=== PATIENT | male | born 1945 | race Caucasian/White ===

== ENCOUNTER → 2017-09-15 | Outpatient (CLI) | payer MEDICARE ==
[2017-09-15 14:01] VITALS: BP 131/76; PULSE 75; RESP 16; TEMP 97.9; BMI 37.3
--- NOTE | 2017-09-15 16:22 | P.HPBAR ---
Bariatric H&P - History & Physicial H&P Date: 09/15/17 History & Physicial: Visit/CC: band fill Patient initial contact: Initial weight: 179.623 kg Initial weight in pounds: 396.00 Height: 6 ft Initial BMI: 53.6 Last weight: Current weight: 124.965 kg Current weight in pounds: 275.50 Current BMI: 37.3 [place] body weight (based on NIH guidelines): 80.739 kg Excess body weight loss: 55.2% The patient is a 72 year-old M who presents for Bariatric Assessment. A shunt presents today for lab band follow up. He has not been seen several years. He has complaints of hunger. He wants a fill of his band. Past Medical History Past Medical History: Coronary Artery Disease (CAD), Hypertension, Neurologic Disorder Additional Past Medical History / Comment(s): parkinsons History of Any Multi-Drug Resistant Organisms: None Reported Past Surgical History: Bariatric Surgery, Cholecystectomy, Heart Catheterization Additional Past Surgical History / Comment(s): has two implanted batteries for parkinsons lap band surgery 2009 Past Anesthesia/Blood Transfusion Reactions: No Reported Reaction Past Psychological History: No Psychological Hx Reported Smoking Status: Former smoker Past Alcohol Use History: None Reported Past Drug Use History: None Reported Surgical - Exam Vital Signs Temp Pulse Resp BP 97.9 F 75 16 131/76 09/15/17 13:53 09/15/17 13:53 09/15/17 13:53 09/15/17 13:53 - General well developed, no distress - Eyes PERRL - ENT normal pinna - Neck no masses - Respiratory normal expansion - Cardiovascular Rhythm: regular - Abdomen Abdomen: soft, non tender Bariatric Assessment & Plan Plan: Patient's lap band was adjusted. He had 1 mL added to his band. He was ill drink water without difficulty. He'll follow-up in one month. Bariatric Checklist Checklist: Plan: Checklist: EGD: 1. Hiatal hernia: 2. H. Pylori: HgbA1c: Vitamin D: Smoking: Former smoker Primary care physician referral: dr manley Psychiatry clearance: Cardiology clearance: Sleep study: Diet journal: VTE risk score: VTE risk level: Rehab needs at discharge:
== END ==
LOC: BARWHC3 13:41
PROVIDERS: ATTEND Surgery
DX: Z48.815 Encounter for surgical aftercare following surgery on the digestive system (principal); Z87.891 Personal history of nicotine dependence; Z98.84 Bariatric surgery status
CPT/HCPCS: 99212

== ENCOUNTER → 2017-11-10 | Outpatient (CLI) | payer MEDICARE ==
[2017-11-10 14:52] VITALS: BP 161/88; PULSE 73; RESP 16; TEMP 98.1; BMI 38.2
--- NOTE | 2017-11-10 16:19 | P.HPBAR ---
Bariatric H&P - History & Physicial H&P Date: 11/10/17 History & Physicial: Visit/CC: Patient initial contact: Initial weight: 179.623 kg Initial weight in pounds: 396.00 Height: 6 ft Initial BMI: 53.6 Last weight: Current weight: 127.715 kg Current weight in pounds: 281.56 Current BMI: 38.2 [place] body weight (based on NIH guidelines): 80.739 kg Excess body weight loss: 52.4% The patient is a 72 year-old M who presents for Bariatric Assessment. The patient is requesting a fill of his LAP-BAND. He currently feels hungry. Past Medical History Past Medical History: Coronary Artery Disease (CAD), Hypertension, Neurologic Disorder Additional Past Medical History / Comment(s): parkinsons History of Any Multi-Drug Resistant Organisms: None Reported Past Surgical History: Bariatric Surgery, Cholecystectomy, Heart Catheterization Additional Past Surgical History / Comment(s): has two implanted batteries for parkinsons lap band surgery 2009 Past Anesthesia/Blood Transfusion Reactions: No Reported Reaction Past Psychological History: No Psychological Hx Reported Smoking Status: Former smoker Past Alcohol Use History: None Reported Past Drug Use History: None Reported Surgical - Exam Vital Signs Temp Pulse Resp BP 98.1 F 73 16 161/88 11/10/17 14:36 11/10/17 14:36 11/10/17 14:36 11/10/17 14:36 - General well developed, no distress - Eyes PERRL - ENT normal pinna - Neck no masses - Respiratory normal expansion - Cardiovascular Rhythm: regular - Abdomen Abdomen: soft, non tender Bariatric Assessment & Plan Plan: The patient LAP-BAND was addressed. He had 0.5 mL added to the band. He will follow-up in one month . Bariatric Checklist Checklist: Plan: Checklist: EGD: 1. Hiatal hernia: 2. H. Pylori: HgbA1c: Vitamin D: Smoking: Former smoker Primary care physician referral: dr manley Psychiatry clearance: Cardiology clearance: Sleep study: Diet journal: VTE risk score: VTE risk level: Rehab needs at discharge:
== END | disposition home or self-care (01) ==
LOC: BARWHC3 13:54
PROVIDERS: ATTEND Surgery
DX: Z48.815 Encounter for surgical aftercare following surgery on the digestive system (principal); Z87.891 Personal history of nicotine dependence; Z98.84 Bariatric surgery status
CPT/HCPCS: 99211

== ENCOUNTER → 2019-05-10 | Outpatient (CLI) | payer MEDICARE ==
--- NOTE | 2019-05-10 13:15 | US ---
EXAMINATION TYPE: US venous doppler duplex LE RT DATE OF EXAM: 05/10/2019 12:47 PM COMPARISON: NONE CLINICAL HISTORY: 73-year-old male pain in limb M25.571. Pt states right leg pain SIDE PERFORMED: Right TECHNIQUE: The lower extremity deep venous system is examined utilizing real time linear array sonog stevie with graded compression, doppler sonography and color-flow sonography. FINDINGS: VESSELS IMAGED: External Iliac Vein (EIV) Common Femoral Vein Deep Femoral Vein Greater Saphenous Vein * Femoral Vein Popliteal Vein Small Saphenous Vein * Proximal Calf Veins Posterior tibial veins are secured by extensive subcutaneous soft tissue edema. (* Superficial vessels) Right Leg: Negative for DVT IMPRESSION: 1. No evidence for DVT within the right lower extremity imaged from the groin to the upper calf. 2. The posterior tibial veins are obscured by extensive subcutaneous soft tissue swelling.
== END | disposition home or self-care (01) ==
LOC: RADUSWWP 12:25
PROVIDERS: ATTEND Orthopaedic Surgery
DX: M79.89 Other specified soft tissue disorders (principal); E11.9 Type 2 diabetes mellitus without complications; G20 Parkinson's disease; I11.9 Hypertensive heart disease without heart failure; M19.071 Primary osteoarthritis, right ankle and foot

== ENCOUNTER → 2019-05-17 | Outpatient (CLI) | payer MEDICARE ==
--- NOTE | 2019-05-17 17:47 | CT ---
EXAMINATION TYPE: CT ankle RT wo con DATE OF EXAM: 05/17/2019 COMPARISON: None HISTORY: Pain end 25.571 CT DLP: 168.9 mGycm Automated exposure control for dose reduction was used. CONTRAST: None FINDINGS: There is prominent soft tissue swelling within the distal ankle. There is an old fibular fracture jeremy dent. Old medial malleolar fracture is evident. There appears to be some subluxation of the talus lat erally in relation to the distal tibia. There is complete loss of the tibiotalar joint space with vac uum phenomenon. Subchondral cyst formation is evident within the talar dome as well as talocalcaneal junction posteriorly. An old posterior tibial fracture is not entirely excluded. Bohler's angle appears preserved. Acute fractures are not identified IMPRESSION: 1. ADVANCED OSTEOARTHRITIC DEGENERATIVE CHANGE THROUGH THE TALOTIBIAL JUNCTION. THIS MAY BE POSTTRAUM ATIC IN NATURE. 2. OLD POSTTRAUMATIC CHANGES INCLUDING MILD LATERAL SUBLUXATION OF THE TALUS IN RELATION TO THE TIBIA AND WIDENING OF THE MEDIAL PORTION OF THE MEDIAL ANKLE MORTISE.
== END | disposition home or self-care (01) ==
LOC: RADCTMAIN 15:22
PROVIDERS: ATTEND Orthopaedic Surgery
DX: M19.071 Primary osteoarthritis, right ankle and foot (principal); G20 Parkinson's disease; E11.9 Type 2 diabetes mellitus without complications; I11.9 Hypertensive heart disease without heart failure; S82.841D Displaced bimalleolar fracture of right lower leg, subsequent encounter for closed fracture with routine healing

== ENCOUNTER 2019-05-20 09:38 | Emergency (ER) | payer MEDICARE ==
[2019-05-20 10:06] LABS: Basophils # (A) 0.1 k/uL (0-0.2); Basophils % (A) 1 %; Eosinophils # (A) 0.3 k/uL (0-0.7); Eosinophils % (A) 2 %; HCT 39.9 % (39.0-53.0); HGB 13.5 gm/dL (13.0-17.5); Lymphocytes # (A) 1.3 k/uL (1.0-4.8); Lymphocytes % (A) 7 %; MCH 31.4 pg (25.0-35.0); MCHC 33.7 g/dL (31.0-37.0); MCV 93.3 fL (80.0-100.0); Mean Platelet Volume 6.9; Monocytes # (A) 0.5 k/uL (0-1.0); Monocytes % (A) 3 %; Neutrophils # (A) 16.4 k/uL (1.3-7.7); Neutrophils % (A) 87 %; Platelet Count 222 k/uL (150-450); RBC 4.28 m/uL (4.30-5.90); RDW 14.3 % (11.5-15.5); WBC 18.8 k/uL (3.8-10.6)
[2019-05-20 10:18] LABS: ALT 8 U/L (21-72); AST 17 U/L (17-59); African American GFR (CKD) >90 (>60 ml/min/1.73 sqM); Albumin 3.7 g/dL (3.5-5.0); Alkaline Phosphatase 148 U/L (38-126); Anion Gap 11 mmol/L; Blood Urea Nitrogen 24 mg/dL (9-20); Calcium 9.4 mg/dL (8.4-10.2); Carbon Dioxide 24 mmol/L (22-30); Chloride 105 mmol/L (98-107); Creatine Kinase 37 U/L (55-170); Glucose 280 mg/dL (74-99); Magnesium 1.5 mg/dL (1.6-2.3); Sodium 140 mmol/L (137-145); Total Bilirubin 0.6 mg/dL (0.2-1.3); Total Protein 6.6 g/dL (6.3-8.2)
[2019-05-20 10:23] LABS: Partial Thromboplastin Time 23.7 sec (22.0-30.0); Prothrombin Time 10.5 sec (9.0-12.0)
[2019-05-20 10:32] LABS: D-Dimer 0.96 mg/L FEU (<0.60)
--- NOTE | 2019-05-20 10:52 | XR ---
EXAMINATION TYPE: XR chest 2V DATE OF EXAM: 05/20/2019 COMPARISON: Prior chest x-ray dated 04/09/2012 HISTORY: Shortness of breath and chest pain TECHNIQUE: Frontal and lateral views of the chest are obtained. FINDINGS: There are generators over the bilateral pectoral regions with leads coursing cephalad off t he edge of the exam. There is no pneumothorax or pleural effusion. There are overlying cardiac leads. Cardiac mediastinal silhouette, pulmonary vascularity and isr[place] are stable. Patient is again rotated . No evident airspace disease. Thoracic spondylosis is present. IMPRESSION: No acute cardiopulmonary process.
--- NOTE | 2019-05-20 11:50 | CT ---
EXAMINATION TYPE: CT angio chest DATE OF EXAM: 05/20/2019 COMPARISON: Chest x-ray same date HISTORY: Mid Chest pain with shortness of breath CT DLP: 721.6 mGycm Automated exposure control for dose reduction was used. CONTRAST: CTA scan of the thorax is performed with IV Contrast, patient injected with 100 mL of Isovue 370, pul monary embolism protocol. MIP images are created and reviewed. 3D reconstructed images are created on an independent workstation and reviewed. FINDINGS: LUNGS: The lungs are grossly clear, there is no concerning parenchymal mass or nodule identified. Th ere is some motion which could limit sensitivity. Some minimal probable scarring present adjacent to the spine. There is no pleural effusion or pneumothorax seen. The tracheobronchial tree is patent. AORTA: No additional significant abnormality is seen. MEDIASTINUM: There is satisfactory enhancement of the pulmonary artery and its branches, there is no CT evidence for pulmonary embolism. There are no greater than 1 cm hilar or mediastinal lymph nodes. No pericardial effusion is seen. Patient is post lap band and there is air-fluid level present thr oughout the distribution of the mildly distended esophagus. There are coronary artery calcifications present. OTHER: Calcifications present within the spleen suggesting old granulomatous disease. Stimulator is present in the pectoral regions show leads coursing in a cephalad direction. Thoracic s pondylosis is present. IMPRESSION: No evident pulmonary embolism. CORRELATE FOR POSSIBLE RELATIVE OBSTRUCTION AT THE LEVEL OF THE PATIEN T'S GASTROESOPHAGEAL JUNCTION, LAP BAND.
--- NOTE | 2019-05-20 12:42 | ED ---
Chest Pain HPI - General Chief Complaint: Chest Pain Stated Complaint: Chest Pain Time Seen by Provider: 05/20/19 09:38 Source: patient, EMS, RN notes reviewed Mode of arrival: EMS Limitations: no limitations - History of Present Illness Initial Comments: This is a 73-year-old male with a history of Parkinson's disease who does have nerve stimulators who states that he had the onset at 7:00 this morning of sharp midsternal chest pain with no radiation no overt shortness of breath fevers chills nausea or other symptoms. He was brought in by EMS. State that he felt much improved after arrival. He denies any other complaints this timetrauma no stress was upper torso or extremities. No fevers chills cough phlegm production dysuria hematuria or other symptoms abdominal pain. MD Complaint: chest pain - Related Data Home Medications Medication Instructions Recorded Confirmed Allopurinol [Zyloprim] 300 mg PO DAILY 07/28/17 05/20/19 Aspirin 81 mg PO DAILY 07/28/17 05/20/19 Hydrochlorothiazide [Hydrodiuril] 12.5 mg PO DAILY 07/28/17 05/20/19 Metoprolol Succinate [Toprol XL] 25 mg PO DAILY 07/28/17 05/20/19 Pravastatin Sodium [Pravachol] 40 mg PO HS 07/28/17 05/20/19 Tamsulosin [Flomax] 0.4 mg PO DAILY 07/28/17 05/20/19 glipiZIDE [Glucotrol] 5 mg PO DAILY 07/28/17 05/20/19 metFORMIN HCL [Glucophage] 1,000 mg PO BID 07/28/17 05/20/19 Carbidopa-Levodopa ER 50-200Mg 1 tab PO BID@0800,1200 05/20/19 05/20/19 [Sinemet ER 50-200] Potassium Chloride ER [K-Dur 10] 10 meq PO DAILY 05/20/19 05/20/19 Pramipexole Di-HCl [Mirapex] 3 mg PO DAILY 05/20/19 05/20/19 Previous Rx's Medication Instructions Recorded Ibuprofen 800 mg PO Q6HR PRN #20 tablet 05/20/19 Allergies Allergy/AdvReac Type Severity Reaction Status Date / Time No Known Allergies Allergy Verified 05/20/19 09:50 Review of Systems ROS Statement: Those systems with pertinent positive or pertinent negative responses have been documented in the HPI. ROS Other: All systems not noted in ROS Statement are negative. EKG Findings - EKG Results: EKG: interpreted by ERMD (Sinus arrhythmia with artifact present from the stimulator. Rate was 76 QRS 96 QT since QTC 44/454 this does correlate with that submitted by EMS.) Past Medical History Past Medical History: Coronary Artery Disease (CAD), Diabetes Mellitus, Hypertension, Myocardial Infarction ([place]), Neurologic Disorder Additional Past Medical History / Comment(s): parkinsons History of Any Multi-Drug Resistant Organisms: None Reported Past Surgical History: Bariatric Surgery, Cholecystectomy, Heart Catheterization Additional Past Surgical History / Comment(s): has two implanted batteries for parkinsons lap band surgery 2009 Past Anesthesia/Blood Transfusion Reactions: No Reported Reaction Past Psychological History: No Psychological Hx Reported Smoking Status: Former smoker Past Alcohol Use History: None Reported Past Drug Use History: None Reported General Exam - General Exam Comments Initial Comments: This is a well-developed well-nourished awake alert oriented times 3 male Limitations: no limitations General appearance: alert, in no apparent distress Head exam: Present: atraumatic, normocephalic, normal inspection Eye exam: Present: normal appearance, PERRL, EOMI. Absent: scleral icterus, conjunctival injection, periorbital swelling ENT exam: Present: normal exam, mucous membranes moist Neck exam: Present: normal inspection. Absent: tenderness, meningismus, lymphadenopathy Respiratory exam: Present: normal lung sounds bilaterally, chest wall tenderness (Tenderness palpation over the costal sternal margin especially on the right the battery packs in the right upper and left upper chest wall are intact.). Absent: respiratory distress, wheezes, rales, rhonchi, stridor Cardiovascular Exam: Present: regular rate, normal rhythm, normal heart sounds. Absent: systolic murmur, diastolic murmur, rubs, gallop, clicks GI/Abdominal exam: Present: soft, normal bowel sounds. Absent: distended, tenderness, guarding, rebound, rigid Extremities exam: Present: normal inspection, full ROM, normal capillary refill. Absent: tenderness, pedal edema, joint swelling, calf tenderness Back exam: Present: normal inspection Neurological exam: Present: alert, oriented X3, CN II-XII intact Psychiatric exam: Present: normal affect, normal mood Skin exam: Present: warm, dry, intact, normal color. Absent: rash Course Vital Signs 05/20/19 05/20/19 05/20/19 09:40 09:47 10:00 Temperature 98.1 F Pulse Rate 75 76 72 Respiratory 20 14 22 Rate Blood Pressure 149/90 149/90 O2 Sat by Pulse 97 96 Oximetry 05/20/19 05/20/19 05/20/19 10:30 11:00 11:30 Temperature Pulse Rate 76 63 Respiratory 25 H 10 L Rate Blood Pressure 139/87 173/115 141/88 O2 Sat by Pulse 99 98 Oximetry 05/20/19 12:00 Temperature Pulse Rate Respiratory Rate Blood Pressure 141/88 O2 Sat by Pulse Oximetry Chest Pain MDM - MDM I did review the imaging and report no acute findings are seen. No evidence of PE. I did a long discussion the patient family regarding the findings. The presentation consistent with chest wall pain/costochondritis. The leukocytosis is likely reactive has no infectious processes are identified he's had no dysuria hematuria flank pain or other symptoms. He's eating has I was discussing with this without any difficulty. He'll be discharged with follow-up with his doctor return when necessary additionally the presentation doesn't suggest a vasovagal episode. Disposition Clinical Impression: Costochondritis, Chest wall syndrome, Leukocytosis, Hypomagnesemia Disposition: HOME SELF-CARE Condition: Good Instructions (If sedation given, give patient instructions): Costochondritis (ED), Hypomagnesemia (ED) Additional Instructions: Prescriptions sent to your preferred [facility] pharmacy Prescriptions: Ibuprofen 800 mg PO Q6HR PRN #20 tablet PRN Reason: Pain Is patient prescribed a controlled substance at d/c from ED?: No Referrals: Bharti Nieto MD [Primary Care Provider] - 1-2 days
[2019-05-20 13:48] VITALS: BP 128/80; PULSE 58; RESP 18; TEMP 97.3
== END 2019-05-20 14:53 | disposition home or self-care (01) ==
LOC: EC 09:38
DX: M94.0 Chondrocostal junction syndrome [Tietze] (principal); E83.42 Hypomagnesemia; D72.829 Elevated white blood cell count, unspecified; I25.10 Atherosclerotic heart disease of native coronary artery without angina pectoris; E11.9 Type 2 diabetes mellitus without complications; I10 Essential (primary) hypertension; I25.2 Old myocardial infarction; G20 Parkinson's disease; Z87.891 Personal history of nicotine dependence; Z79.82 Long term (current) use of aspirin; Z79.84 Long term (current) use of oral hypoglycemic drugs; Z79.899 Other long term (current) drug therapy; Z95.818 Presence of other cardiac implants and grafts; Z96.89 Presence of other specified functional implants
CPT/HCPCS: 36415; 93005; 85379; 83880; 80053; 82550; 83735; 84484; 85025; 85610; 85730; 71046; 71275; 99285; Q9967

== ENCOUNTER → 2019-05-31 | Outpatient (CLI) | payer MEDICARE ==
[2019-05-31 14:46] VITALS: BP 138/89; PULSE 79; TEMP 97.6; BMI 38.5
--- NOTE | 2019-05-31 16:50 | P.HPBAR ---
Bariatric H&P - History & Physicial H&P Date: 05/31/19 History & Physicial: Visit/CC: band adjustment (night regurgitation) Patient initial contact: Initial weight: 179.623 kg Initial weight in pounds: 396.00 Height: 6 ft Initial BMI: 53.6 Last weight: Current weight: 128.639 kg Current weight in pounds: 283.60 Current BMI: 38.5 [place] body weight (based on NIH guidelines): 80.739 kg Excess body weight loss: 51.5% The patient is a 73 year-old M who presents for Bariatric Assessment. Patient presents today for her LAP-BAND adjustment. He states he is having issues with dysphagia. Past Medical History Past Medical History: Coronary Artery Disease (CAD), Diabetes Mellitus, Hypertension, Myocardial Infarction ([place]), Neurologic Disorder Additional Past Medical History / Comment(s): parkinsons Last Myocardial Infarction Date:: unknown History of Any Multi-Drug Resistant Organisms: None Reported Past Surgical History: Bariatric Surgery, Cholecystectomy, Heart Catheterization Additional Past Surgical History / Comment(s): has two implanted batteries for parkinsons lap band surgery 2009 Past Anesthesia/Blood Transfusion Reactions: No Reported Reaction Past Psychological History: No Psychological Hx Reported Smoking Status: Former smoker Past Alcohol Use History: None Reported Past Drug Use History: None Reported Surgical - Exam Vital Signs Temp Pulse BP 97.6 F 79 138/89 05/31/19 14:42 05/31/19 14:42 05/31/19 14:42 - General well developed, well nourished, no distress - Eyes PERRL - Abdomen Abdomen: soft, non tender Bariatric Assessment & Plan Plan: Dysphagia. Patient's lap band was adjusted. He had 2 mL removed from his band. He currently has 3 mL in the band. He'll follow-up in one month. Bariatric Checklist Checklist: Plan: Checklist: EGD: 1. Hiatal hernia: 2. H. Pylori: HgbA1c: Vitamin D: Smoking: Former smoker Primary care physician referral: dr manley Psychiatry clearance: Cardiology clearance: Sleep study: Diet journal: VTE risk score: VTE risk level: Rehab needs at discharge:
== END ==
LOC: BARWHC3 13:09
PROVIDERS: ATTEND Surgery
DX: Z48.815 Encounter for surgical aftercare following surgery on the digestive system (principal); R13.10 Dysphagia, unspecified; Z98.84 Bariatric surgery status; Z90.49 Acquired absence of other specified parts of digestive tract; Z87.891 Personal history of nicotine dependence
CPT/HCPCS: 99212

== ENCOUNTER → 2019-08-06 | Outpatient (CLI) | payer MEDICARE ==
[2019-08-06 08:56] LABS: C Reactive Protein <5.0 mg/L (<10.0); Uric Acid 4.5 mg/dL (3.5-8.5)
--- NOTE | 2019-08-06 11:52 | NM ---
EXAMINATION TYPE: NM bone 3 phase DATE OF EXAM: 08/06/2019 COMPARISON: No plain films or additional imaging made available for correlation HISTORY: Pain in right knee Triple phase bone scintigraphy was performed following the injection of 20 mCi Tc 99m MDP. Immediate images and 3.5 hours post injection images acquired. FINDINGS: There is photopenic defect present at the level of the right knee consistent with patient's history o f arthroplasty. There is no increased blood flow and blood pool activity noted the right knee. Left k nee show some mild decreased uptake on blood flow uptake and on delayed imaging the left knee shows u ptake likely due to osteoarthritic change. The right knee show some mild uptake along the tibial surface and also along the condyles of the dist al right femur which may be due to stress change. IMPRESSION: Mild uptake along the proximal tibia as described on delayed imaging is nonspecific, there are postop changes. Osteoarthritic change of the left knee.
== END ==
LOC: RADNMMAIN 07:13
PROVIDERS: ATTEND Orthopaedic Surgery
DX: M17.12 Unilateral primary osteoarthritis, left knee (principal); R93.7 Abnormal findings on diagnostic imaging of other parts of musculoskeletal system; Z98.890 Other specified postprocedural states
CPT/HCPCS: 85652; 84443; 84550; 86140; 78315; A9503

== ENCOUNTER 2019-09-09 05:56 | Emergency (ER) | payer MEDICARE ==
[2019-09-09 06:05] LABS: Glucose,Whole Blood 178 mg/dL (75-99)
[2019-09-09] MEDS ORDERED: SODIUM CHLORIDE 0.9% 500 ML 500 ML IV STA (06:05)
[2019-09-09] MEDS ORDERED: METOPROLOL TARTRATE 50 MG TAB PO STA (06:06)
[2019-09-09 06:07] VITALS: TEMP 99.3
[2019-09-09 06:19] LABS: Basophils % (A) 0 %; Eosinophils # (A) 0.1 k/uL (0-0.7); Eosinophils % (A) 1 %; HCT 43.1 % (39.0-53.0); HGB 14.4 gm/dL (13.0-17.5); Lymphocytes # (A) 0.8 k/uL (1.0-4.8); Lymphocytes % (A) 11 %; MCH 31.3 pg (25.0-35.0); MCHC 33.4 g/dL (31.0-37.0); MCV 93.6 fL (80.0-100.0); Mean Platelet Volume 7.6; Monocytes # (A) 0.3 k/uL (0-1.0); Monocytes % (A) 4 %; Neutrophils # (A) 6.1 k/uL (1.3-7.7); Neutrophils % (A) 83 %; Platelet Count 197 k/uL (150-450); RDW 13.8 % (11.5-15.5); WBC 7.4 k/uL (3.8-10.6)
[2019-09-09 06:28] LABS: ALT 45 U/L (4-49); AST 218 U/L (17-59); African American GFR (CKD) >90 (>60 ml/min/1.73 sqM); Albumin 3.8 g/dL (3.5-5.0); Alkaline Phosphatase 160 U/L (38-126); Blood Urea Nitrogen 28 mg/dL (9-20); Calcium 8.4 mg/dL (8.4-10.2); Carbon Dioxide 25 mmol/L (22-30); Creatine Kinase 53 U/L (55-170); Glucose 190 mg/dL (74-99); Magnesium 1.2 mg/dL (1.6-2.3); Non-African American GFR(CKD) >90 (>60 ml/min/1.73 sqM); Total Bilirubin 1.3 mg/dL (0.2-1.3); Total Protein 6.5 g/dL (6.3-8.2)
[2019-09-09 06:29] LABS: Appearance,Urine Clear (Clear); Bilirubin,Urine Negative (Negative); Blood,Urine Negative (Negative); Color,Urine Yellow; Glucose,Urine (UA) Negative (Negative); Ketones,Urine 1+ (Negative); Leukocyte Esterase,Urine Negative (Negative); Nitrite,Urine Negative (Negative); Protein,Urine Trace (Negative); Specific Gravity,Urine 1.025 (1.001-1.035)
[2019-09-09 06:30] LABS: Partial Thromboplastin Time 22.6 sec (22.0-30.0); Prothrombin Time 10.6 sec (9.0-12.0)
[2019-09-09 06:33] LABS: Anion Gap 10 mmol/L; Chloride 105 mmol/L (98-107); Sodium 140 mmol/L (137-145)
--- NOTE | 2019-09-09 06:33 | ED ---
General Adult HPI - General Source: patient, EMS, RN notes reviewed Mode of arrival: EMS Limitations: physical limitation <Nash Gray - Last Filed: 09/09/19 07:39> <Jairo Rivas - Last Filed: 09/09/19 08:04> - General Stated complaint: Weakness Time Seen by Provider: 09/09/19 05:57 - History of Present Illness Initial comments: This is a 74-year-old male presents emergency department via EMS chief complaint of generalized weakness. Patient has no specific complaints. Patient called EMS for a lift assist as he slid out of his bed and could not get up. Patient does have been ambulating as it is secondary to his Parkinson's disease. Patient denies any head injury no loss conscious. He states it barely slid out of his bed onto the ground. He has no pain associated with this. Patient has no complaints of headache, dizziness, blurred vision, chest pain, shortness breath, nausea vomiting no focal weakness. Patient states his general has weakness started primarily last night. Patient did not take his morning medications. Patient found be hypertensive does take metoprolol in the morning. Patient had prior lap band surgery, and plans for his Parkinson's disease. Patient denies any new medications or medication changes. (Nash Gray) - Related Data Home Medications Medication Instructions Recorded Confirmed Allopurinol [Zyloprim] 300 mg PO DAILY 07/28/17 09/09/19 Aspirin 81 mg PO DAILY 07/28/17 09/09/19 Hydrochlorothiazide [Hydrodiuril] 12.5 mg PO DAILY 07/28/17 09/09/19 Pravastatin Sodium [Pravachol] 40 mg PO HS 07/28/17 09/09/19 Tamsulosin [Flomax] 0.4 mg PO DAILY 07/28/17 09/09/19 glipiZIDE [Glucotrol] 5 mg PO DAILY 07/28/17 09/09/19 Potassium Chloride ER [K-Dur 10] 10 meq PO HS 05/20/19 09/09/19 Carbidopa-Levodopa 25-250 mg 1 tab PO TID 09/09/19 09/09/19 [Sinemet 25-250] Meloxicam 15 mg PO DAILY 09/09/19 09/09/19 Metoprolol Succinate (ER) [Toprol 50 mg PO DAILY 09/09/19 09/09/19 Xl] Pramipexole Di-HCl [Mirapex ER] 3 mg PO DAILY 09/09/19 09/09/19 metFORMIN HCL 1,000 mg PO BID 09/09/19 09/09/19 Allergies Allergy/AdvReac Type Severity Reaction Status Date / Time No Known Allergies Allergy Verified 09/09/19 07:03 Review of Systems ROS Other: All systems not noted in ROS Statement are negative. <Nash Gray - Last Filed: 09/09/19 07:39> ROS Other: All systems not noted in ROS Statement are negative. <Jairo Rivas - Last Filed: 09/09/19 08:04> ROS Statement: Those systems with pertinent positive or pertinent negative responses have been documented in the HPI. Past Medical History Past Medical History: Coronary Artery Disease (CAD), Diabetes Mellitus, Hypertension, Myocardial Infarction ([place]), Neurologic Disorder Additional Past Medical History / Comment(s): parkinsons Last Myocardial Infarction Date:: unknown History of Any Multi-Drug Resistant Organisms: None Reported Past Surgical History: Bariatric Surgery, Cholecystectomy, Heart Catheterization Additional Past Surgical History / Comment(s): has two implanted batteries for parkinsons lap band surgery 2009 Past Anesthesia/Blood Transfusion Reactions: No Reported Reaction Past Psychological History: No Psychological Hx Reported Smoking Status: Former smoker Past Alcohol Use History: None Reported Past Drug Use History: None Reported <Nash Gray - Last Filed: 09/09/19 07:39> General Exam Limitations: physical limitation General appearance: alert, in no apparent distress Head exam: Present: atraumatic, normocephalic, normal inspection Eye exam: Present: normal appearance, PERRL, EOMI. Absent: scleral icterus, conjunctival injection, periorbital swelling ENT exam: Present: normal exam, normal oropharynx, mucous membranes moist, TM's normal bilaterally Neck exam: Present: normal inspection, full ROM. Absent: tenderness, meningismus, lymphadenopathy Respiratory exam: Present: normal lung sounds bilaterally. Absent: respiratory distress, wheezes, rales, rhonchi, stridor Cardiovascular Exam: Present: regular rate, normal rhythm, normal heart sounds. Absent: systolic murmur, diastolic murmur, rubs, gallop, clicks GI/Abdominal exam: Present: soft, normal bowel sounds. Absent: distended, tenderness, guarding, rebound, rigid Extremities exam: Present: normal inspection, full ROM, normal capillary refill, other (No focal weakness). Absent: tenderness, pedal edema, joint swelling, calf tenderness Neurological exam: Present: alert, oriented X3, CN II-XII intact, reflexes normal. Absent: motor sensory deficit Skin exam: Present: warm, dry, intact, normal color. Absent: rash <Nash Gray - Last Filed: 09/09/19 07:39> Course <Jairo Rivas - Last Filed: 09/09/19 08:04> Vital Signs 09/09/19 09/09/19 09/09/19 06:01 06:30 07:00 Temperature 99.3 F Pulse Rate 84 80 70 Respiratory 18 18 17 Rate Blood Pressure 186/106 186/104 175/106 O2 Sat by Pulse 93 L 97 96 Oximetry - Reevaluation(s) Reevaluation #1: 09/09/19 08:04 T-sheet supervision: I proceeded [id number] evaluation the patient he did present by EMS earlier today because of weakness. Clinically he demonstrates evidence of dehydration. He also is hypomagnesemic. He did receive supplementation he initially much improved and is able ambulate walker as per normal. He was encouraged to increase oral fluid intake. I do agree with the assessment and plan the patient is in agreement with this. (Jairo Rivas) EKG Findings - EKG Comments: EKG Findings:: EKG performed at 5:58 normal sinus rhythm left anterior fascicular block rate of 82 NV 152 QRS 114 QT/QTC 432 /504 <Nash Gray - Last Filed: 09/09/19 07:39> Medical Decision Making - Lab Data Result diagrams: 09/09/19 06:00 09/09/19 06:00 <Nash Gray - Last Filed: 09/09/19 07:39> - Lab Data Result diagrams: 09/09/19 06:00 09/09/19 06:00 <Jairo Rivas - Last Filed: 09/09/19 08:04> - Medical Decision Making 74-year-old male presented for generalized weakness complaints. Patient found to have hypomagnesemia 1.2 was replaced with 1 g of magnesium IV, patient was mildly dehydrated was given fluid bolus patient feels improved able to stand and may relate with her as usual at home. Patient discharged. (Nash Gray) - Lab Data Lab Results 09/09/19 09/09/19 09/09/19 Range/Units 06:00 06:00 06:00 WBC 7.4 (3.8-10.6) k/uL RBC 4.60 (4.30-5.90) m/uL Hgb 14.4 (13.0-17.5) gm/dL Hct 43.1 (39.0-53.0) % MCV 93.6 (80.0-100.0) fL MCH 31.3 (25.0-35.0) pg MCHC 33.4 (31.0-37.0) g/dL RDW 13.8 (11.5-15.5) % Plt Count 197 (150-450) k/uL Neutrophils % 83 % Lymphocytes % 11 % Monocytes % 4 % Eosinophils % 1 % Basophils % 0 % Neutrophils # 6.1 (1.3-7.7) k/uL Lymphocytes # 0.8 L (1.0-4.8) k/uL Monocytes # 0.3 (0-1.0) k/uL Eosinophils # 0.1 (0-0.7) k/uL Basophils # 0.0 (0-0.2) k/uL PT (9.0-12.0) sec INR (<1.2) APTT (22.0-30.0) sec Sodium 140 (137-145) mmol/L Potassium 4.0 (3.5-5.1) mmol/L Chloride 105 (98-107) mmol/L Carbon Dioxide 25 (22-30) mmol/L Anion Gap 10 mmol/L BUN 28 H (9-20) mg/dL Creatinine 0.73 (0.66-1.25) mg/dL Est GFR (CKD-EPI)AfAm >90 (>60 ml/min/1.73 sqM) Est GFR (CKD-EPI)NonAf >90 (>60 ml/min/1.73 sqM) Glucose 190 H (74-99) mg/dL POC Glucose (mg/dL) (75-99) mg/dL POC Glu Manager Food Safety ID Plasma Lactic Acid [place]arrison 1.7 (0.7-2.0) mmol/L Calcium 8.4 (8.4-10.2) mg/dL Magnesium 1.2 L (1.6-2.3) mg/dL Total Bilirubin 1.3 (0.2-1.3) mg/dL AST 218 H (17-59) U/L ALT 45 (4-49) U/L Alkaline Phosphatase 160 H (38-126) U/L Creatine Kinase 53 L (55-170) U/L Troponin I (0.000-0.034) ng/mL Total Protein 6.5 (6.3-8.2) g/dL Albumin 3.8 (3.5-5.0) g/dL Urine Color Urine Appearance (Clear) Urine pH (5.0-8.0) Ur Specific [place] (1.001-1.035) Urine Protein (Negative) Urine Glucose (UA) (Negative) Urine Ketones (Negative) Urine Blood (Negative) Urine Nitrite (Negative) Urine Bilirubin (Negative) Urine Urobilinogen (<2.0) mg/dL Ur Leukocyte Esterase (Negative) 09/09/19 09/09/19 09/09/19 Range/Units 06:00 06:00 06:03 WBC (3.8-10.6) k/uL RBC (4.30-5.90) m/uL Hgb (13.0-17.5) gm/dL Hct (39.0-53.0) % MCV (80.0-100.0) fL MCH (25.0-35.0) pg MCHC (31.0-37.0) g/dL RDW (11.5-15.5) % Plt Count (150-450) k/uL Neutrophils % % Lymphocytes % % Monocytes % % Eosinophils % % Basophils % % Neutrophils # (1.3-7.7) k/uL Lymphocytes # (1.0-4.8) k/uL Monocytes # (0-1.0) k/uL Eosinophils # (0-0.7) k/uL Basophils # (0-0.2) k/uL PT 10.6 (9.0-12.0) sec INR 1.0 (<1.2) APTT 22.6 (22.0-30.0) sec Sodium (137-145) mmol/L Potassium (3.5-5.1) mmol/L Chloride (98-107) mmol/L Carbon Dioxide (22-30) mmol/L Anion Gap mmol/L BUN (9-20) mg/dL Creatinine (0.66-1.25) mg/dL Est GFR (CKD-EPI)AfAm (>60 ml/min/1.73 sqM) Est GFR (CKD-EPI)NonAf (>60 ml/min/1.73 sqM) Glucose (74-99) mg/dL POC Glucose (mg/dL) 178 H (75-99) mg/dL POC Glu Manager Food Safety ID Kathy Jaimes Plasma Lactic Acid [place] (0.7-2.0) mmol/L Calcium (8.4-10.2) mg/dL Magnesium (1.6-2.3) mg/dL Total Bilirubin (0.2-1.3) mg/dL AST (17-59) U/L ALT (4-49) U/L Alkaline Phosphatase (38-126) U/L Creatine Kinase (55-170) U/L Troponin I <0.012 (0.000-0.034) ng/mL Total Protein (6.3-8.2) g/dL Albumin (3.5-5.0) g/dL Urine Color Urine Appearance (Clear) Urine pH (5.0-8.0) Ur Specific [place] (1.001-1.035) Urine Protein (Negative) Urine Glucose (UA) (Negative) Urine Ketones (Negative) Urine Blood (Negative) Urine Nitrite (Negative) Urine Bilirubin (Negative) Urine Urobilinogen (<2.0) mg/dL Ur Leukocyte Esterase (Negative) 09/09/19 Range/Units 06:19 WBC (3.8-10.6) k/uL RBC (4.30-5.90) m/uL Hgb (13.0-17.5) gm/dL Hct (39.0-53.0) % MCV (80.0-100.0) fL MCH (25.0-35.0) pg MCHC (31.0-37.0) g/dL RDW (11.5-15.5) % Plt Count (150-450) k/uL Neutrophils % % Lymphocytes % % Monocytes % % Eosinophils % % Basophils % % Neutrophils # (1.3-7.7) k/uL Lymphocytes # (1.0-4.8) k/uL Monocytes # (0-1.0) k/uL Eosinophils # (0-0.7) k/uL Basophils # (0-0.2) k/uL PT (9.0-12.0) sec INR (<1.2) APTT (22.0-30.0) sec Sodium (137-145) mmol/L Potassium (3.5-5.1) mmol/L Chloride (98-107) mmol/L Carbon Dioxide (22-30) mmol/L Anion Gap mmol/L BUN (9-20) mg/dL Creatinine (0.66-1.25) mg/dL Est GFR (CKD-EPI)AfAm (>60 ml/min/1.73 sqM) Est GFR (CKD-EPI)NonAf (>60 ml/min/1.73 sqM) Glucose (74-99) mg/dL POC Glucose (mg/dL) (75-99) mg/dL POC Glu Manager Food Safety ID Plasma Lactic Acid [place] (0.7-2.0) mmol/L Calcium (8.4-10.2) mg/dL Magnesium (1.6-2.3) mg/dL Total Bilirubin (0.2-1.3) mg/dL AST (17-59) U/L ALT (4-49) U/L Alkaline Phosphatase (38-126) U/L Creatine Kinase (55-170) U/L Troponin I (0.000-0.034) ng/mL Total Protein (6.3-8.2) g/dL Albumin (3.5-5.0) g/dL Urine Color Yellow Urine Appearance Clear (Clear) Urine pH 5.0 (5.0-8.0) Ur Specific [place] 1.025 (1.001-1.035) Urine Protein Trace H (Negative) Urine Glucose (UA) Negative (Negative) Urine Ketones 1+ H (Negative) Urine Blood Negative (Negative) Urine Nitrite Negative (Negative) Urine Bilirubin Negative (Negative) Urine Urobilinogen 2.0 (<2.0) mg/dL Ur Leukocyte Esterase Negative (Negative) Disposition Is patient prescribed a controlled substance at d/c from ED?: No Time of Disposition: 07:40 <Nash Gray - Last Filed: 09/09/19 07:39> <Jairo Rivas - Last Filed: 09/09/19 08:04> Clinical Impression: Generalized weakness, Hypomagnesemia, Dehydration, mild Disposition: HOME SELF-CARE Condition: Stable Instructions (If sedation given, give patient instructions): Weakness (ED) Additional Instructions: Please return to the Emergency Department if symptoms worsen or any other concerns. Referrals: Bharti Nieto MD [Primary Care Provider] - 1-2 days
--- NOTE | 2019-09-09 06:38 | XR ---
EXAMINATION TYPE: XR chest 2V DATE OF EXAM: 09/09/2019 COMPARISON: 05/20/2019 HISTORY: Weakness TECHNIQUE: FINDINGS: Heart is normal. Lungs are clear of infiltrate. There is no heart failure. There is no pleu ral effusion. There are chest leads. IMPRESSION: No active cardiopulmonary disease. Normal heart. No change.
[2019-09-09] MEDS ORDERED: MAGNESIUM SULFATE-D5W PMX 1 GM in DEXTROSE/WATER 1 100ML.BAG IVPB ONE (06:40)
[2019-09-09 08:33] VITALS: RESP 16
[2019-09-09 10:20] VITALS: BP 148/82; PULSE 103
== END 2019-09-09 09:15 | disposition home or self-care (01) ==
LOC: EC 05:56
DX: E83.42 Hypomagnesemia (principal); E86.0 Dehydration; I10 Essential (primary) hypertension; I25.10 Atherosclerotic heart disease of native coronary artery without angina pectoris; E11.9 Type 2 diabetes mellitus without complications; I25.2 Old myocardial infarction; G20 Parkinson's disease; Z87.891 Personal history of nicotine dependence; Z79.1 Long term (current) use of non-steroidal anti-inflammatories (NSAID); Z79.82 Long term (current) use of aspirin; Z79.84 Long term (current) use of oral hypoglycemic drugs; Z79.899 Other long term (current) drug therapy; Z95.818 Presence of other cardiac implants and grafts; Z96.89 Presence of other specified functional implants; Z98.84 Bariatric surgery status
CPT/HCPCS: 99285; 96365; 36415; 93005; 80053; 82550; 83605; 83735; 84484; 85025; 85610; 85730; 81003; 71046; J3475

== ENCOUNTER → 2020-01-03 | Outpatient (CLI) | payer MEDICARE ==
[2020-01-03 10:59] LABS: Basophils # (A) 0.1 k/uL (0-0.2); Basophils % (A) 1 %; Eosinophils # (A) 0.4 k/uL (0-0.7); Eosinophils % (A) 5 %; HCT 42.6 % (39.0-53.0); HGB 13.7 gm/dL (13.0-17.5); Hypochromasia Slight; Lymphocytes % (A) 25 %; MCH 31.4 pg (25.0-35.0); MCHC 32.3 g/dL (31.0-37.0); MCV 97.4 fL (80.0-100.0); Mean Platelet Volume 7.6; Monocytes # (A) 0.3 k/uL (0-1.0); Monocytes % (A) 4 %; Neutrophils % (A) 63 %; Platelet Count 235 k/uL (150-450); RBC 4.37 m/uL (4.30-5.90); RDW 13.9 % (11.5-15.5); WBC 7.9 k/uL (3.8-10.6)
[2020-01-03 11:04] LABS: Appearance,Urine Clear (Clear); Bilirubin,Urine Negative (Negative); Blood,Urine Negative (Negative); Color,Urine Yellow; Glucose,Urine (UA) 3+ (Negative); Ketones,Urine Negative (Negative); Leukocyte Esterase,Urine Negative (Negative); Nitrite,Urine Negative (Negative); Protein,Urine Trace (Negative); Specific Gravity,Urine 1.025 (1.001-1.035)
[2020-01-03 16:47] LABS: Albumin/Globulin Ratio 1.9 (1.60-3.17); Calcium 8.9 mg/dL (8.7-10.3); Globulin 2.1 g/dL (1.6-3.3); Non-African American GFR(CKD) 73.3 (60.0-200.0); Potassium 4.3 mmol/L (3.5-5.5); Total Bilirubin 0.6 mg/dL (0.2-1.2); Total Protein 6.1 g/dL (6.2-8.2)
== END | disposition home or self-care (01) ==
LOC: LABWHC1 10:22
PROVIDERS: ATTEND Psychiatry & Neurology Neurology
DX: R41.82 Altered mental status, unspecified (principal); Z91.81 History of falling; Z87.828 Personal history of other (healed) physical injury and trauma
CPT/HCPCS: 36415; 80053; 81003; 85025; 87077; 87086; 87186

== ENCOUNTER → 2020-02-09 | Outpatient (CLI) | payer MEDICARE ==
--- NOTE | 2020-02-16 12:32 | P.ARTDOP ---
Arterial Doppler LOWER EXTREMITY ARTERIAL DOPPLER: DATE OF SERVICE: 02/09/2020 Reason for study: Left leg ulcer. Doppler waveforms: Multiphasic bilaterally throughout. Pulse volume recording: Normal waveforms. Pressure gradients: None. Ankle-brachial indices: Greater than 1 bilaterally. Toe brachial indices: 0.88 on the right, 0.99 on the left Impression:Normal study
== END | disposition home or self-care (01) ==
LOC: RADUSWWP 12:27
PROVIDERS: ATTEND Nurse Practitioner Family
DX: I87.333 Chronic venous hypertension (idiopathic) with ulcer and inflammation of bilateral lower extremity (principal); L97.222 Non-pressure chronic ulcer of left calf with fat layer exposed; L97.212 Non-pressure chronic ulcer of right calf with fat layer exposed
CPT/HCPCS: 93923

== ENCOUNTER → 2020-06-09 | Outpatient (CLI) | payer MEDICARE ==
[2020-06-09 12:10] LABS: Basophils # (A) 0.1 k/uL (0-0.2); Basophils % (A) 1 %; Eosinophils # (A) 0.4 k/uL (0-0.7); Eosinophils % (A) 4 %; HCT 41.5 % (39.0-53.0); HGB 13.2 gm/dL (13.0-17.5); Lymphocytes # (A) 2.6 k/uL (1.0-4.8); Lymphocytes % (A) 26 %; MCH 31.4 pg (25.0-35.0); MCHC 31.7 g/dL (31.0-37.0); MCV 99.1 fL (80.0-100.0); Mean Platelet Volume 7.1; Monocytes # (A) 0.4 k/uL (0-1.0); Monocytes % (A) 4 %; Neutrophils # (A) 6.4 k/uL (1.3-7.7); Neutrophils % (A) 64 %; Platelet Count 213 k/uL (150-450); RBC 4.19 m/uL (4.30-5.90)
[2020-06-09 19:53] LABS: Hemoglobin A1C 7.5 % (4.0-6.0)
[2020-06-10 00:58] LABS: African American GFR (CKD) 96.5 (60.0-200.0); Albumin 4.1 g/dL (3.80-4.90); Albumin/Globulin Ratio 1.78 (1.60-3.17); Anion Gap 10.4 mmol/L (4.00-12.00); BUN/Creat Ratio 26.67 Ratio (12.00-20.00); Calcium 9.5 mg/dL (8.7-10.3); Carbon Dioxide 27.6 mmol/L (21.6-31.8); Globulin 2.3 g/dL (1.6-3.3); Non-African American GFR(CKD) 83.3 (60.0-200.0); Potassium 4.3 mmol/L (3.5-5.5); Total Bilirubin 0.5 mg/dL (0.2-1.2); Total Protein 6.4 g/dL (6.2-8.2)
== END | disposition home or self-care (01) ==
LOC: LABWHC1 11:39
PROVIDERS: ATTEND Podiatrist
DX: G20 Parkinson's disease (principal); L97.821 Non-pressure chronic ulcer of other part of left lower leg limited to breakdown of skin; I73.9 Peripheral vascular disease, unspecified; I10 Essential (primary) hypertension; I25.10 Atherosclerotic heart disease of native coronary artery without angina pectoris; E10.21 Type 1 diabetes mellitus with diabetic nephropathy
CPT/HCPCS: 36415; 80053; 83036; 84134; 85025

== ENCOUNTER → 2020-06-22 | Outpatient (CLI) | payer MEDICARE ==
--- NOTE | 2020-06-23 08:52 | US ---
EXAMINATION TYPE: US venous doppler duplex LE BI DATE OF EXAM: 06/22/2020 3:32 PM COMPARISON: Ultrasound venous lower extremity right 05/10/2019. CLINICAL HISTORY: L73.9 PERIPHERAL VASCULAR DISEASE, UNSPECIFIED. SIDE PERFORMED: Bilateral TECHNIQUE: The lower extremity deep venous system is examined utilizing real time linear array sonog stevie with graded compression, doppler sonography and color-flow sonography. VESSELS IMAGED: External Iliac Vein (EIV) Common Femoral Vein Deep Femoral Vein Greater Saphenous Vein * Femoral Vein Popliteal Vein Small Saphenous Vein * Proximal Calf Veins (* superficial vessels) Right Leg: There is reflux of the right greater saphenous vein distally. Left Leg: There is eccentric intraluminal echogenicity of the left femoral vein distally, which is a t least partially if not completely compressible. There is reflux of the left femoral vein distally, left proximal calf veins. IMPRESSION: 1. Eccentric nonocclusive thrombus of the left femoral vein distally. At least partial compressibilit y of the vein suggests this may be chronic thrombus. 2. Reflux of the bilateral lower extremities as above. A Red level critical message alert has been initiated for Oneal Rodriguez DPM via the [employer] Critical Results System on 06/23/2020 8:49 AM. This message alert has been sent to Onael Rodriguez DPM via the preferences provided by the clinician for the receipt of Radiology Critical Findings. Lamar ball ID [id number].
== END | disposition home or self-care (01) ==
LOC: RADUSWWP 14:27
PROVIDERS: ATTEND Podiatrist
DX: I82.412 Acute embolism and thrombosis of left femoral vein (principal); I87.2 Venous insufficiency (chronic) (peripheral)
CPT/HCPCS: 93970

== ENCOUNTER 2021-09-25 10:44 | Inpatient (IN) | payer MEDICARE ==
[2021-09-25] MEDS ORDERED: SODIUM CHLORIDE 0.9% 500 ML 500 ML IV STA (10:59)
--- NOTE | 2021-09-25 11:10 | ED ---
General Adult HPI - General Chief complaint: Shortness of Breath Stated complaint: Altered Mental, Weakness, Covid Time Seen by Provider: 09/25/21 10:50 Source: patient, EMS, RN notes reviewed, old records reviewed Mode of arrival: EMS Limitations: no limitations - History of Present Illness Initial comments: This is a 76-year-old male who [facility]. Patient was sent into the emergency department because of worsening weakness and altered mental status. To what degree the weakness is worse or to what degree the patient is altered we do not know because no family member or staff has come with the patient. Patient also had low oxygenation. Patient is unable to tell us. Patient also was diagnosed with COVID on September 20. No history of any fever. - Related Data Home Medications Medication Instructions Recorded Confirmed Aspirin 81 mg PO DAILY 07/28/17 09/25/21 Pravastatin Sodium [Pravachol] 40 mg PO HS 07/28/17 09/25/21 Tamsulosin [Flomax] 0.4 mg PO HS 07/28/17 09/25/21 allopurinoL [Zyloprim] 300 mg PO DAILY 07/28/17 09/25/21 glipiZIDE [Glucotrol] 5 mg PO DAILY 07/28/17 09/25/21 Pramipexole Di-HCl [Mirapex ER] 3 mg PO DAILY 09/15/21 09/25/21 hydroCHLOROthiazide 25 mg PO DAILY 09/15/21 09/25/21 Carbidopa/Levodopa [Carbidopa-Levo 1 tab PO TID@0800,1300,1700 09/25/21 09/25/21 25-250 mg Odt] Cyanocobalamin (Vitamin B-12) 1,000 mcg PO DAILY 09/25/21 09/25/21 [Vitamin B-12] metFORMIN HCL [Glucophage] 1,000 mg PO DAILY 09/25/21 09/25/21 Previous Rx's Medication Instructions Recorded Acetaminophen Tab [Tylenol] 650 mg PO Q6HR PRN tab 09/20/21 Losartan [Cozaar] 25 mg PO DAILY #30 tab 09/20/21 Metoprolol Succinate (ER) [Toprol 50 mg PO DAILY 30 Days 09/20/21 XL] Allergies Allergy/AdvReac Type Severity Reaction Status Date / Time No Known Allergies Allergy Verified 09/25/21 12:04 Review of Systems ROS Statement: Those systems with pertinent positive or pertinent negative responses have been documented in the HPI. ROS Other: All systems not noted in ROS Statement are negative. Past Medical History Past Medical History: Coronary Artery Disease (CAD), Diabetes Mellitus, Hypertension, Myocardial Infarction ([place]), Neurologic Disorder Additional Past Medical History / Comment(s): parkinsons Last Myocardial Infarction Date:: unknown History of Any Multi-Drug Resistant Organisms: None Reported Past Surgical History: Bariatric Surgery, Cholecystectomy, Heart Catheterization Additional Past Surgical History / Comment(s): has two implanted batteries for parkinsons lap band surgery 2009 Past Anesthesia/Blood Transfusion Reactions: No Reported Reaction Past Psychological History: No Psychological Hx Reported Smoking Status: Former smoker Past Alcohol Use History: None Reported Past Drug Use History: None Reported General Exam - General Exam Comments Initial Comments: GENERAL: Patient is well-developed and well-nourished. Patient is nontoxic and well- hydrated and is in no acute distress. ENT: Neck is soft and supple. No significant lymphadenopathy is noted. Oropharynx is clear. Moist mucous membranes. Neck has full range of motion without eliciting any pain. EYES: The sclera were anicteric and conjunctiva were pink and moist. Extraocular movements were intact and pupils were equal round and reactive to light. Eyelids were unremarkable. PULMONARY: Unlabored respirations. Good breath sounds bilaterally. No audible rales rhonchi or wheezing was noted. CARDIOVASCULAR: There is a regular rate and rhythm without any murmurs gallops or rubs. ABDOMEN: Soft and nontender with normal bowel sounds. SKIN: Skin is clear with no lesions or rashes and otherwise unremarkable. NEUROLOGIC: Patient is alert and oriented 1. Cranial nerves II through XII are grossly intact. Motor and sensory are also intact. Normal speech, volume and content. Symmetrical smile. MUSCULOSKELETAL: Normal extremities with adequate strength and full range of motion. 2+ edema bilaterally LYMPHATICS: No significant lymphadenopathy is noted PSYCHIATRIC: Unable to assess secondary to altered mental status Limitations: no limitations Course Vital Signs 09/25/21 09/25/21 09/25/21 10:47 11:24 12:23 Temperature 99.2 F Pulse Rate 50 L 50 L 56 L Respiratory 28 H 22 20 Rate Blood Pressure 214/82 147/107 156/81 O2 Sat by Pulse 68 L 98 100 Oximetry Medical Decision Making - Medical Decision Making Chest x-ray no acute normalities. CT of the chest shows no PE Patient was oxygenating in the high 90s on 6 L. I spoke with Dr. Blackmon she agreed to admit the patient admitted the patient wrote admitting orders. - Lab Data Result diagrams: 09/25/21 11:20 09/25/21 11:20 Lab Results 09/25/21 09/25/21 09/25/21 Range/Units 11:20 11:20 11:20 WBC 8.0 (3.8-10.6) k/uL RBC 4.25 L (4.30-5.90) m/uL Hgb 13.7 (13.0-17.5) gm/dL Hct 41.0 (39.0-53.0) % MCV 96.6 (80.0-100.0) fL MCH 32.3 (25.0-35.0) pg MCHC 33.5 (31.0-37.0) g/dL RDW 13.5 (11.5-15.5) % Plt Count 175 (150-450) k/uL MPV 8.1 Neutrophils % 65 % Lymphocytes % 24 % Monocytes % 8 % Eosinophils % 2 % Basophils % 0 % Neutrophils # 5.2 (1.3-7.7) k/uL Lymphocytes # 1.9 (1.0-4.8) k/uL Monocytes # 0.6 (0-1.0) k/uL Eosinophils # 0.2 (0-0.7) k/uL Basophils # 0.0 (0-0.2) k/uL PT 10.2 (9.0-12.0) sec INR 0.9 (<1.2) APTT 22.9 (22.0-30.0) sec D-Dimer 0.88 H (<0.60) mg/L FEU Sodium 137 (137-145) mmol/L Potassium 4.4 (3.5-5.1) mmol/L Chloride 102 (98-107) mmol/L Carbon Dioxide 26 (22-30) mmol/L Anion Gap 9 mmol/L BUN 54 H (9-20) mg/dL Creatinine 1.13 (0.66-1.25) mg/dL Est GFR (CKD-EPI)AfAm 72 (>60 ml/min/1.73 sqM) Est GFR (CKD-EPI)NonAf 63 (>60 ml/min/1.73 sqM) Glucose 288 H (74-99) mg/dL Plasma Lactic Acid [place] (0.7-2.0) mmol/L Calcium 9.1 (8.4-10.2) mg/dL Magnesium 1.7 (1.6-2.3) mg/dL Total Bilirubin 1.1 (0.2-1.3) mg/dL AST 43 (17-59) U/L ALT 29 (4-49) U/L Alkaline Phosphatase 134 H (38-126) U/L Troponin I (0.000-0.034) ng/mL NT-Pro-B Natriuret Pep pg/mL Total Protein 7.2 (6.3-8.2) g/dL Albumin 4.1 (3.5-5.0) g/dL 09/25/21 09/25/21 09/25/21 Range/Units 11:20 11:20 11:30 WBC (3.8-10.6) k/uL RBC (4.30-5.90) m/uL Hgb (13.0-17.5) gm/dL Hct (39.0-53.0) % MCV (80.0-100.0) fL MCH (25.0-35.0) pg MCHC (31.0-37.0) g/dL RDW (11.5-15.5) % Plt Count (150-450) k/uL MPV Neutrophils % % Lymphocytes % % Monocytes % % Eosinophils % % Basophils % % Neutrophils # (1.3-7.7) k/uL Lymphocytes # (1.0-4.8) k/uL Monocytes # (0-1.0) k/uL Eosinophils # (0-0.7) k/uL Basophils # (0-0.2) k/uL PT (9.0-12.0) sec INR (<1.2) APTT (22.0-30.0) sec D-Dimer (<0.60) mg/L FEU Sodium (137-145) mmol/L Potassium (3.5-5.1) mmol/L Chloride (98-107) mmol/L Carbon Dioxide (22-30) mmol/L Anion Gap mmol/L BUN (9-20) mg/dL Creatinine (0.66-1.25) mg/dL Est GFR (CKD-EPI)AfAm (>60 ml/min/1.73 sqM) Est GFR (CKD-EPI)NonAf (>60 ml/min/1.73 sqM) Glucose (74-99) mg/dL Plasma Lactic Acid [place] 1.5 (0.7-2.0) mmol/L Calcium (8.4-10.2) mg/dL Magnesium (1.6-2.3) mg/dL Total Bilirubin (0.2-1.3) mg/dL AST (17-59) U/L ALT (4-49) U/L Alkaline Phosphatase (38-126) U/L Troponin I 0.037 H* (0.000-0.034) ng/mL NT-Pro-B Natriuret Pep 210 pg/mL Total Protein (6.3-8.2) g/dL Albumin (3.5-5.0) g/dL Disposition Clinical Impression: Altered mental status, Generalized weakness, Hypoxia, Elevated troponin Disposition: ADMITTED IP TO THIS HOSP Referrals: Bharti Nieto MD [Primary Care Provider] - 1-2 days Time of Disposition: 15:10
[2021-09-25 11:56] LABS: Basophils % (A) 0 %; Eosinophils # (A) 0.2 k/uL (0-0.7); Eosinophils % (A) 2 %; HGB 13.7 gm/dL (13.0-17.5); Lymphocytes # (A) 1.9 k/uL (1.0-4.8); Lymphocytes % (A) 24 %; MCH 32.3 pg (25.0-35.0); MCHC 33.5 g/dL (31.0-37.0); MCV 96.6 fL (80.0-100.0); Mean Platelet Volume 8.1; Monocytes # (A) 0.6 k/uL (0-1.0); Monocytes % (A) 8 %; Neutrophils # (A) 5.2 k/uL (1.3-7.7); Neutrophils % (A) 65 %; Platelet Count 175 k/uL (150-450); RBC 4.25 m/uL (4.30-5.90); RDW 13.5 % (11.5-15.5)
[2021-09-25 11:58] LABS: Albumin 4.1 g/dL (3.5-5.0); Calcium 9.1 mg/dL (8.4-10.2); Magnesium 1.7 mg/dL (1.6-2.3); Potassium 4.4 mmol/L (3.5-5.1); Total Bilirubin 1.1 mg/dL (0.2-1.3); Total Protein 7.2 g/dL (6.3-8.2)
--- NOTE | 2021-09-25 12:00 | XR ---
EXAMINATION TYPE: XR chest 2V DATE OF EXAM: 09/25/2021 COMPARISON: Chest x-ray 09/15/[address] 05/20/2019 HISTORY: Weakness TECHNIQUE: Frontal and lateral views of the chest are obtained. FINDINGS: There is no focal air space opacity, pleural effusion, or pneumothorax seen. The cardiac silhouette size is stable. Generators are present in the pectoral regions, leads coursing cephalad, there are overlying artifacts. Interstitium is thought to be mildly increased. The osseous structures are intact. Coronary artery calcifications are present. IMPRESSION: Findings are similar to prior exam. Mild interstitial changes are suspected within the c hest, correlate to exclude interstitial edema.
[2021-09-25 12:02] LABS: INR 0.9 (<1.2); Partial Thromboplastin Time 22.9 sec (22.0-30.0); Prothrombin Time 10.2 sec (9.0-12.0)
--- NOTE | 2021-09-25 13:33 | CT ---
EXAMINATION TYPE: CT chest angio for PE DATE OF EXAM: 09/25/2021 COMPARISON: 05/20/2019 HISTORY: Elevated d-dimer, covid. CT DLP: 814.4 mGycm CONTRAST: CT chest with contrast and 3D reconstruction with MIP imaging is performed with IV Contrast, patient injected with 100 mL of Isovue 370. Contrast-enhanced CT of the chest was performed through the course of the pulmonary arteries with evy g and mediastinal window settings submitted. 3D reconstruction with MIP imaging was also performed. PULMONARY ARTERIES: The pulmonary arteries and their major tributaries are patent. I do not see jeremy dence for sizable filling defect to suggest pulmonary embolic process. LUNGS: The lungs are clear and free of infiltrate. No evidence for atelectasis. No pulmonary nodule or mass is detected. No pleural effusion. MEDIASTINUM: Thoracic aorta is of normal caliber. The heart is is enlarged. No evidence for mediast inal mass. No mediastinal lymph nodes greater than 1cm. HILAR STRUCTURES: No evidence for mass. No hilar lymph nodes greater than 1 cm. UPPER ABDOMEN: No significant abnormality is seen. IMPRESSION: 1. No evidence for Pulmonary embolism at this time.
[2021-09-25] MEDS ORDERED: NALOXONE 0.4 MG/ML 1 ML VIAL IV PRN (15:13)
[2021-09-25] MEDS ORDERED: MAG HYDROX/AL HYDROX/SIMETH 30 ML CUP PO PRN (15:13)
[2021-09-25] MEDS ORDERED: ONDANSETRON 4 MG/2 ML VIAL IVP PRN (15:13)
[2021-09-25] MEDS ORDERED: ACETAMINOPHEN TAB 325 MG TAB PO PRN (15:13)
[2021-09-25] MEDS ORDERED: ALBUTEROL HFA INHALER INHALATION PRN (15:17)
--- NOTE | 2021-09-25 15:23 | P.HPIM ---
History of Present Illness H&P Date: 09/25/21 76-year-old male with multiple medical problems including Parkinson's disease hypertension coronary artery disease diabetes Admitted to the hospital for other mental status from the [facility] the patient has been recently diagnosed with COVID-19 few days ago Patient is confused not able to give any history at this time but appears to be short of breath at rest Review of systems and systems has been reviewed all negative and positive findings as per history of present illness Constitutional: Short of breath Eyes: Anicteric sclerae, moist conjunctiva, no lid-lag PERRLA ENMT: NC/AT Oropharynx clear, no erythema, exudates Neck: Supple, FROM, no masses, or JVD No carotid bruits No thyromegaly Lungs: Clear to auscultation Clear to percussion Normal respiratory effort, no accessory muscle use Cardiovascular: Heart regular in rate and rhythm, No murmurs, gallops, or rubs No peripheral edema Abdominal: Soft Nontender, no guarding, rebound or rigidity Abdomen moving with respiration Normoactive bowel sounds No hepatomegaly, No splenomegaly No palpable mass No abdominal wall hernia noted Skin: Normal temperature, tone, texture, turgor No induration No subcutaneous nodules No rash, lesions No ulcers Extremities: No digital cyanosis No clubbing Pedal pulses intact and symmetrical Radial pulses intact and symmetrical Normal gait and station No calf tenderness Psychiatric: Confused Neuro: Muscles Strength 5/5 in all 4 extremities Sensation to light touch grossly present throughout Cranial nerves II-XII grossly intact No focal sensory deficits altered mental status likely due to hypoxia and COVID-19 infection Hypoxia likely due to COVID-19 pneumonia cannot be ruled out we'll continue patient on IV antibiotics and steroids DO NOT RESUSCITATE status Generalized weakness Multiple medical problems Diabetes we'll put the patient on sliding scale insulin Past Medical History Past Medical History: Coronary Artery Disease (CAD), Diabetes Mellitus, Hypertension, Myocardial Infarction ([place]), Neurologic Disorder Additional Past Medical History / Comment(s): parkinsons Last Myocardial Infarction Date:: unknown History of Any Multi-Drug Resistant Organisms: None Reported Past Surgical History: Bariatric Surgery, Cholecystectomy, Heart Catheterization Additional Past Surgical History / Comment(s): has two implanted batteries for parkinsons lap band surgery 2009 Past Anesthesia/Blood Transfusion Reactions: No Reported Reaction Past Psychological History: No Psychological Hx Reported Smoking Status: Former smoker Past Alcohol Use History: None Reported Past Drug Use History: None Reported Medications and Allergies Home Medications Medication Instructions Recorded Confirmed Type Aspirin 81 mg PO DAILY 07/28/17 09/25/21 History Pravastatin Sodium [Pravachol] 40 mg PO HS 07/28/17 09/25/21 History Tamsulosin [Flomax] 0.4 mg PO HS 07/28/17 09/25/21 History allopurinoL [Zyloprim] 300 mg PO DAILY 07/28/17 09/25/21 History glipiZIDE [Glucotrol] 5 mg PO DAILY 07/28/17 09/25/21 History Pramipexole Di-HCl [Mirapex ER] 3 mg PO DAILY 09/15/21 09/25/21 History hydroCHLOROthiazide 25 mg PO DAILY 09/15/21 09/25/21 History Acetaminophen Tab [Tylenol] 650 mg PO Q6HR PRN tab 09/20/21 09/25/21 Rx Losartan [Cozaar] 25 mg PO DAILY #30 tab 09/20/21 09/25/21 Rx Metoprolol Succinate (ER) [Toprol 50 mg PO DAILY 30 Days 09/20/21 09/25/21 Rx XL] Carbidopa/Levodopa [Carbidopa-Levo 1 tab PO TID@0800,1300,1700 09/25/21 09/25/21 History 25-250 mg Odt] Cyanocobalamin (Vitamin B-12) 1,000 mcg PO DAILY 09/25/21 09/25/21 History [Vitamin B-12] metFORMIN HCL [Glucophage] 1,000 mg PO DAILY 09/25/21 09/25/21 History Allergies Allergy/AdvReac Type Severity Reaction Status Date / Time No Known Allergies Allergy Verified 09/25/21 12:04 Physical Exam Vitals: Vital Signs Temp Pulse Resp BP Pulse Ox 09/25/21 12:23 56 L 20 156/81 100 09/25/21 11:24 50 L 22 147/107 98 09/25/21 10:47 99.2 F 50 L 28 H 214/82 68 L Intake and Output 09/25/21 09/25/21 09/25/21 06:59 14:59 22:59 Other: Weight 122.47 kg Results CBC & Chem 7: 09/25/21 11:20 09/25/21 11:20 Labs: Abnormal Lab Results - Last 24 Hours (Table) 09/25/21 09/25/21 09/25/21 Range/Units 11:20 11:20 11:20 RBC 4.25 L (4.30-5.90) m/uL D-Dimer 0.88 H (<0.60) mg/L FEU BUN 54 H (9-20) mg/dL Glucose 288 H (74-99) mg/dL Alkaline Phosphatase 134 H (38-126) U/L Troponin I (0.000-0.034) ng/mL 09/25/21 Range/Units 11:20 RBC (4.30-5.90) m/uL D-Dimer (<0.60) mg/L FEU BUN (9-20) mg/dL Glucose (74-99) mg/dL Alkaline Phosphatase (38-126) U/L Troponin I 0.037 H* (0.000-0.034) ng/mL
[2021-09-25] MEDS: DEXAMETHASONE SOD PHOSPHATE 10 MG/ML 1 ML VIAL IVP SCH (16:33)
[2021-09-25] MEDS: AZITHROMYCIN 500 MG in SODIUM CHLORIDE 0.9% 250 ML IVPB SCH (18:12)
[2021-09-25] MEDS: TAMSULOSIN 0.4 MG CAP.ER.24H PO SCH (21:45)
[2021-09-25] MEDS: PRAVASTATIN SODIUM 40 MG TAB PO SCH (21:45)
[2021-09-25] MEDS: CARBIDOPA-LEVODOPA 25-250 MG 1 EACH TAB PO SCH (21:45)
[2021-09-26 07:41] LABS: Basophils % (A) 0 %; Eosinophils % (A) 0 %; HCT 40.6 % (39.0-53.0); HGB 13.4 gm/dL (13.0-17.5); Lymphocytes # (A) 1.7 k/uL (1.0-4.8); Lymphocytes % (A) 22 %; MCH 32.2 pg (25.0-35.0); MCHC 32.9 g/dL (31.0-37.0); MCV 97.9 fL (80.0-100.0); Mean Platelet Volume 8.1; Monocytes # (A) 0.6 k/uL (0-1.0); Monocytes % (A) 7 %; Neutrophils # (A) 5.4 k/uL (1.3-7.7); Neutrophils % (A) 69 %; Platelet Count 193 k/uL (150-450); RBC 4.15 m/uL (4.30-5.90); RDW 13.4 % (11.5-15.5); WBC 7.8 k/uL (3.8-10.6)
[2021-09-26 07:57] LABS: ALT 32 U/L (4-49); AST 29 U/L (17-59); African American GFR (CKD) >90 (>60 ml/min/1.73 sqM); Albumin 3.4 g/dL (3.5-5.0); Alkaline Phosphatase 120 U/L (38-126); Anion Gap 7 mmol/L; Blood Urea Nitrogen 37 mg/dL (9-20); Calcium 8.8 mg/dL (8.4-10.2); Carbon Dioxide 27 mmol/L (22-30); Chloride 105 mmol/L (98-107); Glucose 257 mg/dL (74-99); Non-African American GFR(CKD) 80 (>60 ml/min/1.73 sqM); Potassium 4.2 mmol/L (3.5-5.1); Sodium 139 mmol/L (137-145); Total Bilirubin 0.8 mg/dL (0.2-1.3); Total Protein 6.4 g/dL (6.3-8.2)
[2021-09-26] MEDS: CARBIDOPA-LEVODOPA 25-250 MG 1 EACH TAB PO SCH ×3 (08:37→16:54)
[2021-09-26] MEDS: hydroCHLOROthiazide 25 MG TAB PO SCH (08:38)
[2021-09-26] MEDS: DEXAMETHASONE SOD PHOSPHATE 10 MG/ML 1 ML VIAL IVP SCH (08:38)
[2021-09-26] MEDS: allopurinoL 300 MG TAB PO SCH (08:38)
[2021-09-26] MEDS: ASPIRIN 81 MG PO SCH (08:38)
[2021-09-26] MEDS: LOSARTAN 25 MG TAB PO SCH (08:38)
[2021-09-26] MEDS: METOPROLOL SUCCINATE (ER) 50 MG TAB.ER.24H PO SCH (08:49)
[2021-09-26] MEDS: PRAMIPEXOLE 1 MG TAB PO SCH ×2 (09:40→21:07)
--- NOTE | 2021-09-26 11:30 | P.PN ---
Subjective Progress Note Date: 09/26/21 Principal diagnosis: 76-year-old male with multiple medical problems including Parkinson's disease hypertension coronary artery disease diabetes Admitted to the hospital for other mental status from the skilled nursing the patient has been recently diagnosed with COVID-19 few days ago Patient is confused not able to give any history at this time but appears to be short of breath at rest Review of systems and systems has been reviewed all negative and positive findings as per history of present illness Constitutional: Short of breath Eyes: Anicteric sclerae, moist conjunctiva, no lid-lag PERRLA ENMT: NC/AT Oropharynx clear, no erythema, exudates Neck: Supple, FROM, no masses, or JVD No carotid bruits No thyromegaly Lungs: Clear to auscultation Clear to percussion Normal respiratory effort, no accessory muscle use Cardiovascular: Heart regular in rate and rhythm, No murmurs, gallops, or rubs No peripheral edema Abdominal: Soft Nontender, no guarding, rebound or rigidity Abdomen moving with respiration Normoactive bowel sounds No hepatomegaly, No splenomegaly No palpable mass No abdominal wall hernia noted Skin: Normal temperature, tone, texture, turgor No induration No subcutaneous nodules No rash, lesions No ulcers Extremities: No digital cyanosis No clubbing Pedal pulses intact and symmetrical Radial pulses intact and symmetrical Normal gait and station No calf tenderness Psychiatric: Confused Neuro: Muscles Strength 5/5 in all 4 extremities Sensation to light touch grossly present throughout Cranial nerves II-XII grossly intact No focal sensory deficits altered mental status likely due to hypoxia and COVID-19 infection Hypoxia likely due to COVID-19 pneumonia cannot be ruled out we'll continue patient on IV antibiotics and steroids DO NOT RESUSCITATE status Generalized weakness Multiple medical problems Diabetes we'll put the patient on sliding scale insulin Overall slowly improving patient continued to be hypoxic we'll continue to monitor Objective - Vital Signs Vital signs: Vital Signs Temp 98.1 F 09/26/21 08:35 Pulse 53 L 09/26/21 10:51 Resp 17 09/26/21 08:35 BP 170/84 09/26/21 08:35 Pulse Ox 97 09/26/21 08:35 Intake & Output 09/25/21 09/26/21 09/26/21 18:59 06:59 18:59 Intake Total 620 Balance 620 Weight 122.47 kg 122.47 kg Intake: Intake, IV Titration 500 Amount Sodium Chloride 0.9% 500 500 ml 500 ml @ 999 mls/hr IV .Q31M STA Rx#:[id number] Oral 120 Other: Voiding Method Urinal Diaper Incontinent # Voids 2 1 - Labs CBC & Chem 7: 09/26/21 06:56 09/26/21 06:56 Labs: Abnormal Lab Results - Last 24 Hours (Table) 09/25/21 09/25/21 09/25/21 Range/Units 11:20 11:20 11:20 RBC 4.25 L (4.30-5.90) m/uL D-Dimer 0.88 H (<0.60) mg/L FEU BUN 54 H (9-20) mg/dL Glucose 288 H (74-99) mg/dL Alkaline Phosphatase 134 H (38-126) U/L Troponin I (0.000-0.034) ng/mL Albumin (3.5-5.0) g/dL 09/25/21 09/25/21 09/26/21 Range/Units 11:20 15:25 06:56 RBC 4.15 L (4.30-5.90) m/uL D-Dimer (<0.60) mg/L FEU BUN (9-20) mg/dL Glucose (74-99) mg/dL Alkaline Phosphatase (38-126) U/L Troponin I 0.037 H* 0.035 H* (0.000-0.034) ng/mL Albumin (3.5-5.0) g/dL 09/26/21 Range/Units 06:56 RBC (4.30-5.90) m/uL D-Dimer (<0.60) mg/L FEU BUN 37 H (9-20) mg/dL Glucose 257 H (74-99) mg/dL Alkaline Phosphatase (38-126) U/L Troponin I (0.000-0.034) ng/mL Albumin 3.4 L (3.5-5.0) g/dL
[2021-09-26 12:19] LABS: Glucose,Whole Blood 481 mg/dL (75-99)
[2021-09-26] MEDS ORDERED: NIFEdipine XL 30 MG TAB.ER.24 PO STA (12:28)
[2021-09-26 12:36] LABS: Appearance,Urine Clear (Clear); Bilirubin,Urine Negative (Negative); Blood,Urine Negative (Negative); Color,Urine Yellow; Glucose,Urine (UA) 4+ (Negative); Ketones,Urine Negative (Negative); Leukocyte Esterase,Urine Negative (Negative); Nitrite,Urine Negative (Negative); Protein,Urine Negative (Negative); Specific Gravity,Urine 1.025 (1.001-1.035); Urobilinogen,Urine <2.0 mg/dL (<2.0)
[2021-09-26] MEDS: INSULIN ASPART (NovoLOG) 100 UNIT/ML VIAL SQ SCH ×3 (12:36→21:06)
[2021-09-26] MEDS: AZITHROMYCIN 500 MG in SODIUM CHLORIDE 0.9% 250 ML IVPB SCH (15:17)
[2021-09-26 16:28] LABS: Glucose,Whole Blood 383 mg/dL (75-99)
[2021-09-26] MEDS ORDERED: hydrALAZINE HCL 20 MG/ML 1 ML VIAL IVP STA (17:32)
[2021-09-26] MEDS: INSULIN DETEMIR (LEVEMIR) 100 UNIT/ML SYR SQ SCH (17:50)
[2021-09-26 19:59] LABS: Glucose,Whole Blood 228 mg/dL (75-99)
[2021-09-26] MEDS: ASCORBIC ACID 500 MG TAB PO SCH (21:06)
[2021-09-26] MEDS: PRAVASTATIN SODIUM 40 MG TAB PO SCH (21:06)
[2021-09-26] MEDS: TAMSULOSIN 0.4 MG CAP.ER.24H PO SCH (21:06)
[2021-09-27 05:57] LABS: Glucose,Whole Blood 214 mg/dL (75-99)
[2021-09-27] MEDS: INSULIN DETEMIR (LEVEMIR) 100 UNIT/ML SYR SQ SCH (06:28)
[2021-09-27] MEDS: INSULIN ASPART (NovoLOG) 100 UNIT/ML VIAL SQ SCH ×4 (06:28→21:15)
[2021-09-27] MEDS: ASPIRIN 81 MG PO SCH (09:17)
[2021-09-27] MEDS: ASCORBIC ACID 500 MG TAB PO SCH ×2 (09:17→21:15)
[2021-09-27] MEDS: CARBIDOPA-LEVODOPA 25-250 MG 1 EACH TAB PO SCH ×3 (09:17→15:38)
[2021-09-27] MEDS: CHOLECALCIFEROL 25 MCG (1000 IU) TABLET PO SCH (09:17)
[2021-09-27] MEDS: hydroCHLOROthiazide 25 MG TAB PO SCH (09:17)
[2021-09-27] MEDS: LOSARTAN 25 MG TAB PO SCH (09:17)
[2021-09-27] MEDS: allopurinoL 300 MG TAB PO SCH (09:17)
[2021-09-27] MEDS: ZINC SULFATE 220 MG CAP PO SCH (09:17)
[2021-09-27] MEDS: PRAMIPEXOLE 1 MG TAB PO SCH ×2 (09:18→21:54)
[2021-09-27] MEDS: DEXAMETHASONE SOD PHOSPHATE 10 MG/ML 1 ML VIAL IVP SCH (09:18)
[2021-09-27] MEDS: METOPROLOL SUCCINATE (ER) 50 MG TAB.ER.24H PO SCH (09:20)
[2021-09-27 09:24] LABS: ALT 20 U/L (4-49); AST 28 U/L (17-59); African American GFR (CKD) >90 (>60 ml/min/1.73 sqM); Albumin 3.4 g/dL (3.5-5.0); Alkaline Phosphatase 127 U/L (38-126); Anion Gap 6 mmol/L; Blood Urea Nitrogen 28 mg/dL (9-20); Carbon Dioxide 28 mmol/L (22-30); Chloride 104 mmol/L (98-107); Glucose 201 mg/dL (74-99); Non-African American GFR(CKD) 86 (>60 ml/min/1.73 sqM); Potassium 3.7 mmol/L (3.5-5.1); Sodium 138 mmol/L (137-145); Total Bilirubin 0.8 mg/dL (0.2-1.3); Total Protein 6.4 g/dL (6.3-8.2)
[2021-09-27 09:37] LABS: Basophils % (A) 0 %; Eosinophils # (A) 0.1 k/uL (0-0.7); Eosinophils % (A) 1 %; HCT 41.5 % (39.0-53.0); HGB 13.4 gm/dL (13.0-17.5); Lymphocytes # (A) 2.1 k/uL (1.0-4.8); Lymphocytes % (A) 25 %; MCH 31.5 pg (25.0-35.0); MCHC 32.2 g/dL (31.0-37.0); MCV 97.8 fL (80.0-100.0); Mean Platelet Volume 8.1; Monocytes # (A) 0.6 k/uL (0-1.0); Monocytes % (A) 7 %; Neutrophils # (A) 5.7 k/uL (1.3-7.7); Neutrophils % (A) 66 %; Platelet Count 215 k/uL (150-450); RBC 4.24 m/uL (4.30-5.90); RDW 13.4 % (11.5-15.5); WBC 8.6 k/uL (3.8-10.6)
--- NOTE | 2021-09-27 10:38 | P.PN ---
Subjective Progress Note Date: 09/27/21 76 patient feels better today still short of [id number] male with multiple medical problems including Parkinson's disease hypertension coronary artery disease diabetes Admitted to the hospital for other mental status from the detention the patient has been recently diagnosed with COVID-19 few days ago Patient is confused not able to give any history at this time but appears to be short of breath at rest Review of systems and systems has been reviewed all negative and positive findin gs as per history of present illness Constitutional: Short of breath Eyes: Anicteric sclerae, moist conjunctiva, no lid-lag PERRLA ENMT: NC/AT Oropharynx clear, no erythema, exudates Neck: Supple, FROM, no masses, or JVD No carotid bruits No thyromegaly Lungs: Clear to auscultation Clear to percussion Normal respiratory effort, no accessory muscle use Cardiovascular: Heart regular in rate and rhythm, No murmurs, gallops, or rubs No peripheral edema Abdominal: Soft Nontender, no guarding, rebound or rigidity Abdomen moving with respiration Normoactive bowel sounds No hepatomegaly, No splenomegaly No palpable mass No abdominal wall hernia noted Skin: Normal temperature, tone, texture, turgor No induration No subcutaneous nodules No rash, lesions No ulcers Extremities: No digital cyanosis No clubbing Pedal pulses intact and symmetrical Radial pulses intact and symmetrical Normal gait and station No calf tenderness Psychiatric: Confused Neuro: Muscles Strength 5/5 in all 4 extremities Sensation to light touch grossly present throughout Cranial nerves II-XII grossly intact No focal sensory deficits altered mental status likely due to hypoxia and COVID-19 infection Continue to wean oxygen as tolerated Hypoxia likely due to COVID-19 pneumonia cannot be ruled out we'll continue patient on IV antibiotics and steroids DO NOT RESUSCITATE status Generalized weakness Multiple medical problems Diabetes we'll put the patient on sliding scale insulin Overall slowly improving patient continued to be hypoxic we'll continue to monitor Objective - Vital Signs Vital signs: Vital Signs Temp 98 F 09/27/21 07:43 Pulse 70 09/27/21 07:43 Resp 18 09/27/21 07:43 BP 129/81 09/27/21 07:43 Pulse Ox 97 09/27/21 07:43 Intake & Output 09/26/21 09/27/21 09/27/21 18:59 06:59 18:59 Intake Total 240 120 Balance 240 120 Intake: Oral 240 120 Other: Voiding Method Urinal Diaper Diaper Diaper Incontinent Incontinent Incontinent # Voids 4 2 2 - Labs CBC & Chem 7: 09/27/21 08:37 09/27/21 08:37 Labs: Abnormal Lab Results - Last 24 Hours (Table) 09/26/21 09/26/21 09/26/21 Range/Units 12:18 12:25 16:26 RBC (4.30-5.90) m/uL BUN (9-20) mg/dL Glucose (74-99) mg/dL POC Glucose (mg/dL) 481 H 383 H (75-99) mg/dL Alkaline Phosphatase (38-126) U/L Albumin (3.5-5.0) g/dL Urine Glucose (UA) 4+ H (Negative) 09/26/21 09/27/21 09/27/21 Range/Units 19:56 05:56 08:37 RBC 4.24 L (4.30-5.90) m/uL BUN (9-20) mg/dL Glucose (74-99) mg/dL POC Glucose (mg/dL) 228 H 214 H (75-99) mg/dL Alkaline Phosphatase (38-126) U/L Albumin (3.5-5.0) g/dL Urine Glucose (UA) (Negative) 09/27/21 Range/Units 08:37 RBC (4.30-5.90) m/uL BUN 28 H (9-20) mg/dL Glucose 201 H (74-99) mg/dL POC Glucose (mg/dL) (75-99) mg/dL Alkaline Phosphatase 127 H (38-126) U/L Albumin 3.4 L (3.5-5.0) g/dL Urine Glucose (UA) (Negative) Microbiology - Last 24 Hours (Table) 09/25/21 16:21 Blood Culture - Preliminary Blood No Growth after 24 hours
[2021-09-27 11:42] LABS: Glucose,Whole Blood 234 mg/dL (75-99)
[2021-09-27] MEDS: AZITHROMYCIN 500 MG in SODIUM CHLORIDE 0.9% 250 ML IVPB SCH (15:38)
[2021-09-27 16:35] LABS: Glucose,Whole Blood 324 mg/dL (75-99)
[2021-09-27] MEDS ORDERED: INSULIN DETEMIR (LEVEMIR) 100 UNIT/ML SYR SQ ONE (18:00)
[2021-09-27 20:47] LABS: Glucose,Whole Blood 346 mg/dL (75-99)
[2021-09-27] MEDS: PRAVASTATIN SODIUM 40 MG TAB PO SCH (21:15)
[2021-09-27] MEDS: TAMSULOSIN 0.4 MG CAP.ER.24H PO SCH (21:15)
[2021-09-27] MEDS ORDERED: LORazepam 2 MG/ML INJ IV STA (22:16)
[2021-09-28 07:47] LABS: Glucose,Whole Blood 143 mg/dL (75-99)
[2021-09-28] MEDS: CHOLECALCIFEROL 25 MCG (1000 IU) TABLET PO SCH (08:01)
[2021-09-28] MEDS: ZINC SULFATE 220 MG CAP PO SCH (08:01)
[2021-09-28] MEDS: LOSARTAN 25 MG TAB PO SCH (08:01)
[2021-09-28] MEDS: ASPIRIN 81 MG PO SCH (08:01)
[2021-09-28] MEDS: hydroCHLOROthiazide 25 MG TAB PO SCH (08:01)
[2021-09-28] MEDS: allopurinoL 300 MG TAB PO SCH (08:01)
[2021-09-28] MEDS: METOPROLOL SUCCINATE (ER) 50 MG TAB.ER.24H PO SCH (08:01)
[2021-09-28] MEDS: ASCORBIC ACID 500 MG TAB PO SCH ×2 (08:01→22:51)
[2021-09-28] MEDS: INSULIN ASPART (NovoLOG) 100 UNIT/ML VIAL SQ SCH ×5 (08:53→22:51)
--- NOTE | 2021-09-28 08:58 | P.PN ---
Subjective Progress Note Date: 09/28/21 Patient is more confused today appears to be significantly more short of breath at rest s Admitted to the hospital for other mental status from the senior care the patient has been recently diagnosed with COVID-19 few days ago Patient is confused not able to give any history at this time but appears to be short of breath at rest Review of systems and systems has been reviewed all negative and positive findings as per history of present illness Constitutional: Short of breath Eyes: Anicteric sclerae, moist conjunctiva, no lid-lag PERRLA ENMT: NC/AT Oropharynx clear, no erythema, exudates Neck: Supple, FROM, no masses, or JVD No carotid bruits No thyromegaly Lungs: Clear to auscultation Clear to percussion Normal respiratory effort, no accessory muscle use Cardiovascular: Heart regular in rate and rhythm, No murmurs, gallops, or rubs No peripheral edema Abdominal: Soft Nontender, no guarding, rebound or rigidity Abdomen moving with respiration Normoactive bowel sounds No hepatomegaly, No splenomegaly No palpable mass No abdominal wall hernia noted Skin: Normal temperature, tone, texture, turgor No induration No subcutaneous nodules No rash, lesions No ulcers Extremities: No digital cyanosis No clubbing Pedal pulses intact and symmetrical Radial pulses intact and symmetrical Normal gait and station No calf tenderness Psychiatric: Confused Neuro: Muscles Strength 5/5 in all 4 extremities Sensation to light touch grossly present throughout Cranial nerves II-XII grossly intact No focal sensory deficits altered mental status likely due to hypoxia and COVID-19 infection Continue to wean oxygen as tolerated Hypoxia likely due to COVID-19 pneumonia cannot be ruled out we'll continue patient on IV antibiotics and steroids DO NOT RESUSCITATE status Generalized weakness Multiple medical problems Diabetes we'll put the patient on sliding scale insulin Patient appears to be significantly more short of breath at rest with repeat chest x-ray This put discharged in a senior care as per clinical improvement Objective - Vital Signs Vital signs: Vital Signs Temp 97.8 F 09/28/21 05:30 Pulse 58 L 09/28/21 05:30 Resp 17 09/28/21 05:30 BP 178/83 09/28/21 05:30 Pulse Ox 96 09/28/21 05:30 Intake & Output 09/27/21 09/28/21 09/28/21 18:59 06:59 18:59 Intake Total 120 Balance 120 Intake: Oral 120 Other: Voiding Method Diaper Diaper Incontinent Incontinent # Voids 2 5 # Bowel Movements 0 - Labs CBC & Chem 7: 09/27/21 08:37 09/27/21 08:37 Labs: Abnormal Lab Results - Last 24 Hours (Table) 09/27/21 09/27/21 09/27/21 Range/Units 08:37 08:37 11:40 RBC 4.24 L (4.30-5.90) m/uL BUN 28 H (9-20) mg/dL Glucose 201 H (74-99) mg/dL POC Glucose (mg/dL) 234 H (75-99) mg/dL Alkaline Phosphatase 127 H (38-126) U/L Albumin 3.4 L (3.5-5.0) g/dL 09/27/21 09/27/21 09/28/21 Range/Units 16:23 20:46 07:46 RBC (4.30-5.90) m/uL BUN (9-20) mg/dL Glucose (74-99) mg/dL POC Glucose (mg/dL) 324 H 346 H 143 H (75-99) mg/dL Alkaline Phosphatase (38-126) U/L Albumin (3.5-5.0) g/dL Microbiology - Last 24 Hours (Table) 09/25/21 16:21 Blood Culture - Preliminary Blood No Growth after 48 hours
[2021-09-28] MEDS ORDERED: FUROSEMIDE 10 MG/ML 4 ML VIAL IV STA (08:59)
[2021-09-28] MEDS: INSULIN DETEMIR (LEVEMIR) 100 UNIT/ML SYR SQ SCH (09:29)
[2021-09-28] MEDS: PRAMIPEXOLE 1 MG TAB PO SCH ×2 (09:30→22:51)
[2021-09-28] MEDS: CARBIDOPA-LEVODOPA 25-250 MG 1 EACH TAB PO SCH ×3 (09:30→16:50)
[2021-09-28 09:33] LABS: Basophils # (A) 0.02 X 10*3/uL (0.00-0.10); Basophils % (A) 0.2 %; Eosinophils # (A) 0.07 X 10*3/uL (0.04-0.35); Eosinophils % (A) 0.8 %; HGB 12.9 g/dL (13.0-17.0); Immature Grans, Automated 0.3 %; Lymphocytes # (A) 2.36 X 10*3/uL (0.90-5.00); Lymphocytes % (A) 26.9 %; MCH 30.5 pg (27.0-32.0); MCHC 32.3 g/dL (32.0-37.0); MCV 94.6 fL (80.0-97.0); Mean Platelet Volume 10.5 fL (9.5-12.2); Monocytes # (A) 0.95 X 10*3/uL (0.20-1.00); Monocytes % (A) 10.8 %; NRBC Per 100 WBC 0 /100 WBCS (0.0-0.0); Neutrophils # (A) 5.34 X 10*3/uL (1.80-7.70); Platelet Count 201 X 10*3/uL (140-440); RBC 4.23 X 10*6/uL (4.40-5.60); RDW 13.5 % (11.5-14.5); WBC 8.77 X 10*3/uL (4.50-10.00)
[2021-09-28 09:35] LABS: African American GFR (CKD) 95.1 (60.0-200.0); Albumin 3.7 g/dL (3.8-4.9); Albumin/Globulin Ratio 1.61 (1.60-3.17); Anion Gap 12.3 mmol/L (10.00-18.00); Blood Urea Nitrogen 23.4 mg/dL (9.0-27.0); Calcium 8.9 mg/dL (8.7-10.3); Carbon Dioxide 24.7 mmol/L (20.0-27.5); Globulin 2.3 g/dL (1.6-3.3); Non-African American GFR(CKD) 82.1 (60.0-200.0); Potassium 3.8 mmol/L (3.5-5.5); Total Bilirubin 0.4 mg/dL (0.30-1.20)
[2021-09-28] MEDS: DEXAMETHASONE SOD PHOSPHATE 10 MG/ML 1 ML VIAL IVP SCH (10:45)
--- NOTE | 2021-09-28 11:08 | XR ---
EXAMINATION TYPE: XR chest 1V portable DATE OF EXAM: 09/28/2021 COMPARISON: Chest x-ray 09/25/2021 HISTORY: Shortness of breath, weakness, Covid positive TECHNIQUE: Single frontal view of the chest is obtained. FINDINGS: No significant interstitial changes on today's exam. Generators are present pectoral regio ns. No evident pneumothorax or pleural effusion. Cardiac style silhouette is stable, upper limit of n ormal for size. Aorta is dense. No evident airspace disease. IMPRESSION: No acute process.
[2021-09-28 12:14] LABS: Glucose,Whole Blood 299 mg/dL (75-99)
[2021-09-28 14:13] VITALS: BMI 38.7
--- NOTE | 2021-09-28 15:00 | CDI ---
Documentation Clarification Form Date: 09/28/2021 02:44:38 PM From: Bre Fatima CCS, CCDS Admit Date: 09/25/2021 03:16:00 PM Patient Name: Jayden Fermin Visit Number: [id number] Discharge Date: ATTENTION: The Clinical Documentation Specialists (CDI) and [facility] Coding Staff appreciate your assistance in clarifying documentation. Please respond to the clarification below the line at the bottom and electronically sign. The CDI & [facility] Coding staff will review the response and follow-up if needed. Please note: Queries are made part of the Legal Health Record. If you have any questions, please contact the author of this message via ITS. Dr. Karla Lennon: Altered Mental Status and confusion are documented throughout the record including in the 09/25 ED Note, the 09/25 History & Physical and in subsequent Progress Notes. Additional clarification regarding the diagnoses of Altered Mental Status and Confusion is requested. History/Risk Factors per the 09/25 H/P: Parkinson's Disease, Hypertension, CAD, DM. Clinical Indicators: Presented to the ED on 09/25 via EMS with SOB, Altered Mental Status, Weakness and + COVID. 09/25 VS: T 99.2, P 50, R 28, 22 (sob, labored), BP 214/82, 147/107; PO 68 RA, 98 15% nrb, 100 on 6L nc, BMI: 38.7 09/25 LAB: D Dimer 0.88, BUN 54, Glucose 288, Alk Phos 134, Troponin 0.032, 0.035, 0.028. 09/20 Scanned COVID test: Positive. Treatment 2: Insulin sliding scale, Blood culture, O2: nrb, IV Na Cl 500 mls @ 999 mls/hr q31M, IV Azithromycin 250 mls/hr Daily, IV Rocephin 100 mls/hr Daily, IV Decadron 6 mg Daily. 2: COVID vitamins: Vit C, D3 & Orazinc, IV Apresoline 10 mg x1 2/3: IV Ativan 2 mg x1 Home meds: Glucophage, Glucotrol, Hydrochlorothiazide, Zyloprim, Flomax, Pravachol, Toprol XL, Cozaar, Vit B12, Carbidopa/Levodopa, Aspirin Please clarify the following: [ ] Metabolic Encephalopathy [ ] Toxic Encephalopathy [ ] Other Encephalopathy [ ] Other, please specify: [ ] Unable to determine (Template Last Revised: October 2020) MTDD
[2021-09-28] MEDS: AZITHROMYCIN 500 MG in SODIUM CHLORIDE 0.9% 250 ML IVPB SCH (15:23)
[2021-09-28] MEDS ORDERED: LORazepam 2 MG/ML INJ IM STA (16:14)
[2021-09-28 16:38] LABS: Glucose,Whole Blood 246 mg/dL (75-99)
[2021-09-28 16:54] LABS: ABG Base Excess 5.9 mmol/L; ABG HCO3 29 mmol/L (21-25); ABG Oxygen Saturation 96.3 % (94-97); ABG PCO2 36 mmHg (35-45); ABG PH 7.51 (7.35-7.45); ABG PO2 82 mmHg (83-108); ABG TCO2 30 mmol/L (19-24); Allen Test Performed? Yes
--- NOTE | 2021-09-28 17:55 | CT ---
EXAMINATION TYPE: CT brain wo con DATE OF EXAM: 09/28/2021 COMPARISON: 09/15/2021 HISTORY: Confusion CT DLP: 1145.4 mGycm Automated exposure control for dose reduction was used. There are bilateral electrodes in the left and right thalamus. There is mild cerebral atrophy. There is mild hypodensity in the periventricular white matter. There is no mass effect or midline shift. Th ere is no sign of intracranial hemorrhage. Calvarium is intact. IMPRESSION: No acute intracranial abnormality. No change compared to recent exam.
[2021-09-28 21:50] LABS: Glucose,Whole Blood 247 mg/dL (75-99)
[2021-09-28] MEDS: TAMSULOSIN 0.4 MG CAP.ER.24H PO SCH (22:52)
[2021-09-28] MEDS: PRAVASTATIN SODIUM 40 MG TAB PO SCH (22:52)
[2021-09-29] MEDS ORDERED: LORazepam 2 MG/ML INJ IV STA ×3 (00:04→20:42)
[2021-09-29 07:04] LABS: Glucose,Whole Blood 198 mg/dL (75-99)
[2021-09-29] MEDS: LOSARTAN 25 MG TAB PO SCH (08:16)
[2021-09-29] MEDS: CARBIDOPA-LEVODOPA 25-250 MG 1 EACH TAB PO SCH ×3 (08:16→16:59)
[2021-09-29] MEDS: PRAMIPEXOLE 1 MG TAB PO SCH ×2 (08:16→21:45)
[2021-09-29] MEDS: allopurinoL 300 MG TAB PO SCH (08:16)
[2021-09-29] MEDS: ASCORBIC ACID 500 MG TAB PO SCH ×2 (08:17→21:45)
[2021-09-29] MEDS: CHOLECALCIFEROL 25 MCG (1000 IU) TABLET PO SCH (08:17)
[2021-09-29] MEDS: ZINC SULFATE 220 MG CAP PO SCH (08:17)
[2021-09-29] MEDS: METOPROLOL SUCCINATE (ER) 50 MG TAB.ER.24H PO SCH (08:17)
[2021-09-29] MEDS: hydroCHLOROthiazide 25 MG TAB PO SCH (08:17)
[2021-09-29] MEDS: INSULIN DETEMIR (LEVEMIR) 100 UNIT/ML SYR SQ SCH (08:17)
[2021-09-29] MEDS: INSULIN ASPART (NovoLOG) 100 UNIT/ML VIAL SQ SCH ×4 (08:17→21:46)
[2021-09-29] MEDS: ASPIRIN 81 MG PO SCH (08:17)
[2021-09-29] MEDS: DEXAMETHASONE SOD PHOSPHATE 10 MG/ML 1 ML VIAL IVP SCH (08:18)
[2021-09-29 09:16] LABS: Basophils # (A) 0.02 X 10*3/uL (0.00-0.10); Basophils % (A) 0.2 %; Eosinophils # (A) 0.09 X 10*3/uL (0.04-0.35); HCT 44.3 % (39.6-50.0); HGB 14.4 g/dL (13.0-17.0); Immature Grans, Automated 0.5 %; Lymphocytes # (A) 3.34 X 10*3/uL (0.90-5.00); Lymphocytes % (A) 38.6 %; MCH 30.7 pg (27.0-32.0); MCHC 32.5 g/dL (32.0-37.0); MCV 94.5 fL (80.0-97.0); Mean Platelet Volume 10.5 fL (9.5-12.2); Monocytes # (A) 0.97 X 10*3/uL (0.20-1.00); Monocytes % (A) 11.2 %; NRBC Per 100 WBC 0 /100 WBCS (0.0-0.0); Neutrophils % (A) 48.5 %; Platelet Count 245 X 10*3/uL (140-440); RBC 4.69 X 10*6/uL (4.40-5.60); RDW 13.5 % (11.5-14.5); WBC 8.66 X 10*3/uL (4.50-10.00)
[2021-09-29 09:23] LABS: African American GFR (CKD) 82.8 (60.0-200.0); Albumin/Globulin Ratio 1.47 (1.60-3.17); Anion Gap 16.6 mmol/L (10.00-18.00); BUN/Creat Ratio 28.22 Ratio (12.00-20.00); Blood Urea Nitrogen 28.5 mg/dL (9.0-27.0); Calcium 9.4 mg/dL (8.7-10.3); Carbon Dioxide 24.3 mmol/L (20.0-27.5); Globulin 2.7 g/dL (1.6-3.3); Non-African American GFR(CKD) 71.4 (60.0-200.0); Potassium 3.8 mmol/L (3.5-5.5); Total Bilirubin 0.5 mg/dL (0.30-1.20); Total Protein 6.7 g/dL (6.2-8.2)
--- NOTE | 2021-09-29 11:29 | P.PN ---
Subjective Progress Note Date: 09/29/21 Pt was unable to provide any history for me today since he just had received ativan shortly before my arrival. He has been having agitation issues and does not follow directions well. Oxygenation has improved to room air however. Decadron d/c'd. Objective - Vital Signs Vital signs: Vital Signs Temp 98.4 F 09/29/21 09:58 Pulse 55 L 09/29/21 09:58 Resp 16 09/29/21 09:58 BP 139/83 09/29/21 09:58 Pulse Ox 97 09/29/21 09:58 Intake & Output 09/28/21 09/29/21 09/29/21 18:59 06:59 18:59 Output Total 60 Balance -60 Weight 122.47 kg 100.5 kg Output: Urine 60 Other: Voiding Method Diaper Diaper Incontinent Incontinent # Voids 3 - Exam Gen: Asleep, no apparent distress HEENT: normocephalic, atraumatic, good hearing acuity, moist mucous membranes Resp: good air exchange, breathing comfortably with no accessory muscle use CVS: good distal perfusion x 4, GI: soft, NTTP, ND : no SPT, no CVAT, tiwari catheter not present MSK: no pitting edema, no clubbing Neuro: non-focal, moving all extremities - Labs CBC & Chem 7: 09/29/21 06:00 09/29/21 05:53 Labs: Abnormal Lab Results - Last 24 Hours (Table) 09/28/21 09/28/21 09/28/21 Range/Units 12:12 16:36 16:48 ABG pH 7.51 H (7.35-7.45) ABG pO2 82 L (83-108) mmHg ABG HCO3 29 H (21-25) mmol/L ABG Total CO2 30 H (19-24) mmol/L BUN (9.0-27.0) mg/dL BUN/Creatinine Ratio (12.00-20.00) Ratio Glucose (70-110) mg/dL POC Glucose (mg/dL) 299 H 246 H (75-99) mg/dL Alkaline Phosphatase (41-126) U/L Albumin/Globulin Ratio (1.60-3.17) g/dL 09/28/21 09/29/21 09/29/21 Range/Units 21:48 05:53 07:02 ABG pH (7.35-7.45) ABG pO2 (83-108) mmHg ABG HCO3 (21-25) mmol/L ABG Total CO2 (19-24) mmol/L BUN 28.5 H (9.0-27.0) mg/dL BUN/Creatinine Ratio 28.22 H (12.00-20.00) Ratio Glucose 212 H (70-110) mg/dL POC Glucose (mg/dL) 247 H 198 H (75-99) mg/dL Alkaline Phosphatase 141 H (41-126) U/L Albumin/Globulin Ratio 1.47 L (1.60-3.17) g/dL Microbiology - Last 24 Hours (Table) 09/25/21 16:21 Blood Culture - Preliminary Blood No Growth after 72 hours Assessment and Plan Assessment: Toxic/Metabolic Encephalopathy likely secondary to COVID Generalized Weakness -admit to inpatient, telemetry -delirium precautions -avoid benzos, anticholinergics -not hypoxic, so no decadron -procalcitonin level to see if we can de-escalate abx -PT/OT DM HTN HLD Parkinsons -Home medications reviewed and reconciled
[2021-09-29 12:02] LABS: Glucose,Whole Blood 242 mg/dL (75-99)
[2021-09-29 16:37] LABS: Glucose,Whole Blood 276 mg/dL (75-99)
[2021-09-29] MEDS: AZITHROMYCIN 500 MG in SODIUM CHLORIDE 0.9% 250 ML IVPB SCH (16:59)
[2021-09-29 20:50] LABS: Glucose,Whole Blood 207 mg/dL (75-99)
[2021-09-29] MEDS: PRAVASTATIN SODIUM 40 MG TAB PO SCH (21:45)
[2021-09-29] MEDS: TAMSULOSIN 0.4 MG CAP.ER.24H PO SCH (21:45)
[2021-09-30 07:07] LABS: Glucose,Whole Blood 170 mg/dL (75-99)
[2021-09-30] MEDS: INSULIN ASPART (NovoLOG) 100 UNIT/ML VIAL SQ SCH ×4 (07:49→20:28)
[2021-09-30] MEDS: INSULIN DETEMIR (LEVEMIR) 100 UNIT/ML SYR SQ SCH (07:49)
[2021-09-30] MEDS: CARBIDOPA-LEVODOPA 25-250 MG 1 EACH TAB PO SCH ×3 (07:52→17:01)
[2021-09-30] MEDS: PRAMIPEXOLE 1 MG TAB PO SCH ×2 (07:52→20:23)
[2021-09-30] MEDS: hydroCHLOROthiazide 25 MG TAB PO SCH (07:52)
[2021-09-30] MEDS: LOSARTAN 25 MG TAB PO SCH (07:52)
[2021-09-30] MEDS: ASPIRIN 81 MG PO SCH (07:52)
[2021-09-30] MEDS: allopurinoL 300 MG TAB PO SCH (07:52)
[2021-09-30] MEDS: ASCORBIC ACID 500 MG TAB PO SCH ×2 (07:53→20:23)
[2021-09-30] MEDS: ZINC SULFATE 220 MG CAP PO SCH (07:53)
[2021-09-30] MEDS: CHOLECALCIFEROL 25 MCG (1000 IU) TABLET PO SCH (07:53)
[2021-09-30] MEDS: METOPROLOL SUCCINATE (ER) 50 MG TAB.ER.24H PO SCH (07:53)
[2021-09-30 09:06] LABS: Basophils # (A) 0.03 X 10*3/uL (0.00-0.10); Basophils % (A) 0.3 %; Eosinophils # (A) 0.11 X 10*3/uL (0.04-0.35); Eosinophils % (A) 1.1 %; HCT 44.7 % (39.6-50.0); HGB 14.5 g/dL (13.0-17.0); Immature Grans, Automated 0.2 %; Lymphocytes # (A) 3.17 X 10*3/uL (0.90-5.00); Lymphocytes % (A) 32.9 %; MCH 30.3 pg (27.0-32.0); MCHC 32.4 g/dL (32.0-37.0); MCV 93.5 fL (80.0-97.0); Mean Platelet Volume 10.6 fL (9.5-12.2); Monocytes % (A) 8.3 %; NRBC Per 100 WBC 0 /100 WBCS (0.0-0.0); Neutrophils # (A) 5.51 X 10*3/uL (1.80-7.70); Neutrophils % (A) 57.2 %; Platelet Count 275 X 10*3/uL (140-440); RBC 4.78 X 10*6/uL (4.40-5.60); RDW 13.2 % (11.5-14.5); WBC 9.64 X 10*3/uL (4.50-10.00)
[2021-09-30 09:26] LABS: African American GFR (CKD) 95.1 (60.0-200.0); Anion Gap 14.8 mmol/L (10.00-18.00); BUN/Creat Ratio 31.56 Ratio (12.00-20.00); Blood Urea Nitrogen 28.4 mg/dL (9.0-27.0); Calcium 9.2 mg/dL (8.7-10.3); Carbon Dioxide 23.2 mmol/L (20.0-27.5); Magnesium 1.6 mg/dL (1.5-2.4); Non-African American GFR(CKD) 82.1 (60.0-200.0); Potassium 3.6 mmol/L (3.5-5.5)
[2021-09-30 11:50] LABS: Glucose,Whole Blood 203 mg/dL (75-99)
[2021-09-30] MEDS: AZITHROMYCIN 500 MG in SODIUM CHLORIDE 0.9% 250 ML IVPB SCH (14:54)
[2021-09-30 16:42] LABS: Glucose,Whole Blood 154 mg/dL (75-99)
[2021-09-30] MEDS: TAMSULOSIN 0.4 MG CAP.ER.24H PO SCH (20:23)
[2021-09-30] MEDS: PRAVASTATIN SODIUM 40 MG TAB PO SCH (20:24)
[2021-09-30 20:37] LABS: Glucose,Whole Blood 125 mg/dL (75-99)
[2021-09-30] MEDS ORDERED: QUEtiapine 25 MG TAB PO SCH (21:00)
[2021-10-01 07:37] LABS: Glucose,Whole Blood 181 mg/dL (75-99)
[2021-10-01] MEDS: INSULIN DETEMIR (LEVEMIR) 100 UNIT/ML SYR SQ SCH (07:50)
[2021-10-01] MEDS: INSULIN ASPART (NovoLOG) 100 UNIT/ML VIAL SQ SCH ×2 (07:50→12:21)
[2021-10-01] MEDS: ASCORBIC ACID 500 MG TAB PO SCH (07:51)
[2021-10-01] MEDS: ASPIRIN 81 MG PO SCH (07:51)
[2021-10-01] MEDS: ZINC SULFATE 220 MG CAP PO SCH (07:51)
[2021-10-01] MEDS: allopurinoL 300 MG TAB PO SCH (07:51)
[2021-10-01] MEDS: METOPROLOL SUCCINATE (ER) 50 MG TAB.ER.24H PO SCH (07:51)
[2021-10-01] MEDS: PRAMIPEXOLE 1 MG TAB PO SCH (07:51)
[2021-10-01] MEDS: CHOLECALCIFEROL 25 MCG (1000 IU) TABLET PO SCH (07:51)
[2021-10-01] MEDS: CARBIDOPA-LEVODOPA 25-250 MG 1 EACH TAB PO SCH ×2 (07:51→12:21)
[2021-10-01] MEDS: LOSARTAN 25 MG TAB PO SCH (07:52)
[2021-10-01] MEDS: hydroCHLOROthiazide 25 MG TAB PO SCH (07:52)
[2021-10-01 10:48] VITALS: BP 108/68; PULSE 79; RESP 16; TEMP 97.6
[2021-10-01 11:06] LABS: Glucose,Whole Blood 195 mg/dL (75-99)
--- NOTE | 2021-10-01 12:31 | P.PN ---
Subjective Progress Note Date: 09/30/21 Pt was more interactive today. Did still seem agitated, but making more sense and following commands, redirectable. On room air. Objective - Vital Signs Vital signs: Vital Signs Temp 97.6 F 10/01/21 10:00 Pulse 79 10/01/21 10:00 Resp 16 10/01/21 10:00 BP 108/68 10/01/21 10:00 Pulse Ox 88 L 10/01/21 10:00 Intake & Output 09/30/21 10/01/21 10/01/21 18:59 06:59 18:59 Intake Total 300 Balance 300 Weight 90.5 kg Intake: Oral 300 Other: Voiding Method Diaper Diaper Incontinent Incontinent # Voids 4 3 # Bowel Movements 0 0 - Exam Gen: awake, alert, agitated HEENT: normocephalic, atraumatic, good hearing acuity, moist mucous membranes Resp: good air exchange, breathing comfortably with no accessory muscle use CVS: good distal perfusion x 4, GI: soft, NTTP, ND : no SPT, no CVAT, tiwari catheter not present MSK: no pitting edema, no clubbing Neuro: non-focal, moving all extremities - Labs CBC & Chem 7: 09/30/21 05:13 09/30/21 05:13 Labs: Abnormal Lab Results - Last 24 Hours (Table) 09/30/21 09/30/21 10/01/21 Range/Units 16:41 20:27 07:35 POC Glucose (mg/dL) 154 H 125 H 181 H (75-99) mg/dL 10/01/21 Range/Units 11:05 POC Glucose (mg/dL) 195 H (75-99) mg/dL Microbiology - Last 24 Hours (Table) 09/25/21 16:21 Blood Culture - Preliminary Blood No Growth after 120 hours Assessment and Plan Assessment: Toxic/Metabolic Encephalopathy likely secondary to COVID Generalized Weakness -admit to inpatient, telemetry -delirium precautions -avoid benzos, anticholinergics -not hypoxic, so no decadron -procalcitonin level to see if we can de-escalate abx -PT/OT DM HTN HLD Parkinsons -Home medications reviewed and reconciled
--- NOTE | 2021-10-01 12:36 | P.DS ---
Providers Date of admission: 09/25/21 15:16 Expected date of discharge: 10/01/21 Attending physician: Nazanin Blackmon DO Primary care physician: Bharti Nieto Hospital Course: Toxic/Metabolic Encephalopathy likely secondary to COVID Generalized Weakness -admitted to inpatient, telemetry due to toxic/metabolich encephalopathy and generalized weakness likely related to patient's COVID infection. Pt was initially started on decadron due to hypoxemia, but quickly recovered to room air. CXR and CTA showed mild interstitial lung disease, while CTA ruled out PE. Decadron was discontinued once patient recovered to room air. Pt was also treated with brief course of ceftriaxone, but procalcitonin was very low and abx were de-escalated. Due to patients confusion, Brain CT was ordered and showed chronic changes, but no acute changes. Pt was treated with delirium precautions and started on seroquel 25mg qHS for agitation likely related to encephalopathy superimposed on underlying dementia. PT/OT recommended SNF for rehab as patient was max assist. DM HTN HLD Parkinsons -Home medications reviewed and reconciled, new meds include: albuterol and seroquel; no other home med changes. I spent 38 minutes coordinating this complex discharge. Assessment: Gen: awake, alert, agitated HEENT: normocephalic, atraumatic, good hearing acuity, moist mucous membranes Resp: good air exchange, breathing comfortably with no accessory muscle use CVS: good distal perfusion x 4, GI: soft, NTTP, ND : no SPT, no CVAT, tiwari catheter not present MSK: no pitting edema, no clubbing Neuro: non-focal, moving all extremities Plan - Discharge Summary Discharge Rx Participant: No New Discharge Prescriptions: New QUEtiapine [SEROquel] 25 mg PO HS #0 tab Albuterol Inhaler [Ventolin Hfa Inhaler] 2 puff INHALATION Q4HR PRN gm PRN Reason: Bronchospasm Continue allopurinoL [Zyloprim] 300 mg PO DAILY Aspirin 81 mg PO DAILY glipiZIDE [Glucotrol] 5 mg PO DAILY Tamsulosin [Flomax] 0.4 mg PO HS Pravastatin Sodium [Pravachol] 40 mg PO HS hydroCHLOROthiazide 25 mg PO DAILY Metoprolol Succinate (ER) [Toprol XL] 50 mg PO DAILY 30 Days metFORMIN HCL [Glucophage] 1,000 mg PO DAILY Pramipexole Di-HCl [Mirapex ER] 3 mg PO DAILY Losartan [Cozaar] 25 mg PO DAILY #30 tab Acetaminophen Tab [Tylenol] 650 mg PO Q6HR PRN tab PRN Reason: Mild Pain Or Fever > 100.5 Carbidopa/Levodopa [Carbidopa-Levo 25-250 mg Odt] 1 tab PO TID@0800,1300,1700 Cyanocobalamin (Vitamin B-12) [Vitamin B-12] 1,000 mcg PO DAILY Discharge Medication List Aspirin 81 mg PO DAILY 07/28/17 [History] Pravastatin Sodium [Pravachol] 40 mg PO HS 07/28/17 [History] Tamsulosin [Flomax] 0.4 mg PO HS 07/28/17 [History] allopurinoL [Zyloprim] 300 mg PO DAILY 07/28/17 [History] glipiZIDE [Glucotrol] 5 mg PO DAILY 07/28/17 [History] Pramipexole Di-HCl [Mirapex ER] 3 mg PO DAILY 09/15/21 [History] hydroCHLOROthiazide 25 mg PO DAILY 09/15/21 [History] Acetaminophen Tab [Tylenol] 650 mg PO Q6HR PRN tab 09/20/21 [Rx] Losartan [Cozaar] 25 mg PO DAILY #30 tab 09/20/21 [Rx] Metoprolol Succinate (ER) [Toprol XL] 50 mg PO DAILY 30 Days 09/20/21 [Rx] Carbidopa/Levodopa [Carbidopa-Levo 25-250 mg Odt] 1 tab PO TID@0800,1300,1700 09/25/21 [History] Cyanocobalamin (Vitamin B-12) [Vitamin B-12] 1,000 mcg PO DAILY 09/25/21 [History] metFORMIN HCL [Glucophage] 1,000 mg PO DAILY 09/25/21 [History] Albuterol Inhaler [Ventolin Hfa Inhaler] 2 puff INHALATION Q4HR PRN gm 10/01/21 [Rx] QUEtiapine [SEROquel] 25 mg PO HS #0 tab 10/01/21 [Rx] Follow up Appointment(s)/Referral(s): Bharti Nieto MD [Primary Care Provider] - 1-2 days (virtual appointment 2-3 Days after D/C Call office for date and time)
== END 2021-10-01 15:20 | DRG 177 ==
LOC: EC 10:44 → 3SCARD 15:16 → 4SSUR 09-27 18:20
PROVIDERS: ADMIT Internal Medicine; ATTEND Internal Medicine
DX: U07.1 COVID-19 (principal); G92.8 Other toxic encephalopathy; E11.9 Type 2 diabetes mellitus without complications; E78.5 Hyperlipidemia, unspecified; F02.80 Dementia in other diseases classified elsewhere, unspecified severity, without behavioral disturbance, psychotic disturbance, mood disturbance, and anxiety; G20 Parkinson's disease; I10 Essential (primary) hypertension; I25.10 Atherosclerotic heart disease of native coronary artery without angina pectoris; I25.2 Old myocardial infarction; R45.1 Restlessness and agitation; R77.8 Other specified abnormalities of plasma proteins; R09.02 Hypoxemia; Z79.82 Long term (current) use of aspirin; Z79.84 Long term (current) use of oral hypoglycemic drugs; Z79.899 Other long term (current) drug therapy; Z87.891 Personal history of nicotine dependence; Z96.82 Presence of neurostimulator; Z66 Do not resuscitate; Z90.49 Acquired absence of other specified parts of digestive tract; Z98.890 Other specified postprocedural states
CPT/HCPCS: 36415; 36600; 70450; 71045; 71046; 71275; 80048; 80053; 81003; 82140; 82805; 83605; 83735; 83880; 84145; 84484; 85025; 85379; 85610; 85730; 87040; 93005; 94760; 99285

== ENCOUNTER 2021-10-24 19:50 | Emergency (ER) | payer MEDICARE ==
[2021-10-24 20:15] VITALS: TEMP 97.8
[2021-10-24] MEDS ORDERED: SODIUM CHLORIDE 0.9% 1,000 ML IV STA (20:18)
--- NOTE | 2021-10-24 20:24 | ED ---
Altered Mental Status HPI - General Chief Complaint: Altered Mental Status Stated Complaint: UTI Time Seen by Provider: 10/24/21 20:02 Source: patient, EMS, RN notes reviewed Mode of arrival: ambulatory Limitations: no limitations (Minimal by mild confusion) - History of Present Illness Initial Comments: This is a pleasant 76-year-old male sent from [facility] on the [facility] facility for increased confusion over the past few days. Patient is only able to give a very limited history due to confusion. Does not appear to be any significant focal complaint. [facility] staff wanted him checked for urinary tract infection due to the increased confusion. It was no history of fall the patient tells me he fell a week ago. Patient also noted to have abrasions to his left forearm area and a tiny abrasion to his occipital area. He is denying any pain. No chest pain or shortness of breath. No abdominal pain. He denies any problems with balance urination. Note that the patient is only alert and oriented times wanted a regular very limited history. Patient is telling me that he still lives in [place] with his eldest child. MD Complaint: confusion - Related Data Home Medications Medication Instructions Recorded Confirmed Aspirin 81 mg PO DAILY 07/28/17 09/25/21 Pravastatin Sodium [Pravachol] 40 mg PO HS 07/28/17 09/25/21 Tamsulosin [Flomax] 0.4 mg PO HS 07/28/17 09/25/21 allopurinoL [Zyloprim] 300 mg PO DAILY 07/28/17 09/25/21 glipiZIDE [Glucotrol] 5 mg PO DAILY 07/28/17 09/25/21 Pramipexole Di-HCl [Mirapex ER] 3 mg PO DAILY 09/15/21 09/25/21 hydroCHLOROthiazide 25 mg PO DAILY 09/15/21 09/25/21 Carbidopa/Levodopa [Carbidopa-Levo 1 tab PO TID@0800,1300,1700 09/25/21 09/25/21 25-250 mg Odt] Cyanocobalamin (Vitamin B-12) 1,000 mcg PO DAILY 09/25/21 09/25/21 [Vitamin B-12] metFORMIN HCL [Glucophage] 1,000 mg PO DAILY 09/25/21 09/25/21 Previous Rx's Medication Instructions Recorded Acetaminophen Tab [Tylenol] 650 mg PO Q6HR PRN tab 09/20/21 Losartan [Cozaar] 25 mg PO DAILY #30 tab 09/20/21 Metoprolol Succinate (ER) [Toprol 50 mg PO DAILY 30 Days 09/20/21 XL] Albuterol Inhaler [Ventolin Hfa 2 puff INHALATION Q4HR PRN gm 10/01/21 Inhaler] QUEtiapine [SEROquel] 25 mg PO HS #0 tab 10/01/21 Cephalexin [Keflex] 500 mg PO Q6HR #40 cap 10/24/21 Cephalexin [Keflex] 500 mg PO Q6HR #40 cap 10/24/21 Sulfamethox-Tmp 800-160Mg [Bactrim 1 tab PO Q12HR #20 tab 10/24/21 DS 800-160 mg] Sulfamethox-Tmp 800-160Mg [Bactrim 1 tab PO Q12HR #20 tab 10/24/21 DS 800-160 mg] Allergies Allergy/AdvReac Type Severity Reaction Status Date / Time No Known Allergies Allergy Verified 09/25/21 12:04 Review of Systems ROS Statement: Those systems with pertinent positive or pertinent negative responses have been documented in the HPI. ROS Other: All systems not noted in ROS Statement are negative. Past Medical History Past Medical History: Atrial Fibrillation, Coronary Artery Disease (CAD), Diabetes Mellitus, Hypertension, Myocardial Infarction (NM), Neurologic Disorder Additional Past Medical History / Comment(s): parkinsons Last Myocardial Infarction Date:: unknown History of Any Multi-Drug Resistant Organisms: None Reported Past Surgical History: Bariatric Surgery, Cholecystectomy, Heart Catheterization Additional Past Surgical History / Comment(s): has two implanted batteries for parkinsons lap band surgery 2009 Past Anesthesia/Blood Transfusion Reactions: No Reported Reaction Past Psychological History: No Psychological Hx Reported Smoking Status: Never smoker Past Alcohol Use History: None Reported Past Drug Use History: None Reported General Exam - General Exam Comments Initial Comments: Obese 76-year-old male in no acute distress. Patient does not appear to be ill or toxic. Patient is alert and oriented 2. Patient is disoriented to time, place, and situation. General appearance: alert, in no apparent distress Head exam: Present: atraumatic, normocephalic, normal inspection, other (Small posterior scalp abrasion over the occipital region. No step-off. No crepitus. Normocephalic atraumatic otherwise.) Eye exam: Present: normal appearance, PERRL, EOMI. Absent: scleral icterus, conjunctival injection, periorbital swelling ENT exam: Present: normal exam, mucous membranes moist Neck exam: Present: normal inspection, full ROM. Absent: tenderness, meningismu s, lymphadenopathy Respiratory exam: Present: normal lung sounds bilaterally. Absent: respiratory distress, wheezes, rales, rhonchi, stridor Cardiovascular Exam: Present: regular rate, normal rhythm, normal heart sounds. Absent: systolic murmur, diastolic murmur, rubs, gallop, clicks GI/Abdominal exam: Present: soft, normal bowel sounds. Absent: distended, tenderness, guarding, rebound, rigid Extremities exam: Present: normal inspection, full ROM, normal capillary refill, pedal edema, other (Bilateral pitting edema noted. Patient has multiple abrasions to include his left upper extremity and posterior scalp. No evidence of infectious process). Absent: tenderness, joint swelling, calf tenderness Back exam: Present: normal inspection Neurological exam: Present: alert, oriented X3, CN II-XII intact Expanded Patient oriented to: Present: person, place. Absent: time Speech: Present: fluid speech Cerebellar function: Finger to Nose: Normal, Heel to Obrien: Normal Upper motor neuron: Ian Neglect: Normal, Sensory Extinction: Normal Motor strength exam: RUE: 5, LUE: 5, RLE: 5, LLE: 5 Eye Response: (4) open spontaneously Motor Response: (6) obeys commands Verbal Response: (5) oriented [place] Total: 15 Psychiatric exam: Present: normal affect, normal mood Skin exam: Present: warm, dry, intact, normal color, erythema (Erythema noted to the anterior aspect of the left lower extremity consistent with cellulitis. Pedal pulses palpable. Capillary refill less than 2 seconds.). Absent: rash Course Vital Signs 10/24/21 19:55 Temperature 97.8 F Pulse Rate 76 Respiratory 19 Rate Blood Pressure 105/72 O2 Sat by Pulse 98 Oximetry - Reevaluation(s) Reevaluation #1: 10/24/21 22:22 Medical record is reviewed Symptoms are improved here in the emergency department Patient is informed of results and questions answered Patient in no distressPatient really has no symptoms here in the ER. Patient was reevaluated, patient neurologically intact. Patient still alert and oriented times one. No focal neurologic deficits. Cranial nerves II through XII intact. Moving all extremities normally. Reevaluation #2: 10/24/21 23:12 Medical record is reviewed Patient stable for discharge. Cranial nerves II through XII intact. Patient alert and oriented 2. No change in status. Patient is informed of results and questions answered Patient in no distress Medical Decision Making - Medical Decision Making Diagnostic workup for confusion. Unsure whether the patient fell and struck his head. However he does have abrasions. We will obtain a CT of the brain and cervical spine as well. Note that the patient has a brain stimulator for Parkinson's disease. This is causing major artifact with the EKG. We are able to obtain a rhythm strip which shows a rate of 78, irregular, patient does have a history of atrial fibrillation. Case was discussed with the patient as well as his family members. We'll treat the patient with cephalexin and Bactrim DS. Patient was given Ancef and Bactrim here in the ER. He did not show any acute findings. Suspect the patient's minimally worsening confusion may be due to the cellulitis. Did have a moderately elevated white blood cell count. No other evidence of infectious etiology. Abdomen was nontender. Urine was clear. No focal neurologic deficits. Family members concur with this treatment plan. All questions answered. Cellulitis was demarcated. Mild normocytic anemia, albumin and calcium were slightly low. Blood sugar was 238. No evidence of hyperosmolar state. - Lab Data Result diagrams: 10/24/21 21:16 10/24/21 21:16 Lab Results 10/24/21 10/24/21 10/24/21 Range/Units 21:16 21:16 21:16 WBC 13.9 H (3.8-10.6) k/uL RBC 3.57 L (4.30-5.90) m/uL Hgb 11.4 L (13.0-17.5) gm/dL Hct 35.2 L (39.0-53.0) % MCV 98.5 (80.0-100.0) fL MCH 32.0 (25.0-35.0) pg MCHC 32.5 (31.0-37.0) g/dL RDW 14.7 (11.5-15.5) % Plt Count 196 (150-450) k/uL MPV 7.7 Neutrophils % 76 % Lymphocytes % 16 % Monocytes % 5 % Eosinophils % 2 % Basophils % 1 % Neutrophils # 10.5 H (1.3-7.7) k/uL Lymphocytes # 2.2 (1.0-4.8) k/uL Monocytes # 0.6 (0-1.0) k/uL Eosinophils # 0.3 (0-0.7) k/uL Basophils # 0.1 (0-0.2) k/uL Macrocytosis Slight PT 10.7 (9.0-12.0) sec INR 1.0 (<1.2) APTT 24.5 (22.0-30.0) sec Sodium (137-145) mmol/L Potassium (3.5-5.1) mmol/L Chloride (98-107) mmol/L Carbon Dioxide (22-30) mmol/L Anion Gap mmol/L BUN (9-20) mg/dL Creatinine (0.66-1.25) mg/dL Est GFR (CKD-EPI)AfAm (>60 ml/min/1.73 sqM) Est GFR (CKD-EPI)NonAf (>60 ml/min/1.73 sqM) Glucose (74-99) mg/dL Plasma Lactic Acid [place] (0.7-2.0) mmol/L Calcium (8.4-10.2) mg/dL Phosphorus (2.5-4.5) mg/dL Magnesium (1.6-2.3) mg/dL Total Bilirubin (0.2-1.3) mg/dL AST (17-59) U/L ALT (4-49) U/L Alkaline Phosphatase (38-126) U/L Ammonia (<30) umol/L Troponin I (0.000-0.034) ng/mL Total Protein (6.3-8.2) g/dL Albumin (3.5-5.0) g/dL Lipase (23-300) U/L TSH (0.465-4.680) mIU/L Urine Color Yellow Urine Appearance Clear (Clear) Urine pH 5.5 (5.0-8.0) Ur Specific [place] 1.027 (1.001-1.035) Urine Protein Negative (Negative) Urine Glucose (UA) Negative (Negative) Urine Ketones Trace H (Negative) Urine Blood Negative (Negative) Urine Nitrite Negative (Negative) Urine Bilirubin Negative (Negative) Urine Urobilinogen 3.0 (<2.0) mg/dL Ur Leukocyte Esterase Negative (Negative) Coronavirus (PCR) (Not Detectd) 10/24/21 10/24/21 10/24/21 Range/Units 21:16 21:16 21:16 WBC (3.8-10.6) k/uL RBC (4.30-5.90) m/uL Hgb (13.0-17.5) gm/dL Hct (39.0-53.0) % MCV (80.0-100.0) fL MCH (25.0-35.0) pg MCHC (31.0-37.0) g/dL RDW (11.5-15.5) % Plt Count (150-450) k/uL MPV Neutrophils % % Lymphocytes % % Monocytes % % Eosinophils % % Basophils % % Neutrophils # (1.3-7.7) k/uL Lymphocytes # (1.0-4.8) k/uL Monocytes # (0-1.0) k/uL Eosinophils # (0-0.7) k/uL Basophils # (0-0.2) k/uL Macrocytosis PT (9.0-12.0) sec INR (<1.2) APTT (22.0-30.0) sec Sodium 138 (137-145) mmol/L Potassium 3.7 (3.5-5.1) mmol/L Chloride 102 (98-107) mmol/L Carbon Dioxide 24 (22-30) mmol/L Anion Gap 12 mmol/L BUN 25 H (9-20) mg/dL Creatinine 0.92 (0.66-1.25) mg/dL Est GFR (CKD-EPI)AfAm >90 (>60 ml/min/1.73 sqM) Est GFR (CKD-EPI)NonAf 80 (>60 ml/min/1.73 sqM) Glucose 238 H (74-99) mg/dL Plasma Lactic Acid Garrison 1.4 (0.7-2.0) mmol/L Calcium 8.2 L (8.4-10.2) mg/dL Phosphorus 3.5 (2.5-4.5) mg/dL Magnesium 1.4 L (1.6-2.3) mg/dL Total Bilirubin 0.7 (0.2-1.3) mg/dL AST 18 (17-59) U/L ALT 6 (4-49) U/L Alkaline Phosphatase 137 H (38-126) U/L Ammonia <9 (<30) umol/L Troponin I <0.012 (0.000-0.034) ng/mL Total Protein 5.9 L (6.3-8.2) g/dL Albumin 3.4 L (3.5-5.0) g/dL Lipase 32 (23-300) U/L TSH 2.030 (0.465-4.680) mIU/L Urine Color Urine Appearance (Clear) Urine pH (5.0-8.0) Ur Specific [place] (1.001-1.035) Urine Protein (Negative) Urine Glucose (UA) (Negative) Urine Ketones (Negative) Urine Blood (Negative) Urine Nitrite (Negative) Urine Bilirubin (Negative) Urine Urobilinogen (<2.0) mg/dL Ur Leukocyte Esterase (Negative) Coronavirus (PCR) (Not Detectd) 10/24/21 Range/Units 21:16 WBC (3.8-10.6) k/uL RBC (4.30-5.90) m/uL Hgb (13.0-17.5) gm/dL Hct (39.0-53.0) % MCV (80.0-100.0) fL MCH (25.0-35.0) pg MCHC (31.0-37.0) g/dL RDW (11.5-15.5) % Plt Count (150-450) k/uL MPV Neutrophils % % Lymphocytes % % Monocytes % % Eosinophils % % Basophils % % Neutrophils # (1.3-7.7) k/uL Lymphocytes # (1.0-4.8) k/uL Monocytes # (0-1.0) k/uL Eosinophils # (0-0.7) k/uL Basophils # (0-0.2) k/uL Macrocytosis PT (9.0-12.0) sec INR (<1.2) APTT (22.0-30.0) sec Sodium (137-145) mmol/L Potassium (3.5-5.1) mmol/L Chloride (98-107) mmol/L Carbon Dioxide (22-30) mmol/L Anion Gap mmol/L BUN (9-20) mg/dL Creatinine (0.66-1.25) mg/dL Est GFR (CKD-EPI)AfAm (>60 ml/min/1.73 sqM) Est GFR (CKD-EPI)NonAf (>60 ml/min/1.73 sqM) Glucose (74-99) mg/dL Plasma Lactic Acid [place]arrison (0.7-2.0) mmol/L Calcium (8.4-10.2) mg/dL Phosphorus (2.5-4.5) mg/dL Magnesium (1.6-2.3) mg/dL Total Bilirubin (0.2-1.3) mg/dL AST (17-59) U/L ALT (4-49) U/L Alkaline Phosphatase (38-126) U/L Ammonia (<30) umol/L Troponin I (0.000-0.034) ng/mL Total Protein (6.3-8.2) g/dL Albumin (3.5-5.0) g/dL Lipase (23-300) U/L TSH (0.465-4.680) mIU/L Urine Color Urine Appearance (Clear) Urine pH (5.0-8.0) Ur Specific [place] (1.001-1.035) Urine Protein (Negative) Urine Glucose (UA) (Negative) Urine Ketones (Negative) Urine Blood (Negative) Urine Nitrite (Negative) Urine Bilirubin (Negative) Urine Urobilinogen (<2.0) mg/dL Ur Leukocyte Esterase (Negative) Coronavirus (PCR) Not Detected (Not Detectd) Disposition Clinical Impression: Cellulitis of left lower extremity without foot, Hypomagnesemia, Hyperglycemia due to diabetes mellitus Disposition: HOME SELF-CARE Condition: Stable Instructions (If sedation given, give patient instructions): Cellulitis (ED), Altered Mental Status (ED) Additional Instructions: Follow-up with the primary care physician for reevaluation within the next 48 hours. Administer the antibiotics, Bactrim DS, and cephalexin as directed. Elevate the left leg whenever possible. Follow fall precautions for the patient. Return to the ER immediately if any symptoms worsen, new symptoms arise, or any other problems develop. Prescriptions: Sulfamethox-Tmp 800-160Mg [Bactrim DS 800-160 mg] 1 tab PO Q12HR #20 tab Sulfamethox-Tmp 800-160Mg [Bactrim DS 800-160 mg] 1 tab PO Q12HR #20 tab Cephalexin [Keflex] 500 mg PO Q6HR #40 cap Cephalexin [Keflex] 500 mg PO Q6HR #40 cap Is patient prescribed a controlled substance at d/c from ED?: No Referrals: Dustin Britton MD [Primary Care Provider] - 1-2 days Time of Disposition: 22:16
--- NOTE | 2021-10-24 20:43 | XR ---
EXAMINATION TYPE: XR chest 1V portable DATE OF EXAM: 10/24/2021 COMPARISON: 09/28/2021 HISTORY: Abdominal pain TECHNIQUE: FINDINGS: There is no heart failure nor confluent pneumonic infiltrate. Costophrenic angles are clear . There is bilateral axillary neural stimulators. There is no pleural effusion. IMPRESSION: No active cardiopulmonary disease. No change.
[2021-10-24 21:34] LABS: Basophils # (A) 0.1 k/uL (0-0.2); Basophils % (A) 1 %; Eosinophils # (A) 0.3 k/uL (0-0.7); Eosinophils % (A) 2 %; HCT 35.2 % (39.0-53.0); HGB 11.4 gm/dL (13.0-17.5); Lymphocytes # (A) 2.2 k/uL (1.0-4.8); Lymphocytes % (A) 16 %; MCHC 32.5 g/dL (31.0-37.0); MCV 98.5 fL (80.0-100.0); Macrocytosis Slight; Mean Platelet Volume 7.7; Monocytes # (A) 0.6 k/uL (0-1.0); Monocytes % (A) 5 %; Neutrophils # (A) 10.5 k/uL (1.3-7.7); Neutrophils % (A) 76 %; Platelet Count 196 k/uL (150-450); RBC 3.57 m/uL (4.30-5.90); RDW 14.7 % (11.5-15.5); WBC 13.9 k/uL (3.8-10.6)
[2021-10-24 21:41] LABS: Lactic Acid, Venous 1.4 mmol/L (0.7-2.0)
[2021-10-24 21:43] LABS: ALT 6 U/L (4-49); AST 18 U/L (17-59); African American GFR (CKD) >90 (>60 ml/min/1.73 sqM); Albumin 3.4 g/dL (3.5-5.0); Alkaline Phosphatase 137 U/L (38-126); Anion Gap 12 mmol/L; Blood Urea Nitrogen 25 mg/dL (9-20); Calcium 8.2 mg/dL (8.4-10.2); Carbon Dioxide 24 mmol/L (22-30); Chloride 102 mmol/L (98-107); Glucose 238 mg/dL (74-99); Lipase 32 U/L (23-300); Magnesium 1.4 mg/dL (1.6-2.3); Non-African American GFR(CKD) 80 (>60 ml/min/1.73 sqM); Phosphorus 3.5 mg/dL (2.5-4.5); Potassium 3.7 mmol/L (3.5-5.1); Sodium 138 mmol/L (137-145); Total Bilirubin 0.7 mg/dL (0.2-1.3); Total Protein 5.9 g/dL (6.3-8.2)
[2021-10-24 21:46] LABS: Appearance,Urine Clear (Clear); Bilirubin,Urine Negative (Negative); Blood,Urine Negative (Negative); Color,Urine Yellow; Glucose,Urine (UA) Negative (Negative); Ketones,Urine Trace (Negative); Leukocyte Esterase,Urine Negative (Negative); Nitrite,Urine Negative (Negative); PH, Urine 5.5 (5.0-8.0); Protein,Urine Negative (Negative); Specific Gravity,Urine 1.027 (1.001-1.035)
[2021-10-24 21:48] LABS: Partial Thromboplastin Time 24.5 sec (22.0-30.0); Prothrombin Time 10.7 sec (9.0-12.0)
--- NOTE | 2021-10-24 22:01 | CT ---
EXAMINATION TYPE: CT brain cspine wo con DATE OF EXAM: 10/24/2021 COMPARISON: 09/15/2021 HISTORY: Multiple falls, head injury, confusion. CT DLP: 1822.1 mGycm Automated exposure control for dose reduction was used. Images of the brain and cervical spine obtained without contrast. There is cerebral cortical atrophy. There is bilateral thalamic electrodes noted with the craniotomy in the posterior frontal bone bilaterally. There is no mass effect or midline shift. There is no sign of intracranial hemorrhage. Skull base is intact. There is normal aeration of the mastoid sinuses. The cervical vertebra have mild straightening. There is degenerative disc space narrowing in the mid and lower cervical spine. There is narrowing at C5-6 and C6-7 disc spaces with spur formation. Facet joints are intact. Skull base is intact. IMPRESSION: Multilevel cervical spondylotic changes. No fracture. No change compared to old exam. No acute intracranial abnormality. No change compared to old exam.
[2021-10-24] MEDS ORDERED: SULFAMETHOX-TMP 800-160MG 1 EACH TAB PO STA (22:15)
[2021-10-24] MEDS ORDERED: Magnesium Replacement Protocol 1 EACH MISC MISCELLANE PRN (22:28)
[2021-10-24] MEDS: MAGNESIUM SULFATE-D5W PMX 1 GM in DEXTROSE/WATER 1 100ML.BAG IVPB SCH ×2 (23:02→23:59)
[2021-10-25 01:35] VITALS: BP 146/78; PULSE 80; RESP 18
== END 2021-10-25 01:46 | disposition home or self-care (01) ==
LOC: EC 19:50
DX: L03.116 Cellulitis of left lower limb (principal); E11.65 Type 2 diabetes mellitus with hyperglycemia; E83.42 Hypomagnesemia; S50.812A Abrasion of left forearm, initial encounter; S00.01XA Abrasion of scalp, initial encounter; Z20.822 Contact with and (suspected) exposure to COVID-19; I48.91 Unspecified atrial fibrillation; I25.10 Atherosclerotic heart disease of native coronary artery without angina pectoris; I25.2 Old myocardial infarction; G20 Parkinson's disease; Z79.84 Long term (current) use of oral hypoglycemic drugs; Z79.51 Long term (current) use of inhaled steroids; Z79.82 Long term (current) use of aspirin; Z79.899 Other long term (current) drug therapy; W19.XXXA Unspecified fall, initial encounter
CPT/HCPCS: 80053; 84443; 82140; 83605; 83690; 83735; 84100; 84484; 85025; 85610; 85730; 81003; 87040; 87635; 71045; 72125; 70450; 99284; 96365; 96367; J0690; J3475; 36415

== ENCOUNTER 2022-04-13 11:47 | Inpatient (IN) | payer MEDICARE ==
[2022-04-13] MEDS ORDERED: MIDODRINE 5 MG TAB PO STA (12:28)
[2022-04-13] MEDS ORDERED: SODIUM CHLORIDE 0.9% 1,000 ML IV STA ×2 (12:31→14:20)
[2022-04-13 13:00] LABS: Basophils # (A) 0.1 k/uL (0-0.2); Basophils % (A) 1 %; Eosinophils # (A) 0.6 k/uL (0-0.7); Eosinophils % (A) 4 %; HCT 40.4 % (39.0-53.0); HGB 13.3 gm/dL (13.0-17.5); Lymphocytes # (A) 4.2 k/uL (1.0-4.8); Lymphocytes % (A) 27 %; MCH 32.5 pg (25.0-35.0); MCHC 32.9 g/dL (31.0-37.0); MCV 98.7 fL (80.0-100.0); Mean Platelet Volume 7.9; Monocytes # (A) 0.9 k/uL (0-1.0); Monocytes % (A) 6 %; Neutrophils # (A) 9.5 k/uL (1.3-7.7); Neutrophils % (A) 61 %; Platelet Count 250 k/uL (150-450); WBC 15.4 k/uL (3.8-10.6)
[2022-04-13 13:13] LABS: Albumin 3.7 g/dL (3.5-5.0); Potassium 4.2 mmol/L (3.5-5.1); Total Bilirubin 0.7 mg/dL (0.2-1.3); Total Protein 6.3 g/dL (6.3-8.2)
--- NOTE | 2022-04-13 13:18 | ED ---
Fall HPI - General Chief Complaint: Fall Stated Complaint: fall Time Seen by Provider: 04/13/22 12:06 Source: EMS Mode of arrival: EMS - History of Present Illness Initial Comments: 36-year-old male with past medical history of A. fib on Eliquis, coronary artery disease, Parkinson's with stimulator presents to the emergency department after he sustained a fall. He resides at [facility]. Was sitting in his wheelchair and had an unwitnessed fall. Patient felt to the ground and sustained a hematoma and abrasion to the right forehead. She denies that he had a syncopal episode. Admits to mild headache without visual changes. No neck pain. Denies any other injuries. Patient is alert and oriented 2 which is his baseline. Able to answer questions appropriately. Moving all extremity. Denies any chest pain or shortness of breath. Upon arrival patient does have notable low blood pressures. Was given 500 mL by EMS. Remarked that he was up last night with multiple episodes of watery diarrhea. He takes Midodrine for low blood pressure for which she was administered this morning. Admits to normal appetite. No changes in his urination. No other alleviating, Perceptin or modifying factors - Related Data Home Medications Medication Instructions Recorded Confirmed Aspirin 81 mg PO DAILY 07/28/17 04/13/22 Pravastatin Sodium [Pravachol] 40 mg PO HS 07/28/17 04/13/22 Tamsulosin [Flomax] 0.4 mg PO DAILY 07/28/17 04/13/22 allopurinoL [Zyloprim] 300 mg PO DAILY 07/28/17 04/13/22 Carbidopa/Levodopa [Carbidopa-Levo 1 tab PO TID@0800,1300,1700 09/25/21 04/13/22 25-250 mg Odt] Cyanocobalamin (Vitamin B-12) 1,000 mcg PO DAILY 09/25/21 04/13/22 [Vitamin B-12] metFORMIN HCL [Glucophage] 1,000 mg PO DAILY 09/25/21 04/13/22 ALPRAZolam [Xanax] 0.5 mg PO TID@0900,1300,1700 04/13/22 04/13/22 Acetaminophen Tab [Tylenol] 650 mg PO BID PRN 04/13/22 04/13/22 Acetaminophen Tab [Tylenol] 650 mg PO TID@0900,1300,2100 04/13/22 04/13/22 Albuterol Inhaler [Ventolin Hfa 2 puff INHALATION RT-Q4H PRN 04/13/22 04/13/22 Inhaler] Apixaban [Eliquis] 2.5 mg PO BID 04/13/22 04/13/22 Budesonide-Formot 160-4.5 Mcg 2 puff INHALATION RT-BID 04/13/22 04/13/22 [Symbicort 160-4.5 Mcg Inhaler] Divalproex [Depakote] 250 mg PO BID 04/13/22 04/13/22 Furosemide [Lasix] 40 mg PO BID@0900,1500 04/13/22 04/13/22 Glimepiride [Amaryl] 1 mg PO Q12H 04/13/22 04/13/22 Glimepiride [Amaryl] 2 mg PO Q12H 04/13/22 04/13/22 Losartan [Cozaar] 25 mg PO DAILY 04/13/22 04/13/22 Magnesium Hydroxide [Milk of 2,400 mg PO ONCE 04/13/22 04/13/22 Magnesia] Melatonin [Melatonin ER] 10 mg PO HS PRN 04/13/22 04/13/22 Midodrine HCl [ProAmatine] 10 mg PO TID@0900,1300,2100 04/13/22 04/13/22 Na Phos,M-B/Na Phos,Di-Ba [Fleet 133 ml RECTAL ONCE 04/13/22 04/13/22 Adult] Spironolactone [Aldactone] 25 mg PO DAILY 04/13/22 04/13/22 haloperidoL [Haldol] 0.5 mg PO TID@0900,1300,2100 04/13/22 04/13/22 rOPINIRole HCL [Requip] 2 mg PO Q12H 04/13/22 04/13/22 Previous Rx's Medication Instructions Recorded Metoprolol Succinate (ER) [Toprol 50 mg PO DAILY 30 Days 09/20/21 XL] Allergies Allergy/AdvReac Type Severity Reaction Status Date / Time gabapentin Allergy unknown, Verified 04/13/22 14:39 per [facility] Review of Systems ROS Statement: Those systems with pertinent positive or pertinent negative responses have been documented in the HPI. ROS Other: All systems not noted in ROS Statement are negative. Past Medical History Past Medical History: Atrial Fibrillation, Coronary Artery Disease (CAD), Diabetes Mellitus, Hypertension, Myocardial Infarction ([place]), Neurologic Disorder Additional Past Medical History / Comment(s): parkinsons Last Myocardial Infarction Date:: unknown History of Any Multi-Drug Resistant Organisms: None Reported Past Surgical History: Bariatric Surgery, Cholecystectomy, Heart Catheterization Additional Past Surgical History / Comment(s): has two implanted batteries for parkinsons lap band surgery 2009 Past Anesthesia/Blood Transfusion Reactions: No Reported Reaction Past Psychological History: No Psychological Hx Reported Smoking Status: Never smoker Past Alcohol Use History: None Reported Past Drug Use History: None Reported - Past Family History Father Family Medical History: Myocardial Infarction ([place]) Mother Additional Family Medical History / Comment(s): heart disease General Exam General appearance: alert, in no apparent distress Head exam: Present: normocephalic, other (abrasion right forehead) Eye exam: Present: normal appearance, PERRL, EOMI. Absent: scleral icterus, conjunctival injection, periorbital swelling ENT exam: Present: normal exam, mucous membranes moist Neck exam: Present: normal inspection. Absent: tenderness, meningismus, lymphadenopathy Respiratory exam: Present: normal lung sounds bilaterally. Absent: respiratory distress, wheezes, rales, rhonchi, stridor Cardiovascular Exam: Present: regular rate, normal rhythm, normal heart sounds. Absent: systolic murmur, diastolic murmur, rubs, gallop, clicks GI/Abdominal exam: Present: soft, normal bowel sounds. Absent: distended, tenderness, guarding, rebound, rigid Extremities exam: Present: normal inspection, full ROM, normal capillary refill. Absent: tenderness, pedal edema, joint swelling, calf tenderness Back exam: Present: normal inspection Neurological exam: Present: alert, oriented X3, CN II-XII intact Psychiatric exam: Present: normal affect, normal mood Skin exam: Present: warm, dry, intact, normal color. Absent: rash Course Vital Signs 04/13/22 04/13/22 04/13/22 11:53 12:04 12:30 Temperature 97.8 F Pulse Rate 73 67 Pulse Rate [ Pulse Oximetery ] Respiratory 18 18 Rate Blood Pressure 73/46 104/67 91/51 Blood Pressure [Right Arm] O2 Sat by Pulse 98 96 Oximetry 04/13/22 04/13/22 04/13/22 13:52 15:00 15:16 Temperature 97.3 F L 97.8 F Pulse Rate 75 62 Pulse Rate [ 57 L Pulse Oximetery ] Respiratory 18 16 18 Rate Blood Pressure 102/59 94/70 Blood Pressure 117/70 [Right Arm] O2 Sat by Pulse 97 96 100 Oximetry Medical Decision Making - Medical Decision Making Upon arrival patient is placed into room 1. Has blood pressure of 73/46. He had been given 500 bolus by EMS. He is additionally given another bolus 1 L. Laboratory studies are conducted and reviewed. White count mildly elevated at 15.4. Hemoglobin is 13.3. CO2 is 21. CT the cervical spine does not demonstrate any acute intra-cranial process. Chest x-ray demonstrates no acute cardio pulmonary disease. After the liter bolus the patient is evaluated. He is additionally given 10 mg of Midrin. Blood pressure still remains around 95 systolic. Because of his persistent low blood pressure likely due to his diarrhea I recommended admission. Patient agreeable to this. Spoke with Dr. Moreno who was agreeable to admission. - Lab Data Result diagrams: 04/16/22 06:56 04/16/22 06:56 Lab Results 04/13/22 04/13/22 04/13/22 Range/Units 12:46 12:46 12:46 WBC 15.4 H (3.8-10.6) k/uL RBC 4.10 L (4.30-5.90) m/uL Hgb 13.3 (13.0-17.5) gm/dL Hct 40.4 (39.0-53.0) % MCV 98.7 (80.0-100.0) fL MCH 32.5 (25.0-35.0) pg MCHC 32.9 (31.0-37.0) g/dL RDW 14.0 (11.5-15.5) % Plt Count 250 (150-450) k/uL MPV 7.9 Neutrophils % 61 % Lymphocytes % 27 % Monocytes % 6 % Eosinophils % 4 % Basophils % 1 % Neutrophils # 9.5 H (1.3-7.7) k/uL Lymphocytes # 4.2 (1.0-4.8) k/uL Monocytes # 0.9 (0-1.0) k/uL Eosinophils # 0.6 (0-0.7) k/uL Basophils # 0.1 (0-0.2) k/uL PT 10.9 (9.0-12.0) sec INR 1.0 (<1.2) APTT 22.0 (22.0-30.0) sec Sodium 140 (137-145) mmol/L Potassium 4.2 (3.5-5.1) mmol/L Chloride 104 (98-107) mmol/L Carbon Dioxide 21 L (22-30) mmol/L Anion Gap 15 mmol/L BUN 44 H (9-20) mg/dL Creatinine 1.21 (0.66-1.25) mg/dL Est GFR (CKD-EPI)AfAm 67 (>60 ml/min/1.73 sqM) Est GFR (CKD-EPI)NonAf 58 (>60 ml/min/1.73 sqM) Glucose 182 H (74-99) mg/dL Estimated Ave Glu mg/dL Hemoglobin A1c (0.0-6.0) % Calcium 9.0 (8.4-10.2) mg/dL Total Bilirubin 0.7 (0.2-1.3) mg/dL AST 23 (17-59) U/L ALT 9 (4-49) U/L Alkaline Phosphatase 129 H (38-126) U/L Troponin I (0.000-0.034) ng/mL Total Protein 6.3 (6.3-8.2) g/dL Albumin 3.7 (3.5-5.0) g/dL 04/13/22 04/13/22 Range/Units 12:46 12:46 WBC (3.8-10.6) k/uL RBC (4.30-5.90) m/uL Hgb (13.0-17.5) gm/dL Hct (39.0-53.0) % MCV (80.0-100.0) fL MCH (25.0-35.0) pg MCHC (31.0-37.0) g/dL RDW (11.5-15.5) % Plt Count (150-450) k/uL MPV Neutrophils % % Lymphocytes % % Monocytes % % Eosinophils % % Basophils % % Neutrophils # (1.3-7.7) k/uL Lymphocytes # (1.0-4.8) k/uL Monocytes # (0-1.0) k/uL Eosinophils # (0-0.7) k/uL Basophils # (0-0.2) k/uL PT (9.0-12.0) sec INR (<1.2) APTT (22.0-30.0) sec Sodium (137-145) mmol/L Potassium (3.5-5.1) mmol/L Chloride (98-107) mmol/L Carbon Dioxide (22-30) mmol/L Anion Gap mmol/L BUN (9-20) mg/dL Creatinine (0.66-1.25) mg/dL Est GFR (CKD-EPI)AfAm (>60 ml/min/1.73 sqM) Est GFR (CKD-EPI)NonAf (>60 ml/min/1.73 sqM) Glucose (74-99) mg/dL Estimated Ave Glu mg/dL 178 Hemoglobin A1c 7.8 H (0.0-6.0) % Calcium (8.4-10.2) mg/dL Total Bilirubin (0.2-1.3) mg/dL AST (17-59) U/L ALT (4-49) U/L Alkaline Phosphatase (38-126) U/L Troponin I 0.015 (0.000-0.034) ng/mL Total Protein (6.3-8.2) g/dL Albumin (3.5-5.0) g/dL - EKG Data EKG Comments: EKG demonstrates a flutter with a rate of 82. QRS 124. QTC of 465. Significant baseline artifact due to stimulator. No acute ST segment elevations Disposition Clinical Impression: Fall, Concussion without loss of consciousness, Hypotension Disposition: ADMITTED IP TO THIS [facility] Condition: Stable Is patient prescribed a controlled substance at d/c from ED?: No Time of Disposition: 14:38 Decision to Admit Reason: Admit from EC Decision Date: 04/13/22 Decision Time: 14:38
[2022-04-13 13:21] LABS: Prothrombin Time 10.9 sec (9.0-12.0)
--- NOTE | 2022-04-13 13:37 | XR ---
EXAMINATION TYPE: XR chest 2V DATE OF EXAM: 04/13/2022 1:22 PM COMPARISON: Chest radiographs from 11/11/2021 TECHNIQUE: XR chest 2V Frontal and lateral views of the chest. CLINICAL INDICATION:Male, 76 years old with history of syncope; FINDINGS: Lungs/Pleura: There is no evidence of pleural effusion, focal consolidation, or pneumothorax. Pulmonary vascularity: Unremarkable. Heart/mediastinum: Cardiomediastinal silhouette is unremarkable. Musculoskeletal: No acute osseous pathology. Other findings: Electronic devices with leads terminating out of the [id number] superiorly. These limit evaluation of the lungs. IMPRESSION: No acute cardiopulmonary disease/process.
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
[2022-04-13] MEDS ORDERED: NALOXONE 0.4 MG/ML 1 ML VIAL IV PRN (14:39)
[2022-04-13] MEDS ORDERED: ACETAMINOPHEN TAB 325 MG TAB PO PRN (14:39)
[2022-04-13] MEDS ORDERED: DEXTROSE 50% SYRINGE 50 ML IVP PRN ×2 (15:19)
[2022-04-13 16:53] LABS: Glucose,Whole Blood 171 mg/dL (70-110)
[2022-04-13] MEDS: INSULIN ASPART (NovoLOG) 100 UNIT/ML VIAL SQ SCH ×2 (17:22→20:45)
[2022-04-13] MEDS: CARBIDOPA-LEVODOPA 25-250 MG 1 EACH TAB PO SCH (17:22)
[2022-04-13] MEDS: SYMBICORT 160-4.5 MCG INHALER INHALATION SCH (19:58)
[2022-04-13 20:14] LABS: Glucose,Whole Blood 120 mg/dL (70-110)
[2022-04-13] MEDS: DIVALPROEX 250 MG TABLET.DR PO SCH (20:50)
[2022-04-13] MEDS: PRAVASTATIN SODIUM 40 MG TAB PO SCH (20:50)
[2022-04-14 07:23] LABS: Glucose,Whole Blood 175 mg/dL (70-110)
[2022-04-14] MEDS: ASPIRIN 81 MG PO SCH (07:29)
[2022-04-14] MEDS ORDERED: ALBUTEROL NEBULIZED 2.5 MG/3 ML INHALATION PRN (07:29)
[2022-04-14] MEDS: CARBIDOPA-LEVODOPA 25-250 MG 1 EACH TAB PO SCH ×3 (07:30→18:50)
[2022-04-14] MEDS: INSULIN ASPART (NovoLOG) 100 UNIT/ML VIAL SQ SCH ×4 (07:30→21:30)
[2022-04-14] MEDS: CYANOCOBALAMIN 500 MCG TAB PO SCH (07:30)
[2022-04-14] MEDS: TAMSULOSIN 0.4 MG CAP.ER.24H PO SCH (07:30)
[2022-04-14] MEDS: DIVALPROEX 250 MG TABLET.DR PO SCH ×2 (07:30→21:30)
[2022-04-14] MEDS: allopurinoL 300 MG TAB PO SCH (07:39)
[2022-04-14] MEDS: LOSARTAN 25 MG TAB PO SCH (07:39)
[2022-04-14] MEDS: METOPROLOL SUCCINATE (ER) 50 MG TAB.ER.24H PO SCH (07:39)
[2022-04-14] MEDS: SYMBICORT 160-4.5 MCG INHALER INHALATION SCH ×2 (08:15→19:43)
[2022-04-14] MEDS ORDERED: metFORMIN 500 MG TAB PO SCH (09:00)
[2022-04-14 09:20] LABS: Basophils # (A) 0.04 X 10*3/uL (0.00-0.10); Basophils % (A) 0.3 %; Eosinophils # (A) 0.76 X 10*3/uL (0.04-0.35); Eosinophils % (A) 5.7 %; HCT 36.1 % (39.6-50.0); HGB 11.7 g/dL (13.0-17.0); Immature Grans, Automated 0.2 %; Lymphocytes # (A) 4.41 X 10*3/uL (0.90-5.00); Lymphocytes % (A) 33.2 %; MCH 31.6 pg (27.0-32.0); MCHC 32.4 g/dL (32.0-37.0); MCV 97.6 fL (80.0-97.0); Mean Platelet Volume 10.7 fL (9.5-12.2); Monocytes # (A) 1.02 X 10*3/uL (0.20-1.00); Monocytes % (A) 7.7 %; NRBC Per 100 WBC 0 /100 WBCS (0.0-0.0); Neutrophils # (A) 7.03 X 10*3/uL (1.80-7.70); Neutrophils % (A) 52.9 %; Platelet Count 216 X 10*3/uL (140-440); RDW 14.2 % (11.5-14.5); WBC 13.29 X 10*3/uL (4.50-10.00)
[2022-04-14 09:34] LABS: African American GFR (CKD) 74.7 (60.0-200.0); Anion Gap 10.3 mmol/L (10.00-18.00); BUN/Creat Ratio 30.91 Ratio (12.00-20.00); Calcium 8.8 mg/dL (8.7-10.3); Carbon Dioxide 26.6 mmol/L (20.0-27.5); Non-African American GFR(CKD) 64.4 (60.0-200.0); Potassium 3.9 mmol/L (3.5-5.5)
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
[2022-04-14 11:17] LABS: Glucose,Whole Blood 151 mg/dL (70-110)
[2022-04-14] MEDS: ALPRAZolam 0.5 MG TAB PO SCH ×2 (13:03→17:36)
[2022-04-14 16:38] LABS: Glucose,Whole Blood 154 mg/dL (70-110)
--- NOTE | 2022-04-14 17:45 | P.PN ---
Subjective Progress Note Date: 04/14/22 Principal diagnosis: Fall/concussion without loss of consciousness Acute renal injury Hypotension likely hypovolemia related to episodes of diarrhea Leukocytosis/acute diarrhea 76-year-old male with past medical history of A. fib on Eliquis, coronary artery disease, Parkinson's with stimulator presents to the emergency department after he sustained a fall. He resides at [facility]. Was sitting in his wheelchair and had an unwitnessed fall. Patient felt to the ground and sustained a hematoma and abrasion to the right forehead. She denies that he had a syncopal episode. Admits to mild headache without visual changes. No neck pain. Denies any other injuries. Patient is alert and oriented 2 which is his baseline. Able to answer questions appropriately. Moving all extremity. Denies any chest pain or shortness of breath. Upon arrival patient does have notable low blood pressures. Was given 500 mL by EMS. Remarked that he was up last night with multiple episodes of watery diarrhea. He takes Midodrine for low blood pressure for which she was administered this morning. Admits to normal appetite. No changes in his urination. No other alleviating, Perceptin or modifying Upon arrival patient's blood pressure was 73/46. He was given 500 bolus by EMS. He was additionally given another bolus 1 L in ED. Laboratory studies are co nducted and reviewed. White count mildly elevated at 15.4. Hemoglobin is 13.3. CO2 is 21. CT the cervical spine does not demonstrate any acute intra-cranial process. Chest x-ray demonstrates no acute cardio pulmonary disease. After the liter bolus the patient is evaluated. He is additionally given 10 mg of Midrin. Blood pressure still remains around 95 systolic. Because of his persistent low blood pressure likely due to his diarrhea, patient was admitted to the hospital for further treatment and close monitoring. Hypotension has resolved; patient has been placed on his antihypertensive therapy; stool was ordered for C. diff but diarrhea has resolved Patient can be transferred back to skilled rehab tomorrow morning Objective - Vital Signs Vital signs: Vital Signs Temp 97.8 F 04/14/22 08:09 Pulse 78 04/14/22 08:09 Resp 17 04/14/22 08:09 BP 170/96 04/14/22 08:09 Pulse Ox 98 04/14/22 08:09 FiO2 Intake & Output 04/13/22 04/14/22 04/14/22 18:59 06:59 18:59 Output Total 700 Balance -700 Weight 136.078 kg Output: Urine 700 Other: Voiding Method External Catheter External Catheter Incontinent External Catheter # Voids 2 # Bowel Movements 1 - Exam PHYSICAL EXAMINATION: GENERAL: The patient is alert and oriented x3, not in any acute distress. Well developed, well nourished. HEENT: Pupils are round and equally reacting to light. EOMI. No scleral icterus. No conjunctival pallor. Normocephalic, atraumatic. No pharyngeal erythema. No thyromegaly. CARDIOVASCULAR: S1 and S2 present. No murmurs, rubs, or gallops. PULMONARY: Chest is clear to auscultation, no wheezing or crackles. ABDOMEN: Soft, nontender, nondistended, normoactive bowel sounds. No palpable organomegaly. MUSCULOSKELETAL: No joint swelling or deformity. EXTREMITIES: No cyanosis, clubbing, or pedal edema. NEUROLOGICAL: Gross neurological examination did not reveal any focal deficits. SKIN: No rashes. - Labs CBC & Chem 7: 04/14/22 06:23 04/14/22 06:23 Labs: Abnormal Lab Results - Last 24 Hours (Table) 04/13/22 04/13/22 04/13/22 Range/Units 12:46 12:46 12:46 WBC 15.4 H (3.8-10.6) k/uL RBC 4.10 L (4.30-5.90) m/uL Hgb (13.0-17.0) g/dL Hct (39.6-50.0) % MCV (80.0-97.0) fL Neutrophils # 9.5 H (1.3-7.7) k/uL Monocytes # (0.20-1.00) X 10*3/uL Eosinophils # (0.04-0.35) X 10*3/uL Carbon Dioxide 21 L (22-30) mmol/L BUN 44 H (9-20) mg/dL BUN/Creatinine Ratio (12.00-20.00) Ratio Glucose 182 H (74-99) mg/dL POC Glucose (mg/dL) (70-110) mg/dL Hemoglobin A1c 7.8 H (0.0-6.0) % Alkaline Phosphatase 129 H (38-126) U/L 04/13/22 04/13/22 04/14/22 Range/Units 16:52 20:09 06:23 WBC 13.29 H (3.8-10.6) k/uL RBC 3.70 L (4.30-5.90) m/uL Hgb 11.7 L (13.0-17.0) g/dL Hct 36.1 L (39.6-50.0) % MCV 97.6 H (80.0-97.0) fL Neutrophils # (1.3-7.7) k/uL Monocytes # 1.02 H (0.20-1.00) X 10*3/uL Eosinophils # 0.76 H (0.04-0.35) X 10*3/uL Carbon Dioxide (22-30) mmol/L BUN (9-20) mg/dL BUN/Creatinine Ratio (12.00-20.00) Ratio Glucose (74-99) mg/dL POC Glucose (mg/dL) 171 H 120 H (70-110) mg/dL Hemoglobin A1c (0.0-6.0) % Alkaline Phosphatase (38-126) U/L 04/14/22 04/14/22 Range/Units 06:23 07:22 WBC (3.8-10.6) k/uL RBC (4.30-5.90) m/uL Hgb (13.0-17.0) g/dL Hct (39.6-50.0) % MCV (80.0-97.0) fL Neutrophils # (1.3-7.7) k/uL Monocytes # (0.20-1.00) X 10*3/uL Eosinophils # (0.04-0.35) X 10*3/uL Carbon Dioxide (22-30) mmol/L BUN 34.0 H (9-20) mg/dL BUN/Creatinine Ratio 30.91 H (12.00-20.00) Ratio Glucose 174 H (74-99) mg/dL POC Glucose (mg/dL) 175 H (70-110) mg/dL Hemoglobin A1c (0.0-6.0) % Alkaline Phosphatase (38-126) U/L Assessment and Plan Assessment: 1. Hypotension; patient received a total of 2 L of IV fluid bolus prior to admission with 10 mg of Midodrine; blood pressure remains soft - We will continue with IV fluid hydration and monitor blood pressure closely; hold off on pressor agents at this time 2. Acute renal injury; mild; likely related to hypovolemia due to acute diarrhea; continue with IV fluids as indicated above; monitor renal function and electrolytes; strict JASPER; avoid nephrotoxins and hypotension 3. Leukocytosis/acute diarrhea; we will send stool for C. diff; monitor CBC, CRP and pro-calcitonin; further recommendations once results are available 4. Fall/ concussion without loss of consciousness; we will admit for close monitoring; patient is on anticoagulation therapy; CT of head completed in ED was negative - Monitor neuro checks 4. Atrial fibrillation; patient is not on rate controlling agents; an ticoagulated on Eliquis 5. Hypertension; patient takes metoprolol, losartan and Aldactone which have been placed on hold due to hypotension; we will continue to monitor blood pressure closely and resume medications once blood pressure stabilizes 6. Diabetes mellitus 2; patient takes Amaryl and metformin; hold oral hypoglycemic therapy while inpatient; monitor Accu-Cheks every before meals and at bedtime with insulin sliding scale 7. Coronary artery disease/history of CO; stable on aspirin, statins and beta blockers; beta blockers remain on hold due to hypotension 8. Hyperlipidemia; pravastatin 40 mg daily at bedtime 9. Parkinson's disease; continue with home dose of Sinemet DVT prophylaxis; SCDs/systemic anticoagulation CODE STATUS; DO NOT RESUSCITATE
[2022-04-14 20:21] LABS: Glucose,Whole Blood 198 mg/dL (70-110)
[2022-04-14] MEDS: APIXABAN 2.5 MG TABLET PO SCH (21:30)
[2022-04-14] MEDS: PRAVASTATIN SODIUM 40 MG TAB PO SCH (21:30)
[2022-04-15 07:07] LABS: Glucose,Whole Blood 172 mg/dL (70-110)
[2022-04-15] MEDS ORDERED: metFORMIN 850 MG TAB PO SCH (07:30)
[2022-04-15] MEDS: SYMBICORT 160-4.5 MCG INHALER INHALATION SCH ×2 (08:21→21:32)
[2022-04-15 09:17] LABS: Basophils # (A) 0.03 X 10*3/uL (0.00-0.10); Basophils % (A) 0.2 %; Eosinophils # (A) 0.57 X 10*3/uL (0.04-0.35); Eosinophils % (A) 4.1 %; HCT 36.6 % (39.6-50.0); HGB 12.2 g/dL (13.0-17.0); Immature Grans, Automated 0.4 %; Lymphocytes # (A) 3.17 X 10*3/uL (0.90-5.00); MCH 32.4 pg (27.0-32.0); MCHC 33.3 g/dL (32.0-37.0); MCV 97.1 fL (80.0-97.0); Mean Platelet Volume 10.7 fL (9.5-12.2); Monocytes # (A) 0.92 X 10*3/uL (0.20-1.00); Monocytes % (A) 6.7 %; NRBC Per 100 WBC 0 /100 WBCS (0.0-0.0); Neutrophils # (A) 9.02 X 10*3/uL (1.80-7.70); Neutrophils % (A) 65.6 %; Platelet Count 206 X 10*3/uL (140-440); RBC 3.77 X 10*6/uL (4.40-5.60); WBC 13.76 X 10*3/uL (4.50-10.00)
[2022-04-15 09:32] LABS: African American GFR (CKD) 83.8 (60.0-200.0); Albumin 3.5 g/dL (3.8-4.9); Albumin/Globulin Ratio 1.35 (1.60-3.17); Anion Gap 12.1 mmol/L (10.00-18.00); Bilirubin, Conjugated 0.28 mg/dL (0.20-0.40); Bilirubin,Unconjugated 0.42 mg/dL (0.20-1.00); Calcium 9.1 mg/dL (8.7-10.3); Carbon Dioxide 26.9 mmol/L (20.0-27.5); Globulin 2.6 g/dL (1.6-3.3); Magnesium 1.6 mg/dL (1.5-2.4); Non-African American GFR(CKD) 72.3 (60.0-200.0); Potassium 4.1 mmol/L (3.5-5.5); Total Bilirubin 0.7 mg/dL (0.30-1.20); Total Protein 6.1 g/dL (6.2-8.2)
[2022-04-15] MEDS: INSULIN ASPART (NovoLOG) 100 UNIT/ML VIAL SQ SCH ×4 (09:41→21:18)
[2022-04-15] MEDS: METOPROLOL SUCCINATE (ER) 50 MG TAB.ER.24H PO SCH (09:42)
[2022-04-15] MEDS: ASPIRIN 81 MG PO SCH (09:42)
[2022-04-15] MEDS: APIXABAN 2.5 MG TABLET PO SCH (09:42)
[2022-04-15] MEDS: ALPRAZolam 0.5 MG TAB PO SCH ×3 (09:42→18:09)
[2022-04-15] MEDS: TAMSULOSIN 0.4 MG CAP.ER.24H PO SCH (09:42)
[2022-04-15] MEDS: CYANOCOBALAMIN 500 MCG TAB PO SCH (09:42)
[2022-04-15] MEDS: DIVALPROEX 250 MG TABLET.DR PO SCH ×2 (09:42→21:15)
[2022-04-15] MEDS: allopurinoL 300 MG TAB PO SCH (09:42)
[2022-04-15] MEDS: CARBIDOPA-LEVODOPA 25-250 MG 1 EACH TAB PO SCH ×3 (09:42→18:09)
[2022-04-15] MEDS: LOSARTAN 25 MG TAB PO SCH (09:42)
--- NOTE | 2022-04-15 10:39 | XR ---
EXAMINATION TYPE: XR KUB portable DATE OF EXAM: 04/15/2022 COMPARISON: NONE HISTORY: Pain TECHNIQUE: three view abdominal series FINDINGS: Numerous dilated small bowel loops are seen. LAP-BAND noted. Gastric bubble distention. Hypertrophic degenerative changes spine. Limited assessment free air. IMPRESSION: 1. Dilated bowel loops and gastric bubble and a pattern suspicious for obstruction.
[2022-04-15 12:06] LABS: Glucose,Whole Blood 192 mg/dL (70-110)
[2022-04-15] MEDS ORDERED: MORPHINE SULFATE 2 MG/ML SYRINGE IVP PRN (12:47)
[2022-04-15 12:54] LABS: Appearance,Urine Cloudy (Clear); Bacteria,Urine Occasional /hpf; Bilirubin,Urine Negative (Negative); Blood,Urine Negative (Negative); Color,Urine Yellow; Glucose,Urine (UA) Negative (Negative); Ketones,Urine 1+ (Negative); Leukocyte Esterase,Urine Large (Negative); Mucus,Urine Rare /hpf; Nitrite,Urine Negative (Negative); Protein,Urine Trace (Negative); RBC,Urine 9 /hpf (0-5); Specific Gravity,Urine 1.021 (1.001-1.035); Squamous Epithelial Cell,Urine <1 /hpf (0-4); WBC,Urine 44 /hpf (0-5)
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
[2022-04-15] MEDS: DEXTROSE 5%-0.9% NACL 1,000 ML IV SCH (14:44)
[2022-04-15] MEDS: IOPAMIDOL CONTRAST (ORAL USE) VIAL PO PRN ×2 (15:07→16:00)
--- NOTE | 2022-04-15 17:01 | CT ---
EXAMINATION TYPE: CT abdomen pelvis w con CT DLP: 2921.4 mGycm, Automated exposure control for dose reduction was used. DATE OF EXAM: 04/15/2022 4:43 PM COMPARISON: On CLINICAL INDICATION:Male, 76 years old with history of abdominal pain, possible SBO; abdominal pain. poss SBO TECHNIQUE: Axial CT of the abdomen and pelvis. Sagittal and coronal reformats were created on a [employer] workstation. Contrast used:100 mL of Isovue 300 with IV Contrast, Oral contrast used: with Oral Contrast FINDINGS: LOWER CHEST: The heart is moderately enlarged for size. Streaky atelectasis changes noted in the lung bases. ABDOMEN LIVER: Unremarkable GALLBLADDER AND BILE DUCTS: The gallbladder is surgically absent. PANCREAS: Unremarkable. SPLEEN: Scattered calcified granulomas. ADRENAL GLANDS: Unremarkable. KIDNEYS AND URETERS: Nonobstructing left renal calculus measuring 5 mm. Left kidney demonstrates no e vidence hydronephrosis. Right renal cyst present. No evidence hydronephrosis. PELVIS BLADDER: Unremarkable REPRODUCTIVE: Prostate is enlarged in size measuring 5.1 cm in transverse dimension. ABDOMEN & PELVIS STOMACH AND BOWEL: Small hiatal hernia with gastric lap band present. The stomach is distended with a ir and contrast. Appendix is normal. Multiple dilated loops of small bowel are seen throughout the ab domen containing air-fluid levels. There is relatively nondistended small bowel ileum. There is stool seen throughout the colon. Pako mesentery seen within a few of the loops of bowel are more distende d is present in the mid abdomen. No definitive transition point is found. PERITONEUM: No evidence of pneumoperitoneum or free fluid. VASCULATURE: Moderate atherosclerotic calcifications are present throughout the abdominal aorta and i ts branches. No evidence of aortic aneurysm. MUSCULOSKELETAL: No acute osseous abnormalities. Moderate disc degeneration changes are present throu ghout the thoracolumbar spine. Grade 1 anterolisthesis of L4 and L5 without spondylolysis. Additional ly multilevel facet joint arthropathy is present. LYMPH NODES: No gross evidence for lymphadenopathy. SOFT TISSUE/ABDOMINAL WALL: Unremarkable IMPRESSION: 1. Multiple dilated loops of small bowel with relatively nondistended distal ileum and colon. There is some stool seen throughout the colon however suggesting partial versus early complete bowel obstru ction. Additionally given the pako mesentery portion of the small bowel loops. Underlying internal h ernia is not entirely excluded. 2. Prostatomegaly. 3. Nonobstructing left renal calculus. 4. Moderate multilevel disc degeneration with grade 1 anterolisthesis of L4 and L5.
[2022-04-15 17:40] LABS: Glucose,Whole Blood 153 mg/dL (70-110)
[2022-04-15 21:11] LABS: Glucose,Whole Blood 129 mg/dL (70-110)
[2022-04-15] MEDS: PRAVASTATIN SODIUM 40 MG TAB PO SCH (21:15)
--- NOTE | 2022-04-15 22:04 | P.PN ---
Subjective 76-year-old male with past medical history of A. fib on Eliquis, coronary artery disease, Parkinson's with stimulator presents to the emergency department after he sustained a fall. He resides at [facility]. Was sitting in his wheelchair and had an unwitnessed fall. Patient felt to the ground and sustained a hematoma and abrasion to the right forehead. She denies that he had a syncopal episode. Admits to mild headache without visual changes. No neck pain. Denies any other injuries. Patient is alert and oriented 2 which is his baseline. Able to answer questions appropriately. Moving all extremity. Denies any chest pain or shortness of breath. Upon arrival patient does have notable low blood pressures. Was given 500 mL by EMS. Remarked that he was up last night with multiple episodes of watery diarrhea. He takes Midodrine for low blood pressure for which she was administered this morning. Admits to normal appetite. No akil nges in his urination. No other alleviating, Perceptin or modifying Upon arrival patient's blood pressure was 73/46. He was given 500 bolus by EMS. He was additionally given another bolus 1 L in ED. Laboratory studies are conducted and reviewed. White count mildly elevated at 15.4. Hemoglobin is 13.3. CO2 is 21. CT the cervical spine does not demonstrate any acute intra- cranial process. Chest x-ray demonstrates no acute cardio pulmonary disease. After the liter bolus the patient is evaluated. He is additionally given 10 mg of Midrin. Blood pressure still remains around 95 systolic. Because of his persistent low blood pressure likely due to his diarrhea, patient was admitted to the hospital for further treatment and close monitoring. Hypotension has resolved; patient has been placed on his antihypertensive therapy; stool was ordered for C. diff but diarrhea has resolved Patient can be transferred back to skilled rehab tomorrow morning 04-15-22 This is a pleasant 76 years old male who was sent from long-term after he fell from his wheelchair with small right forehead hematoma which looks heal and now, he was hypotensive on admission, his blood pressure still borderline and it was ranging 144/70 and better on 93/52. Today he is awake but looks tired and his abdomen looks distended with mild pain and tenderness, no bowel movement for 2 days. KUB is showing bowel obstruction, surgery team were consulted, CT of the abdomen and pelvis showing partial versus early complete small bowel obstruction with stool throughout the colon, enlarged prostate with nonobstructive left renal calculus Bladder scan last night and was 250 ml. Patient currently nothing by mouth and on IV fluids His appetite is low and his abdomen tenderness is periumbilical Review of systems CONSTITUTIONAL: No fever, no malaise, no fatigue. HEENT: No recent visual problems or hearing problems. Denied any sore throat. CARDIOVASCULAR: No orthopnea, PND, no palpitations, no syncope. PULMONARY: No shortness of breath, no cough, no hemoptysis. GASTROINTESTINAL: No diarrhea, no nausea, no vomiting, no abdominal pain. Normoactive bowel sounds. NEUROLOGICAL: No headaches, no weakness, no numbness. Active Medications Generic Name Dose Route Start Last Admin Trade Name Freq PRN Reason Stop Dose Admin Acetaminophen 650 mg 04/13/22 14:39 04/15/22 03:56 Acetaminophen Tab 325 Mg Tab PO 650 mg Q6HR PRN Administration Mild Pain or Fever > 100.5 Albuterol Sulfate 2.5 mg 04/14/22 07:29 Albuterol Nebulized 2.5 Mg/3 Ml INHALATION RT-Q4H PRN Bronchospasm Allopurinol 300 mg 04/14/22 09:00 04/15/22 09:42 Allopurinol 300 Mg Tab PO 300 mg DAILY JORGE Administration Alprazolam 0.5 mg 04/14/22 13:00 04/15/22 18:09 Alprazolam 0.5 Mg Tab PO 0.5 mg TID@0900,1300,1700 JORGE Administration Aspirin 81 mg 04/14/22 09:00 04/15/22 09:42 Aspirin 81 Mg PO 81 mg DAILY JORGE Administration Budesonide/Formoterol Fumarate 2 puff 04/13/22 20:00 04/15/22 21:32 Symbicort 160-4.5 Mcg Inhaler INHALATION 2 puff RT-BID JORGE Administration Carbidopa/Levodopa 1 each 04/13/22 17:00 04/15/22 18:09 Carbidopa-Levodopa 25-250 Mg 1 Each Tab PO 1 each TID@0800,1300,1700 JORGE Administration Cyanocobalamin 1,000 mcg 04/14/22 09:00 04/15/22 09:42 Cyanocobalamin 500 Mcg Tab PO 1,000 mcg DAILY JORGE Administration Dextrose/Water 25 ml 04/13/22 15:19 Dextrose 50% Syringe 50 Ml IVP PER PROTOCOL PRN Hypoglycemia Protocol Dextrose/Water 50 ml 04/13/22 15:19 Dextrose 50% Syringe 50 Ml IVP PER PROTOCOL PRN Hypoglycemia Protocol Divalproex Sodium 250 mg 04/13/22 21:00 04/15/22 21:15 Divalproex 250 Mg Tablet.Dr PO 250 mg BID JORGE Administration Dextrose/Sodium Chloride 1,000 mls @ 75 mls/hr 04/15/22 13:00 04/15/22 14:44 Dextrose 5%-Ns Iv Soln IV 75 mls/hr .[id number] JORGE Administration Ceftriaxone Sodium 2 gm/ 50 mls @ 100 mls/hr 04/15/22 22:00 Sodium Chloride IVPB Q24H [facility] Protocol Insulin Aspart 0 unit 04/13/22 17:30 04/15/22 21:18 Insulin Aspart (Novolog) 100 Unit/Ml Vial SQ Not Given ACHS [facility] Protocol Losartan Potassium 25 mg 04/14/22 09:00 04/15/22 09:42 Losartan 25 Mg Tab PO 25 mg DAILY JORGE Administration Melatonin 10 mg 04/13/22 16:45 Melatonin 5 Mg Tablet PO HS PRN Insomnia Metoprolol Succinate 50 mg 04/14/22 09:00 04/15/22 09:42 Metoprolol Succinate (Er) 50 Mg Tab.Er.24h PO 50 mg DAILY JORGE Administration Morphine Sulfate 2 mg 04/15/22 12:47 Morphine Sulfate 2 Mg/Ml Syringe IVP Q4HR PRN Pain/Discomfort Naloxone HCl 0.2 mg 04/13/22 14:39 Naloxone 0.4 Mg/Ml 1 Ml Vial IV Q2M PRN Opioid Reversal Pravastatin Sodium 40 mg 04/13/22 21:00 04/15/22 21:15 Pravastatin Sodium 40 Mg Tab PO 40 mg HS JORGE Administration Ropinirole HCl 2 mg 04/13/22 21:00 04/15/22 21:14 Ropinirole Hcl 1 Mg Tab PO 2 mg Q12HR JORGE Administration Tamsulosin HCl 0.4 mg 04/14/22 09:00 04/15/22 09:42 Tamsulosin 0.4 Mg Cap.Er.24h PO 0.4 mg DAILY JORGE Administration Objective - Vital Signs Vital signs: Vital Signs Temp 98.3 F 04/15/22 08:00 Pulse 55 L 04/15/22 08:00 Resp 18 04/15/22 08:00 BP 144/70 04/15/22 08:00 Pulse Ox 98 04/15/22 08:00 FiO2 Intake & Output 04/14/22 04/15/22 04/15/22 18:59 06:59 18:59 Intake Total 250 Output Total 1200 875 Balance -1200 -625 Intake: Oral 250 Output: Urine 1200 625 Post Void Residual 250 Other: Voiding Method Incontinent External Catheter External Catheter External Catheter - Exam -GENERAL: The patient is alert and oriented x3, not in any acute distress. Well morbid obesity HEENT: Pupils are round and equally reacting to light. EOMI. No scleral icterus. No conjunctival pallor. Normocephalic, atraumatic. No pharyngeal erythema. No thyromegaly. CARDIOVASCULAR: S1 and S2 present. No murmurs, rubs, or gallops. PULMONARY: Chest is clear to auscultation, no wheezing or crackles. -ABDOMEN: Soft, mild periumbilical tenderness, distended, normoactive bowel sounds. No palpable organomegaly. MUSCULOSKELETAL: No joint swelling or deformity. EXTREMITIES: No cyanosis, clubbing, or pedal edema. NEUROLOGICAL: Gross neurological examination did not reveal any focal deficits. SKIN: No rashes. no petechiae. - Labs CBC & Chem 7: 04/15/22 06:24 04/15/22 06:24 Labs: Abnormal Lab Results - Last 24 Hours (Table) 04/14/22 04/14/22 04/15/22 Range/Units 16:37 20:20 06:24 WBC 13.76 H (4.50-10.00) X 10*3/uL RBC 3.77 L (4.40-5.60) X 10*6/uL Hgb 12.2 L (13.0-17.0) g/dL Hct 36.6 L (39.6-50.0) % MCV 97.1 H (80.0-97.0) fL MCH 32.4 H (27.0-32.0) pg Immature Gran # 0.05 H (0.00-0.04) X 10*3/uL Neutrophils # 9.02 H (1.80-7.70) X 10*3/uL Eosinophils # 0.57 H (0.04-0.35) X 10*3/uL BUN/Creatinine Ratio (12.00-20.00) Ratio Glucose (70-110) mg/dL POC Glucose (mg/dL) 154 H 198 H (70-110) mg/dL Alkaline Phosphatase (41-126) U/L Total Protein (6.2-8.2) g/dL Albumin (3.8-4.9) g/dL Albumin/Globulin Ratio (1.60-3.17) g/dL 04/15/22 04/15/22 Range/Units 06:24 07:05 WBC (4.50-10.00) X 10*3/uL RBC (4.40-5.60) X 10*6/uL Hgb (13.0-17.0) g/dL Hct (39.6-50.0) % MCV (80.0-97.0) fL MCH (27.0-32.0) pg Immature Gran # (0.00-0.04) X 10*3/uL Neutrophils # (1.80-7.70) X 10*3/uL Eosinophils # (0.04-0.35) X 10*3/uL BUN/Creatinine Ratio 26.00 H (12.00-20.00) Ratio Glucose 182 H (70-110) mg/dL POC Glucose (mg/dL) 172 H (70-110) mg/dL Alkaline Phosphatase 127 H (41-126) U/L Total Protein 6.1 L (6.2-8.2) g/dL Albumin 3.5 L (3.8-4.9) g/dL Albumin/Globulin Ratio 1.35 L (1.60-3.17) g/dL Assessment and Plan Assessment: Partial versus early small bowel obstruction with stool throughout the colon but not distended. Acute urinary tract infection, could be related to left nonobstructive renal calculus Hypotension and hypovolemia secondary to above Obesity with BMI of 40.7 Diabetes mellitus with hyperglycemia History of Parkinson disease Chronic atrial fibrillation on Eliquis at home. Acute kidney injury Fall, present on admission without syncope History of hypertension History of coronary artery disease Hyperlipidemia Benign prostatic hypertrophy Plan: This is a pleasant 76 years old male who presents with bowel obstruction, UTI and nonobstructing kidney stone Start ceftriaxone and follow-up urine culture Per the patient nothing by mouth, pain medication and IV fluid Surgery consult Hold TALIA for surgery team for possible intervention Labs and medication were reviewed.. Continue same treatment. Continue with symptomatic treatment. Resume home medication. Monitor lytes and vitals. DVT and GI prophylaxis. Further recommendations as per clinical course of the patient DVT prophylaxis: Talia, currently on hold GI Prophylaxis: Pepcid From long-term Prognosis is guarded
[2022-04-16] MEDS: DEXTROSE 5%-0.9% NACL 1,000 ML IV SCH ×2 (01:31→16:20)
[2022-04-16 07:28] LABS: Glucose,Whole Blood 152 mg/dL (70-110)
[2022-04-16] MEDS: SYMBICORT 160-4.5 MCG INHALER INHALATION SCH ×3 (08:23→21:19)
[2022-04-16] MEDS: TAMSULOSIN 0.4 MG CAP.ER.24H PO SCH (10:14)
[2022-04-16] MEDS: allopurinoL 300 MG TAB PO SCH (10:14)
[2022-04-16] MEDS: CARBIDOPA-LEVODOPA 25-250 MG 1 EACH TAB PO SCH ×3 (10:14→17:24)
[2022-04-16] MEDS: ASPIRIN 81 MG PO SCH (10:15)
[2022-04-16] MEDS: INSULIN ASPART (NovoLOG) 100 UNIT/ML VIAL SQ SCH ×4 (10:15→21:40)
[2022-04-16] MEDS: CYANOCOBALAMIN 500 MCG TAB PO SCH (10:15)
[2022-04-16] MEDS: ALPRAZolam 0.5 MG TAB PO SCH ×3 (10:15→17:24)
[2022-04-16] MEDS: METOPROLOL SUCCINATE (ER) 50 MG TAB.ER.24H PO SCH (10:15)
[2022-04-16] MEDS: DIVALPROEX 250 MG TABLET.DR PO SCH ×2 (10:15→22:31)
[2022-04-16] MEDS: LOSARTAN 25 MG TAB PO SCH (10:15)
[2022-04-16 10:29] LABS: Basophils # (A) 0.04 X 10*3/uL (0.00-0.10); Basophils % (A) 0.3 %; Eosinophils # (A) 0.87 X 10*3/uL (0.04-0.35); Eosinophils % (A) 7.3 %; HCT 37.8 % (39.6-50.0); HGB 12.6 g/dL (13.0-17.0); Immature Grans, Automated 0.4 %; Lymphocytes # (A) 3.21 X 10*3/uL (0.90-5.00); MCH 32.7 pg (27.0-32.0); MCHC 33.3 g/dL (32.0-37.0); MCV 98.2 fL (80.0-97.0); Monocytes # (A) 0.79 X 10*3/uL (0.20-1.00); Monocytes % (A) 6.6 %; NRBC Per 100 WBC 0 /100 WBCS (0.0-0.0); Neutrophils # (A) 6.94 X 10*3/uL (1.80-7.70); Neutrophils % (A) 58.4 %; Platelet Count 227 X 10*3/uL (140-440); RBC 3.85 X 10*6/uL (4.40-5.60)
[2022-04-16 10:38] LABS: African American GFR (CKD) 95.9 (60.0-200.0); Albumin 3.5 g/dL (3.8-4.9); Albumin/Globulin Ratio 1.47 (1.60-3.17); Anion Gap 10.3 mmol/L (10.00-18.00); BUN/Creat Ratio 21.95 Ratio (12.00-20.00); Bilirubin, Conjugated 0.26 mg/dL (0.20-0.40); Bilirubin,Unconjugated 0.41 mg/dL (0.20-1.00); Blood Urea Nitrogen 19.4 mg/dL (9.0-27.0); Carbon Dioxide 25.6 mmol/L (20.0-27.5); Globulin 2.4 g/dL (1.6-3.3); Magnesium 1.7 mg/dL (1.5-2.4); Non-African American GFR(CKD) 82.7 (60.0-200.0); Potassium 4.1 mmol/L (3.5-5.5); Total Bilirubin 0.7 mg/dL (0.30-1.20); Total Protein 5.9 g/dL (6.2-8.2)
[2022-04-16 11:29] LABS: Glucose,Whole Blood 188 mg/dL (70-110)
--- NOTE | 2022-04-16 13:22 | P.PN ---
Subjective Progress Note Date: 04/16/22 CHIEF COMPLAINT: Fall HISTORY OF PRESENT ILLNESS: Surgical service following regards to partial small bowel obstruction. Patient had computed tomography scan completed of the abdomen and pelvis showing multiple dilated loops of small bowel with relatively non-distended distal ileum and colon. There is some stool seen throughout the colon however suggesting partial versus early complete bowel obstruction. Additionally giving the Nia mesentery portion of the small bowel loops. Underlying internal hernia is not entirely excluded. Prostamegaly. Nonobstructing left renal colic to this. Moderate multilevel disc degeneration at L4-L5. Patient is lying in bed comfortably. He reports improvement in his abdominal pain. No nausea or vomiting. He's had no bowel movement for 2 days and his last episode of flatus was yesterday morning. CT results reviewed with Dr. Meier. Patient seen and examined with Dr. meier PHYSICAL EXAM: VITAL SIGNS: Reviewed. GENERAL: Well-developed in no acute distress. HEENT: No sclera icterus. Extraocular movements grossly intact. Moist buccal mucosa. Head is atraumatic, normocephalic. ABDOMEN: Soft. Distended. Nontender. NEUROLOGIC: Awake and alert and able to answer questions. ASSESSMENT: 1. Partial small bowel obstruction 2. History of abdominal surgeries 3. History of atrial fibrillation PLAN: -Keep patient nothing by mouth -Add Reglan -Continue conservative management -Continue IV fluids -Eliquis on hold Physician Scallop Raker note has been reviewed by physician. Signing provider agrees with the documented findings, assessment, and plan of care. Objective - Vital Signs Vital signs: Vital Signs Temp 97.8 F 04/16/22 07:42 Pulse 73 04/16/22 07:42 Resp 18 04/16/22 07:42 BP 166/84 04/16/22 07:42 Pulse Ox 96 04/16/22 07:42 FiO2 Intake & Output 04/15/22 04/16/22 04/16/22 18:59 06:59 18:59 Intake Total 275 Output Total 450 Balance 275 -450 Intake: Intake, IV Titration 225 Amount Dextrose 5%-0.9% NaCl 1, 225 000 ml @ 75 mls/hr IV . [id number] JORGE Rx#:[id number] Oral 50 Output: Urine 450 Other: Voiding Method External Catheter Indwelling Catheter Diaper Incontinent # Voids 4 2 - Labs CBC & Chem 7: 04/16/22 06:56 04/16/22 06:56 Labs: Abnormal Lab Results - Last 24 Hours (Table) 04/15/22 04/15/22 04/16/22 Range/Units 17:37 21:10 06:56 WBC 11.90 H (4.50-10.00) X 10*3/uL RBC 3.85 L (4.40-5.60) X 10*6/uL Hgb 12.6 L (13.0-17.0) g/dL Hct 37.8 L (39.6-50.0) % MCV 98.2 H (80.0-97.0) fL MCH 32.7 H (27.0-32.0) pg Immature Gran # 0.05 H (0.00-0.04) X 10*3/uL Eosinophils # 0.87 H (0.04-0.35) X 10*3/uL BUN/Creatinine Ratio (12.00-20.00) Ratio Glucose (70-110) mg/dL POC Glucose (mg/dL) 153 H 129 H (70-110) mg/dL AST (14-35) U/L ALT (10-49) U/L Total Protein (6.2-8.2) g/dL Albumin (3.8-4.9) g/dL Albumin/Globulin Ratio (1.60-3.17) g/dL 04/16/22 04/16/22 04/16/22 Range/Units 06:56 07:19 11:18 WBC (4.50-10.00) X 10*3/uL RBC (4.40-5.60) X 10*6/uL Hgb (13.0-17.0) g/dL Hct (39.6-50.0) % MCV (80.0-97.0) fL MCH (27.0-32.0) pg Immature Gran # (0.00-0.04) X 10*3/uL Eosinophils # (0.04-0.35) X 10*3/uL BUN/Creatinine Ratio 21.95 H (12.00-20.00) Ratio Glucose 170 H (70-110) mg/dL POC Glucose (mg/dL) 152 H 188 H (70-110) mg/dL AST 13 L (14-35) U/L ALT 9 L (10-49) U/L Total Protein 5.9 L (6.2-8.2) g/dL Albumin 3.5 L (3.8-4.9) g/dL Albumin/Globulin Ratio 1.47 L (1.60-3.17) g/dL Microbiology - Last 24 Hours (Table) 04/15/22 12:39 Urine Culture - Preliminary Urine,Voided
[2022-04-16] MEDS: METOCLOPRAMIDE 5 MG/ML 2 ML VIAL IVP SCH ×2 (14:25→17:24)
[2022-04-16 16:40] LABS: Glucose,Whole Blood 132 mg/dL (70-110)
[2022-04-16 20:13] LABS: Glucose,Whole Blood 135 mg/dL (70-110)
--- NOTE | 2022-04-16 21:12 | P.PN ---
Subjective 76-year-old male with past medical history of A. fib on Eliquis, coronary artery disease, Parkinson's with stimulator presents to the emergency department after he sustained a fall. He resides at [facility]. Was sitting in his wheelchair and had an unwitnessed fall. Patient felt to the ground and sustained a hematoma and abrasion to the right forehead. She denies that he had a syncopal episode. Admits to mild headache without visual changes. No neck pain. Denies any other injuries. Patient is alert and oriented 2 which is his baseline. Able to answer questions appropriately. Moving all extremity. Denies any chest pain or shortness of breath. Upon arrival patient does have notable low blood pressures. Was given 500 mL by EMS. Remarked that he was up last night with multiple episodes of watery diarrhea. He takes Midodrine for low blood pressure for which she was administered this morning. Admits to normal appetite. No akil nges in his urination. No other alleviating, Perceptin or modifying Upon arrival patient's blood pressure was 73/46. He was given 500 bolus by EMS. He was additionally given another bolus 1 L in ED. Laboratory studies are conducted and reviewed. White count mildly elevated at 15.4. Hemoglobin is 13.3. CO2 is 21. CT the cervical spine does not demonstrate any acute intra- cranial process. Chest x-ray demonstrates no acute cardio pulmonary disease. After the liter bolus the patient is evaluated. He is additionally given 10 mg of Midrin. Blood pressure still remains around 95 systolic. Because of his persistent low blood pressure likely due to his diarrhea, patient was admitted to the hospital for further treatment and close monitoring. Hypotension has resolved; patient has been placed on his antihypertensive therapy; stool was ordered for C. diff but diarrhea has resolved Patient can be transferred back to skilled rehab tomorrow morning 04-15-22 This is a pleasant 76 years old male who was sent from group home after he fell from his wheelchair with small right forehead hematoma which looks heal and now, he was hypotensive on admission, his blood pressure still borderline and it was ranging 144/70 and better on 93/52. Today he is awake but looks tired and his abdomen looks distended with mild pain and tenderness, no bowel movement for 2 days. KUB is showing bowel obstruction, surgery team were consulted, CT of the abdomen and pelvis showing partial versus early complete small bowel obstruction with stool throughout the colon, enlarged prostate with nonobstructive left renal calculus Bladder scan last night and was 250 ml. Patient currently nothing by mouth and on IV fluids His appetite is low and his abdomen tenderness is periumbilical 04/16/2022 Patient does not look in distress, his complaints only for minimal discomfort in his severely distended abdomen from obesity, complicated by his bowel obstruction. Tenderness is minimal. No nausea vomiting. He remains nothing by mouth. He does not have bowel movement but passing gases. No specific urinary symptoms, urine analysis is suspicious for UTI, he is on Rocephin and urine culture is pending. Surgical team recommended keep monitoring now. No need for antecubital as there is no active vomiting. Jaziel remains on hold for possible surgical intervention, he was placed on Lovenox 40 mg daily today. Objective - Vital Signs Vital signs: Vital Signs Temp 97.8 F 04/16/22 07:42 Pulse 73 04/16/22 07:42 Resp 18 04/16/22 07:42 BP 166/84 04/16/22 07:42 Pulse Ox 96 04/16/22 07:42 FiO2 Intake & Output 04/15/22 04/16/22 04/16/22 18:59 06:59 18:59 Intake Total 275 Output Total 450 Balance 275 -450 Intake: Intake, IV Titration 225 Amount Dextrose 5%-0.9% NaCl 1, 225 000 ml @ 75 mls/hr IV . [id number] [facility] Rx#:[id number] Oral 50 Output: Urine 450 Other: Voiding Method External Catheter Indwelling Catheter Diaper Incontinent # Voids 4 2 - Exam -GENERAL: The patient is alert and oriented x3, not in any acute distress. Well morbid obesity HEENT: Pupils are round and equally reacting to light. EOMI. No scleral icterus. No conjunctival pallor. Normocephalic, atraumatic. No pharyngeal erythema. No thyromegaly. CARDIOVASCULAR: S1 and S2 present. No murmurs, rubs, or gallops. PULMONARY: Chest is clear to auscultation, no wheezing or crackles. -ABDOMEN: Soft, mild periumbilical tenderness, distended, normoactive bowel sounds. No palpable organomegaly. MUSCULOSKELETAL: No joint swelling or deformity. EXTREMITIES: No cyanosis, clubbing, or pedal edema. NEUROLOGICAL: Gross neurological examination did not reveal any focal deficits. SKIN: No rashes. no petechiae. - Labs CBC & Chem 7: 04/16/22 06:56 04/16/22 06:56 Labs: Abnormal Lab Results - Last 24 Hours (Table) 04/15/22 04/15/22 04/15/22 Range/Units 12:39 17:37 21:10 WBC (4.50-10.00) X 10*3/uL RBC (4.40-5.60) X 10*6/uL Hgb (13.0-17.0) g/dL Hct (39.6-50.0) % MCV (80.0-97.0) fL MCH (27.0-32.0) pg Immature Gran # (0.00-0.04) X 10*3/uL Eosinophils # (0.04-0.35) X 10*3/uL BUN/Creatinine Ratio (12.00-20.00) Ratio Glucose (70-110) mg/dL POC Glucose (mg/dL) 153 H 129 H (70-110) mg/dL AST (14-35) U/L ALT (10-49) U/L Total Protein (6.2-8.2) g/dL Albumin (3.8-4.9) g/dL Albumin/Globulin Ratio (1.60-3.17) g/dL Urine Protein Trace H (Negative) Urine Ketones 1+ H (Negative) Ur Leukocyte Esterase Large H (Negative) Urine RBC 9 H (0-5) /hpf Urine WBC 44 H (0-5) /hpf Urine Bacteria Occasional H (None) /hpf Urine Mucus Rare H (None) /hpf 04/16/22 04/16/22 04/16/22 Range/Units 06:56 06:56 07:19 WBC 11.90 H (4.50-10.00) X 10*3/uL RBC 3.85 L (4.40-5.60) X 10*6/uL Hgb 12.6 L (13.0-17.0) g/dL Hct 37.8 L (39.6-50.0) % MCV 98.2 H (80.0-97.0) fL MCH 32.7 H (27.0-32.0) pg Immature Gran # 0.05 H (0.00-0.04) X 10*3/uL Eosinophils # 0.87 H (0.04-0.35) X 10*3/uL BUN/Creatinine Ratio 21.95 H (12.00-20.00) Ratio Glucose 170 H (70-110) mg/dL POC Glucose (mg/dL) 152 H (70-110) mg/dL AST 13 L (14-35) U/L ALT 9 L (10-49) U/L Total Protein 5.9 L (6.2-8.2) g/dL Albumin 3.5 L (3.8-4.9) g/dL Albumin/Globulin Ratio 1.47 L (1.60-3.17) g/dL Urine Protein (Negative) Urine Ketones (Negative) Ur Leukocyte Esterase (Negative) Urine RBC (0-5) /hpf Urine WBC (0-5) /hpf Urine Bacteria (None) /hpf Urine Mucus (None) /hpf 04/16/22 Range/Units 11:18 WBC (4.50-10.00) X 10*3/uL RBC (4.40-5.60) X 10*6/uL Hgb (13.0-17.0) g/dL Hct (39.6-50.0) % MCV (80.0-97.0) fL MCH (27.0-32.0) pg Immature Gran # (0.00-0.04) X 10*3/uL Eosinophils # (0.04-0.35) X 10*3/uL BUN/Creatinine Ratio (12.00-20.00) Ratio Glucose (70-110) mg/dL POC Glucose (mg/dL) 188 H (70-110) mg/dL AST (14-35) U/L ALT (10-49) U/L Total Protein (6.2-8.2) g/dL Albumin (3.8-4.9) g/dL Albumin/Globulin Ratio (1.60-3.17) g/dL Urine Protein (Negative) Urine Ketones (Negative) Ur Leukocyte Esterase (Negative) Urine RBC (0-5) /hpf Urine WBC (0-5) /hpf Urine Bacteria (None) /hpf Urine Mucus (None) /hpf Microbiology - Last 24 Hours (Table) 04/15/22 12:39 Urine Culture - Preliminary Urine,Voided Assessment and Plan Assessment: Partial versus early small bowel obstruction with stool throughout the colon but not distended. Acute urinary tract infection, could be related to left nonobstructive renal calculus Hypotension and hypovolemia secondary to above Obesity with BMI of 40.7 Diabetes mellitus with hyperglycemia History of Parkinson disease Chronic atrial fibrillation on Eliquis at home. Acute kidney injury Fall, present on admission without syncope History of hypertension History of coronary artery disease Hyperlipidemia Benign prostatic hypertrophy Plan: This is a pleasant 76 years old male who presents with bowel obstruction, UTI and nonobstructing kidney stone Start ceftriaxone and follow-up urine culture Per the patient nothing by mouth, pain medication and IV fluid Surgery consult Hold ELIQUIS for surgery team for possible intervention Labs and medication were reviewed.. Continue same treatment. Continue with symptomatic treatment. Resume home medication. Monitor lytes and vitals. DVT and GI prophylaxis. Further recommendations as per clinical course of the patient DVT prophylaxis: Eliquis, currently on hold GI Prophylaxis: Pepcid From group home Prognosis is guarded
[2022-04-16] MEDS: PRAVASTATIN SODIUM 40 MG TAB PO SCH (22:31)
[2022-04-16] MEDS: ENOXAPARIN 40 MG/0.4 ML SYRINGE SQ SCH (22:32)
[2022-04-17] MEDS: METOCLOPRAMIDE 5 MG/ML 2 ML VIAL IVP SCH ×4 (00:12→17:46)
[2022-04-17] MEDS: DEXTROSE 5%-0.9% NACL 1,000 ML IV SCH ×2 (05:18→18:29)
[2022-04-17 06:51] LABS: Glucose,Whole Blood 165 mg/dL (70-110)
[2022-04-17] MEDS: CARBIDOPA-LEVODOPA 25-250 MG 1 EACH TAB PO SCH ×3 (07:26→17:29)
[2022-04-17] MEDS: ALPRAZolam 0.5 MG TAB PO SCH ×3 (07:26→17:26)
[2022-04-17] MEDS: allopurinoL 300 MG TAB PO SCH (07:26)
[2022-04-17] MEDS: METOPROLOL SUCCINATE (ER) 50 MG TAB.ER.24H PO SCH (07:26)
[2022-04-17] MEDS: CYANOCOBALAMIN 500 MCG TAB PO SCH (07:26)
[2022-04-17] MEDS: LOSARTAN 25 MG TAB PO SCH (07:26)
[2022-04-17] MEDS: TAMSULOSIN 0.4 MG CAP.ER.24H PO SCH (07:27)
[2022-04-17] MEDS: ASPIRIN 81 MG PO SCH (07:27)
[2022-04-17] MEDS: INSULIN ASPART (NovoLOG) 100 UNIT/ML VIAL SQ SCH ×4 (07:27→21:31)
[2022-04-17] MEDS: DIVALPROEX 250 MG TABLET.DR PO SCH ×2 (07:27→21:46)
[2022-04-17] MEDS: SYMBICORT 160-4.5 MCG INHALER INHALATION SCH ×2 (08:53→20:45)
[2022-04-17] MEDS: LACTULOSE 20 GM/30 ML CUP PO SCH ×5 (11:25→15:16)
[2022-04-17 11:47] LABS: Glucose,Whole Blood 148 mg/dL (70-110)
--- NOTE | 2022-04-17 12:57 | P.PN ---
Subjective Progress Note Date: 04/17/22 CHIEF COMPLAINT: Fall HISTORY OF PRESENT ILLNESS: Surgical service following regards to partial small bowel obstruction. Patient lying in bed comfortably. Denies any abdominal pain. No nausea or vomiting reported. Denies any flatus or bowel movement. Patient reports that his abdomen is his usual size. Afebrile Patient seen and examined with Dr. meier PHYSICAL EXAM: VITAL SIGNS: Reviewed. GENERAL: Well-developed in no acute distress. HEENT: No sclera icterus. Extraocular movements grossly intact. Moist buccal mucosa. Head is atraumatic, normocephalic. ABDOMEN: Soft. obese. Nondistended Nontender. NEUROLOGIC: Awake and alert and able to answer questions. ASSESSMENT: 1. Partial small bowel obstruction resolving 2. History of abdominal surgeries 3. History of atrial fibrillation PLAN: -start clear liquids -Add Lactulose 30ml every hour [address] meier -Continue Reglan -Continue conservative management -Continue IV fluids -Eliquis on hold Physician Scrape Gatherer note has been reviewed by physician. Signing provider agrees with the documented findings, assessment, and plan of care. Objective - Vital Signs Vital signs: Vital Signs Temp 97.7 F 04/17/22 08:28 Pulse 98 04/17/22 08:28 Resp 16 04/17/22 08:28 BP 161/66 04/17/22 08:28 Pulse Ox 98 04/17/22 08:28 FiO2 Intake & Output 04/16/22 04/17/22 04/17/22 18:59 06:59 18:59 Other: Voiding Method Diaper Diaper Incontinent Incontinent Incontinent External Catheter # Voids 4 3 - Labs CBC & Chem 7: 04/16/22 06:56 04/16/22 06:56 Labs: Abnormal Lab Results - Last 24 Hours (Table) 04/16/22 04/16/22 04/17/22 Range/Units 16:23 20:12 06:50 POC Glucose (mg/dL) 132 H 135 H 165 H (70-110) mg/dL 04/17/22 Range/Units 11:46 POC Glucose (mg/dL) 148 H (70-110) mg/dL Microbiology - Last 24 Hours (Table) 04/15/22 12:39 Urine Culture - Final Urine,Voided Strep agalactiae - (group b)
[2022-04-17 17:14] LABS: Glucose,Whole Blood 235 mg/dL (70-110)
[2022-04-17] MEDS ORDERED: ENOXAPARIN 60 MG/0.6 ML SYRINGE SQ SCH (21:00)
--- NOTE | 2022-04-17 21:03 | P.PN ---
Subjective 76-year-old male with past medical history of A. fib on Eliquis, coronary artery disease, Parkinson's with stimulator presents to the emergency department after he sustained a fall. He resides at [facility]. Was sitting in his wheelchair and had an unwitnessed fall. Patient felt to the ground and sustained a hematoma and abrasion to the right forehead. She denies that he had a syncopal episode. Admits to mild headache without visual changes. No neck pain. Denies any other injuries. Patient is alert and oriented 2 which is his baseline. Able to answer questions appropriately. Moving all extremity. Denies any chest pain or shortness of breath. Upon arrival patient does have notable low blood pressures. Was given 500 mL by EMS. Remarked that he was up last night with multiple episodes of watery diarrhea. He takes Midodrine for low blood pressure for which she was administered this morning. Admits to normal appetite. No akil nges in his urination. No other alleviating, Perceptin or modifying Upon arrival patient's blood pressure was 73/46. He was given 500 bolus by EMS. He was additionally given another bolus 1 L in ED. Laboratory studies are conducted and reviewed. White count mildly elevated at 15.4. Hemoglobin is 13.3. CO2 is 21. CT the cervical spine does not demonstrate any acute intra- cranial process. Chest x-ray demonstrates no acute cardio pulmonary disease. After the liter bolus the patient is evaluated. He is additionally given 10 mg of Midrin. Blood pressure still remains around 95 systolic. Because of his persistent low blood pressure likely due to his diarrhea, patient was admitted to the hospital for further treatment and close monitoring. Hypotension has resolved; patient has been placed on his antihypertensive therapy; stool was ordered for C. diff but diarrhea has resolved Patient can be transferred back to skilled rehab tomorrow morning 04-15-22 This is a pleasant 76 years old male who was sent from [facility] after he fell from his wheelchair with small right forehead hematoma which looks heal and now, he was hypotensive on admission, his blood pressure still borderline and it was ranging 144/70 and better on 93/52. Today he is awake but looks tired and his abdomen looks distended with mild pain and tenderness, no bowel movement for 2 days. KUB is showing bowel obstruction, surgery team were consulted, CT of the abdomen and pelvis showing partial versus early complete small bowel obstruction with stool throughout the colon, enlarged prostate with nonobstructive left renal calculus Bladder scan last night and was 250 ml. Patient currently nothing by mouth and on IV fluids His appetite is low and his abdomen tenderness is periumbilical 04/16/2022 Patient does not look in distress, his complaints only for minimal discomfort in his severely distended abdomen from obesity, complicated by his bowel obstruction. Tenderness is minimal. No nausea vomiting. He remains nothing by mouth. He does not have bowel movement but passing gases. No specific urinary symptoms, urine analysis is suspicious for UTI, he is on Rocephin and urine culture is pending. Surgical team recommended keep monitoring now. No need for antecubital as there is no active vomiting. Eliquis remains on hold for possible surgical intervention, he was placed on Lovenox 40 mg daily today. 04/17/2020 Patient remains with minimal abdominal pain Diet advanced by surgical team into liquid diet and we will monitor his tolerance. He remains on normal saline 75 mL/h Urine culture came back positive for strep galactorrhea, antibiotic was adjusted into Unasyn with plan to discharge on short course of oral Augmentin. Possible discharge in 24-48 hours if he keeps improving Currently remains on Lovenox 60 mg at bedtime Eliquis on hold Objective - Vital Signs Vital signs: Vital Signs Temp 97.7 F 04/17/22 08:28 Pulse 98 04/17/22 08:28 Resp 16 04/17/22 08:28 BP 161/66 04/17/22 08:28 Pulse Ox 98 04/17/22 08:28 FiO2 Intake & Output 04/16/22 04/17/22 04/17/22 18:59 06:59 18:59 Other: Voiding Method Diaper Diaper Incontinent Incontinent Incontinent External Catheter # Voids 4 3 - Labs CBC & Chem 7: 04/16/22 06:56 04/16/22 06:56 Labs: Abnormal Lab Results - Last 24 Hours (Table) 04/16/22 04/16/22 04/17/22 Range/Units 16:23 20:12 06:50 POC Glucose (mg/dL) 132 H 135 H 165 H (70-110) mg/dL 04/17/22 Range/Units 11:46 POC Glucose (mg/dL) 148 H (70-110) mg/dL Microbiology - Last 24 Hours (Table) 04/15/22 12:39 Urine Culture - Final Urine,Voided Strep agalactiae - (group b) Assessment and Plan Assessment: Partial versus early small bowel obstruction with stool throughout the colon but not distended. Acute urinary tract infection, could be related to left nonobstructive renal calculus Hypotension and hypovolemia secondary to above Obesity with BMI of 40.7 Diabetes mellitus with hyperglycemia History of Parkinson disease Chronic atrial fibrillation on Eliquis at home. Acute kidney injury Fall, present on admission without syncope History of hypertension History of coronary artery disease Hyperlipidemia Benign prostatic hypertrophy Plan: This is a pleasant 76 years old male who presents with bowel obstruction, UTI and nonobstructing kidney stone Start change antibiotic intravenously Per advance diet as tolerated Continue with IV fluid Continue with Reglan and lactulose. Start Lovenox Surgery consult Hold TALIA for surgery team for possible intervention Labs and medication were reviewed.. Continue same treatment. Continue with symptomatic treatment. Resume home medication. Monitor lytes and vitals. DVT and GI prophylaxis. Further recommendations as per clinical course of the patient DVT prophylaxis: Talia, currently on hold. Continue Lovenox 60 mg daily GI Prophylaxis: Pepcid From [facility] Prognosis is guarded
[2022-04-17 21:07] LABS: Glucose,Whole Blood 142 mg/dL (70-110)
[2022-04-17] MEDS: PRAVASTATIN SODIUM 40 MG TAB PO SCH (21:46)
[2022-04-18] MEDS: METOCLOPRAMIDE 5 MG/ML 2 ML VIAL IVP SCH ×4 (00:16→18:30)
[2022-04-18] MEDS: AMPICILLIN-SULBACTAM 3 GM in SODIUM CHLORIDE 0.9% 100 ML IVPB SCH ×3 (00:16→16:46)
[2022-04-18] MEDS: ENOXAPARIN 40 MG/0.4 ML SYRINGE SQ SCH (06:55)
[2022-04-18 06:56] LABS: Glucose,Whole Blood 181 mg/dL (70-110)
[2022-04-18] MEDS: SYMBICORT 160-4.5 MCG INHALER INHALATION SCH ×2 (08:00→20:05)
[2022-04-18] MEDS: METOPROLOL SUCCINATE (ER) 50 MG TAB.ER.24H PO SCH (09:03)
[2022-04-18] MEDS: INSULIN ASPART (NovoLOG) 100 UNIT/ML VIAL SQ SCH ×4 (09:03→22:25)
[2022-04-18] MEDS: allopurinoL 300 MG TAB PO SCH (09:03)
[2022-04-18] MEDS: LOSARTAN 25 MG TAB PO SCH (09:03)
[2022-04-18] MEDS: DIVALPROEX 250 MG TABLET.DR PO SCH ×2 (09:03→22:25)
[2022-04-18] MEDS: CYANOCOBALAMIN 500 MCG TAB PO SCH (09:03)
[2022-04-18] MEDS: ASPIRIN 81 MG PO SCH (09:04)
[2022-04-18] MEDS: ALPRAZolam 0.5 MG TAB PO SCH ×3 (09:04→17:24)
[2022-04-18] MEDS: TAMSULOSIN 0.4 MG CAP.ER.24H PO SCH (09:04)
[2022-04-18] MEDS: CARBIDOPA-LEVODOPA 25-250 MG 1 EACH TAB PO SCH ×3 (09:04→17:39)
[2022-04-18 10:45] LABS: Basophils # (A) 0.05 X 10*3/uL (0.00-0.10); Basophils % (A) 0.5 %; Eosinophils # (A) 0.83 X 10*3/uL (0.04-0.35); Eosinophils % (A) 7.5 %; HCT 33.9 % (39.6-50.0); Immature Grans, Automated 0.5 %; Lymphocytes # (A) 3.09 X 10*3/uL (0.90-5.00); MCH 31.4 pg (27.0-32.0); MCHC 32.4 g/dL (32.0-37.0); MCV 96.9 fL (80.0-97.0); Mean Platelet Volume 10.7 fL (9.5-12.2); Monocytes % (A) 6.3 %; NRBC Per 100 WBC 0 /100 WBCS (0.0-0.0); Neutrophils # (A) 6.31 X 10*3/uL (1.80-7.70); Neutrophils % (A) 57.2 %; Platelet Count 203 X 10*3/uL (140-440); WBC 11.03 X 10*3/uL (4.50-10.00)
[2022-04-18 11:03] LABS: Glucose,Whole Blood 194 mg/dL (70-110)
[2022-04-18 11:15] LABS: African American GFR (CKD) 99.9 (60.0-200.0); Anion Gap 9.6 mmol/L (10.00-18.00); BUN/Creat Ratio 11.38 Ratio (12.00-20.00); Blood Urea Nitrogen 9.1 mg/dL (9.0-27.0); Calcium 8.5 mg/dL (8.7-10.3); Carbon Dioxide 23.4 mmol/L (20.0-27.5); Magnesium 1.8 mg/dL (1.5-2.4); Non-African American GFR(CKD) 86.2 (60.0-200.0); Potassium 3.7 mmol/L (3.5-5.5)
[2022-04-18] MEDS: DEXTROSE 5%-0.9% NACL 1,000 ML IV SCH (12:01)
--- NOTE | 2022-04-18 12:12 | XR ---
EXAMINATION TYPE: XR chest 1V DATE OF EXAM: 04/18/2022 COMPARISON: Chest x-ray 04/13/2022 HISTORY: Shortness of breath TECHNIQUE: Single frontal view of the chest is obtained. FINDINGS: Generators are present in the pectoral regions, leads are coursing cephalad off the superio r segment of the exam. Patient is post lap band. There is some questionable basilar increased attenua tion, no pleural effusion or pneumothorax seen. The cardiac silhouette size is within normal limits. The osseous structures are intact. IMPRESSION: Difficult to exclude some basilar atelectasis versus pneumonia, follow-up PA and lateral chest x-ray as indicated.
--- NOTE | 2022-04-18 13:00 | P.PN ---
Subjective Progress Note Date: 04/18/22 CHIEF COMPLAINT: Fall HISTORY OF PRESENT ILLNESS: Surgical service following regards to partial small bowel obstruction. Patient lying in bed comfortably. Denies any abdominal pain. No nausea or vomiting reported. Patient is now passing flatus. No bowel movement even with 5 doses of lactulose. Afebrile. WBC 11.03 Patient seen and examined with Dr. meier PHYSICAL EXAM: VITAL SIGNS: Reviewed. GENERAL: Well-developed in no acute distress. HEENT: No sclera icterus. Extraocular movements grossly intact. Moist buccal mucosa. Head is atraumatic, normocephalic. ABDOMEN: Soft. obese. Nondistended Nontender. NEUROLOGIC: Awake and alert and able to answer questions. ASSESSMENT: 1. Partial small bowel obstruction resolving 2. History of abdominal surgeries 3. History of atrial fibrillation PLAN: -Advance diet to full liquids for dinner and then carb consistent diet for breakfast tomorrow -We'll give lactulose 1 dose every hour 3 more doses -Continue Reglan -Continue conservative management -Continue IV fluids -Okay to resume Eliquis from surgical standpoint Physician Consulting Psychologist note has been reviewed by physician. Signing provider agrees with the documented findings, assessment, and plan of care. Objective - Vital Signs Vital signs: Vital Signs Temp 98.0 F 04/18/22 08:00 Pulse 60 04/18/22 08:00 Resp 18 04/18/22 08:50 BP 125/65 04/18/22 08:00 Pulse Ox 95 04/18/22 08:00 FiO2 Intake & Output 04/17/22 04/18/22 04/18/22 18:59 06:59 18:59 Output Total 100 Balance -100 Output: Urine 100 Other: Voiding Method Incontinent Incontinent Incontinent External Catheter External Catheter External Catheter # Voids 1 2 - Labs CBC & Chem 7: 04/18/22 06:58 04/18/22 06:58 Labs: Abnormal Lab Results - Last 24 Hours (Table) 04/17/22 04/17/22 04/18/22 Range/Units 17:11 21:05 06:54 WBC (4.50-10.00) X 10*3/uL RBC (4.40-5.60) X 10*6/uL Hgb (13.0-17.0) g/dL Hct (39.6-50.0) % Immature Gran # (0.00-0.04) X 10*3/uL Eosinophils # (0.04-0.35) X 10*3/uL Anion Gap (10.00-18.00) mmol/L BUN/Creatinine Ratio (12.00-20.00) Ratio Glucose (70-110) mg/dL POC Glucose (mg/dL) 235 H 142 H 181 H (70-110) mg/dL Calcium (8.7-10.3) mg/dL 04/18/22 04/18/22 04/18/22 Range/Units 06:58 06:58 11:01 WBC 11.03 H (4.50-10.00) X 10*3/uL RBC 3.50 L (4.40-5.60) X 10*6/uL Hgb 11.0 L (13.0-17.0) g/dL Hct 33.9 L (39.6-50.0) % Immature Gran # 0.05 H (0.00-0.04) X 10*3/uL Eosinophils # 0.83 H (0.04-0.35) X 10*3/uL Anion Gap 9.60 L (10.00-18.00) mmol/L BUN/Creatinine Ratio 11.38 L (12.00-20.00) Ratio Glucose 161 H (70-110) mg/dL POC Glucose (mg/dL) 194 H (70-110) mg/dL Calcium 8.5 L (8.7-10.3) mg/dL
[2022-04-18] MEDS: LACTULOSE 20 GM/30 ML CUP PO SCH ×3 (15:53→18:30)
[2022-04-18 16:51] LABS: Glucose,Whole Blood 142 mg/dL (70-110)
[2022-04-18] MEDS ORDERED: APIXABAN 5 MG TAB PO SCH (21:00)
[2022-04-18] MEDS: PRAVASTATIN SODIUM 40 MG TAB PO SCH (21:03)
--- NOTE | 2022-04-18 21:05 | P.PN ---
Subjective 76-year-old male with past medical history of A. fib on Eliquis, coronary artery disease, Parkinson's with stimulator presents to the emergency department after he sustained a fall. He resides at [facility]. Was sitting in his wheelchair and had an unwitnessed fall. Patient felt to the ground and sustained a hematoma and abrasion to the right forehead. She denies that he had a syncopal episode. Admits to mild headache without visual changes. No neck pain. Denies any other injuries. Patient is alert and oriented 2 which is his baseline. Able to answer questions appropriately. Moving all extremity. Denies any chest pain or shortness of breath. Upon arrival patient does have notable low blood pressures. Was given 500 mL by EMS. Remarked that he was up last night with multiple episodes of watery diarrhea. He takes Midodrine for low blood pressure for which she was administered this morning. Admits to normal appetite. No akil nges in his urination. No other alleviating, Perceptin or modifying Upon arrival patient's blood pressure was 73/46. He was given 500 bolus by EMS. He was additionally given another bolus 1 L in ED. Laboratory studies are conducted and reviewed. White count mildly elevated at 15.4. Hemoglobin is 13.3. CO2 is 21. CT the cervical spine does not demonstrate any acute intra- cranial process. Chest x-ray demonstrates no acute cardio pulmonary disease. After the liter bolus the patient is evaluated. He is additionally given 10 mg of Midrin. Blood pressure still remains around 95 systolic. Because of his persistent low blood pressure likely due to his diarrhea, patient was admitted to the hospital for further treatment and close monitoring. Hypotension has resolved; patient has been placed on his antihypertensive therapy; stool was ordered for C. diff but diarrhea has resolved Patient can be transferred back to skilled rehab tomorrow morning 04-15-22 This is a pleasant 76 years old male who was sent from [facility] after he fell from his wheelchair with small right forehead hematoma which looks heal and now, he was hypotensive on admission, his blood pressure still borderline and it was ranging 144/70 and better on 93/52. Today he is awake but looks tired and his abdomen looks distended with mild pain and tenderness, no bowel movement for 2 days. KUB is showing bowel obstruction, surgery team were consulted, CT of the abdomen and pelvis showing partial versus early complete small bowel obstruction with stool throughout the colon, enlarged prostate with nonobstructive left renal calculus Bladder scan last night and was 250 ml. Patient currently nothing by mouth and on IV fluids His appetite is low and his abdomen tenderness is periumbilical 04/16/2022 Patient does not look in distress, his complaints only for minimal discomfort in his severely distended abdomen from obesity, complicated by his bowel obstruction. Tenderness is minimal. No nausea vomiting. He remains nothing by mouth. He does not have bowel movement but passing gases. No specific urinary symptoms, urine analysis is suspicious for UTI, he is on Rocephin and urine culture is pending. Surgical team recommended keep monitoring now. No need for antecubital as there is no active vomiting. Eliquis remains on hold for possible surgical intervention, he was placed on Lovenox 40 mg daily today. 04/17/2020 Patient remains with minimal abdominal pain Diet advanced by surgical team into liquid diet and we will monitor his tolerance. He remains on normal saline 75 mL/h Urine culture came back positive for strep galactorrhea, antibiotic was adjusted into Unasyn with plan to discharge on short course of oral Augmentin. Possible discharge in 24-48 hours if he keeps improving Currently remains on Lovenox 60 mg at bedtime Eliquis on hold 04/18/2022 Patient today started on liquid diet and he tolerated well and advanced to regular diet. Eliquis also resumed by surgery team, his home dose is 2.5 mg twice daily IV fluids discontinued He continued on Unasyn for strep agalactiae UTI. Continue with Unasyn with a plan to switch him to oral Augmentin upon discharge Chest x-ray showing atelectasis versus pneumonia however patient with no respiratory symptoms and he is saturating well 97% on room air. Patient will benefit from rehab upon discharge Possible discharge in 24-48 hours if he keeps improving. Objective - Vital Signs Vital signs: Vital Signs Temp 98.0 F 04/18/22 08:00 Pulse 60 04/18/22 08:00 Resp 18 04/18/22 08:50 BP 125/65 04/18/22 08:00 Pulse Ox 95 04/18/22 08:00 FiO2 Intake & Output 04/17/22 04/18/22 04/18/22 18:59 06:59 18:59 Output Total 100 Balance -100 Output: Urine 100 Other: Voiding Method Incontinent Incontinent Incontinent External Catheter External Catheter External Catheter # Voids 1 2 - Exam -GENERAL: The patient is alert and oriented x3, not in any acute distress. Well morbid obesity HEENT: Pupils are round and equally reacting to light. EOMI. No scleral icterus. No conjunctival pallor. Normocephalic, atraumatic. No pharyngeal erythema. No thyromegaly. CARDIOVASCULAR: S1 and S2 present. No murmurs, rubs, or gallops. PULMONARY: Chest is clear to auscultation, no wheezing or crackles. -ABDOMEN: Soft, mild periumbilical tenderness, distended, normoactive bowel sounds. No palpable organomegaly. MUSCULOSKELETAL: No joint swelling or deformity. EXTREMITIES: No cyanosis, clubbing, or pedal edema. NEUROLOGICAL: Gross neurological examination did not reveal any focal deficits. SKIN: No rashes. no petechiae. - Labs CBC & Chem 7: 04/18/22 06:58 04/18/22 06:58 Labs: Abnormal Lab Results - Last 24 Hours (Table) 04/17/22 04/17/22 04/18/22 Range/Units 17:11 21:05 06:54 WBC (4.50-10.00) X 10*3/uL RBC (4.40-5.60) X 10*6/uL Hgb (13.0-17.0) g/dL Hct (39.6-50.0) % Immature Gran # (0.00-0.04) X 10*3/uL Eosinophils # (0.04-0.35) X 10*3/uL Anion Gap (10.00-18.00) mmol/L BUN/Creatinine Ratio (12.00-20.00) Ratio Glucose (70-110) mg/dL POC Glucose (mg/dL) 235 H 142 H 181 H (70-110) mg/dL Calcium (8.7-10.3) mg/dL 04/18/22 04/18/22 04/18/22 Range/Units 06:58 06:58 11:01 WBC 11.03 H (4.50-10.00) X 10*3/uL RBC 3.50 L (4.40-5.60) X 10*6/uL Hgb 11.0 L (13.0-17.0) g/dL Hct 33.9 L (39.6-50.0) % Immature Gran # 0.05 H (0.00-0.04) X 10*3/uL Eosinophils # 0.83 H (0.04-0.35) X 10*3/uL Anion Gap 9.60 L (10.00-18.00) mmol/L BUN/Creatinine Ratio 11.38 L (12.00-20.00) Ratio Glucose 161 H (70-110) mg/dL POC Glucose (mg/dL) 194 H (70-110) mg/dL Calcium 8.5 L (8.7-10.3) mg/dL Assessment and Plan Assessment: Partial versus early small bowel obstruction with stool throughout the colon but not distended. Acute urinary tract infection, could be related to left nonobstructive renal calculus Hypotension and hypovolemia secondary to above Obesity with BMI of 40.7 Diabetes mellitus with hyperglycemia History of Parkinson disease Chronic atrial fibrillation on Eliquis at home. Acute kidney injury Fall, present on admission without syncope History of hypertension History of coronary artery disease Hyperlipidemia Benign prostatic hypertrophy Plan: This is a pleasant 76 years old male who presents with bowel obstruction, UTI and nonobstructing kidney stone Continue with Unasyn Discontinue IV fluid Continue diet as tolerated Continue with Reglan and lactulose for surgery team. Resume Eliquis Labs and medication were reviewed.. Continue same treatment. Continue with symptomatic treatment. Resume home medication. Monitor lytes and vitals. DVT and GI prophylaxis. Further recommendations as per clinical course of the patient DVT prophylaxis: Eliquis, GI Prophylaxis: Pepcid Possible [facility] for rehab Prognosis is guarded
[2022-04-18] MEDS: APIXABAN 2.5 MG TABLET PO SCH (21:09)
[2022-04-18 21:19] LABS: Glucose,Whole Blood 154 mg/dL (70-110)
[2022-04-19] MEDS: AMPICILLIN-SULBACTAM 3 GM in SODIUM CHLORIDE 0.9% 100 ML IVPB SCH ×4 (00:06→22:18)
[2022-04-19] MEDS: METOCLOPRAMIDE 5 MG/ML 2 ML VIAL IVP SCH ×5 (00:18→22:18)
[2022-04-19 07:28] LABS: Glucose,Whole Blood 163 mg/dL (70-110)
[2022-04-19] MEDS: SYMBICORT 160-4.5 MCG INHALER INHALATION SCH ×2 (08:20→21:18)
[2022-04-19] MEDS ORDERED: LACTULOSE 20 GM/30 ML CUP PO ONE (08:54)
[2022-04-19] MEDS: INSULIN ASPART (NovoLOG) 100 UNIT/ML VIAL SQ SCH ×4 (10:18→22:23)
[2022-04-19] MEDS: allopurinoL 300 MG TAB PO SCH (10:19)
[2022-04-19] MEDS: CARBIDOPA-LEVODOPA 25-250 MG 1 EACH TAB PO SCH ×3 (10:19→17:32)
[2022-04-19] MEDS: DIVALPROEX 250 MG TABLET.DR PO SCH (10:20)
[2022-04-19] MEDS: ASPIRIN 81 MG PO SCH (10:20)
[2022-04-19] MEDS: ALPRAZolam 0.5 MG TAB PO SCH ×3 (10:20→17:32)
[2022-04-19] MEDS: APIXABAN 2.5 MG TABLET PO SCH ×2 (10:20→22:17)
[2022-04-19] MEDS: CYANOCOBALAMIN 500 MCG TAB PO SCH (10:20)
[2022-04-19] MEDS: LOSARTAN 25 MG TAB PO SCH (10:20)
[2022-04-19] MEDS: METOPROLOL SUCCINATE (ER) 50 MG TAB.ER.24H PO SCH (10:20)
[2022-04-19] MEDS: TAMSULOSIN 0.4 MG CAP.ER.24H PO SCH (10:21)
--- NOTE | 2022-04-19 10:43 | P.PN ---
Subjective Progress Note Date: 04/19/22 CHIEF COMPLAINT: Fall HISTORY OF PRESENT ILLNESS: Surgical service following regards to partial small bowel obstruction. Patient has received a total of 8 doses of lactulose. Nursing staff has informed me that patient is now stooling. He's had large bowel movement. Patient lying in bed comfortably. Denies any abdominal pain. He denies any nausea or vomiting. Afebrile. PHYSICAL EXAM: VITAL SIGNS: Reviewed. GENERAL: Well-developed in no acute distress. HEENT: No sclera icterus. Extraocular movements grossly intact. Moist buccal mucosa. Head is atraumatic, normocephalic. ABDOMEN: Soft. obese. Nondistended Nontender. NEUROLOGIC: Awake and alert and able to answer questions. ASSESSMENT: 1. Partial small bowel obstruction resolving 2. History of abdominal surgeries 3. History of atrial fibrillation PLAN: -Advanced to carb consistent diet -No surgical intervention planned -Continue Reglan -Continue conservative management -DVT prophylaxis Jaziel Physician Concessions Manager note has been reviewed by physician. Signing provider agrees with the documented findings, assessment, and plan of care. I have personally seen and examined the patient, reviewed the OFFICE AUDITOR /PAs history, exam and MDM and agree with the assessment and plan as written. Based on total visit time, I have performed more than 50% of the visit. As above: Patient states he feels well today. Denies nausea or vomiting. He has had a larger bowel movement. Tolerating regular food. He denies pain. Objective - Vital Signs Vital signs: Vital Signs Temp 97.6 F 04/19/22 07:49 Pulse 63 04/19/22 07:49 Resp 16 04/19/22 01:58 BP 136/75 04/19/22 07:49 Pulse Ox 97 04/19/22 08:21 FiO2 21 04/18/22 23:44 Intake & Output 04/18/22 04/19/22 04/19/22 18:59 06:59 18:59 Output Total 650 Balance -650 Output: Urine 650 Other: Voiding Method Incontinent Incontinent Incontinent External Catheter External Catheter External Catheter # Bowel Movements 0 2 - Labs CBC & Chem 7: 04/18/22 06:58 04/18/22 06:58 Labs: Abnormal Lab Results - Last 24 Hours (Table) 04/18/22 04/18/22 04/18/22 Range/Units 06:58 06:58 11:01 WBC 11.03 H (4.50-10.00) X 10*3/uL RBC 3.50 L (4.40-5.60) X 10*6/uL Hgb 11.0 L (13.0-17.0) g/dL Hct 33.9 L (39.6-50.0) % Immature Gran # 0.05 H (0.00-0.04) X 10*3/uL Eosinophils # 0.83 H (0.04-0.35) X 10*3/uL Anion Gap 9.60 L (10.00-18.00) mmol/L BUN/Creatinine Ratio 11.38 L (12.00-20.00) Ratio Glucose 161 H (70-110) mg/dL POC Glucose (mg/dL) 194 H (70-110) mg/dL Calcium 8.5 L (8.7-10.3) mg/dL 04/18/22 04/18/22 04/19/22 Range/Units 16:48 21:17 07:27 WBC (4.50-10.00) X 10*3/uL RBC (4.40-5.60) X 10*6/uL Hgb (13.0-17.0) g/dL Hct (39.6-50.0) % Immature Gran # (0.00-0.04) X 10*3/uL Eosinophils # (0.04-0.35) X 10*3/uL Anion Gap (10.00-18.00) mmol/L BUN/Creatinine Ratio (12.00-20.00) Ratio Glucose (70-110) mg/dL POC Glucose (mg/dL) 142 H 154 H 163 H (70-110) mg/dL Calcium (8.7-10.3) mg/dL
[2022-04-19 11:08] LABS: Glucose,Whole Blood 222 mg/dL (70-110)
--- NOTE | 2022-04-19 11:39 | P.PN ---
Subjective 76-year-old male with past medical history of A. fib on Eliquis, coronary artery disease, Parkinson's with stimulator presents to the emergency department after he sustained a fall. He resides at [facility]. Was sitting in his wheelchair and had an unwitnessed fall. Patient felt to the ground and sustained a hematoma and abrasion to the right forehead. She denies that he had a syncopal episode. Admits to mild headache without visual changes. No neck pain. Denies any other injuries. Patient is alert and oriented 2 which is his baseline. Able to answer questions appropriately. Moving all extremity. Denies any chest pain or shortness of breath. Upon arrival patient does have notable low blood pressures. Was given 500 mL by EMS. Remarked that he was up last night with multiple episodes of watery diarrhea. He takes Midodrine for low blood pressure for which she was administered this morning. Admits to normal appetite. No akil nges in his urination. No other alleviating, Perceptin or modifying Upon arrival patient's blood pressure was 73/46. He was given 500 bolus by EMS. He was additionally given another bolus 1 L in ED. Laboratory studies are conducted and reviewed. White count mildly elevated at 15.4. Hemoglobin is 13.3. CO2 is 21. CT the cervical spine does not demonstrate any acute intra- cranial process. Chest x-ray demonstrates no acute cardio pulmonary disease. After the liter bolus the patient is evaluated. He is additionally given 10 mg of Midrin. Blood pressure still remains around 95 systolic. Because of his persistent low blood pressure likely due to his diarrhea, patient was admitted to the hospital for further treatment and close monitoring. Hypotension has resolved; patient has been placed on his antihypertensive therapy; stool was ordered for C. diff but diarrhea has resolved Patient can be transferred back to skilled rehab tomorrow morning 04-15-22 This is a pleasant 76 years old male who was sent from long term after he fell from his wheelchair with small right forehead hematoma which looks heal and now, he was hypotensive on admission, his blood pressure still borderline and it was ranging 144/70 and better on 93/52. Today he is awake but looks tired and his abdomen looks distended with mild pain and tenderness, no bowel movement for 2 days. KUB is showing bowel obstruction, surgery team were consulted, CT of the abdomen and pelvis showing partial versus early complete small bowel obstruction with stool throughout the colon, enlarged prostate with nonobstructive left renal calculus Bladder scan last night and was 250 ml. Patient currently nothing by mouth and on IV fluids His appetite is low and his abdomen tenderness is periumbilical 04/16/2022 Patient does not look in distress, his complaints only for minimal discomfort in his severely distended abdomen from obesity, complicated by his bowel obstruction. Tenderness is minimal. No nausea vomiting. He remains nothing by mouth. He does not have bowel movement but passing gases. No specific urinary symptoms, urine analysis is suspicious for UTI, he is on Rocephin and urine culture is pending. Surgical team recommended keep monitoring now. No need for antecubital as there is no active vomiting. Eliquis remains on hold for possible surgical intervention, he was placed on Lovenox 40 mg daily today. 04/17/2020 Patient remains with minimal abdominal pain Diet advanced by surgical team into liquid diet and we will monitor his tolerance. He remains on normal saline 75 mL/h Urine culture came back positive for strep galactorrhea, antibiotic was adjusted into Unasyn with plan to discharge on short course of oral Augmentin. Possible discharge in 24-48 hours if he keeps improving Currently remains on Lovenox 60 mg at bedtime Eliquis on hold 04/18/2022 Patient today started on liquid diet and he tolerated well and advanced to regular diet. Eliquis also resumed by surgery team, his home dose is 2.5 mg twice daily IV fluids discontinued He continued on Unasyn for strep agalactiae UTI. Continue with Unasyn with a plan to switch him to oral Augmentin upon discharge Chest x-ray showing atelectasis versus pneumonia however patient with no respiratory symptoms and he is saturating well 97% on room air. Patient will benefit from rehab upon discharge Possible discharge in 24-48 hours if he keeps improving. 04/19/2022 Patient tolerated liquid diet yesterday however this morning he felt full and he did not want to try his breakfast, his abdominal distention is improving and he is passing gas but he did not have bowel movement.. I discussed with surgery they going to advance diet, give one-time dose of lactulose 30 g and keep monitor him for now. He is also on Unasyn for strep agalactiae UTI Eliquis resumed at 2.5 mg, as the patient about the Eliquis he could not remember the name of his bicycle rental clerk or DrVerena or how much was the dose however on admission it was 2.5 mg which is resumed. Sugar control. We will repeat chest x-ray tomorrow as there was suspicion of infiltrate on the previous x-ray. He would benefit from rehab upon discharge Objective - Vital Signs Vital signs: Vital Signs Temp 97.6 F 04/19/22 07:49 Pulse 63 04/19/22 07:49 Resp 16 04/19/22 01:58 BP 136/75 04/19/22 07:49 Pulse Ox 97 04/19/22 08:21 FiO2 21 04/18/22 23:44 Intake & Output 04/18/22 04/19/22 04/19/22 18:59 06:59 18:59 Output Total 650 Balance -650 Output: Urine 650 Other: Voiding Method Incontinent Incontinent Incontinent External Catheter External Catheter External Catheter # Bowel Movements 0 2 - Exam -GENERAL: The patient is alert and oriented x3, not in any acute distress. Well morbid obesity HEENT: Pupils are round and equally reacting to light. EOMI. No scleral icterus. No conjunctival pallor. Normocephalic, atraumatic. No pharyngeal erythema. No thyromegaly. CARDIOVASCULAR: S1 and S2 present. No murmurs, rubs, or gallops. PULMONARY: Chest is clear to auscultation, no wheezing or crackles. -ABDOMEN: Soft, mild periumbilical tenderness, distended, normoactive bowel sounds. No palpable organomegaly. MUSCULOSKELETAL: No joint swelling or deformity. EXTREMITIES: No cyanosis, clubbing, or pedal edema. NEUROLOGICAL: Gross neurological examination did not reveal any focal deficits. SKIN: No rashes. no petechiae. - Labs CBC & Chem 7: 04/18/22 06:58 04/18/22 06:58 Labs: Abnormal Lab Results - Last 24 Hours (Table) 04/18/22 04/18/22 04/19/22 Range/Units 16:48 21:17 07:27 POC Glucose (mg/dL) 142 H 154 H 163 H (70-110) mg/dL 04/19/22 Range/Units 11:07 POC Glucose (mg/dL) 222 H (70-110) mg/dL Assessment and Plan Assessment: Partial versus early small bowel obstruction with stool throughout the colon but not distended. Acute urinary tract infection, could be related to left nonobstructive renal c alculus Hypotension and hypovolemia secondary to above Obesity with BMI of 40.7 Diabetes mellitus with hyperglycemia History of Parkinson disease Chronic atrial fibrillation on Eliquis at home. Acute kidney injury Fall, present on admission without syncope History of hypertension History of coronary artery disease Hyperlipidemia Benign prostatic hypertrophy Plan: This is a pleasant 76 years old male who presents with bowel obstruction, UTI and nonobstructing kidney stone Continue with Unasyn Discontinue IV fluid Continue diet as tolerated Continue with Reglan and lactulose for surgery team. Resume Eliquis Labs and medication were reviewed.. Continue same treatment. Continue with symptomatic treatment. Resume home medication. Monitor lytes and vitals. DVT and GI prophylaxis. Further recommendations as per clinical course of the patient DVT prophylaxis: Eliquis, GI Prophylaxis: Pepcid Possible ECF for rehab Prognosis is guarded
[2022-04-19 14:02] VITALS: BMI 40.6
[2022-04-19 16:57] LABS: Glucose,Whole Blood 147 mg/dL (70-110)
[2022-04-19 21:01] LABS: Glucose,Whole Blood 163 mg/dL (70-110)
[2022-04-19] MEDS: PRAVASTATIN SODIUM 40 MG TAB PO SCH (22:16)
[2022-04-19] MEDS: MELATONIN 5 MG TABLET PO PRN (22:17)
[2022-04-20] MEDS: DIVALPROEX 250 MG TABLET.DR PO SCH ×3 (00:41→20:38)
[2022-04-20 07:04] LABS: Glucose,Whole Blood 135 mg/dL (70-110)
[2022-04-20] MEDS: METOCLOPRAMIDE 5 MG/ML 2 ML VIAL IVP SCH ×4 (07:28→23:05)
[2022-04-20] MEDS: SYMBICORT 160-4.5 MCG INHALER INHALATION SCH ×3 (07:45→21:19)
[2022-04-20] MEDS: allopurinoL 300 MG TAB PO SCH (08:14)
[2022-04-20] MEDS: CYANOCOBALAMIN 500 MCG TAB PO SCH (08:14)
[2022-04-20] MEDS: LOSARTAN 25 MG TAB PO SCH (08:14)
[2022-04-20] MEDS: APIXABAN 2.5 MG TABLET PO SCH ×2 (08:15→20:36)
[2022-04-20] MEDS: TAMSULOSIN 0.4 MG CAP.ER.24H PO SCH (08:15)
[2022-04-20] MEDS: CARBIDOPA-LEVODOPA 25-250 MG 1 EACH TAB PO SCH ×3 (08:15→17:07)
[2022-04-20] MEDS: ALPRAZolam 0.5 MG TAB PO SCH ×3 (08:15→17:07)
[2022-04-20] MEDS: METOPROLOL SUCCINATE (ER) 50 MG TAB.ER.24H PO SCH (08:15)
[2022-04-20] MEDS: AMPICILLIN-SULBACTAM 3 GM in SODIUM CHLORIDE 0.9% 100 ML IVPB SCH ×3 (08:15→21:41)
[2022-04-20] MEDS: INSULIN ASPART (NovoLOG) 100 UNIT/ML VIAL SQ SCH ×4 (08:16→21:35)
[2022-04-20] MEDS: ASPIRIN 81 MG PO SCH (08:16)
--- NOTE | 2022-04-20 11:13 | P.PN ---
Subjective Progress Note Date: 04/20/22 Principal diagnosis: P SBO Patient doing well today. Tolerating diet. He says he large bowel movement. Talks are underway for possible transfer back to [facility]. Objective - Vital Signs Vital signs: Vital Signs Temp 97.8 F 04/20/22 07:00 Pulse 61 04/20/22 07:00 Resp 12 04/20/22 07:00 BP 135/70 04/20/22 07:00 Pulse Ox 96 04/20/22 07:45 FiO2 21 04/18/22 23:44 Intake & Output 04/19/22 04/20/22 04/20/22 18:59 06:59 18:59 Output Total 400 Balance -400 Weight 136.078 kg Output: Urine 400 Other: Voiding Method Incontinent Incontinent Incontinent External Catheter External Catheter External Catheter # Voids 1 4 # Bowel Movements 1 1 - Exam Abdomen: Soft, nontender, nondistended - Labs CBC & Chem 7: 04/18/22 06:58 04/18/22 06:58 Labs: Abnormal Lab Results - Last 24 Hours (Table) 04/19/22 04/19/22 04/20/22 Range/Units 16:55 20:49 07:03 POC Glucose (mg/dL) 147 H 163 H 135 H (70-110) mg/dL Assessment and Plan (1) Small bowel obstruction Narrative/Plan: Patient doing well at this time. Continue diet. Increase activity. Possible transfer back to [facility]. Current Visit: Yes Status: Acute Code(s): K56.609 - UNSP INTESTNL OBST, UNSP TO PARTIAL VERSUS COMPLETE OBST SNOMED Code(s): 115337078
[2022-04-20 11:32] LABS: African American GFR (CKD) >90 (>60 ml/min/1.73 sqM); Anion Gap 8 mmol/L; Blood Urea Nitrogen 7 mg/dL (9-20); Calcium 8.2 mg/dL (8.4-10.2); Carbon Dioxide 26 mmol/L (22-30); Chloride 107 mmol/L (98-107); Glucose 170 mg/dL (74-99); Magnesium 1.5 mg/dL (1.6-2.3); Non-African American GFR(CKD) 89 (>60 ml/min/1.73 sqM); Potassium 3.7 mmol/L (3.5-5.1); Sodium 141 mmol/L (137-145)
[2022-04-20 11:45] LABS: Glucose,Whole Blood 180 mg/dL (70-110)
[2022-04-20] MEDS ORDERED: Magnesium Replacement Protocol 1 EACH MISC MISCELLANE PRN (15:01)
--- NOTE | 2022-04-20 15:06 | P.PN ---
Subjective Progress Note Date: 04/20/22 This 76-year-old male who presents with hypotension as well as unwitnessed fall. He does reside at [facility]. Mentation is at baseline. Patient was found to have a partial versus early complete small bowel obstruction and general surgery was consulted. He continues on a liquid diet with improvement in abdominal distention. Patient received a one-time dose of lactulose yesterday, with a total of 8 doses and he is now having bowel movements. He continues on Unasyn for strep agalactae UTI. Remains afebrile, blood pressure 135/70, 96% room air. Review of Systems Constitutional: Denied any fatigue denied any fever. Cardio vascular: denied any chest pain, palpitations Gastrointestinal: denied any nausea, vomiting, diarrhea Pulmonary: Denied any shortness of breath cough Neurologic denied any new focal deficits All inpatient medications were reviewed and appropriate changes in these medications as dictated in the interval history and assessment and plan. PHYSICAL EXAMINATION: GENERAL: The patient is alert and oriented x3, not in any acute distress. Well developed, well nourished. HEENT: Pupils are round and equally reacting to light. EOMI. No scleral icterus. No conjunctival pallor. Normocephalic, atraumatic. No pharyngeal erythema. No thyromegaly. CARDIOVASCULAR: S1 and S2 present. No murmurs, rubs, or gallops. PULMONARY: Chest is clear to auscultation, no wheezing or crackles. ABDOMEN: Soft, nontender, nondistended, normoactive bowel sounds. No palpable organomegaly. MUSCULOSKELETAL: No joint swelling or deformity. EXTREMITIES: No cyanosis, clubbing, or pedal edema. NEUROLOGICAL: Gross neurological examination did not reveal any focal deficits. SKIN: No rashes. Assessment and plan Assessment Partial versus early small bowel obstruction with stool throughout the colon but not distended, resolving Strep Agalactae UTI, could be related to left nonobstructive renal calculus Hypotension and hypovolemia secondary to above, resolved Obesity with BMI of 40.7 Diabetes mellitus with hyperglycemia History of Parkinson disease Chronic atrial fibrillation on Eliquis at home. Acute kidney injury most likely prerenal from poor oral intake, resolved Fall, present on admission without syncope History of hypertension History of coronary artery disease Hyperlipidemia Benign prostatic hypertrophy GI Prophylaxis DVT Prophylaxis on Eliquis Do Not Resuscitate Plan Continue IV antibiotics, transition to oral on discharge Diet advanced per gen surgery Replace magnesium and repeat level in AM Decrease reglan dosing Increase patient activity level Discharge back to [facility] pending insurance auth most likely on Friday The impression and plan of care has been dictated by Maria L Russell, Nurse Practitioner as directed. Dr. Alena MD I have performed a history and physical examination and medical decision making of this patient, discussed the same with the dictator, and agree with the dictators assessment and plan as written, documented as a scribe. Based on total visit time, I have performed more than 50% of this visit. Objective - Vital Signs Vital signs: Vital Signs Temp 97.8 F 04/20/22 07:00 Pulse 61 04/20/22 07:00 Resp 12 04/20/22 07:00 BP 135/70 04/20/22 07:00 Pulse Ox 96 04/20/22 07:45 FiO2 21 04/18/22 23:44 Intake & Output 04/19/22 04/20/22 04/20/22 18:59 06:59 18:59 Output Total 400 Balance -400 Weight 136.078 kg Output: Urine 400 Other: Voiding Method Incontinent Incontinent Incontinent External Catheter External Catheter External Catheter # Voids 1 4 # Bowel Movements 1 1 - Labs CBC & Chem 7: 04/18/22 06:58 04/20/22 10:56 Labs: Abnormal Lab Results - Last 24 Hours (Table) 04/19/22 04/19/22 04/19/22 Range/Units 11:07 16:55 20:49 POC Glucose (mg/dL) 222 H 147 H 163 H (70-110) mg/dL 04/20/22 Range/Units 07:03 POC Glucose (mg/dL) 135 H (70-110) mg/dL Assessment and Plan Time with Patient: Less than 30
[2022-04-20 16:45] LABS: Glucose,Whole Blood 189 mg/dL (70-110)
[2022-04-20] MEDS: MAGNESIUM SULFATE-D5W PMX 1 GM in DEXTROSE/WATER 1 100ML.BAG IVPB SCH ×2 (16:53→17:59)
[2022-04-20] MEDS: MELATONIN 5 MG TABLET PO PRN (20:37)
[2022-04-20] MEDS: PRAVASTATIN SODIUM 40 MG TAB PO SCH (20:37)
[2022-04-20 21:35] LABS: Glucose,Whole Blood 153 mg/dL (70-110)
[2022-04-21] MEDS ORDERED: hydrALAZINE HCL 20 MG/ML 1 ML VIAL IVP STA (04:28)
[2022-04-21] MEDS: METOCLOPRAMIDE 5 MG/ML 2 ML VIAL IVP SCH ×3 (04:40→18:19)
[2022-04-21 07:17] LABS: Glucose,Whole Blood 164 mg/dL (70-110)
[2022-04-21] MEDS: SYMBICORT 160-4.5 MCG INHALER INHALATION SCH ×2 (07:41→19:45)
[2022-04-21] MEDS: INSULIN ASPART (NovoLOG) 100 UNIT/ML VIAL SQ SCH ×4 (07:41→21:57)
[2022-04-21] MEDS: LOSARTAN 25 MG TAB PO SCH (07:42)
[2022-04-21] MEDS: DIVALPROEX 250 MG TABLET.DR PO SCH ×2 (07:42→21:57)
[2022-04-21] MEDS: METOPROLOL SUCCINATE (ER) 50 MG TAB.ER.24H PO SCH (07:42)
[2022-04-21] MEDS: CYANOCOBALAMIN 500 MCG TAB PO SCH (07:43)
[2022-04-21] MEDS: APIXABAN 2.5 MG TABLET PO SCH ×2 (07:43→21:57)
[2022-04-21] MEDS: allopurinoL 300 MG TAB PO SCH (07:43)
[2022-04-21] MEDS: CARBIDOPA-LEVODOPA 25-250 MG 1 EACH TAB PO SCH ×3 (07:44→17:52)
[2022-04-21] MEDS: TAMSULOSIN 0.4 MG CAP.ER.24H PO SCH (07:44)
[2022-04-21] MEDS: ASPIRIN 81 MG PO SCH (07:44)
[2022-04-21] MEDS: AMPICILLIN-SULBACTAM 3 GM in SODIUM CHLORIDE 0.9% 100 ML IVPB SCH ×2 (07:44→16:30)
[2022-04-21] MEDS: ALPRAZolam 0.5 MG TAB PO SCH ×3 (07:44→17:52)
--- NOTE | 2022-04-21 11:39 | P.PN ---
Subjective Progress Note Date: 04/21/22 Principal diagnosis: P SBO Patient doing well today. Denies abdominal pain. Tolerating diet. Objective - Vital Signs Vital signs: Vital Signs Temp 97.9 F 04/21/22 08:00 Pulse 58 L 04/21/22 08:00 Resp 16 04/21/22 08:00 BP 111/67 04/21/22 08:00 Pulse Ox 97 04/21/22 08:00 FiO2 21 04/18/22 23:44 Intake & Output 04/20/22 04/21/22 04/21/22 18:59 06:59 18:59 Other: Voiding Method Incontinent Diaper External Catheter Incontinent External Catheter # Voids 2 2 - Exam Abdomen: Soft, nontender, nondistended - Labs CBC & Chem 7: 04/18/22 06:58 04/20/22 10:56 Labs: Abnormal Lab Results - Last 24 Hours (Table) 04/20/22 04/20/22 04/20/22 Range/Units 11:44 16:43 21:34 POC Glucose (mg/dL) 180 H 189 H 153 H (70-110) mg/dL 04/21/22 Range/Units 07:16 POC Glucose (mg/dL) 164 H (70-110) mg/dL Assessment and Plan (1) Small bowel obstruction Narrative/Plan: Patient doing well at this time. Continue diet. Increase activity. ECF transfer per primary service. Current Visit: Yes Status: Acute Code(s): K56.609 - UNSP INTESTNL OBST, UNSP TO PARTIAL VERSUS COMPLETE OBST SNOMED Code(s): 593836892
[2022-04-21 11:56] LABS: Glucose,Whole Blood 185 mg/dL (70-110)
--- NOTE | 2022-04-21 16:23 | P.PN ---
Subjective Progress Note Date: 04/21/22 This 76-year-old male who presents with hypotension as well as unwitnessed fall. He does reside at [facility]. Mentation is at baseline. Patient was found to have a partial versus early complete small bowel obstruction and general surgery was consulted. He continues on a liquid diet with improvement in abdominal distention. Patient received a one-time dose of lactulose yesterday, with a total of 8 doses and he is now having bowel movements. He continues on Unasyn for strep agalactae UTI. Remains afebrile, blood pressure 135/70, 96% room air. 04/21/2022 Patient evaluated today resting in bed, Alert x 1-2, confused. He is having bowel movements per nursing, has some abdominal distention. Continues on IV antiobiotics for UTI, transition to oral antibiotics on DC. Magnesium today has improved to 1.9. Afebrile, blood pressure 126/55. Review of Systems Constitutional: Denied any fatigue denied any fever. Cardio vascular: denied any chest pain, palpitations Gastrointestinal: denied any nausea, vomiting, diarrhea Pulmonary: Denied any shortness of breath cough Neurologic denied any new focal deficits All inpatient medications were reviewed and appropriate changes in these medications as dictated in the interval history and assessment and plan. PHYSICAL EXAMINATION: GENERAL: The patient is alert and oriented x3, not in any acute distress. Well developed, well nourished. Obese. HEENT: Pupils are round and equally reacting to light. EOMI. No scleral icterus. No conjunctival pallor. Normocephalic, atraumatic. No pharyngeal erythema. No thyromegaly. CARDIOVASCULAR: S1 and S2 present. No murmurs, rubs, or gallops. PULMONARY: Chest is clear to auscultation, no wheezing or crackles. ABDOMEN: Soft, nontender, distended, normoactive bowel sounds. No palpable organomegaly. MUSCULOSKELETAL: No joint swelling or deformity. EXTREMITIES: No cyanosis, clubbing, or pedal edema. NEUROLOGICAL: Gross neurological examination did not reveal any focal deficits. SKIN: No rashes. Assessment and plan Assessment Partial versus early small bowel obstruction with stool throughout the colon but not distended, resolving Strep Agalactae UTI, could be related to left nonobstructive renal calculus Hypotension and hypovolemia secondary to above, resolved Obesity with BMI of 40.7 Diabetes mellitus with hyperglycemia History of Parkinson disease Chronic atrial fibrillation on Eliquis at home. Acute kidney injury most likely prerenal from poor oral intake, resolved Fall, present on admission without syncope History of hypertension History of coronary artery disease Hyperlipidemia Benign prostatic hypertrophy GI Prophylaxis DVT Prophylaxis on Eliquis Do Not Resuscitate Plan Continue IV antibiotics, transition to oral on discharge Diet advanced per gen surgery Decrease reglan dosing Increase patient activity level Discharge back to [facility] pending insurance auth most likely on Friday The impression and plan of care has been dictated by Maria L Russell, Nurse Practitioner as directed. Dr. Alena MD I have performed a history and physical examination and medical decision making of this patient, discussed the same with the dictator, and agree with the dictators assessment and plan as written, documented as a scribe. Based on total visit time, I have performed more than 50% of this visit. Objective - Vital Signs Vital signs: Vital Signs Temp 97.6 F 04/21/22 14:00 Pulse 83 04/21/22 14:00 Resp 16 04/21/22 14:00 BP 126/55 04/21/22 14:00 Pulse Ox 95 04/21/22 14:00 FiO2 21 04/18/22 23:44 Intake & Output 04/20/22 04/21/22 04/21/22 18:59 06:59 18:59 Other: Voiding Method Incontinent Diaper External Catheter Incontinent External Catheter # Voids 2 2 - Labs CBC & Chem 7: 04/18/22 06:58 04/20/22 10:56 Labs: Abnormal Lab Results - Last 24 Hours (Table) 04/20/22 04/20/22 04/21/22 Range/Units 16:43 21:34 07:16 POC Glucose (mg/dL) 189 H 153 H 164 H (70-110) mg/dL 04/21/22 Range/Units 11:55 POC Glucose (mg/dL) 185 H (70-110) mg/dL Assessment and Plan Time with Patient: Less than 30
[2022-04-21 16:28] LABS: Glucose,Whole Blood 148 mg/dL (70-110)
[2022-04-21] MEDS: PRAVASTATIN SODIUM 40 MG TAB PO SCH (21:57)
[2022-04-21 23:00] LABS: Glucose,Whole Blood 156 mg/dL (70-110)
[2022-04-22] MEDS: METOCLOPRAMIDE 5 MG/ML 2 ML VIAL IVP SCH ×4 (02:11→17:04)
[2022-04-22] MEDS: AMPICILLIN-SULBACTAM 3 GM in SODIUM CHLORIDE 0.9% 100 ML IVPB SCH ×3 (02:12→17:07)
[2022-04-22 06:47] LABS: Glucose,Whole Blood 174 mg/dL (70-110)
[2022-04-22 07:00] VITALS: RESP 17
[2022-04-22] MEDS: INSULIN ASPART (NovoLOG) 100 UNIT/ML VIAL SQ SCH ×3 (08:42→17:00)
[2022-04-22] MEDS: DIVALPROEX 250 MG TABLET.DR PO SCH (08:43)
[2022-04-22] MEDS: ASPIRIN 81 MG PO SCH (08:43)
[2022-04-22] MEDS: LOSARTAN 25 MG TAB PO SCH (08:43)
[2022-04-22] MEDS: ALPRAZolam 0.5 MG TAB PO SCH ×3 (08:43→17:08)
[2022-04-22] MEDS: APIXABAN 2.5 MG TABLET PO SCH (08:43)
[2022-04-22] MEDS: CYANOCOBALAMIN 500 MCG TAB PO SCH (08:43)
[2022-04-22] MEDS: TAMSULOSIN 0.4 MG CAP.ER.24H PO SCH (08:43)
[2022-04-22] MEDS: METOPROLOL SUCCINATE (ER) 50 MG TAB.ER.24H PO SCH (08:43)
[2022-04-22] MEDS: CARBIDOPA-LEVODOPA 25-250 MG 1 EACH TAB PO SCH ×3 (08:43→17:08)
[2022-04-22] MEDS: SYMBICORT 160-4.5 MCG INHALER INHALATION SCH (09:03)
[2022-04-22] MEDS ORDERED: LACTULOSE 20 GM/30 ML CUP PO ONE (09:15)
[2022-04-22] MEDS: allopurinoL 300 MG TAB PO SCH (10:27)
[2022-04-22] MEDS ORDERED: DOCUSATE 100 MG CAP PO SCH (11:15)
--- NOTE | 2022-04-22 11:15 | P.PN ---
Subjective Progress Note Date: 04/22/22 CHIEF COMPLAINT: Fall HISTORY OF PRESENT ILLNESS: Surgical service following regards to partial small bowel obstruction. Per nursing staff patient was more confused this morning. He is currently lying in bed comfortably. He did not eat much for breakfast. He denies any abdominal pain. Denies any nausea or vomiting. He is having flatus. He has not had a bowel movement for 2 days. Patient has received a total of 8 doses of lactulose. Nursing staff has informed me that patient is now stooling. He's had large bowel movement. Patient lying in bed comfortably. Denies any abdominal pain. He denies any nausea or vomiting. Afebrile. Patient scheduled for discharge possibly today depending on insurance authorization. PHYSICAL EXAM: VITAL SIGNS: Reviewed. GENERAL: Well-developed in no acute distress. HEENT: No sclera icterus. Extraocular movements grossly intact. Moist buccal mucosa. Head is atraumatic, normocephalic. ABDOMEN: Soft. obese. Nondistended Nontender. NEUROLOGIC: Awake and able to answer questions. ASSESSMENT: 1. Partial small bowel obstruction resolving 2. History of abdominal surgeries 3. History of atrial fibrillation PLAN: -Continue regular diet -We'll give 1 dose of lactulose and start Colace -No surgical intervention planned -Continue Reglan -Anticipate discharge possibly today. Patient awaiting insurance authorization. -DVT prophylaxis Jaziel Physician Breast Trimmer note has been reviewed by physician. Signing provider agrees with the documented findings, assessment, and plan of care. Objective - Vital Signs Vital signs: Vital Signs Temp 98.4 F 04/22/22 07:00 Pulse 59 L 04/22/22 07:00 Resp 17 04/22/22 07:00 BP 158/81 04/22/22 07:00 Pulse Ox 97 04/22/22 07:00 FiO2 21 04/18/22 23:44 Intake & Output 04/21/22 04/22/22 04/22/22 18:59 06:59 18:59 Other: Voiding Method Diaper Diaper # Voids 3 - Labs CBC & Chem 7: 04/18/22 06:58 04/20/22 10:56 Labs: Abnormal Lab Results - Last 24 Hours (Table) 04/21/22 04/21/22 04/21/22 Range/Units 11:55 16:26 22:58 POC Glucose (mg/dL) 185 H 148 H 156 H (70-110) mg/dL 04/22/22 Range/Units 06:46 POC Glucose (mg/dL) 174 H (70-110) mg/dL
[2022-04-22 11:34] LABS: Glucose,Whole Blood 265 mg/dL (70-110)
--- NOTE | 2022-04-22 12:25 | P.DS ---
Providers Date of admission: 04/13/22 14:40 Attending physician: Ken Moreno MD Consults: 04/15/22 12:45 Consult Physician Urgent Consulting Provider: Shady Carlos Consult Reason/Comments: bowel obstruction Do you want consulting provider notified?: Yes Primary care physician: Swetha De La Cruz Hospital Course: Diagnosis Partial versus early small bowel obstruction with stool throughout the colon but not distended, resolved Strep Agalactae UTI, could be related to left nonobstructive renal calculus Hypotension and hypovolemia secondary to above, resolved Obesity with BMI of 40.7 Diabetes mellitus with hyperglycemia History of Parkinson disease Chronic atrial fibrillation on Eliquis at home. Acute kidney injury most likely prerenal from poor oral intake, resolved Fall, present on admission without syncope History of hypertension History of coronary artery disease Hyperlipidemia Benign prostatic hypertrophy Stage 2 pressure ulcer left buttock No Code Discharge Disposition Patient is stable for discharge back to [facility]. Repeat labs in 2 to 3 days. Follow up with Dr De La Cruz and follow up with Jessicat as needed outpatient. Resume home medications and bowel regimen added. Hospital Course 76-year-old male with past medical history of A. fib on Eliquis, coronary artery disease, Parkinson's with stimulator presents to the emergency department after he sustained a fall. He resides at [facility]. Was sitting in his wheelchair and had an unwitnessed fall. Patient felt to the ground and sustained a hematoma and abrasion to the right forehead. He denies that he had a syncopal episode. Admits to mild headache without visual changes. No neck pain. Denies any other injuries. Patient is alert and oriented 2 which is his baseline. Able to answer questions appropriately. Moving all extremity. Denies any chest pain or shortness of breath. Upon arrival patient does have notable low blood pressures. Was given 500 mL by EMS. Remarked that he was up last night with multiple episodes of watery diarrhea. He takes Midodrine for low blood pressure for which she was administered this morning. Admits to normal appetite. No changes in his urination. Upon arrival patient's blood pressure was 73/46. He was given 500 bolus by EMS. He was additionally given another bolus 1 L in ED. Laboratory studies are conducted and reviewed. White count mildly elevated at 15.4. Hemoglobin is 13.3. CO2 is 21. CT the cervical spine does not demonstrate any acute intra- cranial process. Chest x-ray demonstrates no acute cardio pulmonary disease. After the liter bolus the patient is evaluated. He is additionally given 10 mg of Midodrine. Because of his persistent low blood pressure likely due to his diarrhea, patient was admitted to the hospital for further treatment and close monitoring. Patient underwent Covid testing was negative, urinalysis suggestive of infection with large leukocyte esterase and occasional bacteria. He did have strep group B found in urine culture and completed 7 days of IV unasyn while inpatient. Patient also had KUB xray done showing dilated small bowel loops and gastric bubble and a pattern suspicious for obstruction. Surgery was consulted and abdominal pelvis CT follow up shows multiple small bowel loops with relatively nondistended distal ileum and colon, there is some stool in colon however suggesting partial versus early complete small bowel obstruction. There is pako mesentery portion of the small bowel loops, underlying internal hernia not entirely excluded. Prostatomegaly, nonobstructing left renal calculus, moderate multilevel disc degeneration with grade 1 anterolisthesis of L4 an L5. Patient was NPO and also received multiple doses of lactulose and is now having regular bowel movements. Cleared by general surgery and he is stable for discharge back to rehab. 04/22/2022 Patient evaluated today resting in bed. He is a rn long term care resident at [facility] and will discharge back today. Bowel obstruction has resolved and he will continue on bowel regimen. He does have a stage 2 pressure injury small area of skin shearing to the left buttock and using barrier cream and opitfoam. He is also given an additional dose of lactulose today by surgical consultation. Alert x 2 which is baseline. He denies headache, no pain. Denies chest pain, denies shortness of breath. No nausea or vomiting. Most recent labs showing sodium 141, potassium 3.7, BUN 7, creatinine 0.74, blood glucose 150s to 180s. Can continue home oral hypoglycemics and also novolog as needed following sliding scale for blood sugar control. Patient is afebrile, heart rate 60, blood pressure 124/66, 97% room air. Lungs are clear, S1 S2 auscultated, abdomen is large round obese, no tenderness, has normoactive bowel sounds. Discharge in place. Total time taken in discharge planning greater than 35 minutes. Please see medication reconciliation for a list of current medications. Thank you for allowing us to participate in the care of this patient. The impression and plan of care has been dictated by Maria L Russell, Nurse Practitioner as directed. Dr. Alena MD I have performed a history and physical examination and medical decision making of this patient, discussed the same with the dictator, and agree with the dictators assessment and plan as written, documented as a scribe. Based on total visit time, I have performed more than 50% of this visit. Patient Condition at Discharge: Stable Plan - Discharge Summary Discharge Rx Participant: No New Discharge Prescriptions: New Docusate [Colace] 100 mg PO BID cap Melatonin 10 mg PO HS PRN tab PRN Reason: Insomnia INSULIN ASPART (NovoLOG) [NovoLOG (formulary)] 0 unit SQ ACHS each polyethylene glycoL 3350 [Miralax] 17 gm PO DAILY #30 packet Famotidine [Pepcid] 20 mg PO DAILY #30 tablet Continue allopurinoL [Zyloprim] 300 mg PO DAILY Aspirin 81 mg PO DAILY Tamsulosin [Flomax] 0.4 mg PO DAILY Pravastatin Sodium [Pravachol] 40 mg PO HS Metoprolol Succinate (ER) [Toprol XL] 50 mg PO DAILY 30 Days metFORMIN HCL [Glucophage] 1,000 mg PO DAILY Divalproex [Depakote] 250 mg PO BID Glimepiride [Amaryl] 2 mg PO Q12H Magnesium Hydroxide [Milk of Magnesia] 2,400 mg PO ONCE Midodrine HCl [ProAmatine] 10 mg PO TID@0900,1300,2100 rOPINIRole HCL [Requip] 2 mg PO Q12H Spironolactone [Aldactone] 25 mg PO DAILY Losartan [Cozaar] 25 mg PO DAILY ALPRAZolam [Xanax] 0.5 mg PO TID@0900,1300,1700 #3 tab Carbidopa/Levodopa [Carbidopa-Levo 25-250 mg Odt] 1 tab PO TID@0800,1300,1700 Cyanocobalamin (Vitamin B-12) [Vitamin B-12] 1,000 mcg PO DAILY Apixaban [Eliquis] 2.5 mg PO BID Budesonide-Formot 160-4.5 Mcg [Symbicort 160-4.5 Mcg Inhaler] 2 puff INHALATION RT-BID Glimepiride [Amaryl] 1 mg PO Q12H Na Phos,M-B/Na Phos,Di-Ba [Fleet Adult] 133 ml RECTAL ONCE Acetaminophen Tab [Tylenol] 650 mg PO TID@0900,1300,2100 Albuterol Inhaler [Ventolin Hfa Inhaler] 2 puff INHALATION RT-Q4H PRN PRN Reason: Bronchospasm haloperidoL [Haldol] 0.5 mg PO TID@0900,1300,2100 #3 tab Changed Furosemide [Lasix] 20 mg PO BID@0900,1500 #0 Discontinued Melatonin [Melatonin ER] 10 mg PO HS PRN PRN Reason: Insomnia Acetaminophen Tab [Tylenol] 650 mg PO BID PRN PRN Reason: Pain Discharge Medication List Aspirin 81 mg PO DAILY 07/28/17 [History] Pravastatin Sodium [Pravachol] 40 mg PO HS 07/28/17 [History] Tamsulosin [Flomax] 0.4 mg PO DAILY 07/28/17 [History] allopurinoL [Zyloprim] 300 mg PO DAILY 07/28/17 [History] Metoprolol Succinate (ER) [Toprol XL] 50 mg PO DAILY 30 Days 09/20/21 [Rx] Carbidopa/Levodopa [Carbidopa-Levo 25-250 mg Odt] 1 tab PO TID@0800,1300,1700 09/25/21 [History] Cyanocobalamin (Vitamin B-12) [Vitamin B-12] 1,000 mcg PO DAILY 09/25/21 [History] metFORMIN HCL [Glucophage] 1,000 mg PO DAILY 09/25/21 [History] Acetaminophen Tab [Tylenol] 650 mg PO TID@0900,1300,2100 04/13/22 [History] Albuterol Inhaler [Ventolin Hfa Inhaler] 2 puff INHALATION RT-Q4H PRN 04/13/22 [History] Apixaban [Eliquis] 2.5 mg PO BID 04/13/22 [History] Budesonide-Formot 160-4.5 Mcg [Symbicort 160-4.5 Mcg Inhaler] 2 puff INHALATION RT-BID 04/13/22 [History] Divalproex [Depakote] 250 mg PO BID 04/13/22 [History] Glimepiride [Amaryl] 1 mg PO Q12H 04/13/22 [History] Glimepiride [Amaryl] 2 mg PO Q12H 04/13/22 [History] Losartan [Cozaar] 25 mg PO DAILY 04/13/22 [History] Magnesium Hydroxide [Milk of Magnesia] 2,400 mg PO ONCE 04/13/22 [History] Midodrine HCl [ProAmatine] 10 mg PO TID@0900,1300,2100 04/13/22 [History] Na Phos,M-B/Na Phos,Di-Ba [Fleet Adult] 133 ml RECTAL ONCE 04/13/22 [History] Spironolactone [Aldactone] 25 mg PO DAILY 04/13/22 [History] rOPINIRole HCL [Requip] 2 mg PO Q12H 04/13/22 [History] ALPRAZolam [Xanax] 0.5 mg PO TID@0900,1300,1700 #3 tab 04/22/22 [Rx] Docusate [Colace] 100 mg PO BID cap 04/22/22 [Rx] Famotidine [Pepcid] 20 mg PO DAILY #30 tablet 04/22/22 [Rx] Furosemide [Lasix] 20 mg PO BID@0900,1500 #0 04/22/22 [Rx] INSULIN ASPART (NovoLOG) [NovoLOG (formulary)] 0 unit SQ ACHS each 04/22/22 [Rx] Melatonin 10 mg PO HS PRN tab 04/22/22 [Rx] haloperidoL [Haldol] 0.5 mg PO TID@0900,1300,2100 #3 tab 04/22/22 [Rx] polyethylene glycoL 3350 [Miralax] 17 gm PO DAILY #30 packet 04/22/22 [Rx] Follow up Appointment(s)/Referral(s): Swetha De La Cruz MD [Primary Care Provider] - 1-2 days [facility] [place], [NON-STAFF] - As Needed Reid Meyer MD [Medical Doctor] - As Needed Ambulatory/Diagnostic Orders: Basic Metabolic Panel [LAB.AMB] Time Frame: 3 Days, Location: None Selected Complete Blood Count w/diff [LAB.AMB] Time Frame: 3 Days, Location: None Selected Patient Instructions/Handouts: Concussion (DC), Hypotension (DC), Fall Prevention (DC) Discharge Disposition: TRANSFER TO SNF/F
[2022-04-22 14:19] VITALS: BP 139/72; PULSE 68; TEMP 98
[2022-04-22 16:59] LABS: Glucose,Whole Blood 114 mg/dL (70-110)
--- NOTE | 2022-04-26 07:25 | CDI ---
Documentation Clarification Form Date: 04/26/2022 From: LOU Mike Admit Date: 04/13/2022 02:40:00 PM Patient Name: Jayden Fermin Visit Number: [id number] Discharge Date: 04/22/2022 05:56:00 PM ATTENTION: The Clinical Documentation Specialists (CDI) and [facility] Coding Staff appreciate your assistance in clarifying documentation. Please respond to the clarification below the line at the bottom and electronically sign. The CDI & [facility] Coding staff will review the response and follow-up if needed. Please note: Queries are made part of the Legal Health Record. If you have any questions, please contact the author of this message via ITS. Dr. Carvajal Stage 2 pressure ulcer of the left buttock is documented on the Discharge Summary. For each diagnosis, documentation must be clear to determine if the condition was present at the time of the patients inpatient admission or developed during the hospital stay. Additional clarification regarding the pressure ulcer is requested. History/Risk Factors: Patient is admitted for a small bowel obstruction and UTI. Patient has a history of obesity with a BMI of 40.7. He is a snf resident at [facility]. Clinical Indicators: Per the DS He does have a stage 2 pressure injury small area of skin shearing to the left buttock. Treatment: Barrier cream and opitfoam Definition of Present on Admission (POA): A diagnosis present at the time the order for admission to inpatient status was written. Please clarify if the [insert diagnosis] was POA [ x ] Y = Yes, the condition was present at the time of the order for inpatient admission. [ ] N = No, the condition was not present at the time of the order for inpatient admission. [ ] W = Clinically undetermined if the condition was present at the time of the order for inpatient admission. MTDD
== END 2022-04-22 17:56 | DRG 389 ==
LOC: EC 11:47 → 4SSUR 14:40
PROVIDERS: ADMIT Internal Medicine; ATTEND Internal Medicine
DX: K56.600 Partial intestinal obstruction, unspecified as to cause (principal); I48.20 Chronic atrial fibrillation, unspecified; N39.0 Urinary tract infection, site not specified; Z68.41 Body mass index [BMI] 40.0-44.9, adult; N17.9 Acute kidney failure, unspecified; S06.0X0A Concussion without loss of consciousness, initial encounter; Z20.822 Contact with and (suspected) exposure to COVID-19; L89.322 Pressure ulcer of left buttock, stage 2; E11.65 Type 2 diabetes mellitus with hyperglycemia; E66.9 Obesity, unspecified; B95.1 Streptococcus, group B, as the cause of diseases classified elsewhere; E78.5 Hyperlipidemia, unspecified; F02.80 Dementia in other diseases classified elsewhere, unspecified severity, without behavioral disturbance, psychotic disturbance, mood disturbance, and anxiety; G20 Parkinson's disease; G25.81 Restless legs syndrome; Z66 Do not resuscitate; I11.0 Hypertensive heart disease with heart failure; I50.9 Heart failure, unspecified; I25.10 Atherosclerotic heart disease of native coronary artery without angina pectoris; I25.2 Old myocardial infarction; E86.1 Hypovolemia; M43.16 Spondylolisthesis, lumbar region; M51.36 Other intervertebral disc degeneration, lumbar region; N20.0 Calculus of kidney; N40.0 Benign prostatic hyperplasia without lower urinary tract symptoms; I95.9 Hypotension, unspecified; S00.81XA Abrasion of other part of head, initial encounter; W05.0XXA Fall from non-moving wheelchair, initial encounter; Z96.653 Presence of artificial knee joint, bilateral; Y92.129 Unspecified place in nursing home as the place of occurrence of the external cause; Z79.01 Long term (current) use of anticoagulants; Z79.51 Long term (current) use of inhaled steroids; Z79.82 Long term (current) use of aspirin; Z79.84 Long term (current) use of oral hypoglycemic drugs; Z79.899 Other long term (current) drug therapy; Z90.49 Acquired absence of other specified parts of digestive tract; Z98.84 Bariatric surgery status; Z95.5 Presence of coronary angioplasty implant and graft; Z88.8 Allergy status to other drugs, medicaments and biological substances
CPT/HCPCS: 36415; 70450; 71045; 71046; 72125; 74018; 74177; 80048; 80053; 80076; 81001; 83036; 83735; 84145; 84484; 85025; 85610; 85730; 87086; 87635; 93005; 94640; 94760; 96360; 96361; 99285

== ENCOUNTER 2022-08-10 09:32 | Emergency (ER) | payer MEDICARE ==
[2022-08-10] MEDS ORDERED: ACETAMINOPHEN TAB 500 MG TAB PO STA (09:44)
[2022-08-10] MEDS: SODIUM CHLORIDE 0.9% 500 ML 500 ML IV SCH ×3 (09:58→11:18)
--- NOTE | 2022-08-10 09:58 | ED ---
General Adult HPI - General Chief complaint: Recheck/Abnormal Lab/Rx Stated complaint: Weakness Time Seen by Provider: 08/10/22 09:35 Source: patient, EMS, RN notes reviewed, old records reviewed Mode of arrival: EMS Limitations: no limitations - History of Present Illness Initial comments: This is a 77-year-old male who presents emergency Department from the care home patient was sent in because he was febrile and he was somewhat hypotensive. Patient himself has no complaint is have significant dementia. Patient denies any pain anywhere. There was no report of any difficulty breathing was no report of any vomiting or diarrhea. No report of any chest pain. There is no further history available because patient did not have any caregiver or family member with him. - Related Data Home Medications Medication Instructions Recorded Confirmed Aspirin 81 mg PO DAILY 07/28/17 04/13/22 Pravastatin Sodium [Pravachol] 40 mg PO HS 07/28/17 04/13/22 Tamsulosin [Flomax] 0.4 mg PO DAILY 07/28/17 04/13/22 allopurinoL [Zyloprim] 300 mg PO DAILY 07/28/17 04/13/22 Carbidopa/Levodopa [Carbidopa-Levo 1 tab PO TID@0800,1300,1700 09/25/21 04/13/22 25-250 mg Odt] Cyanocobalamin (Vitamin B-12) 1,000 mcg PO DAILY 09/25/21 04/13/22 [Vitamin B-12] metFORMIN HCL [Glucophage] 1,000 mg PO DAILY 09/25/21 04/13/22 Acetaminophen Tab [Tylenol] 650 mg PO TID@0900,1300,2100 04/13/22 04/13/22 Albuterol Inhaler [Ventolin Hfa 2 puff INHALATION RT-Q4H PRN 04/13/22 04/13/22 Inhaler] Apixaban [Eliquis] 2.5 mg PO BID 04/13/22 04/13/22 Budesonide-Formot 160-4.5 Mcg 2 puff INHALATION RT-BID 04/13/22 04/13/22 [Symbicort 160-4.5 Mcg Inhaler] Divalproex [Depakote] 250 mg PO BID 04/13/22 04/13/22 Glimepiride [Amaryl] 1 mg PO Q12H 04/13/22 04/13/22 Glimepiride [Amaryl] 2 mg PO Q12H 04/13/22 04/13/22 Losartan [Cozaar] 25 mg PO DAILY 04/13/22 04/13/22 Magnesium Hydroxide [Milk of 2,400 mg PO ONCE 04/13/22 04/13/22 Magnesia] Midodrine HCl [ProAmatine] 10 mg PO TID@0900,1300,2100 04/13/22 04/13/22 Na Phos,M-B/Na Phos,Di-Ba [Fleet 133 ml RECTAL ONCE 04/13/22 04/13/22 Adult] Spironolactone [Aldactone] 25 mg PO DAILY 04/13/22 04/13/22 rOPINIRole HCL [Requip] 2 mg PO Q12H 04/13/22 04/13/22 Previous Rx's Medication Instructions Recorded Metoprolol Succinate (ER) [Toprol 50 mg PO DAILY 30 Days 09/20/21 XL] ALPRAZolam [Xanax] 0.5 mg PO TID@0900,1300,1700 #3 tab 04/22/22 Docusate [Colace] 100 mg PO BID cap 04/22/22 Famotidine [Pepcid] 20 mg PO DAILY #30 tablet 04/22/22 Furosemide [Lasix] 20 mg PO BID@0900,1500 #0 04/22/22 INSULIN ASPART (NovoLOG) [NovoLOG 0 unit SQ ACHS each 04/22/22 (formulary)] Melatonin 10 mg PO HS PRN tab 04/22/22 haloperidoL [Haldol] 0.5 mg PO TID@0900,1300,2100 #3 tab 04/22/22 polyethylene glycoL 3350 [Miralax] 17 gm PO DAILY #30 packet 04/22/22 Allergies Allergy/AdvReac Type Severity Reaction Status Date / Time gabapentin Allergy unknown, Verified 04/13/22 14:39 per [facility] Review of Systems ROS Statement: Those systems with pertinent positive or pertinent negative responses have been documented in the HPI. ROS Other: All systems not noted in ROS Statement are negative. Past Medical History Past Medical History: Atrial Fibrillation, Coronary Artery Disease (CAD), Dementia, Diabetes Mellitus, Hypertension, Myocardial Infarction ([place]), Neurologic Disorder Additional Past Medical History / Comment(s): parkinsons Last Myocardial Infarction Date:: unknown History of Any Multi-Drug Resistant Organisms: None Reported Past Surgical History: Bariatric Surgery, Cholecystectomy, Heart Catheterization Additional Past Surgical History / Comment(s): has two implanted batteries for parkinsons lap band surgery 2009 Past Anesthesia/Blood Transfusion Reactions: No Reported Reaction Date of Last Stent Placement:: 08/25/1989 Past Psychological History: No Psychological Hx Reported Smoking Status: Never smoker Past Alcohol Use History: None Reported Past Drug Use History: None Reported - Past Family History Father Family Medical History: Myocardial Infarction ([place]) Mother Additional Family Medical History / Comment(s): heart disease General Exam - General Exam Comments Initial Comments: GENERAL: Patient is well-developed and well-nourished. Patient is nontoxic and well- hydrated and is in no acute distress. ENT: Neck is soft and supple. No significant lymphadenopathy is noted. Oropharynx is clear. Moist mucous membranes. Neck has full range of motion without eliciting any pain. EYES: The sclera were anicteric and conjunctiva were pink and moist. Extraocular movements were intact and pupils were equal round and reactive to light. Eyelids were unremarkable. PULMONARY: Unlabored respirations. Good breath sounds bilaterally. No audible rales rhonchi or wheezing was noted. CARDIOVASCULAR: There is a regular rate and rhythm without any murmurs gallops or rubs. ABDOMEN: Soft and nontender with normal bowel sounds. SKIN: Skin is clear with no lesions or rashes and otherwise unremarkable. NEUROLOGIC: Patient is alert and oriented 1. Cranial nerves II through XII are grossly intact. Motor and sensory are also intact. Normal speech, volume and content. Symmetrical smile. MUSCULOSKELETAL: Normal extremities with adequate strength and full range of motion. LYMPHATICS: No significant lymphadenopathy is noted PSYCHIATRIC: Normal psychiatric evaluation. Limitations: no limitations Course Vital Signs 08/10/22 08/10/22 08/10/22 09:34 10:06 11:18 Temperature 99.2 F 98.6 F Pulse Rate 75 67 68 Respiratory 16 18 20 Rate Blood Pressure 95/57 96/56 103/62 O2 Sat by Pulse 95 96 96 Oximetry Medical Decision Making - Medical Decision Making EKG was interpreted by me. EKG is of poor quality it appears the patient might have a stimulator in place however I don't have any documentation of that the moment. It does show a regular rhythm which appears to be sinus at 75 bpm QRS is 118 QT interval 421 QTC is [address] segment elevation is seen but is a very poor quality EKG. Chest x-ray was interpreted by me. Chest x-ray showed no acute abnormality. Patient influenza a. Patient's vitals were stable patient will be discharged to the care home. - Lab Data Result diagrams: 08/10/22 09:57 08/10/22 09:57 Lab Results 08/10/22 08/10/22 08/10/22 Range/Units 09:57 09:57 09:57 WBC 10.4 (3.8-10.6) k/uL RBC 3.94 L (4.30-5.90) m/uL Hgb 12.5 L (13.0-17.5) gm/dL Hct 37.2 L (39.0-53.0) % MCV 94.3 (80.0-100.0) fL MCH 31.7 (25.0-35.0) pg MCHC 33.6 (31.0-37.0) g/dL RDW 14.8 (11.5-15.5) % Plt Count 193 (150-450) k/uL MPV 8.5 Neutrophils % 75 % Lymphocytes % 14 % Monocytes % 6 % Eosinophils % 3 % Basophils % 1 % Neutrophils # 7.8 H (1.3-7.7) k/uL Lymphocytes # 1.5 (1.0-4.8) k/uL Monocytes # 0.6 (0-1.0) k/uL Eosinophils # 0.3 (0-0.7) k/uL Basophils # 0.1 (0-0.2) k/uL PT 10.6 (9.0-12.0) sec INR 1.0 (<1.2) APTT 25.3 (22.0-30.0) sec Sodium (137-145) mmol/L Potassium (3.5-5.1) mmol/L Chloride (98-107) mmol/L Carbon Dioxide (22-30) mmol/L Anion Gap mmol/L BUN (9-20) mg/dL Creatinine (0.66-1.25) mg/dL Est GFR (CKD-EPI)AfAm (>60 ml/min/1.73 sqM) Est GFR (CKD-EPI)NonAf (>60 ml/min/1.73 sqM) Glucose (74-99) mg/dL Plasma Lactic Acid Garrison (0.7-2.0) mmol/L Calcium (8.4-10.2) mg/dL Total Bilirubin (0.2-1.3) mg/dL AST (17-59) U/L ALT (4-49) U/L Alkaline Phosphatase (38-126) U/L Troponin I (0.000-0.034) ng/mL Total Protein (6.3-8.2) g/dL Albumin (3.5-5.0) g/dL Urine Color Yellow Urine Appearance Clear (Clear) Urine pH 6.5 (5.0-8.0) Ur Specific [place] 1.013 (1.001-1.035) Urine Protein Negative (Negative) Urine Glucose (UA) Negative (Negative) Urine Ketones Negative (Negative) Urine Blood Negative (Negative) Urine Nitrite Negative (Negative) Urine Bilirubin Negative (Negative) Urine Urobilinogen <2.0 (<2.0) mg/dL Ur Leukocyte Esterase Moderate H (Negative) Urine RBC 2 (0-5) /hpf Urine WBC 21 H (0-5) /hpf Ur Squamous Epith Cells <1 (0-4) /hpf Hyaline Casts 5 H (0-2) /lpf Urine Mucus Rare H (None) /hpf Influenza Type A (PCR) (Not Detectd) Influenza Type B (PCR) (Not Detectd) RSV (PCR) (Not Detectd) SARS-CoV-2 (PCR) (Not Detectd) 08/10/22 08/10/22 08/10/22 Range/Units 09:57 09:57 09:57 WBC (3.8-10.6) k/uL RBC (4.30-5.90) m/uL Hgb (13.0-17.5) gm/dL Hct (39.0-53.0) % MCV (80.0-100.0) fL MCH (25.0-35.0) pg MCHC (31.0-37.0) g/dL RDW (11.5-15.5) % Plt Count (150-450) k/uL MPV Neutrophils % % Lymphocytes % % Monocytes % % Eosinophils % % Basophils % % Neutrophils # (1.3-7.7) k/uL Lymphocytes # (1.0-4.8) k/uL Monocytes # (0-1.0) k/uL Eosinophils # (0-0.7) k/uL Basophils # (0-0.2) k/uL PT (9.0-12.0) sec INR (<1.2) APTT (22.0-30.0) sec Sodium 139 (137-145) mmol/L Potassium 4.3 (3.5-5.1) mmol/L Chloride 103 (98-107) mmol/L Carbon Dioxide 27 (22-30) mmol/L Anion Gap 9 mmol/L BUN 27 H (9-20) mg/dL Creatinine 1.12 (0.66-1.25) mg/dL Est GFR (CKD-EPI)AfAm 73 (>60 ml/min/1.73 sqM) Est GFR (CKD-EPI)NonAf 63 (>60 ml/min/1.73 sqM) Glucose 119 H (74-99) mg/dL Plasma Lactic Acid Garrison 1.7 (0.7-2.0) mmol/L Calcium 8.8 (8.4-10.2) mg/dL Total Bilirubin 0.8 (0.2-1.3) mg/dL AST 27 (17-59) U/L ALT 9 (4-49) U/L Alkaline Phosphatase 124 (38-126) U/L Troponin I <0.012 (0.000-0.034) ng/mL Total Protein 6.8 (6.3-8.2) g/dL Albumin 3.9 (3.5-5.0) g/dL Urine Color Urine Appearance (Clear) Urine pH (5.0-8.0) Ur Specific [place] (1.001-1.035) Urine Protein (Negative) Urine Glucose (UA) (Negative) Urine Ketones (Negative) Urine Blood (Negative) Urine Nitrite (Negative) Urine Bilirubin (Negative) Urine Urobilinogen (<2.0) mg/dL Ur Leukocyte Esterase (Negative) Urine RBC (0-5) /hpf Urine WBC (0-5) /hpf Ur Squamous Epith Cells (0-4) /hpf Hyaline Casts (0-2) /lpf Urine Mucus (None) /hpf Influenza Type A (PCR) (Not Detectd) Influenza Type B (PCR) (Not Detectd) RSV (PCR) (Not Detectd) SARS-CoV-2 (PCR) (Not Detectd) 08/10/22 Range/Units 12:20 WBC (3.8-10.6) k/uL RBC (4.30-5.90) m/uL Hgb (13.0-17.5) gm/dL Hct (39.0-53.0) % MCV (80.0-100.0) fL MCH (25.0-35.0) pg MCHC (31.0-37.0) g/dL RDW (11.5-15.5) % Plt Count (150-450) k/uL MPV Neutrophils % % Lymphocytes % % Monocytes % % Eosinophils % % Basophils % % Neutrophils # (1.3-7.7) k/uL Lymphocytes # (1.0-4.8) k/uL Monocytes # (0-1.0) k/uL Eosinophils # (0-0.7) k/uL Basophils # (0-0.2) k/uL PT (9.0-12.0) sec INR (<1.2) APTT (22.0-30.0) sec Sodium (137-145) mmol/L Potassium (3.5-5.1) mmol/L Chloride (98-107) mmol/L Carbon Dioxide (22-30) mmol/L Anion Gap mmol/L BUN (9-20) mg/dL Creatinine (0.66-1.25) mg/dL Est GFR (CKD-EPI)AfAm (>60 ml/min/1.73 sqM) Est GFR (CKD-EPI)NonAf (>60 ml/min/1.73 sqM) Glucose (74-99) mg/dL Plasma Lactic Acid Garrison (0.7-2.0) mmol/L Calcium (8.4-10.2) mg/dL Total Bilirubin (0.2-1.3) mg/dL AST (17-59) U/L ALT (4-49) U/L Alkaline Phosphatase (38-126) U/L Troponin I (0.000-0.034) ng/mL Total Protein (6.3-8.2) g/dL Albumin (3.5-5.0) g/dL Urine Color Urine Appearance (Clear) Urine pH (5.0-8.0) Ur Specific [place] (1.001-1.035) Urine Protein (Negative) Urine Glucose (UA) (Negative) Urine Ketones (Negative) Urine Blood (Negative) Urine Nitrite (Negative) Urine Bilirubin (Negative) Urine Urobilinogen (<2.0) mg/dL Ur Leukocyte Esterase (Negative) Urine RBC (0-5) /hpf Urine WBC (0-5) /hpf Ur Squamous Epith Cells (0-4) /hpf Hyaline Casts (0-2) /lpf Urine Mucus (None) /hpf Influenza Type A (PCR) Detected A (Not Detectd) Influenza Type B (PCR) Not Detected (Not Detectd) RSV (PCR) Not Detected (Not Detectd) SARS-CoV-2 (PCR) Not Detected (Not Detectd) Disposition Clinical Impression: Influenza A Disposition: HOME SELF-CARE Instructions (If sedation given, give patient instructions): Influenza (ED) Is patient prescribed a controlled substance at d/c from ED?: No Referrals: Swetha De La Cruz MD [Primary Care Provider] - 1-2 days Time of Disposition: 13:20
[2022-08-10 10:14] LABS: Basophils # (A) 0.1 k/uL (0-0.2); Basophils % (A) 1 %; Eosinophils # (A) 0.3 k/uL (0-0.7); Eosinophils % (A) 3 %; HCT 37.2 % (39.0-53.0); HGB 12.5 gm/dL (13.0-17.5); Lymphocytes # (A) 1.5 k/uL (1.0-4.8); Lymphocytes % (A) 14 %; MCH 31.7 pg (25.0-35.0); MCHC 33.6 g/dL (31.0-37.0); MCV 94.3 fL (80.0-100.0); Mean Platelet Volume 8.5; Monocytes # (A) 0.6 k/uL (0-1.0); Monocytes % (A) 6 %; Neutrophils # (A) 7.8 k/uL (1.3-7.7); Neutrophils % (A) 75 %; Platelet Count 193 k/uL (150-450); RBC 3.94 m/uL (4.30-5.90); RDW 14.8 % (11.5-15.5); WBC 10.4 k/uL (3.8-10.6)
[2022-08-10 10:15] LABS: Appearance,Urine Clear (Clear); Bilirubin,Urine Negative (Negative); Blood,Urine Negative (Negative); Color,Urine Yellow; Glucose,Urine (UA) Negative (Negative); Hyaline Casts,Urine 5 /lpf (0-2); Ketones,Urine Negative (Negative); Leukocyte Esterase,Urine Moderate (Negative); Mucus,Urine Rare /hpf; Nitrite,Urine Negative (Negative); PH, Urine 6.5 (5.0-8.0); Protein,Urine Negative (Negative); RBC,Urine 2 /hpf (0-5); Specific Gravity,Urine 1.013 (1.001-1.035); Squamous Epithelial Cell,Urine <1 /hpf (0-4); Urobilinogen,Urine <2.0 mg/dL (<2.0); WBC,Urine 21 /hpf (0-5)
[2022-08-10 10:23] LABS: Partial Thromboplastin Time 25.3 sec (22.0-30.0); Prothrombin Time 10.6 sec (9.0-12.0)
[2022-08-10 10:24] LABS: Albumin 3.9 g/dL (3.5-5.0); Calcium 8.8 mg/dL (8.4-10.2); Potassium 4.3 mmol/L (3.5-5.1); Total Bilirubin 0.8 mg/dL (0.2-1.3); Total Protein 6.8 g/dL (6.3-8.2)
--- NOTE | 2022-08-10 12:00 | XR ---
EXAMINATION TYPE: XR chest 2V DATE OF EXAM: 08/10/2022 11:34 AM COMPARISON: Chest radiographs from 04/13/2022 TECHNIQUE: XR chest 2V Frontal and lateral views of the chest. CLINICAL INDICATION:Male, 77 years old with history of Fever; FINDINGS: Lungs/Pleura: There is no evidence of pleural effusion, focal consolidation, or pneumothorax. Pulmonary vascularity: Unremarkable. Heart/mediastinum: Cardiomediastinal silhouette is unremarkable. Musculoskeletal: No acute osseous pathology. Other findings: Perihepatic device with leads terminating out of the [id number]. IMPRESSION: No acute cardiopulmonary disease/process.
[2022-08-10 13:34] VITALS: BP 118/73; PULSE 61; RESP 18; TEMP 98.7
== END 2022-08-10 15:18 | disposition home or self-care (01) ==
LOC: EC 09:32
DX: J10.1 Influenza due to other identified influenza virus with other respiratory manifestations (principal); I48.91 Unspecified atrial fibrillation; I11.9 Hypertensive heart disease without heart failure; I25.10 Atherosclerotic heart disease of native coronary artery without angina pectoris; E11.9 Type 2 diabetes mellitus without complications; I25.2 Old myocardial infarction; Z20.822 Contact with and (suspected) exposure to COVID-19; Z79.82 Long term (current) use of aspirin; Z79.899 Other long term (current) drug therapy; Z79.84 Long term (current) use of oral hypoglycemic drugs; Z79.01 Long term (current) use of anticoagulants; Z88.8 Allergy status to other drugs, medicaments and biological substances
CPT/HCPCS: 36415; 93005; 80053; 83605; 84484; 85025; 85610; 85730; 81001; 87040; 87636; 71046; 99285; 96365; J0696; 87086

== ENCOUNTER 2022-08-23 07:11 | Inpatient (IN) | payer MEDICARE ==
[2022-08-23] MEDS ORDERED: SODIUM CHLORIDE 0.9% 1,000 ML IV ONE (07:29)
--- NOTE | 2022-08-23 07:33 | ED ---
General Adult HPI - General Chief complaint: Altered Mental Status Stated complaint: lethargy Time Seen by Provider: 08/23/22 07:15 Source: patient, EMS, RN notes reviewed Mode of arrival: EMS Limitations: altered mental status, physical limitation - History of Present Illness Initial comments: Patient is a pleasant 77-year-old male presenting to the emergency department with reported lethargy. Onset is unclear, possibly a day and a half ago. Patient is a very poor historian and offers little history. Patient has no specific complaints. Patient is from nursing facility. Patient does have productive soft boots on his feet. - Related Data Home Medications Medication Instructions Recorded Confirmed Aspirin 81 mg PO DAILY 07/28/17 04/13/22 Pravastatin Sodium [Pravachol] 40 mg PO HS 07/28/17 04/13/22 Tamsulosin [Flomax] 0.4 mg PO DAILY 07/28/17 04/13/22 allopurinoL [Zyloprim] 300 mg PO DAILY 07/28/17 04/13/22 Carbidopa/Levodopa [Carbidopa-Levo 1 tab PO TID@0800,1300,1700 09/25/21 04/13/22 25-250 mg Odt] Cyanocobalamin (Vitamin B-12) 1,000 mcg PO DAILY 09/25/21 04/13/22 [Vitamin B-12] metFORMIN HCL [Glucophage] 1,000 mg PO DAILY 09/25/21 04/13/22 Acetaminophen Tab [Tylenol] 650 mg PO TID@0900,1300,2100 04/13/22 04/13/22 Albuterol Inhaler [Ventolin Hfa 2 puff INHALATION RT-Q4H PRN 04/13/22 04/13/22 Inhaler] Apixaban [Eliquis] 2.5 mg PO BID 04/13/22 04/13/22 Budesonide-Formot 160-4.5 Mcg 2 puff INHALATION RT-BID 04/13/22 04/13/22 [Symbicort 160-4.5 Mcg Inhaler] Divalproex [Depakote] 250 mg PO BID 04/13/22 04/13/22 Glimepiride [Amaryl] 1 mg PO Q12H 04/13/22 04/13/22 Glimepiride [Amaryl] 2 mg PO Q12H 04/13/22 04/13/22 Losartan [Cozaar] 25 mg PO DAILY 04/13/22 04/13/22 Magnesium Hydroxide [Milk of 2,400 mg PO ONCE 04/13/22 04/13/22 Magnesia] Midodrine HCl [ProAmatine] 10 mg PO TID@0900,1300,2100 04/13/22 04/13/22 Na Phos,M-B/Na Phos,Di-Ba [Fleet 133 ml RECTAL ONCE 04/13/22 04/13/22 Adult] Spironolactone [Aldactone] 25 mg PO DAILY 04/13/22 04/13/22 rOPINIRole HCL [Requip] 2 mg PO Q12H 04/13/22 04/13/22 Previous Rx's Medication Instructions Recorded Metoprolol Succinate (ER) [Toprol 50 mg PO DAILY 30 Days 09/20/21 XL] ALPRAZolam [Xanax] 0.5 mg PO TID@0900,1300,1700 #3 tab 04/22/22 Docusate [Colace] 100 mg PO BID cap 04/22/22 Famotidine [Pepcid] 20 mg PO DAILY #30 tablet 04/22/22 Furosemide [Lasix] 20 mg PO BID@0900,1500 #0 04/22/22 INSULIN ASPART (NovoLOG) [NovoLOG 0 unit SQ ACHS each 04/22/22 (formulary)] Melatonin 10 mg PO HS PRN tab 04/22/22 haloperidoL [Haldol] 0.5 mg PO TID@0900,1300,2100 #3 tab 04/22/22 polyethylene glycoL 3350 [Miralax] 17 gm PO DAILY #30 packet 04/22/22 Allergies Allergy/AdvReac Type Severity Reaction Status Date / Time gabapentin Allergy unknown, Verified 04/13/22 14:39 per [facility] Review of Systems ROS Statement: Those systems with pertinent positive or pertinent negative responses have been documented in the HPI. ROS Other: All systems not noted in ROS Statement are negative. Limitations: ROS unobtainable due to patients medical condition Past Medical History Past Medical History: Atrial Fibrillation, Coronary Artery Disease (CAD), Heart Failure, COPD, CVA/TIA, Dementia, Diabetes Mellitus, Hyperlipidemia, Hypertension, Myocardial Infarction ([place]), Neurologic Disorder, Prostate Disorder Additional Past Medical History / Comment(s): parkinsons, charcot's joint - foot and ankle, insomnia, restless legs syndrome, spinal stenosis, pacemaker, chronic gout, BPH, arthritis, Last Myocardial Infarction Date:: unknown History of Any Multi-Drug Resistant Organisms: None Reported Past Surgical History: Bariatric Surgery, Cholecystectomy, Coronary Bypass/CABG, Heart Catheterization Additional Past Surgical History / Comment(s): has two implanted batteries for parkinsons, lap band surgery 2009, Past Anesthesia/Blood Transfusion Reactions: No Reported Reaction Date of Last Stent Placement:: 08/25/1989 Past Psychological History: No Psychological Hx Reported Smoking Status: Never smoker Past Alcohol Use History: None Reported Past Drug Use History: None Reported - Past Family History Father Family Medical History: Myocardial Infarction ([place]) Mother Additional Family Medical History / Comment(s): heart disease General Exam Limitations: altered mental status, physical limitation General appearance: alert, in no apparent distress Head exam: Present: normocephalic Eye exam: Present: normal appearance, PERRL ENT exam: Present: mucous membranes dry Neck exam: Present: normal inspection. Absent: tenderness, meningismus Respiratory exam: Present: normal lung sounds bilaterally Cardiovascular Exam: Present: regular rate, normal rhythm GI/Abdominal exam: Present: soft. Absent: tenderness Extremities exam: Present: normal inspection Neurological exam: Present: alert Expanded Neurological exam: Present: protecting the airway Patient oriented to: Present: person, place Cranial nerves: EOM's Intact: Normal Motor strength exam: RUE: 4, LUE: 4, RLE: 3, LLE: 3 Eye Response: (3) open to voice Motor Response: (6) obeys commands Verbal Response: (4) confused conversation Psychiatric exam: Present: flat affect Skin exam: Present: other (Stage I decubitus left ankle) Course Vital Signs 08/23/22 07:14 Temperature 98.4 F Pulse Rate 70 Respiratory 18 Rate Blood Pressure 128/72 O2 Sat by Pulse 100 Oximetry EKG Findings - EKG Results: EKG: interpreted by ERMD (Significant artifact present. Left axis. Poor R-wave progression. Nonspecific ST-T.), sinus rhythm Medical Decision Making - Medical Decision Making Patient reevaluated. Patient and family updated. Case discussed with Dr. turner, covering for Dr. De La Cruz, who will admit. - Lab Data Result diagrams: 08/23/22 07:46 08/23/22 07:46 Lab Results 08/23/22 08/23/22 08/23/22 Range/Units 07:46 07:46 07:46 WBC 11.3 H (3.8-10.6) k/uL RBC 4.07 L (4.30-5.90) m/uL Hgb 13.0 (13.0-17.5) gm/dL Hct 39.5 (39.0-53.0) % MCV 97.0 (80.0-100.0) fL MCH 32.0 (25.0-35.0) pg MCHC 33.0 (31.0-37.0) g/dL RDW 14.5 (11.5-15.5) % Plt Count 236 (150-450) k/uL MPV 8.4 Neutrophils % 60 % Lymphocytes % 29 % Monocytes % 5 % Eosinophils % 4 % Basophils % 1 % Neutrophils # 6.8 (1.3-7.7) k/uL Lymphocytes # 3.2 (1.0-4.8) k/uL Monocytes # 0.6 (0-1.0) k/uL Eosinophils # 0.5 (0-0.7) k/uL Basophils # 0.1 (0-0.2) k/uL PT 11.2 (9.0-12.0) sec INR 1.1 (<1.2) APTT 24.9 (22.0-30.0) sec Sodium 150 H (137-145) mmol/L Potassium 4.7 (3.5-5.1) mmol/L Chloride 111 H (98-107) mmol/L Carbon Dioxide 31 H (22-30) mmol/L Anion Gap 8 mmol/L BUN 56 H (9-20) mg/dL Creatinine 2.12 H (0.66-1.25) mg/dL Est GFR (CKD-EPI)AfAm 34 (>60 ml/min/1.73 sqM) Est GFR (CKD-EPI)NonAf 29 (>60 ml/min/1.73 sqM) Glucose 106 H (74-99) mg/dL Calcium 8.9 (8.4-10.2) mg/dL Total Bilirubin 0.9 (0.2-1.3) mg/dL AST 27 (17-59) U/L ALT 12 (4-49) U/L Alkaline Phosphatase 107 (38-126) U/L Troponin I (0.000-0.034) ng/mL Total Protein 6.9 (6.3-8.2) g/dL Albumin 3.9 (3.5-5.0) g/dL 08/23/22 Range/Units 07:46 WBC (3.8-10.6) k/uL RBC (4.30-5.90) m/uL Hgb (13.0-17.5) gm/dL Hct (39.0-53.0) % MCV (80.0-100.0) fL MCH (25.0-35.0) pg MCHC (31.0-37.0) g/dL RDW (11.5-15.5) % Plt Count (150-450) k/uL MPV Neutrophils % % Lymphocytes % % Monocytes % % Eosinophils % % Basophils % % Neutrophils # (1.3-7.7) k/uL Lymphocytes # (1.0-4.8) k/uL Monocytes # (0-1.0) k/uL Eosinophils # (0-0.7) k/uL Basophils # (0-0.2) k/uL PT (9.0-12.0) sec INR (<1.2) APTT (22.0-30.0) sec Sodium (137-145) mmol/L Potassium (3.5-5.1) mmol/L Chloride (98-107) mmol/L Carbon Dioxide (22-30) mmol/L Anion Gap mmol/L BUN (9-20) mg/dL Creatinine (0.66-1.25) mg/dL Est GFR (CKD-EPI)AfAm (>60 ml/min/1.73 sqM) Est GFR (CKD-EPI)NonAf (>60 ml/min/1.73 sqM) Glucose (74-99) mg/dL Calcium (8.4-10.2) mg/dL Total Bilirubin (0.2-1.3) mg/dL AST (17-59) U/L ALT (4-49) U/L Alkaline Phosphatase (38-126) U/L Troponin I 0.014 (0.000-0.034) ng/mL Total Protein (6.3-8.2) g/dL Albumin (3.5-5.0) g/dL - Radiology Data Radiology results: report reviewed (CT brain shows stimulator present. No change from previous.) Interpreted by me: Probable atelectasis Disposition Clinical Impression: MOISÉS (acute kidney injury), Hypernatremia Disposition: ADMITTED IP TO THIS HOSP Is patient prescribed a controlled substance at d/c from ED?: No Referrals: Swetha De La Cruz MD [Primary Care Provider] - 1-2 days Time of Disposition: 09:44
[2022-08-23 07:56] LABS: Basophils # (A) 0.1 k/uL (0-0.2); Basophils % (A) 1 %; Eosinophils # (A) 0.5 k/uL (0-0.7); Eosinophils % (A) 4 %; HCT 39.5 % (39.0-53.0); Lymphocytes # (A) 3.2 k/uL (1.0-4.8); Lymphocytes % (A) 29 %; Mean Platelet Volume 8.4; Monocytes # (A) 0.6 k/uL (0-1.0); Monocytes % (A) 5 %; Neutrophils # (A) 6.8 k/uL (1.3-7.7); Neutrophils % (A) 60 %; Platelet Count 236 k/uL (150-450); RBC 4.07 m/uL (4.30-5.90); RDW 14.5 % (11.5-15.5); WBC 11.3 k/uL (3.8-10.6)
[2022-08-23 08:11] LABS: INR 1.1 (<1.2); Partial Thromboplastin Time 24.9 sec (22.0-30.0); Prothrombin Time 11.2 sec (9.0-12.0)
[2022-08-23 08:17] LABS: Albumin 3.9 g/dL (3.5-5.0); Calcium 8.9 mg/dL (8.4-10.2); Total Bilirubin 0.9 mg/dL (0.2-1.3); Total Protein 6.9 g/dL (6.3-8.2)
[2022-08-23 08:27] LABS: Potassium 4.7 mmol/L (3.5-5.1)
--- NOTE | 2022-08-23 08:27 | CT ---
EXAMINATION TYPE: CT brain wo con DATE OF EXAM: 08/23/2022 COMPARISON: 04/13/2022 HISTORY: weakness TECHNIQUE: Examination was done in axial plane without intravenous contrast. Coronal and sagittal r econstructions performed. CT DLP: 1158.7 mGycm Automated exposure control for dose reduction was used. FINDINGS: Bifrontal deep brain stimulators are present. These appear to terminate near the region of the bilate ral cerebral peduncles. There is some similar focal soft tissue fullness where these leads are looped within the scalp in the bifrontal regions. Mild artifacts limit the exam. Mild generalized cerebral cortical volume loss coni ears age-appropriate. Moderate periventricular white matter hypodensity. There is no evidence of acu te intracranial hemorrhage, acute ischemic changes, mass, mass-effect, or extra-axial fluid collectio n. There is no effacement of cerebral sulci or basal subarachnoid cisterns. There is no hydrocephal us. There is no midline shift. Mckeon-white matter distinction is preserved. Complete opacification right sphenoid sinus. Mastoid air cells well pneumatized. Small air-fluid leve l left maxillary sinus. Scattered moderate mucosal thickening ethmoid air cells. Leftward nasal septa l deviation. Orbits and globes are intact. IMPRESSION: 1. Bifrontal deep brain stimulator leads terminating near the region of the bilateral cerebral pedunc les. Overall stable exam with moderate burden of chronic small vessel ischemic disease. No acute intr acranial abnormality seen. 2. Moderate chronic paranasal sinus disease. Possible acute left maxillary sinusitis.
--- NOTE | 2022-08-23 08:43 | XR ---
EXAMINATION TYPE: XR chest 2V DATE OF EXAM: 08/23/2022 COMPARISON: 08/10/2022 HISTORY: 77-year-old male with confusion, altered mental status TECHNIQUE: AP and lateral views FINDINGS: Generator device projecting along the anterior aspect of both chest fontanez. Heart upper limits of norm al in size. Aorta within normal limits. Mild patchy density at the left base. No pleural effusion. IMPRESSION: Borderline heart size. Some mild patchy density at the left base, likely atelectasis rather than infi ltrate.
[2022-08-23] MEDS ORDERED: NALOXONE 0.4 MG/ML 1 ML VIAL IV PRN (09:44)
[2022-08-23] MEDS ORDERED: SODIUM CHLORIDE 0.9% 1,000 ML IV SCH (09:45)
[2022-08-23] MEDS ORDERED: DEXTROSE 5% IN WATER 1,000 ML IV ONE (09:59)
--- NOTE | 2022-08-23 10:05 | P.HPIM ---
History of Present Illness This is a pleasant 77 years old male with multiple medical problems including Parkinson disease on several simulator for his tremor, currently his temperature is controlled and he follow-up with neurologist Dr. Menon patient is from [facility], information were obtained from his daughter at bedside who is his [place]. Went [facility] about one year ago after he fell and diagnosed with Lopid with the plan to get some rehab but he never gained to his normal baseline so he was kept living in his jail at [facility]. To 3 weeks ago he's been diagnosed with influenza, however he was sent back from emergency to jail by Dr. Lake. Patient has not been eating and drinking well since then as per daughter, also has been having some loose diarrhea about 3 days ago while he was on lactulose which was held. Also he is not moving a lot. As per daughter this morning patient become difficult to arouse and she could not take medication so they put him on some oxygen and send him to the hospital. Patient currently saturating 100% on room air, Embedded looks comfortable, he is awake, he follows commands, he knows his name, he knows he is in [facility] and he couldn't recognize his daughter but he could not tell the date or time. Patient denies any chest pain or abdominal pain or any other specific complaint however he complains from some dysuria No headache or dizziness or weakness or numbness. Vitals are stable He has mild leukocytosis. Postoperative CBC, INR are unremarkable sodium is elevated 150, creatinine elevated 2.1, rest of BMP and liver enzymes and troponin are unremarkable. Chest x-ray showing left basilar atelectasis rather than pneumonia CT of the brain: Chronic changes with no acute injury. Patient has bifrontal deep brain stimulator relates EKG: Normal sinus rhythm at [address]-T changes Review of Systems Review of systems CONSTITUTIONAL: No fever, no malaise, no fatigue. HEENT: No recent visual problems or hearing problems. Denied any sore throat. CARDIOVASCULAR: No orthopnea, PND, no palpitations, no syncope. PULMONARY: No shortness of breath, no cough, no hemoptysis. GASTROINTESTINAL: No diarrhea, no nausea, no vomiting, no abdominal pain. Normoactive bowel sounds. NEUROLOGICAL: No headaches, no weakness, no numbness. HEMATOLOGICAL: Denies any bleeding or petechiae. GENITOURINARY: Denies any burning micturition, frequency, or urgency. MUSCULOSKELETAL/RHEUMATOLOGICAL: Denies any joint pain, swelling, or any muscle pain. ENDOCRINE: Denies any polyuria or polydipsia. Past Medical History Past Medical History: Atrial Fibrillation, Coronary Artery Disease (CAD), Heart Failure, COPD, CVA/TIA, Dementia, Diabetes Mellitus, Hyperlipidemia, Hypertension, Myocardial Infarction ([place]), Neurologic Disorder, Prostate Disorder Additional Past Medical History / Comment(s): parkinsons, charcot's joint - foot and ankle, insomnia, restless legs syndrome, spinal stenosis, pacemaker, chronic gout, BPH, arthritis, Last Myocardial Infarction Date:: unknown History of Any Multi-Drug Resistant Organisms: None Reported Past Surgical History: Bariatric Surgery, Cholecystectomy, Coronary Bypass/CABG, Heart Catheterization Additional Past Surgical History / Comment(s): has two implanted batteries for parkinsons, lap band surgery 2009, Past Anesthesia/Blood Transfusion Reactions: No Reported Reaction Date of Last Stent Placement:: 08/25/1989 Past Psychological History: No Psychological Hx Reported Smoking Status: Never smoker Past Alcohol Use History: None Reported Past Drug Use History: None Reported - Past Family History Father Family Medical History: Myocardial Infarction ([place]) Mother Additional Family Medical History / Comment(s): heart disease Medications and Allergies Home Medications Medication Instructions Recorded Confirmed Type Aspirin 81 mg PO DAILY 07/28/17 04/13/22 History Pravastatin Sodium [Pravachol] 40 mg PO HS 07/28/17 04/13/22 History Tamsulosin [Flomax] 0.4 mg PO DAILY 07/28/17 04/13/22 History allopurinoL [Zyloprim] 300 mg PO DAILY 07/28/17 04/13/22 History Metoprolol Succinate (ER) [Toprol 50 mg PO DAILY 30 Days 09/20/21 04/13/22 Rx XL] Carbidopa/Levodopa [Carbidopa-Levo 1 tab PO TID@0800,1300,1700 09/25/21 04/13/22 History 25-250 mg Odt] Cyanocobalamin (Vitamin B-12) 1,000 mcg PO DAILY 09/25/21 04/13/22 History [Vitamin B-12] metFORMIN HCL [Glucophage] 1,000 mg PO DAILY 09/25/21 04/13/22 History Acetaminophen Tab [Tylenol] 650 mg PO TID@0900,1300,2100 04/13/22 04/13/22 History Albuterol Inhaler [Ventolin Hfa 2 puff INHALATION RT-Q4H PRN 04/13/22 04/13/22 History Inhaler] Apixaban [Eliquis] 2.5 mg PO BID 04/13/22 04/13/22 History Budesonide-Formot 160-4.5 Mcg 2 puff INHALATION RT-BID 04/13/22 04/13/22 History [Symbicort 160-4.5 Mcg Inhaler] Divalproex [Depakote] 250 mg PO BID 04/13/22 04/13/22 History Glimepiride [Amaryl] 1 mg PO Q12H 04/13/22 04/13/22 History Glimepiride [Amaryl] 2 mg PO Q12H 04/13/22 04/13/22 History Losartan [Cozaar] 25 mg PO DAILY 04/13/22 04/13/22 History Magnesium Hydroxide [Milk of 2,400 mg PO ONCE 04/13/22 04/13/22 History Magnesia] Midodrine HCl [ProAmatine] 10 mg PO TID@0900,1300,2100 04/13/22 04/13/22 History Na Phos,M-B/Na Phos,Di-Ba [Fleet 133 ml RECTAL ONCE 04/13/22 04/13/22 History Adult] Spironolactone [Aldactone] 25 mg PO DAILY 04/13/22 04/13/22 History rOPINIRole HCL [Requip] 2 mg PO Q12H 04/13/22 04/13/22 History ALPRAZolam [Xanax] 0.5 mg PO TID@0900,1300,1700 #3 tab 04/22/22 Rx Docusate [Colace] 100 mg PO BID cap 04/22/22 Rx Famotidine [Pepcid] 20 mg PO DAILY #30 tablet 04/22/22 Rx Furosemide [Lasix] 20 mg PO BID@0900,1500 #0 04/22/22 04/13/22 Rx INSULIN ASPART (NovoLOG) [NovoLOG 0 unit SQ ACHS each 04/22/22 Rx (formulary)] Melatonin 10 mg PO HS PRN tab 04/22/22 Rx haloperidoL [Haldol] 0.5 mg PO TID@0900,1300,2100 #3 tab 04/22/22 Rx polyethylene glycoL 3350 [Miralax] 17 gm PO DAILY #30 packet 04/22/22 Rx Allergies Allergy/AdvReac Type Severity Reaction Status Date / Time gabapentin Allergy unknown, Verified 04/13/22 14:39 per [facility] Physical Exam Vitals: Vital Signs Temp Pulse Resp BP Pulse Ox 08/23/22 07:14 98.4 F 70 18 128/72 100 Intake and Output 08/22/22 08/23/22 08/23/22 22:59 06:59 14:59 Other: Weight 108.862 kg -GENERAL: The patient is alert and oriented x2 to place and person but not to time , not in any acute distress. Obese -HEENT: Pupils are round and equally reacting to light. EOMI. No scleral icterus. No conjunctival pallor. Normocephalic, atraumatic. No pharyngeal erythema. No thyromegaly. Bilateral upper heads simulators CARDIOVASCULAR: S1 and S2 present. No murmurs, rubs, or gallops. PULMONARY: Chest is clear to auscultation, no wheezing or crackles. ABDOMEN: Soft, nontender, nondistended, normoactive bowel sounds. No palpable organomegaly. MUSCULOSKELETAL: No joint swelling or deformity. EXTREMITIES: No cyanosis, clubbing, or pedal edema. NEUROLOGICAL: Gross neurological examination did not reveal any focal deficits. SKIN: No rashes. no petechiae. Results CBC & Chem 7: 08/23/22 07:46 08/23/22 07:46 Labs: Abnormal Lab Results - Last 24 Hours (Table) 08/23/22 08/23/22 Range/Units 07:46 07:46 WBC 11.3 H (3.8-10.6) k/uL RBC 4.07 L (4.30-5.90) m/uL Sodium 150 H (137-145) mmol/L Chloride 111 H (98-107) mmol/L Carbon Dioxide 31 H (22-30) mmol/L BUN 56 H (9-20) mg/dL Creatinine 2.12 H (0.66-1.25) mg/dL Glucose 106 H (74-99) mg/dL Assessment and Plan Assessment: altered mental status secondary to acute metabolic encephalopathy Hypernatremia Acute kidney injury Dehydration History of Parkinson disease status post bilateral frontal lobe stimulator Obesity with BMI of 30.8. Chronic atrial fibrillation, on liquids Chronic heart failure History of coronary artery disease COPD, neck exacerbation line history of CVA/TIA Dementia Diabetes mellitus Hypertension Hyperlipidemia The prostatic hypertrophy Jonathan culture aren't History of restless leg syndrome History of spinal stenosis History of sick sinus syndrome status post pacemaker. History of chronic gout and arthritis Benign prostatic hypertrophy Plan: Continue with D5W at 50 mL/h, monitor sodium and creatinine Check bladder scan Check swallow evaluation Average oral hydration of possible Check urinalysis Labs and medication were reviewed.. Continue same treatment. Continue with symptomatic treatment. Resume home medication. Monitor labs and vitals. DVT and GI prophylaxis. Further recommendations as per clinical course of the patient DVT prophylaxis: On liquids GI Prophylaxis: Pepcid PT/OT: [facility] Prognosis is guarded
[2022-08-23 17:08] LABS: Glucose,Whole Blood 141 mg/dL (70-110)
[2022-08-23] MEDS ORDERED: polyethylene glycoL 3350 17 GM POWD.PACK PO PRN (19:48)
[2022-08-23] MEDS ORDERED: ALBUTEROL NEBULIZED 2.5 MG/3 ML INHALATION PRN (19:48)
[2022-08-23] MEDS ORDERED: MELATONIN 5 MG TABLET PO PRN (19:48)
[2022-08-23] MEDS ORDERED: DEXTROSE 50% SYRINGE 50 ML IVP PRN ×2 (19:52)
[2022-08-23 21:10] LABS: Glucose,Whole Blood 138 mg/dL (70-110)
[2022-08-23] MEDS: busPIRone HCl 5 MG TAB PO SCH (21:10)
[2022-08-23] MEDS: APIXABAN 2.5 MG TABLET PO SCH (21:10)
[2022-08-23] MEDS: PRAVASTATIN SODIUM 40 MG TAB PO SCH (21:10)
[2022-08-23] MEDS: DOCUSATE 100 MG CAP PO SCH (21:10)
[2022-08-23] MEDS: ACETAMINOPHEN TAB 325 MG TAB PO SCH (21:10)
[2022-08-23] MEDS: DIVALPROEX 250 MG TABLET.DR PO SCH (21:10)
[2022-08-23] MEDS: INSULIN ASPART (NovoLOG) 100 UNIT/ML VIAL SQ SCH (21:20)
[2022-08-23] MEDS: SYMBICORT 160-4.5 MCG INHALER INHALATION SCH (23:20)
[2022-08-23 23:28] LABS: Appearance,Urine Clear (Clear); Bacteria,Urine Rare /hpf; Bilirubin,Urine Negative (Negative); Blood,Urine Negative (Negative); Color,Urine Yellow; Glucose,Urine (UA) Negative (Negative); Ketones,Urine Negative (Negative); Leukocyte Esterase,Urine Moderate (Negative); Nitrite,Urine Negative (Negative); PH, Urine 6.5 (5.0-8.0); Protein,Urine Negative (Negative); RBC,Urine <1 /hpf (0-5); Specific Gravity,Urine 1.019 (1.001-1.035); Urobilinogen,Urine <2.0 mg/dL (<2.0); WBC,Urine 8 /hpf (0-5)
[2022-08-24 06:45] LABS: Basophils # (A) 0.1 k/uL (0-0.2); Basophils % (A) 1 %; Eosinophils # (A) 0.4 k/uL (0-0.7); Eosinophils % (A) 4 %; HCT 38.6 % (39.0-53.0); HGB 12.5 gm/dL (13.0-17.5); Hypochromasia Slight; Lymphocytes % (A) 27 %; MCH 32.6 pg (25.0-35.0); MCHC 32.4 g/dL (31.0-37.0); MCV 100.7 fL (80.0-100.0); Macrocytosis Slight; Mean Platelet Volume 8.3; Monocytes # (A) 0.7 k/uL (0-1.0); Monocytes % (A) 6 %; Neutrophils # (A) 6.8 k/uL (1.3-7.7); Neutrophils % (A) 60 %; Platelet Count 197 k/uL (150-450); RBC 3.83 m/uL (4.30-5.90); RDW 14.1 % (11.5-15.5); WBC 11.2 k/uL (3.8-10.6)
[2022-08-24] MEDS: SYMBICORT 160-4.5 MCG INHALER INHALATION SCH ×2 (07:44→19:49)
[2022-08-24 07:53] LABS: Glucose,Whole Blood 102 mg/dL (70-110)
[2022-08-24] MEDS: INSULIN ASPART (NovoLOG) 100 UNIT/ML VIAL SQ SCH ×4 (07:55→21:04)
[2022-08-24] MEDS: ACETAMINOPHEN TAB 325 MG TAB PO SCH ×3 (09:41→21:16)
[2022-08-24] MEDS: CARBIDOPA-LEVODOPA 25-250 MG 1 EACH TAB PO SCH ×3 (09:41→16:45)
[2022-08-24] MEDS: busPIRone HCl 5 MG TAB PO SCH ×2 (09:42→21:16)
[2022-08-24] MEDS: APIXABAN 2.5 MG TABLET PO SCH ×2 (09:42→21:16)
[2022-08-24] MEDS: ASPIRIN 81 MG PO SCH (09:42)
[2022-08-24] MEDS: allopurinoL 100 MG TAB PO SCH (09:42)
[2022-08-24] MEDS: DIVALPROEX 250 MG TABLET.DR PO SCH ×2 (09:43→21:17)
[2022-08-24] MEDS: TAMSULOSIN 0.4 MG CAP.ER.24H PO SCH (09:43)
[2022-08-24] MEDS: NON FORMULARY DRUG (Pimavanserin Tartrate [Nuplazid] 34 MG Capsule) PO SCH (09:43)
[2022-08-24] MEDS: METOPROLOL SUCCINATE (ER) 50 MG TAB.ER.24H PO SCH (09:43)
[2022-08-24] MEDS: DOCUSATE 100 MG CAP PO SCH ×2 (09:43→21:16)
[2022-08-24 11:26] LABS: Glucose,Whole Blood 258 mg/dL (70-110)
--- NOTE | 2022-08-24 12:06 | P.PN ---
Subjective This is a pleasant 77 years old male with multiple medical problems including Parkinson disease on several simulator for his tremor, currently his temperature is controlled and he follow-up with neurologist Dr. Menon patient is from [facility], information were obtained from his daughter at bedside who is his DP oh. Went [facility] about one year ago after he fell and diagnosed with Lopid with the plan to get some rehab but he never gained to his normal baseline so he was kept living in his shelter at [facility]. To 3 weeks ago he's been diagnosed with influenza, however he was sent back from emergency to shelter by Dr. Lake. Patient has not been eating and drinking well since then as per daughter, also has been having some loose diarrhea about 3 days ago while he was on lactulose which was held. Also he is not moving a lot. As per daughter this morning patient become difficult to arouse and she could not take medication so they put him on some oxygen and send him to the hospital. Patient currently saturating 100% on room air, Embedded looks comfortable, he is awake, he follows commands, he knows his name, he knows he is in [facility] and he couldn't recognize his daughter but he could not tell the date or time. Patient denies any chest pain or abdominal pain or any other specific complaint however he complains from some dysuria No headache or dizziness or weakness or numbness. Vitals are stable He has mild leukocytosis. Postoperative CBC, INR are unremarkable sodium is elevated 150, creatinine elevated 2.1, rest of BMP and liver enzymes and troponin are unremarkable. Chest x-ray showing left basilar atelectasis rather than pneumonia CT of the brain: Chronic changes with no acute injury. Patient has bifrontal deep brain stimulator relates EKG: Normal sinus rhythm at [address]-T changes 08/24/2022 Patient clinically the same is still confused at baseline however he follows commands and answers questions appropriately most of the time. Still complaining of from some dysuria patient, however her urinalysis is mildly abnormal showing moderate leukocyte esterase and bladder scan no significant sedation was 244 mL. He is afebrile and resting vitals are stable, heart rate is stable around 23 while at rest. Hemoglobin is stable at 11.2, rest of CBC is pending BMP and repeat sodium level is pending as well as creatinine. In the meantime he remains on D5W at 50 mL per hour. Also is on home dose of leg raise and baby aspirin. Objective - Vital Signs Vital signs: Vital Signs Temp 97.3 F L 08/24/22 07:49 Pulse 53 L 08/24/22 08:40 Resp 16 08/24/22 08:40 BP 148/75 08/24/22 07:49 Pulse Ox 100 08/24/22 07:49 FiO2 Intake & Output 08/23/22 08/24/22 08/24/22 18:59 06:59 18:59 Output Total 244 150 400 Balance -244 -150 -400 Weight 108.862 kg Output: Urine 150 400 Post Void Residual 244 Other: Voiding Method External Catheter External Catheter - Exam -GENERAL: The patient is alert and oriented x2 to place and person but not to time , not in any acute distress. Obese -HEENT: Pupils are round and equally reacting to light. EOMI. No scleral icterus. No conjunctival pallor. Normocephalic, atraumatic. No pharyngeal erythema. No thyromegaly. Bilateral upper heads simulators CARDIOVASCULAR: S1 and S2 present. No murmurs, rubs, or gallops. PULMONARY: Chest is clear to auscultation, no wheezing or crackles. ABDOMEN: Soft, nontender, nondistended, normoactive bowel sounds. No palpable organomegaly. MUSCULOSKELETAL: No joint swelling or deformity. EXTREMITIES: No cyanosis, clubbing, or pedal edema. NEUROLOGICAL: Gross neurological examination did not reveal any focal deficits. SKIN: No rashes. no petechiae. - Labs CBC & Chem 7: 08/24/22 05:46 08/23/22 07:46 Labs: Abnormal Lab Results - Last 24 Hours (Table) 08/23/22 08/23/22 08/23/22 Range/Units 07:46 17:06 21:09 WBC (3.8-10.6) k/uL RBC (4.30-5.90) m/uL Hgb (13.0-17.5) gm/dL Hct (39.0-53.0) % MCV (80.0-100.0) fL POC Glucose (mg/dL) 141 H 138 H (70-110) mg/dL Ur Leukocyte Esterase Moderate H (Negative) Urine WBC 8 H (0-5) /hpf Urine Bacteria Rare H (None) /hpf 08/24/22 08/24/22 Range/Units 05:46 11:20 WBC 11.2 H (3.8-10.6) k/uL RBC 3.83 L (4.30-5.90) m/uL Hgb 12.5 L (13.0-17.5) gm/dL Hct 38.6 L (39.0-53.0) % MCV 100.7 H (80.0-100.0) fL POC Glucose (mg/dL) 258 H (70-110) mg/dL Ur Leukocyte Esterase (Negative) Urine WBC (0-5) /hpf Urine Bacteria (None) /hpf Assessment and Plan Assessment: altered mental status secondary to acute metabolic encephalopathy Hypernatremia Acute kidney injury Dehydration History of Parkinson disease status post bilateral frontal lobe stimulator Obesity with BMI of 30.8. Chronic atrial fibrillation, on liquids Chronic heart failure History of coronary artery disease COPD, neck exacerbation line history of CVA/TIA Dementia Diabetes mellitus Hypertension Hyperlipidemia The prostatic hypertrophy Jonathan culture aren't History of restless leg syndrome History of spinal stenosis History of sick sinus syndrome status post pacemaker. History of chronic gout and arthritis Benign prostatic hypertrophy Plan: Continue with D5W at 50 mL/h, monitor sodium and creatinine Check swallow evaluation Encourage oral hydration of possible Check urine culture, also we will repeat urine analysis because was mildly abnormal Labs and medication were reviewed.. Continue same treatment. Continue with symptomatic treatment. Resume home medication. Monitor labs and vitals. DVT and GI prophylaxis. Further recommendations as per clinical course of the patient DVT prophylaxis: O Eliquis GI Prophylaxis: Pepcid PT/OT: [facility] Prognosis is guarded
[2022-08-24 12:10] LABS: ALT 11 U/L (10-49); AST 16 U/L (14-35); African American GFR (CKD) 58.9 (60.0-200.0); Albumin 2.4 g/dL (3.8-4.9); Albumin/Globulin Ratio 1.45 (1.60-3.17); Alkaline Phosphatase 72 U/L (41-126); BUN/Creat Ratio 19.17 Ratio (12.00-20.00); Blood Urea Nitrogen 25.5 mg/dL (9.0-27.0); Calcium 5.8 mg/dL (8.7-10.3); Carbon Dioxide 16.4 mmol/L (20.0-27.5); Chloride 68 mmol/L (96-109); Globulin 1.6 g/dL (1.6-3.3); Glucose >1500 mg/dL (70-110); Non-African American GFR(CKD) 50.8 (60.0-200.0); Potassium 2.9 mmol/L (3.5-5.5); Sodium 96 mmol/L (135-145)
[2022-08-24 13:07] LABS: ALT 8 U/L (4-49); AST 21 U/L (17-59); African American GFR (CKD) 68 (>60 ml/min/1.73 sqM); Albumin 3.3 g/dL (3.5-5.0); Albumin/Globulin Ratio 1.3; Alkaline Phosphatase 101 U/L (38-126); Anion Gap 3 mmol/L; Blood Urea Nitrogen 36 mg/dL (9-20); Calcium 8.3 mg/dL (8.4-10.2); Carbon Dioxide 31 mmol/L (22-30); Chloride 105 mmol/L (98-107); Globulin 2.5 g/dL; Glucose 146 mg/dL (74-99); Non-African American GFR(CKD) 59 (>60 ml/min/1.73 sqM); Potassium 3.7 mmol/L (3.5-5.1); Sodium 139 mmol/L (137-145); Total Bilirubin 0.8 mg/dL (0.2-1.3); Total Protein 5.8 g/dL (6.3-8.2)
[2022-08-24 15:55] LABS: Appearance,Urine Clear (Clear); Bilirubin,Urine Negative (Negative); Blood,Urine Negative (Negative); Color,Urine Yellow; Glucose,Urine (UA) Negative (Negative); Ketones,Urine Negative (Negative); Leukocyte Esterase,Urine Trace (Negative); Nitrite,Urine Negative (Negative); PH, Urine 6.5 (5.0-8.0); Protein,Urine Negative (Negative); RBC,Urine <1 /hpf (0-5); Squamous Epithelial Cell,Urine <1 /hpf (0-4); WBC,Urine 1 /hpf (0-5)
[2022-08-24 17:38] LABS: Glucose,Whole Blood 192 mg/dL (70-110)
[2022-08-24 20:52] LABS: Glucose,Whole Blood 139 mg/dL (70-110)
[2022-08-24] MEDS: PRAVASTATIN SODIUM 40 MG TAB PO SCH (21:17)
[2022-08-25] MEDS: SYMBICORT 160-4.5 MCG INHALER INHALATION SCH ×2 (07:52→19:33)
[2022-08-25 08:18] LABS: Glucose,Whole Blood 114 mg/dL (70-110)
[2022-08-25] MEDS: INSULIN ASPART (NovoLOG) 100 UNIT/ML VIAL SQ SCH ×4 (08:23→21:24)
[2022-08-25] MEDS: CARBIDOPA-LEVODOPA 25-250 MG 1 EACH TAB PO SCH ×3 (09:23→17:42)
[2022-08-25] MEDS: busPIRone HCl 5 MG TAB PO SCH ×2 (09:24→21:24)
[2022-08-25] MEDS: allopurinoL 100 MG TAB PO SCH (09:24)
[2022-08-25] MEDS: APIXABAN 2.5 MG TABLET PO SCH ×2 (09:24→21:24)
[2022-08-25] MEDS: ASPIRIN 81 MG PO SCH (09:24)
[2022-08-25] MEDS: METOPROLOL SUCCINATE (ER) 50 MG TAB.ER.24H PO SCH (09:25)
[2022-08-25] MEDS: DIVALPROEX 250 MG TABLET.DR PO SCH ×2 (09:25→21:24)
[2022-08-25] MEDS: DOCUSATE 100 MG CAP PO SCH ×2 (09:25→21:24)
[2022-08-25] MEDS: TAMSULOSIN 0.4 MG CAP.ER.24H PO SCH (09:26)
[2022-08-25 09:32] LABS: African American GFR (CKD) >90 (>60 ml/min/1.73 sqM); Anion Gap 5 mmol/L; Blood Urea Nitrogen 24 mg/dL (9-20); Calcium 8.4 mg/dL (8.4-10.2); Carbon Dioxide 28 mmol/L (22-30); Chloride 103 mmol/L (98-107); Glucose 122 mg/dL (74-99); Non-African American GFR(CKD) 82 (>60 ml/min/1.73 sqM); Potassium 3.9 mmol/L (3.5-5.1); Sodium 136 mmol/L (137-145)
[2022-08-25 09:54] LABS: HCT 35.2 % (39.0-53.0); HGB 12.2 gm/dL (13.0-17.5); MCHC 34.6 g/dL (31.0-37.0); Platelet Count 178 k/uL (150-450); RBC 3.69 m/uL (4.30-5.90); RDW 14.4 % (11.5-15.5); WBC 9.4 k/uL (3.8-10.6)
[2022-08-25 09:56] LABS: MCV 95.4 fL (80.0-100.0)
[2022-08-25] MEDS: NON FORMULARY DRUG (Pimavanserin Tartrate [Nuplazid] 34 MG Capsule) PO SCH (10:06)
[2022-08-25] MEDS: ACETAMINOPHEN TAB 325 MG TAB PO SCH ×3 (10:07→21:23)
[2022-08-25 12:23] LABS: Glucose,Whole Blood 169 mg/dL (70-110)
--- NOTE | 2022-08-25 13:22 | P.PN ---
Subjective This is a pleasant 77 years old male with multiple medical problems including Parkinson disease on several simulator for his tremor, currently his temperature is controlled and he follow-up with neurologist Dr. Menon patient is from [facility], information were obtained from his daughter at bedside who is his DP oh. Went [facility] about one year ago after he fell and diagnosed with Lopid with the plan to get some rehab but he never gained to his normal baseline so he was kept living in his prison at [facility]. To 3 weeks ago he's been diagnosed with influenza, however he was sent back from emergency to prison by Dr. Lake. Patient has not been eating and drinking well since then as per daughter, also has been having some loose diarrhea about 3 days ago while he was on lactulose which was held. Also he is not moving a lot. As per daughter this morning patient become difficult to arouse and she could not take medication so they put him on some oxygen and send him to the hospital. Patient currently saturating 100% on room air, Embedded looks comfortable, he is awake, he follows commands, he knows his name, he knows he is in [facility] and he couldn't recognize his daughter but he could not tell the date or time. Patient denies any chest pain or abdominal pain or any other specific complaint however he complains from some dysuria No headache or dizziness or weakness or numbness. Vitals are stable He has mild leukocytosis. Postoperative CBC, INR are unremarkable sodium is elevated 150, creatinine elevated 2.1, rest of BMP and liver enzymes and troponin are unremarkable. Chest x-ray showing left basilar atelectasis rather than pneumonia CT of the brain: Chronic changes with no acute injury. Patient has bifrontal deep brain stimulator relates EKG: Normal sinus rhythm at [address]-T changes 08/24/2022 Patient clinically the same is still confused at baseline however he follows commands and answers questions appropriately most of the time. Still complaining of from some dysuria patient, however her urinalysis is mildly abnormal showing moderate leukocyte esterase and bladder scan no significant sedation was 244 mL. He is afebrile and resting vitals are stable, heart rate is stable around 23 while at rest. Hemoglobin is stable at 11.2, rest of CBC is pending BMP and repeat sodium level is pending as well as creatinine. In the meantime he remains on D5W at 50 mL per hour. Also is on home dose of leg raise and baby aspirin. 08/25/2022 patient clinically improved, his mentation back to baseline he knows in the hospital today. Continue the year 2022, but he was confused about person, clips like his back to his basic mentation baseline This morning he was hungry and eating his breakfast although he did not like very much. Patient denies any specific complaints. No chest pain or abdominal pain, no new neurological or neurological complaints. Vital signs stable, hypernatremia improved sodium 136 today. Creatinine back to normal 0.8. Hemoglobin 12. And THE WBC back to normal at 9.4. Patient is afebrile. D5W was discontinued Continued on home dose of liquids 2.5 Patient is medically stable for discharge pending placement back to his prison, discussed with staff Objective - Vital Signs Vital signs: Vital Signs Temp 97.7 F 08/25/22 02:00 Pulse 56 L 08/25/22 02:00 Resp 14 08/25/22 02:00 BP 150/79 08/25/22 02:00 Pulse Ox 97 08/25/22 07:55 FiO2 Intake & Output 08/24/22 08/25/22 08/25/22 18:59 06:59 18:59 Intake Total 900 Output Total 800 Balance 100 Intake: Intake, IV Titration 900 Amount Dextrose 5% in Water 1, 900 000 ml @ 50 mls/hr IV . Q20H ONE Rx#:[id number] Output: Urine 800 Other: Voiding Method External Catheter External Catheter # Voids 1 - Exam -GENERAL: The patient is alert and oriented x2 to place and person but not to ti me , not in any acute distress. Obese -HEENT: Pupils are round and equally reacting to light. EOMI. No scleral icterus. No conjunctival pallor. Normocephalic, atraumatic. No pharyngeal erythema. No thyromegaly. Bilateral upper heads simulators CARDIOVASCULAR: S1 and S2 present. No murmurs, rubs, or gallops. PULMONARY: Chest is clear to auscultation, no wheezing or crackles. ABDOMEN: Soft, nontender, nondistended, normoactive bowel sounds. No palpable organomegaly. MUSCULOSKELETAL: No joint swelling or deformity. EXTREMITIES: No cyanosis, clubbing, or pedal edema. NEUROLOGICAL: Gross neurological examination did not reveal any focal deficits. SKIN: No rashes. no petechiae. - Labs CBC & Chem 7: 08/25/22 09:05 08/25/22 09:05 Labs: Abnormal Lab Results - Last 24 Hours (Table) 08/24/22 08/24/22 08/24/22 Range/Units 05:46 11:20 12:32 Sodium 96 L* (135-145) mmol/L Potassium 2.9 L (3.5-5.5) mmol/L Chloride 68 L* (96-109) mmol/L Carbon Dioxide 16.4 L 31 H (20.0-27.5) mmol/L BUN 36 H (9-20) mg/dL Est GFR (CKD-EPI)AfAm 58.9 L (60.0-200.0) Est GFR (CKD-EPI)NonAf 50.8 L (60.0-200.0) Glucose >1500 H* 146 H (70-110) mg/dL POC Glucose (mg/dL) 258 H (70-110) mg/dL Calcium 5.8 L* 8.3 L (8.7-10.3) mg/dL Total Protein 4.0 L 5.8 L (6.2-8.2) g/dL Albumin 2.4 L 3.3 L (3.8-4.9) g/dL Albumin/Globulin Ratio 1.45 L (1.60-3.17) g/dL Ur Leukocyte Esterase (Negative) 08/24/22 08/24/22 08/24/22 Range/Units 15:15 17:21 20:50 Sodium (135-145) mmol/L Potassium (3.5-5.5) mmol/L Chloride (96-109) mmol/L Carbon Dioxide (20.0-27.5) mmol/L BUN (9-20) mg/dL Est GFR (CKD-EPI)AfAm (60.0-200.0) Est GFR (CKD-EPI)NonAf (60.0-200.0) Glucose (70-110) mg/dL POC Glucose (mg/dL) 192 H 139 H (70-110) mg/dL Calcium (8.7-10.3) mg/dL Total Protein (6.2-8.2) g/dL Albumin (3.8-4.9) g/dL Albumin/Globulin Ratio (1.60-3.17) g/dL Ur Leukocyte Esterase Trace H (Negative) 08/25/22 Range/Units 08:17 Sodium (135-145) mmol/L Potassium (3.5-5.5) mmol/L Chloride (96-109) mmol/L Carbon Dioxide (20.0-27.5) mmol/L BUN (9-20) mg/dL Est GFR (CKD-EPI)AfAm (60.0-200.0) Est GFR (CKD-EPI)NonAf (60.0-200.0) Glucose (70-110) mg/dL POC Glucose (mg/dL) 114 H (70-110) mg/dL Calcium (8.7-10.3) mg/dL Total Protein (6.2-8.2) g/dL Albumin (3.8-4.9) g/dL Albumin/Globulin Ratio (1.60-3.17) g/dL Ur Leukocyte Esterase (Negative) Assessment and Plan Assessment: altered mental status secondary to acute metabolic encephalopathy Hypernatremia Acute kidney injury Dehydration History of Parkinson disease status post bilateral frontal lobe stimulator Obesity with BMI of 30.8. Chronic atrial fibrillation, on liquids Chronic heart failure History of coronary artery disease COPD, neck exacerbation line history of CVA/TIA Dementia Diabetes mellitus Hypertension Hyperlipidemia The prostatic hypertrophy Jonathan culture aren't History of restless leg syndrome History of spinal stenosis History of sick sinus syndrome status post pacemaker. History of chronic gout and arthritis Benign prostatic hypertrophy Plan: Discontinue IV fluids Encourage oral hydration of possible Repeat urinalysis is negative Labs and medication were reviewed.. Continue same treatment. Continue with symptomatic treatment. Resume home medication. Monitor labs and vitals. DVT and GI prophylaxis. Further recommendations as per clinical course of the patient DVT prophylaxis: O Eliquis GI Prophylaxis: Pepcid PT/OT: [facility] Patient is medically stable for discharge pending placement
[2022-08-25 17:50] LABS: Glucose,Whole Blood 121 mg/dL (70-110)
[2022-08-25 20:25] LABS: Glucose,Whole Blood 147 mg/dL (70-110)
[2022-08-25] MEDS: PRAVASTATIN SODIUM 40 MG TAB PO SCH (21:24)
[2022-08-26 06:46] LABS: Glucose,Whole Blood 191 mg/dL (70-110)
[2022-08-26] MEDS: SYMBICORT 160-4.5 MCG INHALER INHALATION SCH ×2 (08:00→20:50)
[2022-08-26] MEDS: INSULIN ASPART (NovoLOG) 100 UNIT/ML VIAL SQ SCH ×4 (08:32→21:12)
[2022-08-26] MEDS: APIXABAN 2.5 MG TABLET PO SCH ×2 (08:33→21:04)
[2022-08-26] MEDS: ACETAMINOPHEN TAB 325 MG TAB PO SCH ×3 (08:33→21:04)
[2022-08-26] MEDS: TAMSULOSIN 0.4 MG CAP.ER.24H PO SCH (08:33)
[2022-08-26] MEDS: allopurinoL 100 MG TAB PO SCH (08:33)
[2022-08-26] MEDS: busPIRone HCl 5 MG TAB PO SCH ×2 (08:33→21:04)
[2022-08-26] MEDS: DOCUSATE 100 MG CAP PO SCH ×2 (08:33→21:04)
[2022-08-26] MEDS: METOPROLOL SUCCINATE (ER) 50 MG TAB.ER.24H PO SCH (08:33)
[2022-08-26] MEDS: ASPIRIN 81 MG PO SCH (08:33)
[2022-08-26] MEDS: CARBIDOPA-LEVODOPA 25-250 MG 1 EACH TAB PO SCH ×3 (08:34→17:52)
[2022-08-26] MEDS: DIVALPROEX 250 MG TABLET.DR PO SCH ×2 (08:34→21:05)
[2022-08-26] MEDS: NON FORMULARY DRUG (Pimavanserin Tartrate [Nuplazid] 34 MG Capsule) PO SCH (08:34)
[2022-08-26 11:08] LABS: Glucose,Whole Blood 176 mg/dL (70-110)
--- NOTE | 2022-08-26 13:37 | FL ---
EXAMINATION TYPE: FL barium swallow w video DATE OF EXAM: 08/26/2022 MODIFIED SWALLOW / DEGLUTITION STUDY CLINICAL HISTORY: Dysphagia. Rule out aspiration. TECHNIQUE: Deglutition study is performed utilizing thin liquid barium, honey and nectar thick liqui d barium, barium thick applesauce, and barium coated cracker. 2 minutes 2 seconds of fluoro time and 0 images obtained. COMPARISON: None. FINDINGS: The oral and pharyngeal phases show satisfactory initiation and propagation with all modali ties tested. Satisfactory mastication is seen with solid modalities tested. There is no evidence of penetration or aspiration with any modality tested. No significant pharyngeal residue was appreciate d. Scalp stimulator leads are incidentally noted. IMPRESSION: No penetration or aspiration observed. Please refer to speech therapist notes for furthe r details if necessary.
[2022-08-26 16:58] LABS: Glucose,Whole Blood 152 mg/dL (70-110)
--- NOTE | 2022-08-26 18:23 | P.PN ---
Subjective Progress Note Date: 08/26/22 77 years old male with multiple medical problems including Parkinson disease on several simulator for his tremor, currently his temperature is controlled and he follow-up with neurologist Dr. Menon patient is from [facility], information were obtained from his daughter at bedside who is his DP oh. Went [facility] about one year ago after he fell and diagnosed with Lopid with the plan to get some rehab but he never gained to his normal baseline so he was kept living in his [facility] at [facility]. To 3 weeks ago he's been diagnosed with influenza, however he was sent back from emergency to fci by Dr. Lake. Patient has not been eating and drinking well since then as per daughter, also has been having some loose diarrhea about 3 days ago while he was on lactulose which was held. Also he is not moving a lot. As per daughter this morning patient become difficult to arouse and she could not take medication so they put him on some oxygen and send him to the hospital. Patient currently saturating 100% on room air, Embedded looks comfortable, he is awake, he follows commands, he knows his name, he knows he is in [facility] and he couldn't recognize his daughter but he could not tell the date or time. Patient denies any chest pain or abdominal pain or any other specific complaint however he complains from some dysuria No headache or dizziness or weakness or numbness. Vitals are stable He has mild leukocytosis. Postoperative CBC, INR are unremarkable sodium is elevated 150, creatinine elevated 2.1, rest of BMP and liver enzymes and troponin are unremarkable. Chest x-ray showing left basilar atelectasis rather than pneumonia CT of the brain: Chronic changes with no acute injury. Patient has bifrontal deep brain stimulator relates EKG: Normal sinus rhythm at [address]-T changes Objective - Vital Signs Vital signs: Vital Signs Temp 98.3 F 08/25/22 19:26 Pulse 70 08/25/22 19:26 Resp 15 08/25/22 20:00 BP 108/72 08/25/22 19:26 Pulse Ox 96 08/25/22 19:26 FiO2 Intake & Output 08/25/22 08/25/22 08/26/22 06:59 18:59 06:59 Output Total 750 Balance -750 Output: Urine 750 Other: Voiding Method External Catheter External Catheter External Catheter # Voids 1 - Exam -GENERAL: The patient is alert and oriented x2 to place and person but not to time , not in any acute distress. Obese -HEENT: Pupils are round and equally reacting to light. EOMI. No scleral icterus. No conjunctival pallor. Normocephalic, atraumatic. No pharyngeal erythema. No thyromegaly. Bilateral upper heads simulators CARDIOVASCULAR: S1 and S2 present. No murmurs, rubs, or gallops. PULMONARY: Chest is clear to auscultation, no wheezing or crackles. ABDOMEN: Soft, nontender, nondistended, normoactive bowel sounds. No palpable organomegaly. MUSCULOSKELETAL: No joint swelling or deformity. EXTREMITIES: No cyanosis, clubbing, or pedal edema. NEUROLOGICAL: Gross neurological examination did not reveal any focal deficits. SKIN: No rashes. no petechiae. - Labs CBC & Chem 7: 08/25/22 09:05 08/25/22 09:05 Labs: Abnormal Lab Results - Last 24 Hours (Table) 08/25/22 08/25/22 08/25/22 Range/Units 08:17 09:05 09:05 RBC 3.69 L (4.30-5.90) m/uL Hgb 12.2 L (13.0-17.5) gm/dL Hct 35.2 L (39.0-53.0) % Sodium 136 L (137-145) mmol/L BUN 24 H (9-20) mg/dL Glucose 122 H (74-99) mg/dL POC Glucose (mg/dL) 114 H (70-110) mg/dL 08/25/22 08/25/22 08/25/22 Range/Units 12:20 17:49 20:24 RBC (4.30-5.90) m/uL Hgb (13.0-17.5) gm/dL Hct (39.0-53.0) % Sodium (137-145) mmol/L BUN (9-20) mg/dL Glucose (74-99) mg/dL POC Glucose (mg/dL) 169 H 121 H 147 H (70-110) mg/dL Assessment and Plan Assessment: altered mental status secondary to acute metabolic encephalopathy Hypernatremia Acute kidney injury Dehydration History of Parkinson disease status post bilateral frontal lobe stimulator Obesity with BMI of 30.8. Chronic atrial fibrillation, on liquids Chronic heart failure History of coronary artery disease COPD, neck exacerbation line history of CVA/TIA Dementia Diabetes mellitus Hypertension Hyperlipidemia The prostatic hypertrophy Jonathan culture aren't History of restless leg syndrome History of spinal stenosis History of sick sinus syndrome status post pacemaker. History of chronic gout and arthritis Benign prostatic hypertrophy Plan: Discontinue IV fluids Encourage oral hydration of possible Repeat urinalysis is negative Labs and medication were reviewed.. Continue same treatment. Continue with symptomatic treatment. Resume home medication. Monitor labs and vitals. DVT and GI prophylaxis. Further recommendations as per clinical course of the patient DVT prophylaxis: O Eliquis GI Prophylaxis: Pepcid PT/OT: [facility]
[2022-08-26 20:16] LABS: Glucose,Whole Blood 115 mg/dL (70-110)
[2022-08-26] MEDS: PRAVASTATIN SODIUM 40 MG TAB PO SCH (21:04)
[2022-08-27] MEDS: SYMBICORT 160-4.5 MCG INHALER INHALATION SCH ×2 (08:11→19:50)
[2022-08-27 08:17] LABS: Glucose,Whole Blood 145 mg/dL (70-110)
[2022-08-27] MEDS: INSULIN ASPART (NovoLOG) 100 UNIT/ML VIAL SQ SCH ×4 (08:17→21:14)
[2022-08-27] MEDS: METOPROLOL SUCCINATE (ER) 50 MG TAB.ER.24H PO SCH (08:29)
[2022-08-27] MEDS: TAMSULOSIN 0.4 MG CAP.ER.24H PO SCH (08:29)
[2022-08-27] MEDS: ASPIRIN 81 MG PO SCH (08:29)
[2022-08-27] MEDS: DOCUSATE 100 MG CAP PO SCH ×2 (08:29→21:09)
[2022-08-27] MEDS: APIXABAN 2.5 MG TABLET PO SCH ×2 (08:29→21:10)
[2022-08-27] MEDS: busPIRone HCl 5 MG TAB PO SCH ×2 (08:29→21:10)
[2022-08-27] MEDS: CARBIDOPA-LEVODOPA 25-250 MG 1 EACH TAB PO SCH ×3 (08:29→17:04)
[2022-08-27] MEDS: DIVALPROEX 250 MG TABLET.DR PO SCH ×2 (08:29→21:10)
[2022-08-27] MEDS: allopurinoL 100 MG TAB PO SCH (08:29)
[2022-08-27] MEDS: ACETAMINOPHEN TAB 325 MG TAB PO SCH ×3 (08:29→21:11)
[2022-08-27 11:23] LABS: Glucose,Whole Blood 156 mg/dL (70-110)
[2022-08-27] MEDS: NON FORMULARY DRUG (Pimavanserin Tartrate [Nuplazid] 34 MG Capsule) PO SCH (12:35)
[2022-08-27 17:28] LABS: Glucose,Whole Blood 390 mg/dL (70-110)
[2022-08-27 20:15] LABS: Glucose,Whole Blood 169 mg/dL (70-110)
[2022-08-27] MEDS: PRAVASTATIN SODIUM 40 MG TAB PO SCH (21:10)
--- NOTE | 2022-08-27 23:35 | P.PN ---
Subjective Progress Note Date: 08/27/22 77 years old male with multiple medical problems including Parkinson disease on several simulator for his tremor, currently his temperature is controlled and he follow-up with neurologist Dr. Menon patient is from [facility], information were obtained from his daughter at bedside who is his DP oh. Went [facility] about one year ago after he fell and diagnosed with Lopid with the plan to get some rehab but he never gained to his normal baseline so he was kept living in his [place] [facility] at [facility]. To 3 weeks ago he's been diagnosed with influenza, however he was [place] back [place] emergency [place] [facility] by Dr. Lake. Patient has not been eating and drinking well since then as per daughter, also has been having some loose diarrhea about 3 days ago while he was on lactulose which was held. Also he is not moving a lot. As per daughter this morning patient become difficult to arouse and she could not take medication so they put him on some oxygen and send him to the hospital. Patient currently saturating 100% on room air, Embedded looks comfortable, he is awake, he follows commands, he knows his name, he knows he is in [facility] and he couldn't recognize his daughter but he could not tell the date or time. Patient denies any chest pain or abdominal pain or any other specific complaint however he complains from some dysuria No headache or dizziness or weakness or numbness. Vitals are stable He has mild leukocytosis. Postoperative CBC, INR are unremarkable sodium is elevated 150, creatinine elevated 2.1, rest of BMP and liver enzymes and troponin are unremarkable. Chest x-ray showing left basilar atelectasis rather than pneumonia CT of the brain: Chronic changes with no acute injury. Patient has bifrontal deep brain stimulator relates EKG: Normal sinus rhythm at [address]-T changes 24 hour interval change 08/27/2022 Patient is seen and evaluated in room at bedside; denies any specific complaints This morning he was hungry and eating his breakfast although he did not like very much. Patient denies any specific complaints. No chest pain or abdominal pain, no new neurological or neurological complaints. Vital signs stable, hypernatremia improved sodium 136 today. Creatinine back to normal 0.8. Hemoglobin 12. And THE WBC back to normal at 9.4. Patient is afebrile. D5W was discontinued Continued on home dose of liquids 2.5 Patient is medically stable for discharge pending placement back to his [place] [facility] Objective - Vital Signs Vital signs: Vital Signs Temp 98.0 F 08/27/22 12:07 Pulse 59 L 08/27/22 12:07 Resp 18 08/27/22 12:07 BP 126/74 08/27/22 12:07 Pulse Ox 95 08/27/22 12:07 FiO2 Intake & Output 08/26/22 08/27/22 08/27/22 18:59 06:59 18:59 Other: Voiding Method Diaper Diaper # Voids 1 3 1 - Exam -GENERAL: The patient is alert and oriented x2 to place and person but not to time , not in any acute distress. Obese -HEENT: Pupils are round and equally reacting to light. EOMI. No scleral icterus. No conjunctival pallor. Normocephalic, atraumatic. No pharyngeal erythema. No thyromegaly. Bilateral upper heads simulators CARDIOVASCULAR: S1 and S2 present. No murmurs, rubs, or gallops. PULMONARY: Chest is clear to auscultation, no wheezing or crackles. ABDOMEN: Soft, nontender, nondistended, normoactive bowel sounds. No palpable organomegaly. MUSCULOSKELETAL: No joint swelling or deformity. EXTREMITIES: No cyanosis, clubbing, or pedal edema. NEUROLOGICAL: Gross neurological examination did not reveal any focal deficits. SKIN: No rashes. no petechiae. - Labs CBC & Chem 7: 08/25/22 09:05 08/25/22 09:05 Labs: Abnormal Lab Results - Last 24 Hours (Table) 08/26/22 08/26/22 08/27/22 Range/Units 16:57 20:14 07:57 POC Glucose (mg/dL) 152 H 115 H 145 H (70-110) mg/dL 08/27/22 Range/Units 11:12 POC Glucose (mg/dL) 156 H (70-110) mg/dL Assessment and Plan Assessment: altered mental status secondary to acute metabolic encephalopathy Hypernatremia Acute kidney injury Dehydration History of Parkinson disease status post bilateral frontal lobe stimulator Obesity with BMI of 30.8. Chronic atrial fibrillation, on liquids Chronic heart failure History of coronary artery disease COPD, neck exacerbation line history of CVA/TIA Dementia Diabetes mellitus Hypertension Hyperlipidemia The prostatic hypertrophy Jonathan culture aren't History of restless leg syndrome History of spinal stenosis History of sick sinus syndrome status post pacemaker. History of chronic gout and arthritis Benign prostatic hypertrophy Plan: Discontinue IV fluids Encourage oral hydration of possible Repeat urinalysis is negative Labs and medication were reviewed.. Continue same treatment. Continue with symptomatic treatment. Resume home medication. Monitor labs and vitals. DVT and GI prophylaxis. Further recommendations as per clinical course of the patient DVT prophylaxis: O Eliquis GI Prophylaxis: Pepcid PT/OT: [facility]
[2022-08-28 04:31] VITALS: RESP 18
[2022-08-28 07:17] LABS: Glucose,Whole Blood 135 mg/dL (70-110)
[2022-08-28] MEDS: SYMBICORT 160-4.5 MCG INHALER INHALATION SCH (07:36)
[2022-08-28] MEDS: INSULIN ASPART (NovoLOG) 100 UNIT/ML VIAL SQ SCH ×3 (08:44→18:04)
[2022-08-28] MEDS: ACETAMINOPHEN TAB 325 MG TAB PO SCH ×2 (09:58→13:51)
[2022-08-28] MEDS: busPIRone HCl 5 MG TAB PO SCH (09:58)
[2022-08-28] MEDS: METOPROLOL SUCCINATE (ER) 50 MG TAB.ER.24H PO SCH (09:58)
[2022-08-28] MEDS: APIXABAN 2.5 MG TABLET PO SCH (09:58)
[2022-08-28] MEDS: ASPIRIN 81 MG PO SCH (09:58)
[2022-08-28] MEDS: allopurinoL 100 MG TAB PO SCH (09:58)
[2022-08-28] MEDS: TAMSULOSIN 0.4 MG CAP.ER.24H PO SCH (09:58)
[2022-08-28] MEDS: CARBIDOPA-LEVODOPA 25-250 MG 1 EACH TAB PO SCH ×3 (09:59→18:11)
[2022-08-28] MEDS: DOCUSATE 100 MG CAP PO SCH (09:59)
[2022-08-28] MEDS: DIVALPROEX 250 MG TABLET.DR PO SCH (10:00)
[2022-08-28 11:39] LABS: Glucose,Whole Blood 157 mg/dL (70-110)
--- NOTE | 2022-08-28 12:26 | P.DS ---
Providers Date of admission: 08/23/22 09:46 Expected date of discharge: 08/28/22 Attending physician: Vahe Franks MD Primary care physician: [facility] Course: 77 years old male with multiple medical problems including Parkinson disease on several simulator for his tremor, currently his temperature is controlled and he follow-up with neurologist Dr. Menno patient is from [facility], information were obtained from his daughter at bedside who is his DP [place]. Went [facility] about one year ago after he fell and diagnosed with Lopid with the plan to get some rehab but he never gained to his normal baseline so he was kept living in his halfway at [facility]. To 3 weeks ago he's been diagnosed with influenza, however he was sent back from emergency to halfway by Dr. Lake. Patient has not been eating and drinking well since then as per daughter, also has been having some loose diarrhea about 3 days ago while he was on lactulose which was held. Also he is not moving a lot. As per daughter this morning patient become difficult to arouse and she could not take medication so they put him on some oxygen and send him to the hospital. Patient currently saturating 100% on room air, Embedded looks comfortable, he is awake, he follows commands, he knows his name, he knows he is in [facility] and he couldn't recognize his daughter but he could not tell the date or time. Patient denies any chest pain or abdominal pain or any other specific complaint however he complains from some dysuria No headache or dizziness or weakness or numbness. Vitals are stable He has mild leukocytosis. Postoperative CBC, INR are unremarkable sodium is elevated 150, creatinine elevated 2.1, rest of BMP and liver enzymes and troponin are unremarkable. Chest x-ray showing left basilar atelectasis rather than pneumonia CT of the brain: Chronic changes with no acute injury. Patient has bifrontal deep brain stimulator relates EKG: Normal sinus rhythm at [address]-T changes 08/24/2022 Patient clinically the same is still confused at baseline however he follows commands and answers questions appropriately most of the time. Still complaining of from some dysuria patient, however her urinalysis is mildly abnormal showing moderate leukocyte esterase and bladder scan no significant sedation was 244 mL. He is afebrile and resting vitals are stable, heart rate is stable around 23 while at rest. Hemoglobin is stable at 11.2, rest of CBC is pending BMP and repeat sodium level is pending as well as creatinine. In the meantime he remains on D5W at 50 mL per hour. Also is on home dose of leg raise and baby aspirin. 08/25/2022 patient clinically improved, his mentation back to baseline he knows in the hospital today. Continue the year 2022, but he was confused about person, clips like his back to his basic mentation baseline This morning he was hungry and eating his breakfast although he did not like very much. Patient denies any specific complaints. No chest pain or abdominal pain, no new neurological or neurological complaints. Vital signs stable, hypernatremia improved sodium 136 today. Creatinine back to normal 0.8. Hemoglobin 12. And THE WBC back to normal at 9.4. Patient is afebrile. D5W was discontinued Continued on home dose of liquids 2.5 Patient is medically stable for discharge pending placement back to his halfway, discussed with staff 24 hour interval change 08/28/2022 Patient is seen and evaluated in room at bedside; denies any specific complaints This morning he was hungry and eating his breakfast although he did not like very much. Patient denies any specific complaints. No chest pain or abdominal pain, no new neurological or neurological complaints. Vital signs stable, hypernatremia improved sodium 136 today. Creatinine back to normal 0.8. Hemoglobin 12. And THE WBC back to normal at 9.4. Patient is afebrile. D5W was discontinued Continued on home dose of liquids 2.5 Patient is medically stable for discharge pending placement back to his halfway Plan - Discharge Summary New Discharge Prescriptions: Continue allopurinoL [Zyloprim] 300 mg PO DAILY Aspirin 81 mg PO DAILY Tamsulosin [Flomax] 0.4 mg PO DAILY Pravastatin Sodium [Pravachol] 40 mg PO HS Metoprolol Succinate (ER) [Toprol XL] 50 mg PO DAILY 30 Days metFORMIN HCL [Glucophage] 1,000 mg PO DAILY Divalproex [Depakote] 250 mg PO BID Glimepiride [Amaryl] 2 mg PO BID@0900,1700 Magnesium Hydroxide [Milk of Magnesia] 2,400 mg PO DAILY PRN PRN Reason: Constipation Midodrine HCl [ProAmatine] 10 mg PO TID@0900,1300,2100 rOPINIRole HCL [Requip] 2 mg PO Q6H Spironolactone [Aldactone] 25 mg PO DAILY@1300 Losartan [Cozaar] 25 mg PO DAILY Docusate [Colace] 100 mg PO BID cap Melatonin 10 mg PO HS PRN tab PRN Reason: Insomnia bisacodyL [Dulcolax] 10 mg RECTAL ONCE Furosemide [Lasix] 40 mg PO BID@0900,1500 ALPRAZolam [Xanax] 0.5 mg PO BID 7 Days #14 tab Carbidopa/Levodopa [Carbidopa-Levo 25-250 mg Odt] 1 tab PO TID@0800,1300,1700 Cyanocobalamin (Vitamin B-12) [Vitamin B-12] 1,000 mcg PO DAILY Apixaban [Eliquis] 2.5 mg PO BID Budesonide-Formot 160-4.5 Mcg [Symbicort 160-4.5 Mcg Inhaler] 2 puff INHALATION RT-BID Glimepiride [Amaryl] 1 mg PO BID@0900,1700 Acetaminophen Tab [Tylenol] 650 mg PO TID@0900,1300,2100 Albuterol Inhaler [Ventolin Hfa Inhaler] 2 puff INHALATION RT-Q4H PRN PRN Reason: Shortness Of Breath polyethylene glycoL 3350 [Miralax] 17 gm PO DAILY #30 packet Famotidine [Pepcid] 20 mg PO DAILY #30 tablet busPIRone HCL [Buspar] 7.5 mg PO BID Pimavanserin Tartrate [Nuplazid] 34 mg PO DAILY Changed ALPRAZolam [Xanax] 1.5 mg PO DAILY@1400 7 Days #7 tab Discharge Medication List Aspirin 81 mg PO DAILY 07/28/17 [History] Pravastatin Sodium [Pravachol] 40 mg PO HS 07/28/17 [History] Tamsulosin [Flomax] 0.4 mg PO DAILY 07/28/17 [History] allopurinoL [Zyloprim] 300 mg PO DAILY 07/28/17 [History] Metoprolol Succinate (ER) [Toprol XL] 50 mg PO DAILY 30 Days 09/20/21 [Rx] Carbidopa/Levodopa [Carbidopa-Levo 25-250 mg Odt] 1 tab PO TID@0800,1300,1700 09/25/21 [History] Cyanocobalamin (Vitamin B-12) [Vitamin B-12] 1,000 mcg PO DAILY 09/25/21 [History] metFORMIN HCL [Glucophage] 1,000 mg PO DAILY 09/25/21 [History] Acetaminophen Tab [Tylenol] 650 mg PO TID@0900,1300,2100 04/13/22 [History] Albuterol Inhaler [Ventolin Hfa Inhaler] 2 puff INHALATION RT-Q4H PRN 04/13/22 [History] Apixaban [Eliquis] 2.5 mg PO BID 04/13/22 [History] Budesonide-Formot 160-4.5 Mcg [Symbicort 160-4.5 Mcg Inhaler] 2 puff INHALATION RT-BID 04/13/22 [History] Divalproex [Depakote] 250 mg PO BID 04/13/22 [History] Glimepiride [Amaryl] 1 mg PO BID@0900,1700 04/13/22 [History] Glimepiride [Amaryl] 2 mg PO BID@0900,1700 04/13/22 [History] Losartan [Cozaar] 25 mg PO DAILY 04/13/22 [History] Magnesium Hydroxide [Milk of Magnesia] 2,400 mg PO DAILY PRN 04/13/22 [History] Midodrine HCl [ProAmatine] 10 mg PO TID@0900,1300,2100 04/13/22 [History] Spironolactone [Aldactone] 25 mg PO DAILY@1300 04/13/22 [History] rOPINIRole HCL [Requip] 2 mg PO Q6H 04/13/22 [History] Docusate [Colace] 100 mg PO BID cap 04/22/22 [Rx] Famotidine [Pepcid] 20 mg PO DAILY #30 tablet 04/22/22 [Rx] Melatonin 10 mg PO HS PRN tab 04/22/22 [Rx] polyethylene glycoL 3350 [Miralax] 17 gm PO DAILY #30 packet 04/22/22 [Rx] Furosemide [Lasix] 40 mg PO BID@0900,1500 08/23/22 [History] Pimavanserin Tartrate [Nuplazid] 34 mg PO DAILY 08/23/22 [History] bisacodyL [Dulcolax] 10 mg RECTAL ONCE 08/23/22 [History] busPIRone HCL [Buspar] 7.5 mg PO BID 08/23/22 [History] ALPRAZolam [Xanax] 0.5 mg PO BID 7 Days #14 tab 08/28/22 [Rx] ALPRAZolam [Xanax] 1.5 mg PO DAILY@1400 7 Days #7 tab 08/28/22 [Rx] Follow up Appointment(s)/Referral(s): Swetha De La Cruz MD [Primary Care Provider] - 1-2 days Discharge Disposition: TRANSFER TO SNF/ECF
[2022-08-28] MEDS: NON FORMULARY DRUG (Pimavanserin Tartrate [Nuplazid] 34 MG Capsule) PO SCH (12:43)
[2022-08-28 12:48] VITALS: BP 109/66; PULSE 63; TEMP 98.4
[2022-08-28 18:03] LABS: Glucose,Whole Blood 106 mg/dL (70-110)
== END 2022-08-28 18:22 | DRG 640 ==
LOC: EC 07:11 → 5NMEDONC 09:46
PROVIDERS: ADMIT Internal Medicine; ATTEND Internal Medicine
DX: E87.0 Hyperosmolality and hypernatremia (principal); G93.41 Metabolic encephalopathy; N17.9 Acute kidney failure, unspecified; I48.20 Chronic atrial fibrillation, unspecified; J98.11 Atelectasis; I49.5 Sick sinus syndrome; F02.80 Dementia in other diseases classified elsewhere, unspecified severity, without behavioral disturbance, psychotic disturbance, mood disturbance, and anxiety; G20 Parkinson's disease; I11.0 Hypertensive heart disease with heart failure; I50.9 Heart failure, unspecified; D72.829 Elevated white blood cell count, unspecified; E86.0 Dehydration; E11.9 Type 2 diabetes mellitus without complications; G25.81 Restless legs syndrome; Z68.30 Body mass index [BMI] 30.0-30.9, adult; E66.9 Obesity, unspecified; M1A.9XX0 Chronic gout, unspecified, without tophus (tophi); J44.9 Chronic obstructive pulmonary disease, unspecified; I25.10 Atherosclerotic heart disease of native coronary artery without angina pectoris; N40.0 Benign prostatic hyperplasia without lower urinary tract symptoms; G47.00 Insomnia, unspecified; E78.5 Hyperlipidemia, unspecified; M48.00 Spinal stenosis, site unspecified; M19.90 Unspecified osteoarthritis, unspecified site; R30.0 Dysuria; Z96.89 Presence of other specified functional implants; Z79.899 Other long term (current) drug therapy; Z79.82 Long term (current) use of aspirin; Z79.84 Long term (current) use of oral hypoglycemic drugs; Z79.51 Long term (current) use of inhaled steroids; Z79.01 Long term (current) use of anticoagulants; Z79.4 Long term (current) use of insulin; Z88.8 Allergy status to other drugs, medicaments and biological substances; I25.2 Old myocardial infarction; Z95.1 Presence of aortocoronary bypass graft; Z95.0 Presence of cardiac pacemaker; Z86.73 Personal history of transient ischemic attack (TIA), and cerebral infarction without residual deficits; Z82.49 Family history of ischemic heart disease and other diseases of the circulatory system; Z98.84 Bariatric surgery status; Z87.891 Personal history of nicotine dependence
CPT/HCPCS: 36415; 51798; 70450; 71046; 74230; 80048; 80053; 81001; 84484; 85025; 85027; 85610; 85730; 93005; 94640; 94760; 96360; 96361; 99285

== ENCOUNTER 2023-01-11 11:23 | Inpatient (IN) | payer MEDICARE ==
[2023-01-11 11:30] LABS: Glucose,Whole Blood 69 mg/dL (70-110)
[2023-01-11] MEDS: DEXTROSE 50% SYRINGE 50 ML IVP STA (11:35)
[2023-01-11] MEDS ORDERED: NALOXONE 0.4 MG/ML 1 ML VIAL IV PRN (11:38)
[2023-01-11] MEDS ORDERED: DEXTROSE 50% SYRINGE 50 ML IVP STA (11:51)
[2023-01-11] MEDS ORDERED: SODIUM CHLORIDE 0.9% 500 ML 500 ML IV ONE (11:58)
[2023-01-11 12:00] LABS: Glucose,Whole Blood 118 mg/dL (70-110)
--- NOTE | 2023-01-11 12:32 | ED ---
General Adult HPI - General Chief complaint: Altered Mental Status Stated complaint: Hypoglycemia Time Seen by Provider: 01/11/23 11:30 Source: patient, EMS, RN notes reviewed, old records reviewed Mode of arrival: EMS Limitations: altered mental status - History of Present Illness Initial comments: This is a 77-year-old male who presents emergency Department with altered mental status patient was found to have low sugar of 41. Patient was unable to give any history. I got all of my history from EMS. There is no history of any fevers denies any vomiting or diarrhea. No history of any difficulty breathing. Patient does have a history of diabetes. - Related Data Home Medications Medication Instructions Recorded Confirmed Aspirin 81 mg PO DAILY 07/28/17 08/23/22 Pravastatin Sodium [Pravachol] 40 mg PO HS 07/28/17 08/23/22 Tamsulosin [Flomax] 0.4 mg PO DAILY 07/28/17 08/23/22 allopurinoL [Zyloprim] 300 mg PO DAILY 07/28/17 08/23/22 Carbidopa/Levodopa [Carbidopa-Levo 1 tab PO TID@0800,1300,1700 09/25/21 08/23/22 25-250 mg Odt] Cyanocobalamin (Vitamin B-12) 1,000 mcg PO DAILY 09/25/21 08/23/22 [Vitamin B-12] metFORMIN HCL [Glucophage] 1,000 mg PO DAILY 09/25/21 08/23/22 Acetaminophen Tab [Tylenol] 650 mg PO TID@0900,1300,2100 04/13/22 08/23/22 Albuterol Inhaler [Ventolin Hfa 2 puff INHALATION RT-Q4H PRN 04/13/22 08/23/22 Inhaler] Apixaban [Eliquis] 2.5 mg PO BID 04/13/22 08/23/22 Budesonide-Formot 160-4.5 Mcg 2 puff INHALATION RT-BID 04/13/22 08/23/22 [Symbicort 160-4.5 Mcg Inhaler] Divalproex [Depakote] 250 mg PO BID 04/13/22 08/23/22 Glimepiride [Amaryl] 1 mg PO BID@0900,1700 04/13/22 08/23/22 Glimepiride [Amaryl] 2 mg PO BID@0900,1700 04/13/22 08/23/22 Losartan [Cozaar] 25 mg PO DAILY 04/13/22 08/23/22 Magnesium Hydroxide [Milk of 2,400 mg PO DAILY PRN 04/13/22 08/23/22 Magnesia] Midodrine HCl [ProAmatine] 10 mg PO TID@0900,1300,2100 04/13/22 08/23/22 Spironolactone [Aldactone] 25 mg PO DAILY@1300 04/13/22 08/23/22 rOPINIRole HCL [Requip] 2 mg PO Q6H 04/13/22 08/23/22 Furosemide [Lasix] 40 mg PO BID@0900,1500 08/23/22 08/23/22 Pimavanserin Tartrate [Nuplazid] 34 mg PO DAILY 08/23/22 08/23/22 bisacodyL [Dulcolax] 10 mg RECTAL ONCE 08/23/22 08/23/22 busPIRone HCL [Buspar] 7.5 mg PO BID 08/23/22 08/23/22 Previous Rx's Medication Instructions Recorded Metoprolol Succinate (ER) [Toprol 50 mg PO DAILY 30 Days 09/20/21 XL] Docusate [Colace] 100 mg PO BID cap 04/22/22 Famotidine [Pepcid] 20 mg PO DAILY #30 tablet 04/22/22 Melatonin 10 mg PO HS PRN tab 04/22/22 polyethylene glycoL 3350 [Miralax] 17 gm PO DAILY #30 packet 04/22/22 ALPRAZolam [Xanax] 0.5 mg PO BID 7 Days #14 tab 08/28/22 ALPRAZolam [Xanax] 1.5 mg PO DAILY@1400 7 Days #7 tab 08/28/22 Allergies Allergy/AdvReac Type Severity Reaction Status Date / Time gabapentin Allergy unknown, Verified 08/23/22 10:52 per [facility] Review of Systems ROS Statement: Those systems with pertinent positive or pertinent negative responses have been documented in the HPI. ROS Other: All systems not noted in ROS Statement are negative. Past Medical History Past Medical History: Atrial Fibrillation, Coronary Artery Disease (CAD), Heart Failure, COPD, CVA/TIA, Dementia, Diabetes Mellitus, Hyperlipidemia, Hypertension, Myocardial Infarction ([place]), Neurologic Disorder, Prostate Disorder Additional Past Medical History / Comment(s): parkinsons, charcot's joint - foot and ankle, insomnia, restless legs syndrome, spinal stenosis, pacemaker, chronic gout, BPH, arthritis, Last Myocardial Infarction Date:: unknown History of Any Multi-Drug Resistant Organisms: None Reported Past Surgical History: Bariatric Surgery, Cholecystectomy, Coronary Bypass/CABG, Heart Catheterization Additional Past Surgical History / Comment(s): has two implanted batteries for parkinsons, lap band surgery 2009, Past Anesthesia/Blood Transfusion Reactions: No Reported Reaction Date of Last Stent Placement:: 08/25/1989 Past Psychological History: No Psychological Hx Reported Smoking Status: Never smoker Past Alcohol Use History: None Reported Past Drug Use History: None Reported - Past Family History Father Family Medical History: Myocardial Infarction ([place]) Mother Additional Family Medical History / Comment(s): heart disease General Exam - General Exam Comments Initial Comments: GENERAL: Patient is well-developed and well-nourished. Patient is nontoxic and well- hydrated and is in no acute distress. ENT: Neck is soft and supple. No significant lymphadenopathy is noted. Oropharynx is clear. Moist mucous membranes. EYES: The sclera were anicteric and conjunctiva were pink and moist. Extraocular movements were intact and pupils were equal round and reactive to light. Eyelids were unremarkable. PULMONARY: Unlabored respirations. Good breath sounds bilaterally. No audible rales rhonchi or wheezing was noted. CARDIOVASCULAR: There is a regular rate and rhythm without any murmurs gallops or rubs. ABDOMEN: Soft and nontender with normal bowel sounds. SKIN: Skin is clear with no lesions or rashes and otherwise unremarkable. NEUROLOGIC: Patient is alert and oriented 0. MUSCULOSKELETAL: Patient cannot be assessed for range of motion secondary to his altered mental status LYMPHATICS: No significant lymphadenopathy is noted PSYCHIATRIC: Unable to at this time Limitations: altered mental status Course Vital Signs 01/11/23 11:25 Temperature 97 F L Pulse Rate 72 Respiratory 20 Rate Blood Pressure 122/77 O2 Sat by Pulse 94 L Oximetry Medical Decision Making - Medical Decision Making EKG was interpreted by myself EKG shows sinus rhythm at 76 bpm ME interval is unable to be read secondary to the fact the patient has a stimulator in place. Patient's QRS is 120 QT intervals 410 QTC is 440. Patient's EKG shows no ST segment elevation Was pt. sent in by a medical professional or institution (NEVAEH Jacinto, SENIOR TELLER, urgent care, hospital, or penitentiary...) When possible be specific @ -[No] Did you speak to anyone other than the patient for history (EMS, parent, family, police, friend...)? What history was obtained from this source @ -EMS gave all of the history Did you review nursing and triage notes (agree or disagree)? Why? @ -[I reviewed and agree with nursing and triage notes] Were old charts reviewed (outside hosp., previous admission, EMS record, old EKG, old radiological studies, urgent care reports/EKG's, penitentiary records)? Report findings @ -I reviewed prior charts in prior lab work on this patient Differential Diagnosis (chest pain, altered mental status, abdominal pain women, abdominal pain men, vaginal bleeding, weakness, fever, dyspnea, syncope, headache, dizziness, GI bleed, back pain, seizure, CVA, palpatations, mental health, musculoskeletal)? @ -Differential Altered Mental Status: Hypoglycemia, DKA, hypercapnia, ETOH, overdose, CO poisoning, trauma, myxedema coma, HTN encephalopathy, infection, encephalitis, psychosis, intercranial hemorrhage, hepatic encephalopathy, meningitis, CVA, this is not meant to be an all-inclusive list EKG interpreted by me (3pts min.). @ -[As above] X-rays interpreted by me (1pt min.). @ -X-ray was interpreted by myself shows no acute abnormality CT interpreted by me (1pt min.). @ -[None done] U/S interpreted by me (1pt. min.). @ -[None done] What testing was considered but not performed or refused? (CT, X-rays, U/S, labs)? Why? @ -[None] What meds were considered but not given or refused? Why? @ -[None] Did you discuss the management of the patient with other professionals (professionals i.e. NEVAEH Jacinto, SENIOR TELLER, lab, RT, psych nurse, social science teacher, recreational director, teacher, personal banking officer, manager rn case)? Give summary @ -I spoke with Dr. Mohr about the patient and he agreed to admit the patient Was smoking cessation discussed for >3mins.? @ -[No] Was critical care preformed (if so, how long)? @ -[No] Were there social determinants of health that impacted care today? How? (Homelessness, low income, unemployed, alcoholism, drug addiction, transportation, low edu. Level, literacy, decrease access to med. care, skilled nursing, rehab)? @ -[No] Was there de-escalation of care discussed even if they declined (Discuss DNR or withdrawal of care, Hospice)? DNR status @ -[No] What co-morbidities impacted this encounter? (DM, HTN, Smoking, COPD, CAD, Cancer, CVA, ARF, Chemo, Hep., AIDS, mental health diagnosis, sleep apnea, morbid obesity)? @ -[None] Was patient admitted / discharged? Hospital course, mention meds given and route, prescriptions, significant lab abnormalities, going to OR and other pertinent info. @ -Patient came in was hypoglycemic in the field he continued to be decreased responsiveness blood sugar was in the 60s. I give the patient another D50 and shortly thereafter patient was much more alert and oriented. Patient also had acute renal dysfunction as well as urinary tract infection. Patient is given R patrick I spoke Dr. Mohr he agreed to admit the patient admitted the patient wrote admitting orders Undiagnosed new problem with uncertain prognosis? @ -[No] Drug Therapy requiring intensive monitoring for toxicity (Heparin, Nitro, Insulin, Cardizem)? @ -[No] Were any procedures done? @ -[No] Diagnosis/symptom? @ -Hypoglycemia Acute, or Chronic, or Acute on Chronic? @ -Acute Uncomplicated (without systemic symptoms) or Complicated (systemic symptoms)? @ -Complicated Side effects of treatment? @ -[No] Exacerbation, Progression, or Severe Exacerbation? @ -[No] Poses a threat to life or bodily function? How? (Chest pain, [place], [place], pneumonia, PE, COPD, DKA, ARF, appy, cholecystitis, CVA, Diverticulitis, Homicidal, Suicidal, threat to staff... and all critical care pts) @ -[No] Diagnosis/symptom? @ -Acute renal failure Acute, or Chronic, or Acute on Chronic? @ -Acute Uncomplicated (without systemic symptoms) or Complicated (systemic symptoms)? @ -Complicated Side effects of treatment? @ -[none] Exacerbation, Progression, or Severe Exacerbation] @ -[no] Poses a threat to life or bodily function? @ -[no] Diagnosis/symptom? @ -Urinary tract infection Acute, or Chronic, or Acute on Chronic? @ -Acute Uncomplicated (without systemic symptoms) or Complicated (systemic symptoms)? @ -Complicated Side effects of treatment? @ -[none] Exacerbation, Progression, or Severe Exacerbation] @ -[no] Poses a threat to life or bodily function? @ -This could lead to sepsis which can lead to end organ dysfunction - Lab Data Result diagrams: 01/11/23 12:27 01/11/23 12:27 Lab Results 01/11/23 01/11/23 01/11/23 Range/Units 11:29 11:56 12:27 WBC 9.3 (3.8-10.6) k/uL RBC 3.73 L (4.30-5.90) m/uL Hgb 12.3 L (13.0-17.5) gm/dL Hct 37.2 L (39.0-53.0) % MCV 99.8 (80.0-100.0) fL MCH 33.0 (25.0-35.0) pg MCHC 33.1 (31.0-37.0) g/dL RDW 14.0 (11.5-15.5) % Plt Count 199 (150-450) k/uL MPV 8.1 Macrocytosis Slight Sodium (137-145) mmol/L Potassium (3.5-5.1) mmol/L Chloride (98-107) mmol/L Carbon Dioxide (22-30) mmol/L Anion Gap mmol/L BUN (9-20) mg/dL Creatinine (0.66-1.25) mg/dL Est GFR (CKD-EPI)AfAm (>60 ml/min/1.73 sqM) Est GFR (CKD-EPI)NonAf (>60 ml/min/1.73 sqM) Glucose (74-99) mg/dL POC Glucose (mg/dL) 69 L 118 H (70-110) mg/dL POC Glu Sulfonator Operator CLIFFORD January, Calcium (8.4-10.2) mg/dL Total Bilirubin (0.2-1.3) mg/dL AST (17-59) U/L ALT (4-49) U/L Alkaline Phosphatase (38-126) U/L Troponin I (0.000-0.034) ng/mL Total Protein (6.3-8.2) g/dL Albumin (3.5-5.0) g/dL Urine Color Urine Appearance (Clear) Urine pH (5.0-8.0) Ur Specific Monon (1.001-1.035) Urine Protein (Negative) Urine Glucose (UA) (Negative) Urine Ketones (Negative) Urine Blood (Negative) Urine Nitrite (Negative) Urine Bilirubin (Negative) Urine Urobilinogen (<2.0) mg/dL Ur Leukocyte Esterase (Negative) Urine RBC (0-5) /hpf Urine WBC (0-5) /hpf Ur Squamous Epith Cells (0-4) /hpf Urine Bacteria (None) /hpf Urine Mucus (None) /hpf Urine Opiates Screen (NotDetected) Ur Oxycodone Screen (NotDetected) Urine Methadone Screen (NotDetected) Ur Propoxyphene Screen (NotDetected) Ur Barbiturates Screen (NotDetected) U Tricyclic Antidepress (NotDetected) Ur Phencyclidine Scrn (NotDetected) Ur Amphetamines Screen (NotDetected) U Methamphetamines Scrn (NotDetected) U Benzodiazepines Scrn (NotDetected) Urine Cocaine Screen (NotDetected) U Marijuana (THC) Screen (NotDetected) 01/11/23 01/11/23 01/11/23 Range/Units 12:27 12:27 12:27 WBC (3.8-10.6) k/uL RBC (4.30-5.90) m/uL Hgb (13.0-17.5) gm/dL Hct (39.0-53.0) % MCV (80.0-100.0) fL MCH (25.0-35.0) pg MCHC (31.0-37.0) g/dL RDW (11.5-15.5) % Plt Count (150-450) k/uL MPV Macrocytosis Sodium 143 (137-145) mmol/L Potassium 4.1 (3.5-5.1) mmol/L Chloride 105 (98-107) mmol/L Carbon Dioxide 23 (22-30) mmol/L Anion Gap 15 mmol/L BUN 62 H (9-20) mg/dL Creatinine 3.26 H (0.66-1.25) mg/dL Est GFR (CKD-EPI)AfAm 20 (>60 ml/min/1.73 sqM) Est GFR (CKD-EPI)NonAf 17 (>60 ml/min/1.73 sqM) Glucose 203 H (74-99) mg/dL POC Glucose (mg/dL) (70-110) mg/dL POC Glu Sulfonator Operator ID Calcium 8.5 (8.4-10.2) mg/dL Total Bilirubin 0.5 (0.2-1.3) mg/dL AST 22 (17-59) U/L ALT 11 (4-49) U/L Alkaline Phosphatase 106 (38-126) U/L Troponin I 0.023 (0.000-0.034) ng/mL Total Protein 6.8 (6.3-8.2) g/dL Albumin 3.8 (3.5-5.0) g/dL Urine Color Urine Appearance (Clear) Urine pH (5.0-8.0) Ur Specific Monon (1.001-1.035) Urine Protein (Negative) Urine Glucose (UA) (Negative) Urine Ketones (Negative) Urine Blood (Negative) Urine Nitrite (Negative) Urine Bilirubin (Negative) Urine Urobilinogen (<2.0) mg/dL Ur Leukocyte Esterase (Negative) Urine RBC (0-5) /hpf Urine WBC (0-5) /hpf Ur Squamous Epith Cells (0-4) /hpf Urine Bacteria (None) /hpf Urine Mucus (None) /hpf Urine Opiates Screen Not Detected (NotDetected) Ur Oxycodone Screen Not Detected (NotDetected) Urine Methadone Screen Not Detected (NotDetected) Ur Propoxyphene Screen Not Detected (NotDetected) Ur Barbiturates Screen Not Detected (NotDetected) U Tricyclic Antidepress Not Detected (NotDetected) Ur Phencyclidine Scrn Not Detected (NotDetected) Ur Amphetamines Screen Not Detected (NotDetected) U Methamphetamines Scrn Not Detected (NotDetected) U Benzodiazepines Scrn Detected H (NotDetected) Urine Cocaine Screen Not Detected (NotDetected) U Marijuana (THC) Screen Not Detected (NotDetected) 05/20/23 05/20/23 Range/Units 12:27 12:33 WBC (3.8-10.6) k/uL RBC (4.30-5.90) m/uL Hgb (13.0-17.5) gm/dL Hct (39.0-53.0) % MCV (80.0-100.0) fL MCH (25.0-35.0) pg MCHC (31.0-37.0) g/dL RDW (11.5-15.5) % Plt Count (150-450) k/uL MPV Macrocytosis Sodium (137-145) mmol/L Potassium (3.5-5.1) mmol/L Chloride (98-107) mmol/L Carbon Dioxide (22-30) mmol/L Anion Gap mmol/L BUN (9-20) mg/dL Creatinine (0.66-1.25) mg/dL Est GFR (CKD-EPI)AfAm (>60 ml/min/1.73 sqM) Est GFR (CKD-EPI)NonAf (>60 ml/min/1.73 sqM) Glucose (74-99) mg/dL POC Glucose (mg/dL) 143 H (70-110) mg/dL POC Glu Sulfonator Operator ID Flori Cody Calcium (8.4-10.2) mg/dL Total Bilirubin (0.2-1.3) mg/dL AST (17-59) U/L ALT (4-49) U/L Alkaline Phosphatase (38-126) U/L Troponin I (0.000-0.034) ng/mL Total Protein (6.3-8.2) g/dL Albumin (3.5-5.0) g/dL Urine Color Yellow Urine Appearance Cloudy (Clear) Urine pH 5.0 (5.0-8.0) Ur Specific Monon 1.012 (1.001-1.035) Urine Protein Trace H (Negative) Urine Glucose (UA) Negative (Negative) Urine Ketones Negative (Negative) Urine Blood Negative (Negative) Urine Nitrite Negative (Negative) Urine Bilirubin Negative (Negative) Urine Urobilinogen <2.0 (<2.0) mg/dL Ur Leukocyte Esterase Large H (Negative) Urine RBC 6 H (0-5) /hpf Urine WBC 84 H (0-5) /hpf Ur Squamous Epith Cells <1 (0-4) /hpf Urine Bacteria Occasional H (None) /hpf Urine Mucus Rare H (None) /hpf Urine Opiates Screen (NotDetected) Ur Oxycodone Screen (NotDetected) Urine Methadone Screen (NotDetected) Ur Propoxyphene Screen (NotDetected) Ur Barbiturates Screen (NotDetected) U Tricyclic Antidepress (NotDetected) Ur Phencyclidine Scrn (NotDetected) Ur Amphetamines Screen (NotDetected) U Methamphetamines Scrn (NotDetected) U Benzodiazepines Scrn (NotDetected) Urine Cocaine Screen (NotDetected) U Marijuana (THC) Screen (NotDetected) Disposition Clinical Impression: Hypoglycemia, Acute renal failure, Urinary tract infection Disposition: ADMITTED IP TO THIS HOSP Referrals: Swetha De La Cruz MD [Primary Care Provider] - 1-2 days Time of Disposition: 13:10
[2023-01-11 12:34] LABS: Glucose,Whole Blood 143 mg/dL (70-110)
[2023-01-11 12:40] LABS: Albumin 3.8 g/dL (3.5-5.0); Calcium 8.5 mg/dL (8.4-10.2); Potassium 4.1 mmol/L (3.5-5.1); Total Bilirubin 0.5 mg/dL (0.2-1.3); Total Protein 6.8 g/dL (6.3-8.2)
[2023-01-11 12:45] LABS: Appearance,Urine Cloudy (Clear); Bacteria,Urine Occasional /hpf; Bilirubin,Urine Negative (Negative); Blood,Urine Negative (Negative); Color,Urine Yellow; Glucose,Urine (UA) Negative (Negative); Ketones,Urine Negative (Negative); Leukocyte Esterase,Urine Large (Negative); Mucus,Urine Rare /hpf; Nitrite,Urine Negative (Negative); Protein,Urine Trace (Negative); RBC,Urine 6 /hpf (0-5); Specific Gravity,Urine 1.012 (1.001-1.035); Squamous Epithelial Cell,Urine <1 /hpf (0-4); Urobilinogen,Urine <2.0 mg/dL (<2.0); WBC,Urine 84 /hpf (0-5)
[2023-01-11 12:47] LABS: Amphetamine Screen,Urine Not Detected (NotDetected); Barbiturate Screen,Urine Not Detected (NotDetected); Benzodiazepines Screen,Urine Detected (NotDetected); Cocaine Screen,Urine Not Detected (NotDetected); Methadone Screen, Urine Not Detected (NotDetected); Opiate Screen,Urine Not Detected (NotDetected); Oxycodone Screen, Urine Not Detected (NotDetected); Phencyclidine Screen,Urine Not Detected (NotDetected); Tricyclic Antidepressant,Urine Not Detected (NotDetected); Urn Cannabinoid Scrn Not Detected (NotDetected)
[2023-01-11 13:01] LABS: HCT 37.2 % (39.0-53.0); HGB 12.3 gm/dL (13.0-17.5); MCHC 33.1 g/dL (31.0-37.0); MCV 99.8 fL (80.0-100.0); Macrocytosis Slight; Mean Platelet Volume 8.1; Platelet Count 199 k/uL (150-450); RBC 3.73 m/uL (4.30-5.90); WBC 9.3 k/uL (3.8-10.6)
--- NOTE | 2023-01-11 13:02 | XR ---
EXAMINATION TYPE: XR chest 1V portable DATE OF EXAM: 01/11/2023 COMPARISON: Chest x-ray August 23, 2022 HISTORY: Altered mental status and weakness. TECHNIQUE: Single portable frontal view of the chest is obtained. FINDINGS: There is some chronic parenchymal change bilaterally without suspicious focal air space op acity, pleural effusion, or pneumothorax seen. The cardiac silhouette size is stable and within norm al limits. Stimulator devices overlie the bilateral thorax and upper neck. The osseous structures a re demineralized. Degenerative spurring throughout the spine is present. IMPRESSION: No acute process. No significant change from prior
[2023-01-11] MEDS ORDERED: cefTRIAXone IN SWFI 1,000 MG/10 ML SYRINGE IVP STA (13:15)
[2023-01-11 13:20] LABS: Prothrombin Time 10.4 sec (9.0-12.0)
[2023-01-11 13:35] LABS: Partial Thromboplastin Time 18.6 sec (22.0-30.0)
[2023-01-11 13:57] LABS: Lymphocytes # (M) 2.05 k/uL (1.0-4.8); Monocytes # (M) 0.47 k/uL (0-1.0); Neutrophils # (M) 6.79 k/uL (1.3-7.7); Neutrophils % (M) 73 %; Nucleated Red Blood Cells 0 /100 WBC (0-0); Total Cells Counted 100
[2023-01-11 14:13] LABS: Glucose,Whole Blood 83 mg/dL (70-110)
[2023-01-11 20:52] LABS: Glucose,Whole Blood 70 mg/dL (70-110)
[2023-01-11] MEDS: QUEtiapine 100 MG TAB PO PRN (21:28)
[2023-01-11] MEDS: APIXABAN 2.5 MG TABLET PO SCH (21:28)
[2023-01-11] MEDS: CARBIDOPA-LEVODOPA 25-250 MG 1 EACH TAB PO SCH (21:28)
[2023-01-11] MEDS: DOCUSATE 100 MG CAP PO SCH (21:28)
[2023-01-12] MEDS: DEXTROSE 50% SYRINGE 50 ML IVP STA ×3 (01:46→08:04)
[2023-01-12 02:02] LABS: Glucose,Whole Blood 33 mg/dL (70-110)
[2023-01-12 02:06] LABS: Glucose,Whole Blood 80 mg/dL (70-110)
[2023-01-12 02:41] LABS: Glucose,Whole Blood 71 mg/dL (70-110)
[2023-01-12 04:02] LABS: Glucose,Whole Blood 33 mg/dL (70-110)
[2023-01-12 04:11] LABS: Glucose,Whole Blood 46 mg/dL (70-110)
[2023-01-12 04:38] LABS: Glucose,Whole Blood 95 mg/dL (70-110)
[2023-01-12] MEDS: CARBIDOPA-LEVODOPA 25-250 MG 1 EACH TAB PO SCH ×4 (05:59→21:31)
[2023-01-12 06:23] LABS: Glucose,Whole Blood 58 mg/dL (70-110)
[2023-01-12 06:23] LABS: Glucose,Whole Blood 44 mg/dL (70-110)
[2023-01-12 06:23] LABS: Glucose,Whole Blood 51 mg/dL (70-110)
[2023-01-12 06:23] LABS: Glucose,Whole Blood 49 mg/dL (70-110)
[2023-01-12] MEDS: DEXTROSE 5%-0.9% NACL 1,000 ML IV SCH ×2 (06:34→21:29)
[2023-01-12 06:36] LABS: Glucose,Whole Blood 75 mg/dL (70-110)
[2023-01-12] MEDS ORDERED: DEXTROSE 50% SYRINGE 50 ML IVP ONE (07:43)
[2023-01-12 07:51] LABS: Glucose,Whole Blood 39 mg/dL (70-110)
[2023-01-12] MEDS ORDERED: DEXTROSE 50% SYRINGE 50 ML IVP STA ×2 (08:04→10:05)
[2023-01-12 08:10] LABS: Glucose,Whole Blood 167 mg/dL (70-110)
[2023-01-12] MEDS: DOCUSATE 100 MG CAP PO SCH ×2 (09:05→21:31)
[2023-01-12] MEDS: APIXABAN 2.5 MG TABLET PO SCH ×2 (09:05→21:31)
[2023-01-12 09:19] LABS: HCT 33.8 % (39.6-50.0); HGB 10.8 g/dL (13.0-17.0); MCH 32.2 pg (27.0-32.0); MCV 100.9 fL (80.0-97.0); RBC 3.35 X 10*6/uL (4.40-5.60); RDW 14.2 % (11.5-14.5); WBC 12.48 X 10*3/uL (4.50-10.00)
[2023-01-12 09:20] LABS: Basophils # (A) 0.06 X 10*3/uL (0.00-0.10); Basophils % (A) 0.5 %; Eosinophils # (A) 0.46 X 10*3/uL (0.04-0.35); Eosinophils % (A) 3.7 %; Immature Grans, Automated 0.3 %; Lymphocytes # (A) 3.94 X 10*3/uL (0.90-5.00); Lymphocytes % (A) 31.6 %; Mean Platelet Volume 11.1 fL (9.5-12.2); Monocytes # (A) 0.82 X 10*3/uL (0.20-1.00); Monocytes % (A) 6.6 %; NRBC Per 100 WBC 0 /100 WBCS (0.0-0.0); Neutrophils # (A) 7.16 X 10*3/uL (1.80-7.70); Neutrophils % (A) 57.3 %; Platelet Count 198 X 10*3/uL (140-440)
[2023-01-12 10:12] LABS: Glucose,Whole Blood 66 mg/dL (70-110)
[2023-01-12 10:35] LABS: Glucose,Whole Blood 151 mg/dL (70-110)
--- NOTE | 2023-01-12 11:10 | P.NPCON ---
History of Present Illness - Reason for Consult acute renal failure - History of Present Illness Reason for consultation: Acute kidney injury History of present illness: The patient is a 77-year-old male seen in renal consultation for acute kidney injury. Patient's creatinine as of 08/25/2022 was 0.89 and is elevated at 3.26 today. Patient came to the hospital due to altered mental status. Patient's blood sugar was noted to be low at 54 and he has been given multiple amps of D50. Overnight his blood sugar was again low in the 30s. He's currently receiving D5 normal saline at 75 mL an hour. Patient is awake and alert. He denies chest pain or shortness of breath. No vomiting or diarrhea. Blood pressure stable. Afebrile. UA suggestive of UTI and is receiving IV antibiotics. Patient is unsure of the medication he takes. I do see Motrin, Lasix as well as losartan in his home medication list. All of these are currently held. He denies gross hematuria. Chest x-ray showed no evidence of fluid overload. Vital signs are stable. General: No acute distress. HEENT: Head exam is unremarkable. LUNGS: No audible rhonchi or wheezes. HEART: Rate and Rhythm are regular. ABDOMEN: Nontender. EXTREMITITES: No edema. Past Medical History Past Medical History: Atrial Fibrillation, Coronary Artery Disease (CAD), Heart Failure, COPD, CVA/TIA, Dementia, Diabetes Mellitus, Hyperlipidemia, Hypertension, Myocardial Infarction ([place]), Neurologic Disorder, Prostate Disorder Additional Past Medical History / Comment(s): parkinsons, charcot's joint - foot and ankle, insomnia, restless legs syndrome, spinal stenosis, pacemaker, chronic gout, BPH, arthritis, Last Myocardial Infarction Date:: 1997 History of Any Multi-Drug Resistant Organisms: None Reported Past Surgical History: Bariatric Surgery, Cholecystectomy, Coronary Bypass/CABG, EPS, Heart Catheterization, Joint Replacement Additional Past Surgical History / Comment(s): has two implanted batteries for parkinsons, lap band surgery 2009, bilat knee replacements Past Anesthesia/Blood Transfusion Reactions: No Reported Reaction Date of Last Stent Placement:: 08/25/1989 Past Psychological History: No Psychological Hx Reported Smoking Status: Never smoker Past Alcohol Use History: None Reported Past Drug Use History: None Reported - Past Family History Father Family Medical History: Myocardial Infarction ([place]) Mother Additional Family Medical History / Comment(s): heart disease Medications and Allergies Home Medications Medication Instructions Recorded Confirmed Type Aspirin 81 mg PO DAILY@0900 07/28/17 01/11/23 History Pravastatin Sodium [Pravachol] 40 mg PO HS@209907/28/17 01/11/23 History Tamsulosin [Flomax] 0.4 mg PO DAILY@0900 07/28/17 01/11/23 History allopurinoL [Zyloprim] 300 mg PO DAILY@89907/28/17 01/11/23 History Carbidopa/Levodopa [Carbidopa-Levo 1 tab PO QID@06,,,09/25/21 01/11/23 History 25-250 mg Odt] Cyanocobalamin (Vitamin B-12) 1,000 mcg PO DAILY@89909/25/21 01/11/23 History [Vitamin B-12] metFORMIN HCL [Glucophage] 1,000 mg PO DAILY@00 09/25/21 01/11/23 History Albuterol Inhaler [Ventolin Hfa 2 puff INHALATION RT-Q4H PRN 04/13/22 01/11/23 History Inhaler] Apixaban [Eliquis] 2.5 mg PO BID@0900,209904/13/22 01/11/23 History Budesonide-Formot 160-4.5 Mcg 2 puff INHALATION RT-BID@0900,209904/13/22 History [Symbicort 160-4.5 Mcg Inhaler] Glimepiride [Amaryl] 1 mg PO BID@0900,1700 04/13/22 01/11/23 History Glimepiride [Amaryl] 2 mg PO BID@0900,1700 04/13/22 01/11/23 History Losartan [Cozaar] 25 mg PO DAILY@0904/13/22 01/11/23 History Midodrine HCl [ProAmatine] 10 mg PO TID@0900,1300,209904/13/22 01/11/23 History Spironolactone [Aldactone] 25 mg PO DAILY@1300 04/13/22 01/11/23 History Melatonin 10 mg PO HS PRN tab 04/22/22 01/11/23 Rx Furosemide [Lasix] 40 mg PO BID@0900,1500 08/23/22 01/11/23 History Pimavanserin Tartrate [Nuplazid] 34 mg PO DAILY@0900 08/23/22 01/11/23 History busPIRone HCL [Buspar] 7.5 mg PO TID@0600,1400,2200 08/23/22 01/11/23 History ALPRAZolam [Xanax] 1 mg PO DAILY@1400 01/11/23 01/11/23 History Ascorbic Acid [Vitamin C] 500 mg PO DAILY@0900 01/11/23 01/11/23 History Cholecalciferol [Vitamin D3 (25 50 mcg PO DAILY@89901/11/23 01/11/23 History Mcg = 1000 Iu)] Divalproex Sodium [Depakote] 125 mg PO BID@0900,209901/11/23 01/11/23 History Docusate [Colace] 100 mg PO BID@0900,2100 01/11/23 01/11/23 History Famotidine [Pepcid] 20 mg PO DAILY@0900 01/11/23 01/11/23 History Ferrous Sulfate [Iron] 325 mg PO DAILY@0900 01/11/23 01/11/23 History Ibuprofen [Motrin Ib] 600 mg PO BID@0900,209901/11/23 01/11/23 History Metoprolol Succinate (ER) [Toprol 50 mg PO DAILY@0901/11/23 01/11/23 History XL] QUEtiapine [SEROquel] 100 mg PO DAILY@1800 01/11/23 01/11/23 History Zinc Gluconate [Zinc] 50 mg PO DAILY@0900 01/11/23 01/11/23 History polyethylene glycoL 3350 [Miralax] 17 gm PO DAILY@0900 01/11/23 01/11/23 History rOPINIRole HCL [Requip] 4 mg PO QID@00,06,12,18 01/11/23 01/11/23 History Allergies Allergy/AdvReac Type Severity Reaction Status Date / Time gabapentin Allergy unknown, Verified 01/11/23 13:30 per [facility] Physical Exam Vitals: Vital Signs Temp Pulse Pulse Resp BP BP Pulse Ox 01/12/23 07:37 98.5 F 59 L 16 118/69 97 01/12/23 01:40 97.5 F L 68 16 112/63 99 01/11/23 19:12 98.7 F 74 16 119/71 98 01/11/23 15:43 97.3 F L 81 15 125/83 95 01/11/23 14:13 97.1 F L 58 L 18 118/79 95 01/11/23 11:25 97 F L 72 20 122/77 94 L Intake and Output 01/11/23 01/12/23 01/12/23 22:59 06:59 14:59 Other: Voiding Method Diaper # Voids 1 4 2 Weight 95.254 kg Results - Lab Results Most recent lab results Calcium 8.5 mg/dL (8.4-10.2) 01/11/23 12:27 01/12/23 06:31 01/12/23 04:21 Assessment and Plan Plan: Assessment: 1. Acute kidney injury secondary to ATN secondary to severe sepsis and further worsened with the use of diuretics and NSAIDs. Creatinine 3.26 on admission. Creatinine 0.89 dated 08/25/2022. 2. UTI on antibiotics. ID consulted. 3. Diabetes with hypoglycemia. 4. Benign hypertension. Currently controlled. Plan: Maintain D5 normal saline at 75 mL an hour. Check bladder scan to rule out urinary retention. Check renal ultrasound. Continue to hold antihypertensives and diuretics. Morning labs pending. Thank you for the consultation. I will continue to follow the patient with you during his hospital stay.
[2023-01-12 11:46] LABS: African American GFR (CKD) 30.1 (60.0-200.0); Anion Gap 14.6 mmol/L (10.00-18.00); BUN/Creat Ratio 20.56 Ratio (12.00-20.00); Blood Urea Nitrogen 47.7 mg/dL (9.0-27.0); Calcium 8.4 mg/dL (8.7-10.3); Carbon Dioxide 23.7 mmol/L (20.0-27.5); Potassium 3.6 mmol/L (3.5-5.5)
--- NOTE | 2023-01-12 12:20 | US ---
EXAMINATION TYPE: US kidneys/renal and bladder DATE OF EXAM: 01/12/2023 Exam done portable COMPARISON: CT 2021 CLINICAL INDICATION: Male, 77 years old with history of ricky; EXAM MEASUREMENTS: Right Kidney: 10.4 x 6.0 x 5.3 cm Left Kidney: 11.6 x 6.6 x 5.3 cm Right Kidney: 2.3 cm exophytic hypoechoic area lateral mid pole compatible with cyst. Cortical medul chun differentiation is maintained. Left Kidney: limited visualization due to patient position, rib shadowing and overlying bowel gas. Co rtical medullary differentiation is maintained. Bladder: 2.1 x 2.0 x 2.8 cm hypoechoic area seen along posterior wall compatible with median lobe hyp ertrophy changes. IMPRESSION: 1. No evidence of obstructive uropathy. 2. Prostatomegaly
[2023-01-12 12:23] LABS: Glucose,Whole Blood 137 mg/dL (70-110)
[2023-01-12 14:58] LABS: Glucose,Whole Blood 172 mg/dL (70-110)
--- NOTE | 2023-01-12 15:19 | HP ---
HISTORY AND PHYSICAL CHIEF COMPLAINT: Change in mental status, and hypoglycemia. HISTORY: A 77-year-old gentleman with a past medical history of multiple medical problems, admitted with change in mental status. Blood sugar was found to be 41. Despite after giving D50 ampules, the sugars are fluctuating with hypoglycemic levels. Currently, the patient is conscious, alert, but rather confused. There is no history of fever, rigors, chills. The patient also has some renal failure as well. PAST MEDICAL HISTORY: Reviewed. Includes atrial fibrillation and CAD. Rest of the history and rest of the chart is also reviewed. HOME MEDICATIONS: Reviewed. Include albuterol, glimepiride. Rest of the medications also reviewed. ALLERGIES: Gabapentin. FAMILY HISTORY: Could not be taken because of the confusion. SOCIAL HISTORY: Could not be taken because of the confusion. REVIEW OF SYSTEMS: Could not be taken because of the confusion. PHYSICAL EXAMINATION: VITAL SIGNS: Pulse is 68, blood pressure 130/60, respiratory rate 16. HEENT: Conjunctivae are normal. Oral mucosa dry. NECK: There is no JVD. CARDIOVASCULAR: S1 and S2. RESPIRATIONS: A few scattered rhonchi. ABDOMEN: Soft, nontender, no mass palpable. LEGS: No edema. No swelling. Diffusely weak. LABORATORY DATA: Reviewed. ASSESSMENT: 1. Change in mental status, possibly secondary to hypoglycemia. 2. Atrial fibrillation. 3. Acute renal failure, possibly prerenal renal failure. 4. Chronic obstructive pulmonary disease. 5. Congestive heart failure history. 6. Dementia. 7. Multiple medical issues. RECOMMENDATIONS AND DISCUSSION: This is a 77-year-old gentleman who presented with multiple complex medical issues. At this time, I have recommended to continue the current medication. As mentioned earlier, hypoglycemia is rather recalcitrant. I would recommend a D5 water and monitor sugars very closely. Otherwise, I recommend repeat labs. The patient is on empiric antibiotics, but we will obtain the urine culture to rule out the possibility of UTI. Other than that, blood cultures also will be obtained. The creatinine is improving. Otherwise, continue to monitor. See orders for further details. Further recommendations to follow. MMODL / IJN: [id number] /
[2023-01-12 17:21] LABS: Glucose,Whole Blood 156 mg/dL (70-110)
[2023-01-12 20:04] LABS: Glucose,Whole Blood 219 mg/dL (70-110)
[2023-01-12] MEDS ORDERED: QUEtiapine 100 MG TAB PO SCH (21:00)
[2023-01-12] MEDS: QUEtiapine 100 MG TAB PO PRN (21:31)
--- NOTE | 2023-01-12 22:15 | P.CONS ---
History of Present Illness - Reason for Consult Consult date: 01/12/23 - History of Present Illness Patient is a 77-year-old male with a past medical history significant for atrial fibrillation coronary disease heart failure COPD diabetes mellitus hypertension hyperlipidemia patient was brought into the ER for evaluation of mental status changes apparently symptom has been going on for the patient was brought to the hospital on arrival of EMS patient was noted to be hypoglycemic w ith a blood sugar of 41 patient did not have any symptoms at that point and subsequently was brought to the hospital for further evaluation patient had did not recall what happened at the time of presentation to the hospital currently denies having any headache or URI symptoms no chest pain shortness of breath no cough no nausea no vomiting no abdominal pain no diarrhea patient presented hospital was afebrile patient was not hypotensive or hypoxic and no need for supplemental oxygen he did have a white count of 12.4 at elevated BUN/creatinine urine was positive urine testing was positive for benzo chest x-ray was negative for any pneumonia ultrasound of the abdomen did not show any hydronephrosis no evidence of prostatomegaly patient did have a positive UA concerning for a symptomatic UTI patient was started on Rocephin infectious disease was consulted for further management of antibody therapy Past Medical History Past Medical History: Atrial Fibrillation, Coronary Artery Disease (CAD), Heart Failure, COPD, CVA/TIA, Dementia, Diabetes Mellitus, Hyperlipidemia, Hypertension, Myocardial Infarction (AR), Neurologic Disorder, Prostate Disorder Additional Past Medical History / Comment(s): parkinsons, charcot's joint - foot and ankle, insomnia, restless legs syndrome, spinal stenosis, pacemaker, chronic gout, BPH, arthritis, Last Myocardial Infarction Date:: 1997 History of Any Multi-Drug Resistant Organisms: None Reported Past Surgical History: Bariatric Surgery, Cholecystectomy, Coronary Bypass/CABG, EPS, Heart Catheterization, Joint Replacement Additional Past Surgical History / Comment(s): has two implanted batteries for parkinsons, lap band surgery 2009, bilat knee replacements Past Anesthesia/Blood Transfusion Reactions: No Reported Reaction Date of Last Stent Placement:: 08/25/1989 Past Psychological History: No Psychological Hx Reported Smoking Status: Never smoker Past Alcohol Use History: None Reported Past Drug Use History: None Reported - Past Family History Father Family Medical History: Myocardial Infarction (AR) Mother Additional Family Medical History / Comment(s): heart disease Medications and Allergies Home Medications Medication Instructions Recorded Confirmed Type Aspirin 81 mg PO DAILY@0900 07/28/17 01/11/23 History Pravastatin Sodium [Pravachol] 40 mg PO HS@209907/28/17 01/11/23 History Tamsulosin [Flomax] 0.4 mg PO DAILY@0900 07/28/17 01/11/23 History allopurinoL [Zyloprim] 300 mg PO DAILY@0900 07/28/17 01/11/23 History Carbidopa/Levodopa [Carbidopa-Levo 1 tab PO QID@,,,09/25/21 01/11/23 History 25-250 mg Odt] Cyanocobalamin (Vitamin B-12) 1,000 mcg PO DAILY@89909/25/21 01/11/23 History [Vitamin B-12] metFORMIN HCL [Glucophage] 1,000 mg PO DAILY@89909/25/21 01/11/23 History Albuterol Inhaler [Ventolin Hfa 2 puff INHALATION RT-Q4H PRN 04/13/22 01/11/23 History Inhaler] Apixaban [Eliquis] 2.5 mg PO BID@0900,209904/13/22 01/11/23 History Budesonide-Formot 160-4.5 Mcg 2 puff INHALATION RT-BID@0900,209904/13/22 01/11/23 History [Symbicort 160-4.5 Mcg Inhaler] Glimepiride [Amaryl] 1 mg PO BID@0900,1700 04/13/22 01/11/23 History Glimepiride [Amaryl] 2 mg PO BID@0900,1700 04/13/22 01/11/23 History Losartan [Cozaar] 25 mg PO DAILY@0900 04/13/22 01/11/23 History Midodrine HCl [ProAmatine] 10 mg PO TID@0900,1300,209904/13/22 01/11/23 History Spironolactone [Aldactone] 25 mg PO DAILY@1300 04/13/22 01/11/23 History Melatonin 10 mg PO HS PRN tab 04/22/22 01/11/23 Rx Furosemide [Lasix] 40 mg PO BID@0900,1500 08/23/22 01/11/23 History Pimavanserin Tartrate [Nuplazid] 34 mg PO DAILY@0900 08/23/22 01/11/23 History busPIRone HCL [Buspar] 7.5 mg PO TID@0600,1400,2200 08/23/22 01/11/23 History ALPRAZolam [Xanax] 1 mg PO DAILY@1400 01/11/23 01/11/23 History Ascorbic Acid [Vitamin C] 500 mg PO DAILY@89901/11/23 01/11/23 History Cholecalciferol [Vitamin D3 (25 50 mcg PO DAILY@89901/11/23 01/11/23 History Mcg = 1000 Iu)] Divalproex Sodium [Depakote] 125 mg PO BID@0900,209901/11/23 01/11/23 History Docusate [Colace] 100 mg PO BID@0900,209901/11/23 01/11/23 History Famotidine [Pepcid] 20 mg PO DAILY@89901/11/23 01/11/23 History Ferrous Sulfate [Iron] 325 mg PO DAILY@0901/11/23 01/11/23 History Ibuprofen [Motrin Ib] 600 mg PO BID@0900,209901/11/23 01/11/23 History Metoprolol Succinate (ER) [Toprol 50 mg PO DAILY@89901/11/23 01/11/23 History XL] QUEtiapine [SEROquel] 100 mg PO DAILY@1800 01/11/23 01/11/23 History Zinc Gluconate [Zinc] 50 mg PO DAILY@89901/11/23 01/11/23 History polyethylene glycoL 3350 [Miralax] 17 gm PO DAILY@0901/11/23 01/11/23 History rOPINIRole HCL [Requip] 4 mg PO QID@00,06,12,18 01/11/23 01/11/23 History Allergies Allergy/AdvReac Type Severity Reaction Status Date / Time gabapentin Allergy unknown, Verified 01/11/23 13:30 per [facility] Physical Exam Vitals: Vital Signs Temp Pulse Pulse Resp BP BP Pulse Ox 01/12/23 07:37 98.5 F 59 L 16 118/69 97 01/12/23 01:40 97.5 F L 68 16 112/63 99 01/11/23 19:12 98.7 F 74 16 119/71 98 01/11/23 15:43 97.3 F L 81 15 125/83 95 01/11/23 14:13 97.1 F L 58 L 18 118/79 95 Intake and Output 01/11/23 01/12/23 01/12/23 22:59 06:59 14:59 Output Total 197 Balance -197 Output: Post Void Residual 197 Other: Voiding Method Diaper # Voids 1 4 2 Weight 95.254 kg Results CBC & Chem 7: 01/12/23 06:31 01/12/23 06:31 Labs: Abnormal Lab Results - Last 24 Hours (Table) 01/11/23 01/12/23 01/12/23 Range/Units 12:27 01:43 03:58 WBC (4.50-10.00) X 10*3/uL RBC (4.40-5.60) X 10*6/uL Hgb (13.0-17.0) g/dL Hct (39.6-50.0) % MCV (80.0-97.0) fL MCH (27.0-32.0) pg Eosinophils # (0.04-0.35) X 10*3/uL APTT 18.6 L (22.0-30.0) sec BUN (9.0-27.0) mg/dL Creatinine (0.6-1.5) mg/dL Est GFR (CKD-EPI)AfAm (60.0-200.0) Est GFR (CKD-EPI)NonAf (60.0-200.0) BUN/Creatinine Ratio (12.00-20.00) Ratio Glucose (70-110) mg/dL POC Glucose (mg/dL) 33 L 33 L (70-110) mg/dL Calcium (8.7-10.3) mg/dL 01/12/23 01/12/23 01/12/23 Range/Units 04:01 05:33 05:35 WBC (4.50-10.00) X 10*3/uL RBC (4.40-5.60) X 10*6/uL Hgb (13.0-17.0) g/dL Hct (39.6-50.0) % MCV (80.0-97.0) fL MCH (27.0-32.0) pg Eosinophils # (0.04-0.35) X 10*3/uL APTT (22.0-30.0) sec BUN (9.0-27.0) mg/dL Creatinine (0.6-1.5) mg/dL Est GFR (CKD-EPI)AfAm (60.0-200.0) Est GFR (CKD-EPI)NonAf (60.0-200.0) BUN/Creatinine Ratio (12.00-20.00) Ratio Glucose (70-110) mg/dL POC Glucose (mg/dL) 46 L 49 L 44 L (70-110) mg/dL Calcium (8.7-10.3) mg/dL 01/12/23 01/12/23 01/12/23 Range/Units 06:02 06:04 06:31 WBC 12.48 H (4.50-10.00) X 10*3/uL RBC 3.35 L (4.40-5.60) X 10*6/uL Hgb 10.8 L (13.0-17.0) g/dL Hct 33.8 L (39.6-50.0) % MCV 100.9 H (80.0-97.0) fL MCH 32.2 H (27.0-32.0) pg Eosinophils # 0.46 H (0.04-0.35) X 10*3/uL APTT (22.0-30.0) sec BUN (9.0-27.0) mg/dL Creatinine (0.6-1.5) mg/dL Est GFR (CKD-EPI)AfAm (60.0-200.0) Est GFR (CKD-EPI)NonAf (60.0-200.0) BUN/Creatinine Ratio (12.00-20.00) Ratio Glucose (70-110) mg/dL POC Glucose (mg/dL) 51 L 58 L (70-110) mg/dL Calcium (8.7-10.3) mg/dL 01/12/23 01/12/23 01/12/23 Range/Units 06:31 07:40 08:08 WBC (4.50-10.00) X 10*3/uL RBC (4.40-5.60) X 10*6/uL Hgb (13.0-17.0) g/dL Hct (39.6-50.0) % MCV (80.0-97.0) fL MCH (27.0-32.0) pg Eosinophils # (0.04-0.35) X 10*3/uL APTT (22.0-30.0) sec BUN 47.7 H (9.0-27.0) mg/dL Creatinine 2.3 H (0.6-1.5) mg/dL Est GFR (CKD-EPI)AfAm 30.1 L (60.0-200.0) Est GFR (CKD-EPI)NonAf 26.0 L (60.0-200.0) BUN/Creatinine Ratio 20.56 H (12.00-20.00) Ratio Glucose 60 L (70-110) mg/dL POC Glucose (mg/dL) 39 L 167 H (70-110) mg/dL Calcium 8.4 L (8.7-10.3) mg/dL 01/12/23 01/12/23 01/12/23 Range/Units 09:56 10:32 12:22 WBC (4.50-10.00) X 10*3/uL RBC (4.40-5.60) X 10*6/uL Hgb (13.0-17.0) g/dL Hct (39.6-50.0) % MCV (80.0-97.0) fL MCH (27.0-32.0) pg Eosinophils # (0.04-0.35) X 10*3/uL APTT (22.0-30.0) sec BUN (9.0-27.0) mg/dL Creatinine (0.6-1.5) mg/dL Est GFR (CKD-EPI)AfAm (60.0-200.0) Est GFR (CKD-EPI)NonAf (60.0-200.0) BUN/Creatinine Ratio (12.00-20.00) Ratio Glucose (70-110) mg/dL POC Glucose (mg/dL) 66 L 151 H 137 H (70-110) mg/dL Calcium (8.7-10.3) mg/dL Assessment and Plan Plan: 1patient presented hospital with mental status changes multifactorial possibly component of dehydration prerenal did have a positive UA with evidence of prostatomegaly concerning for urinary outflow obstruction and UTI likely from enteric gram-negative pathogen 2-renal insufficiency high risk of nephrotoxicity 3-patient to continue Rocephin 1 g daily while waiting for the culture to finalize on with gentle IV fluid We will follow on clinical condition and cultures to further adjust medication if needed Thank you for this consultation we will follow the patient along with you Time with Patient: Greater than 30
[2023-01-13 01:26] LABS: Glucose,Whole Blood 295 mg/dL (70-110)
[2023-01-13 04:55] LABS: Glucose,Whole Blood 239 mg/dL (70-110)
[2023-01-13] MEDS: CARBIDOPA-LEVODOPA 25-250 MG 1 EACH TAB PO SCH ×4 (06:14→21:19)
[2023-01-13 07:16] LABS: Glucose,Whole Blood 233 mg/dL (70-110)
[2023-01-13] MEDS: DOCUSATE 100 MG CAP PO SCH ×2 (09:47→21:19)
[2023-01-13] MEDS: APIXABAN 2.5 MG TABLET PO SCH ×2 (09:47→21:19)
[2023-01-13 11:08] LABS: Glucose,Whole Blood 217 mg/dL (70-110)
[2023-01-13 11:15] LABS: African American GFR (CKD) 55.4 (60.0-200.0); Anion Gap 9.4 mmol/L (10.00-18.00); BUN/Creat Ratio 23.14 Ratio (12.00-20.00); Blood Urea Nitrogen 32.4 mg/dL (9.0-27.0); Calcium 8.5 mg/dL (8.7-10.3); Carbon Dioxide 25.6 mmol/L (20.0-27.5); Non-African American GFR(CKD) 47.8 (60.0-200.0); Potassium 3.8 mmol/L (3.5-5.5)
[2023-01-13 11:42] LABS: Basophils # (A) 0.06 X 10*3/uL (0.00-0.10); Basophils % (A) 0.5 %; Eosinophils % (A) 4.8 %; HCT 34.2 % (39.6-50.0); HGB 10.8 g/dL (13.0-17.0); Immature Grans, Automated 0.2 %; Lymphocytes % (A) 26.4 %; MCH 31.9 pg (27.0-32.0); MCHC 31.6 g/dL (32.0-37.0); MCV 100.9 fL (80.0-97.0); Mean Platelet Volume 11.7 fL (9.5-12.2); Monocytes # (A) 0.94 X 10*3/uL (0.20-1.00); Monocytes % (A) 7.5 %; NRBC Per 100 WBC 0 /100 WBCS (0.0-0.0); Neutrophils # (A) 7.58 X 10*3/uL (1.80-7.70); Neutrophils % (A) 60.6 %; Platelet Count 189 X 10*3/uL (140-440); RBC 3.39 X 10*6/uL (4.40-5.60); RDW 14.3 % (11.5-14.5); WBC 12.51 X 10*3/uL (4.50-10.00)
[2023-01-13] MEDS: DEXTROSE 5%-0.9% NACL 1,000 ML IV SCH (11:46)
--- NOTE | 2023-01-13 12:45 | P.PN ---
Subjective Progress Note Date: 01/13/23 Principal diagnosis: Urinary tract infection Patient is a 77-year-old male with a past medical history significant for atrial fibrillation coronary disease heart failure COPD diabetes mellitus hypertension hyperlipidemia patient was brought into the ER for evaluation of mental status changes , patient did have a positive UA concerning for a urinary tract infection. On today's evaluation that is 01/13/2023, the patient denies having any fever or any chills, the patient is breathing comfortably on room air no chest pain no shortness of breath or cough no nausea no vomiting no abdominal pain or diarrhea Objective - Vital Signs Vital signs: Vital Signs Temp 99.4 F 01/13/23 07:20 Pulse 76 01/13/23 07:20 Resp 16 01/13/23 07:20 BP 127/77 01/13/23 07:20 Pulse Ox 96 01/13/23 08:53 FiO2 21 01/13/23 08:53 Intake & Output 01/12/23 01/13/23 01/13/23 18:59 06:59 18:59 Intake Total 480 475 Output Total 197 Balance 283 475 Intake: Oral 480 475 Output: Post Void Residual 197 Other: Voiding Method Diaper Diaper # Voids 4 1 1 # Bowel Movements 1 - Exam GENERAL DESCRIPTION: An elderly male lying in bed in no distress RESPIRATORY SYSTEM: Unlabored breathing , decreased breath sounds at bases HEART: S1 S2 regular rate and rhythm , ABDOMEN: Soft , no tenderness EXTREMITIES: No edema feet - Labs CBC & Chem 7: 01/13/23 06:14 01/13/23 06:14 Labs: Abnormal Lab Results - Last 24 Hours (Table) 01/12/23 01/12/23 01/12/23 Range/Units 14:56 17:20 20:02 WBC (4.50-10.00) X 10*3/uL RBC (4.40-5.60) X 10*6/uL Hgb (13.0-17.0) g/dL Hct (39.6-50.0) % MCV (80.0-97.0) fL MCHC (32.0-37.0) g/dL Eosinophils # (0.04-0.35) X 10*3/uL Anion Gap (10.00-18.00) mmol/L BUN (9.0-27.0) mg/dL Est GFR (CKD-EPI)AfAm (60.0-200.0) Est GFR (CKD-EPI)NonAf (60.0-200.0) BUN/Creatinine Ratio (12.00-20.00) Ratio Glucose (70-110) mg/dL POC Glucose (mg/dL) 172 H 156 H 219 H (70-110) mg/dL Calcium (8.7-10.3) mg/dL 01/13/23 01/13/23 01/13/23 Range/Units 01:22 04:53 06:14 WBC 12.51 H (4.50-10.00) X 10*3/uL RBC 3.39 L (4.40-5.60) X 10*6/uL Hgb 10.8 L (13.0-17.0) g/dL Hct 34.2 L (39.6-50.0) % MCV 100.9 H (80.0-97.0) fL MCHC 31.6 L (32.0-37.0) g/dL Eosinophils # 0.60 H (0.04-0.35) X 10*3/uL Anion Gap (10.00-18.00) mmol/L BUN (9.0-27.0) mg/dL Est GFR (CKD-EPI)AfAm (60.0-200.0) Est GFR (CKD-EPI)NonAf (60.0-200.0) BUN/Creatinine Ratio (12.00-20.00) Ratio Glucose (70-110) mg/dL POC Glucose (mg/dL) 295 H 239 H (70-110) mg/dL Calcium (8.7-10.3) mg/dL 01/13/23 01/13/23 01/13/23 Range/Units 06:14 07:14 11:06 WBC (4.50-10.00) X 10*3/uL RBC (4.40-5.60) X 10*6/uL Hgb (13.0-17.0) g/dL Hct (39.6-50.0) % MCV (80.0-97.0) fL MCHC (32.0-37.0) g/dL Eosinophils # (0.04-0.35) X 10*3/uL Anion Gap 9.40 L (10.00-18.00) mmol/L BUN 32.4 H (9.0-27.0) mg/dL Est GFR (CKD-EPI)AfAm 55.4 L (60.0-200.0) Est GFR (CKD-EPI)NonAf 47.8 L (60.0-200.0) BUN/Creatinine Ratio 23.14 H (12.00-20.00) Ratio Glucose 234 H (70-110) mg/dL POC Glucose (mg/dL) 233 H 217 H (70-110) mg/dL Calcium 8.5 L (8.7-10.3) mg/dL Assessment and Plan Plan: 1patient presented hospital with mental status changes multifactorial possibly component of dehydration prerenal did have a positive UA with evidence of prostatomegaly concerning for urinary outflow obstruction and UTI likely from enteric gram-negative pathogen 2-renal insufficiency high risk of nephrotoxicity 3-patient has shown clinical improvement and will continue Rocephin 1 g daily while waiting for the culture to finalize on with gentle IV fluid Time with Patient: Less than 30
--- NOTE | 2023-01-13 12:47 | P.PN ---
Subjective Patient is seen for follow-up for acute kidney injury. Renal function has been improving. Admitted with hypoglycemia and altered mentation. Maintained on IV antibiotics for possible UTI. Also maintained on IV fluids. Serum creatinine down to 1.4 from 3.2 on initial admission. Objective - Vital Signs Vital signs: Vital Signs Temp 99.4 F 01/13/23 07:20 Pulse 76 01/13/23 07:20 Resp 16 01/13/23 07:20 BP 127/77 01/13/23 07:20 Pulse Ox 96 01/13/23 08:53 FiO2 21 01/13/23 08:53 Intake & Output 01/12/23 01/13/23 01/13/23 18:59 06:59 18:59 Intake Total 480 475 Output Total 197 Balance 283 475 Intake: Oral 480 475 Output: Post Void Residual 197 Other: Voiding Method Diaper Diaper # Voids 4 1 1 # Bowel Movements 1 - Exam Awake, comfortable, no acute distress Examination of the heart S1 and S2 Examination of the lungs bilateral breath sounds are heard Abdomen is soft nontender Examination lower extremity shows no significant edema [employer] exam grossly intact - Labs CBC & Chem 7: 01/13/23 06:14 01/13/23 06:14 Labs: Abnormal Lab Results - Last 24 Hours (Table) 01/12/23 01/12/23 01/12/23 Range/Units 14:56 17:20 20:02 WBC (4.50-10.00) X 10*3/uL RBC (4.40-5.60) X 10*6/uL Hgb (13.0-17.0) g/dL Hct (39.6-50.0) % MCV (80.0-97.0) fL MCHC (32.0-37.0) g/dL Eosinophils # (0.04-0.35) X 10*3/uL Anion Gap (10.00-18.00) mmol/L BUN (9.0-27.0) mg/dL Est GFR (CKD-EPI)AfAm (60.0-200.0) Est GFR (CKD-EPI)NonAf (60.0-200.0) BUN/Creatinine Ratio (12.00-20.00) Ratio Glucose (70-110) mg/dL POC Glucose (mg/dL) 172 H 156 H 219 H (70-110) mg/dL Calcium (8.7-10.3) mg/dL 01/13/23 01/13/23 01/13/23 Range/Units 01:22 04:53 06:14 WBC 12.51 H (4.50-10.00) X 10*3/uL RBC 3.39 L (4.40-5.60) X 10*6/uL Hgb 10.8 L (13.0-17.0) g/dL Hct 34.2 L (39.6-50.0) % MCV 100.9 H (80.0-97.0) fL MCHC 31.6 L (32.0-37.0) g/dL Eosinophils # 0.60 H (0.04-0.35) X 10*3/uL Anion Gap (10.00-18.00) mmol/L BUN (9.0-27.0) mg/dL Est GFR (CKD-EPI)AfAm (60.0-200.0) Est GFR (CKD-EPI)NonAf (60.0-200.0) BUN/Creatinine Ratio (12.00-20.00) Ratio Glucose (70-110) mg/dL POC Glucose (mg/dL) 295 H 239 H (70-110) mg/dL Calcium (8.7-10.3) mg/dL 01/13/23 01/13/23 01/13/23 Range/Units 06:14 07:14 11:06 WBC (4.50-10.00) X 10*3/uL RBC (4.40-5.60) X 10*6/uL Hgb (13.0-17.0) g/dL Hct (39.6-50.0) % MCV (80.0-97.0) fL MCHC (32.0-37.0) g/dL Eosinophils # (0.04-0.35) X 10*3/uL Anion Gap 9.40 L (10.00-18.00) mmol/L BUN 32.4 H (9.0-27.0) mg/dL Est GFR (CKD-EPI)AfAm 55.4 L (60.0-200.0) Est GFR (CKD-EPI)NonAf 47.8 L (60.0-200.0) BUN/Creatinine Ratio 23.14 H (12.00-20.00) Ratio Glucose 234 H (70-110) mg/dL POC Glucose (mg/dL) 233 H 217 H (70-110) mg/dL Calcium 8.5 L (8.7-10.3) mg/dL Assessment and Plan Assessment: 1. Acute kidney injury secondary to ATN secondary to severe sepsis and further worsened with the use of diuretics and NSAIDs. Creatinine 3.26 on admission and down to 1.4 today. Creatinine 0.89 dated 08/25/2022. 2. UTI on antibiotics. ID consulted. 3. Diabetes with hypoglycemia. 4. Benign hypertension. Currently controlled. Plan: DC IV fluids in a.m. Monitor labs as outpatient Can likely resume angiotensin receptor blockers as outpatient in the next week or so. Blood pressure is currently not high. Systolic blood pressure 115 to 1 25 mmHg.
--- NOTE | 2023-01-13 14:15 | P.CNNES ---
History of Present Illness Consult date: 01/13/23 Requesting physician: Janice Braun Reason for Consult: hx of parkinson's and increased confusion. History of Present Illness: This is a 77-year-old gentleman with history of Parkinson's status post a deep brain stimulator, coronary artery disease status post stent, congestive heart failure, hypertension, non-insulin diabetic presented emergency department because of altered mental status and was found to have sugar in the 41. Some of the history was obtained from medical record. It appears during this hospital visit the patient has been having hypoglycemic event as low as 30s to 40s. Currently his sugar has improved and the his mentation and is back to baseline according to patient's nurse. Baseline he is alert oriented 2 and the the family notified the nurse that he's currently baseline. Patient is on Sinemet [id number] one tablet 4 times a day. She was previously seen by our neurology team in August 2021 for a fall. Please refer to our notes for further details. Some of her workup during this hospital visit consisted of: Initial POC glucose is 69 then during his hospital visit his sugar has been in the 30s to 40s. Most recent sugar has been in the 200s. Sodium, creatinine is within normal limits. Analysis is a suggestive of possible urinary tract infection. Review of Systems Review of system: The 12 point system was reviewed and apparent positive and negative per HPI. Past Medical History Past Medical History: Atrial Fibrillation, Coronary Artery Disease (CAD), Heart Failure, COPD, CVA/TIA, Dementia, Diabetes Mellitus, Hyperlipidemia, Hypertension, Myocardial Infarction ([place]), Neurologic Disorder, Prostate Disorder Additional Past Medical History / Comment(s): parkinsons, charcot's joint - foot and ankle, insomnia, restless legs syndrome, spinal stenosis, pacemaker, chronic gout, BPH, arthritis, Last Myocardial Infarction Date:: 1997 History of Any Multi-Drug Resistant Organisms: None Reported Past Surgical History: Bariatric Surgery, Cholecystectomy, Coronary Bypass/CABG, EPS, Heart Catheterization, Joint Replacement Additional Past Surgical History / Comment(s): has two implanted batteries for parkinsons, lap band surgery 2009, bilat knee replacements Past Anesthesia/Blood Transfusion Reactions: No Reported Reaction Date of Last Stent Placement:: 08/25/1989 Past Psychological History: No Psychological Hx Reported Smoking Status: Never smoker Past Alcohol Use History: None Reported Past Drug Use History: None Reported - Past Family History Father Family Medical History: Myocardial Infarction ([place]) Mother Additional Family Medical History / Comment(s): heart disease Medications and Allergies Home Medications Medication Instructions Recorded Confirmed Type Aspirin 81 mg PO DAILY@89907/28/17 01/11/23 History Pravastatin Sodium [Pravachol] 40 mg PO HS@209907/28/17 01/11/23 History Tamsulosin [Flomax] 0.4 mg PO DAILY@89907/28/17 01/11/23 History allopurinoL [Zyloprim] 300 mg PO DAILY@89907/28/17 01/11/23 History Carbidopa/Levodopa [Carbidopa-Levo 1 tab PO QID@,,,09/25/21 01/11/23 History 25-250 mg Odt] Cyanocobalamin (Vitamin B-12) 1,000 mcg PO DAILY@89909/25/21 01/11/23 History [Vitamin B-12] metFORMIN HCL [Glucophage] 1,000 mg PO DAILY@89909/25/21 01/11/23 History Albuterol Inhaler [Ventolin Hfa 2 puff INHALATION RT-Q4H PRN 04/13/22 01/11/23 History Inhaler] Apixaban [Eliquis] 2.5 mg PO BID@0900,209904/13/22 01/11/23 History Budesonide-Formot 160-4.5 Mcg 2 puff INHALATION RT-BID@0900,209904/13/22 01/11/23 History [Symbicort 160-4.5 Mcg Inhaler] Glimepiride [Amaryl] 1 mg PO BID@0900,17004/13/22 01/11/23 History Glimepiride [Amaryl] 2 mg PO BID@0900,1700 04/13/22 01/11/23 History Losartan [Cozaar] 25 mg PO DAILY@89904/13/22 01/11/23 History Midodrine HCl [ProAmatine] 10 mg PO TID@0900,1300,209904/13/22 01/11/23 History Spironolactone [Aldactone] 25 mg PO DAILY@1300 04/13/22 01/11/23 History Melatonin 10 mg PO HS PRN tab 04/22/22 01/11/23 Rx Furosemide [Lasix] 40 mg PO BID@0900,1500 08/23/22 01/11/23 History Pimavanserin Tartrate [Nuplazid] 34 mg PO DAILY@0900 08/23/22 01/11/23 History busPIRone HCL [Buspar] 7.5 mg PO TID@0600,1400,2200 08/23/22 01/11/23 History ALPRAZolam [Xanax] 1 mg PO DAILY@1400 01/11/23 01/11/23 History Ascorbic Acid [Vitamin C] 500 mg PO DAILY@0900 01/11/23 01/11/23 History Cholecalciferol [Vitamin D3 (25 50 mcg PO DAILY@0901/11/23 01/11/23 History Mcg = 1000 Iu)] Divalproex Sodium [Depakote] 125 mg PO BID@0900,2100 01/11/23 01/11/23 History Docusate [Colace] 100 mg PO BID@0900,209901/11/23 01/11/23 History Famotidine [Pepcid] 20 mg PO DAILY@0900 01/11/23 01/11/23 History Ferrous Sulfate [Iron] 325 mg PO DAILY@0900 01/11/23 01/11/23 History Ibuprofen [Motrin Ib] 600 mg PO BID@0900,209901/11/23 01/11/23 History Metoprolol Succinate (ER) [Toprol 50 mg PO DAILY@0900 01/11/23 01/11/23 History XL] QUEtiapine [SEROquel] 100 mg PO DAILY@1800 01/11/23 01/11/23 History Zinc Gluconate [Zinc] 50 mg PO DAILY@0900 01/11/23 01/11/23 History polyethylene glycoL 3350 [Miralax] 17 gm PO DAILY@0900 01/11/23 01/11/23 History rOPINIRole HCL [Requip] 4 mg PO QID@00,06,12,18 01/11/23 01/11/23 History Allergies Allergy/AdvReac Type Severity Reaction Status Date / Time gabapentin Allergy unknown, Verified 01/11/23 13:30 per [facility] Physical Examination - Vital Signs Vital Signs: Vital Signs Temp Pulse Resp BP Pulse Ox FiO2 01/13/23 13:35 98.4 F 79 18 116/77 97 01/13/23 08:53 96 21 01/13/23 07:20 99.4 F 76 16 127/77 96 01/13/23 01:57 98.5 F 96 20 125/69 100 01/12/23 20:00 18 01/12/23 19:10 98.5 F 79 18 115/74 96 01/12/23 14:15 98.4 F 66 18 116/69 97 Intake and Output 01/12/23 01/13/23 01/13/23 22:59 06:59 14:59 Intake Total 480 475 Balance 480 475 Intake: Oral 480 475 Other: Voiding Method Diaper Diaper # Voids 1 1 1 # Bowel Movements 0 1 GENERAL: The patient is lying in bed and is not in acute distress. CHEST: The heart rate is regular rate rhythm. No murmurs to auscultation. LUNG: Clear to auscultation bilaterally no wheezing noted throughout. Not labored breathing. ABDOMEN/GI: Bowel sounds present in all 4 quadrants. No tenderness to palpation throughout. NEUROLOGICAL: Higher mental function: The patient is awake, alert, oriented to self, place. He stated current year is 2001 and could not tell me month. He is able to name objects (pen and watch). Patient is following simple commands. No aphasia and no neglect. Cranial nerves: The pupils are round, equal and reactive to light. Visual [place] are full to confrontation throughout. Extraocular movement is intact no nystagmus is noted. Facial sensation is normal to touch throughout. The facial strength is normal throughout. Hearing is moderately decreased bilaterally to hand rub. Tongue is midline and moved [id number] without any difficulty. Mild dysarthria is noted. Shoulder shrug is normal bilaterally. Motor: The strength is lifting all extremities above gravity without focality. Normal tone and bulk. No resting tremor. Cerebellum: Normal finger to nose bilaterally. Sensation: Sensation is normal to touch throughout. Reflexes (right/left): 1+ throughout. Plantars are mute bilaterally. Results - Laboratory Findings CBC and BMP: 01/13/23 06:14 01/13/23 06:14 Abnormal Lab Findings: Abnormal Labs 01/11/23 01/11/23 01/11/23 11:29 11:56 12:27 WBC RBC 3.73 L Hgb 12.3 L Hct 37.2 L MCV MCH MCHC Eosinophils # APTT Anion Gap BUN Creatinine Est GFR (CKD-EPI)AfAm Est GFR (CKD-EPI)NonAf BUN/Creatinine Ratio Glucose POC Glucose (mg/dL) 69 L 118 H Calcium Urine Protein Ur Leukocyte Esterase Urine RBC Urine WBC Urine Bacteria Urine Mucus U Benzodiazepines Scrn 01/11/23 01/11/23 01/11/23 12:27 12:27 12:27 WBC RBC Hgb Hct MCV MCH MCHC Eosinophils # APTT 18.6 L Anion Gap BUN 62 H Creatinine 3.26 H Est GFR (CKD-EPI)AfAm Est GFR (CKD-EPI)NonAf BUN/Creatinine Ratio Glucose 203 H POC Glucose (mg/dL) Calcium Urine Protein Ur Leukocyte Esterase Urine RBC Urine WBC Urine Bacteria Urine Mucus U Benzodiazepines Scrn Detected H 01/11/23 01/11/23 01/12/23 12:27 12:33 01:43 WBC RBC Hgb Hct MCV MCH MCHC Eosinophils # APTT Anion Gap BUN Creatinine Est GFR (CKD-EPI)AfAm Est GFR (CKD-EPI)NonAf BUN/Creatinine Ratio Glucose POC Glucose (mg/dL) 143 H 33 L Calcium Urine Protein Trace H Ur Leukocyte Esterase Large H Urine RBC 6 H Urine WBC 84 H Urine Bacteria Occasional H Urine Mucus Rare H U Benzodiazepines Scrn 01/12/23 01/12/23 01/12/23 03:58 04:01 05:33 WBC RBC Hgb Hct MCV MCH MCHC Eosinophils # APTT Anion Gap BUN Creatinine Est GFR (CKD-EPI)AfAm Est GFR (CKD-EPI)NonAf BUN/Creatinine Ratio Glucose POC Glucose (mg/dL) 33 L 46 L 49 L Calcium Urine Protein Ur Leukocyte Esterase Urine RBC Urine WBC Urine Bacteria Urine Mucus U Benzodiazepines Scrn 01/12/23 01/12/23 01/12/23 05:35 06:02 06:04 WBC RBC Hgb Hct MCV MCH MCHC Eosinophils # APTT Anion Gap BUN Creatinine Est GFR (CKD-EPI)AfAm Est GFR (CKD-EPI)NonAf BUN/Creatinine Ratio Glucose POC Glucose (mg/dL) 44 L 51 L 58 L Calcium Urine Protein Ur Leukocyte Esterase Urine RBC Urine WBC Urine Bacteria Urine Mucus U Benzodiazepines Scrn 01/12/23 01/12/23 01/12/23 06:31 06:31 07:40 WBC 12.48 H RBC 3.35 L Hgb 10.8 L Hct 33.8 L MCV 100.9 H MCH 32.2 H MCHC Eosinophils # 0.46 H APTT Anion Gap BUN 47.7 H Creatinine 2.3 H Est GFR (CKD-EPI)AfAm 30.1 L Est GFR (CKD-EPI)NonAf 26.0 L BUN/Creatinine Ratio 20.56 H Glucose 60 L POC Glucose (mg/dL) 39 L Calcium 8.4 L Urine Protein Ur Leukocyte Esterase Urine RBC Urine WBC Urine Bacteria Urine Mucus U Benzodiazepines Scrn 01/12/23 01/12/23 01/12/23 08:08 09:56 10:32 WBC RBC Hgb Hct MCV MCH MCHC Eosinophils # APTT Anion Gap BUN Creatinine Est GFR (CKD-EPI)AfAm Est GFR (CKD-EPI)NonAf BUN/Creatinine Ratio Glucose POC Glucose (mg/dL) 167 H 66 L 151 H Calcium Urine Protein Ur Leukocyte Esterase Urine RBC Urine WBC Urine Bacteria Urine Mucus U Benzodiazepines Scrn 01/12/23 01/12/23 01/12/23 12:22 14:56 17:20 WBC RBC Hgb Hct MCV MCH MCHC Eosinophils # APTT Anion Gap BUN Creatinine Est GFR (CKD-EPI)AfAm Est GFR (CKD-EPI)NonAf BUN/Creatinine Ratio Glucose POC Glucose (mg/dL) 137 H 172 H 156 H Calcium Urine Protein Ur Leukocyte Esterase Urine RBC Urine WBC Urine Bacteria Urine Mucus U Benzodiazepines Scrn 01/12/23 01/13/23 01/13/23 20:02 01:22 04:53 WBC RBC Hgb Hct MCV MCH MCHC Eosinophils # APTT Anion Gap BUN Creatinine Est GFR (CKD-EPI)AfAm Est GFR (CKD-EPI)NonAf BUN/Creatinine Ratio Glucose POC Glucose (mg/dL) 219 H 295 H 239 H Calcium Urine Protein Ur Leukocyte Esterase Urine RBC Urine WBC Urine Bacteria Urine Mucus U Benzodiazepines Scrn 01/13/23 01/13/23 01/13/23 06:14 06:14 07:14 WBC 12.51 H RBC 3.39 L Hgb 10.8 L Hct 34.2 L MCV 100.9 H MCH MCHC 31.6 L Eosinophils # 0.60 H APTT Anion Gap 9.40 L BUN 32.4 H Creatinine Est GFR (CKD-EPI)AfAm 55.4 L Est GFR (CKD-EPI)NonAf 47.8 L BUN/Creatinine Ratio 23.14 H Glucose 234 H POC Glucose (mg/dL) 233 H Calcium 8.5 L Urine Protein Ur Leukocyte Esterase Urine RBC Urine WBC Urine Bacteria Urine Mucus U Benzodiazepines Scrn 01/13/23 11:06 WBC RBC Hgb Hct MCV MCH MCHC Eosinophils # APTT Anion Gap BUN Creatinine Est GFR (CKD-EPI)AfAm Est GFR (CKD-EPI)NonAf BUN/Creatinine Ratio Glucose POC Glucose (mg/dL) 217 H Calcium Urine Protein Ur Leukocyte Esterase Urine RBC Urine WBC Urine Bacteria Urine Mucus U Benzodiazepines Scrn Assessment and Plan Assessment: Altered mental status due to metabolic encephalopathy (hypoglycemic as low in 30's to 40's). As well as the confusion is related due to underlying urinary tract infection Currently back to baseline and is oriented X2. Parkinson's disease s/p deep brain stimulator Hypoglycemia as low as 30's--resolved. History of coronary disease status post stent History of underlying dementia Diabetes mellitus Hyperlipidemia Hypertension History of a true fibrillation and has pacemaker History of CABG History of gout Plan: The patient's family has notified the patient nurse that the patient is back to baseline. From a neurologic perspective no further neurological workup. If the patient continues to have any further confusion will consider getting a CT of the head as well as an EEG here but will hold off for now since it appears that his confusion was related to do his significant hypoglycemia. Defer the rest of the medical management to the primary team Upon discharge recommend the patient follow up with his neurologist within 3-4 weeks as an outpatient. There is no additional neurological workup. If the patient remains about the same then he is clear from a neurology perspective. Plan discussed with the patient and his nurse. Thank you for the consultation. Time with Patient: Greater than 30
[2023-01-13] MEDS ORDERED: ALBUTEROL NEBULIZED 2.5 MG/3 ML INHALATION PRN (15:22)
[2023-01-13 17:11] LABS: Glucose,Whole Blood 190 mg/dL (70-110)
[2023-01-13] MEDS: MIDODRINE 5 MG TAB PO SCH (17:12)
[2023-01-13] MEDS: rOPINIRole HCL 4 MG TABLET PO SCH ×2 (17:12→23:41)
[2023-01-13] MEDS: SYMBICORT 160-4.5 MCG INHALER INHALATION SCH (19:43)
[2023-01-13 20:00] LABS: Glucose,Whole Blood 191 mg/dL (70-110)
[2023-01-13] MEDS: DIVALPROEX SPRINKLE 125 MG CAP.SPRINK PO SCH (21:19)
[2023-01-13] MEDS: PRAVASTATIN SODIUM 40 MG TAB PO SCH (21:19)
[2023-01-13] MEDS: busPIRone HCl 5 MG TAB PO SCH (21:21)
[2023-01-14 02:16] LABS: Glucose,Whole Blood 296 mg/dL (70-110)
[2023-01-14] MEDS: CARBIDOPA-LEVODOPA 25-250 MG 1 EACH TAB PO SCH ×4 (05:10→21:17)
[2023-01-14] MEDS: busPIRone HCl 5 MG TAB PO SCH ×3 (05:10→21:17)
[2023-01-14] MEDS: rOPINIRole HCL 4 MG TABLET PO SCH ×4 (05:10→23:26)
[2023-01-14 05:15] LABS: Glucose,Whole Blood 257 mg/dL (70-110)
--- NOTE | 2023-01-14 06:53 | PN ---
PROGRESS NOTE DATE OF SERVICE: 01/13/2023 SUBJECTIVE: This is a 77-year-old gentleman who was admitted with change in mental status, possibly secondary to hypoglycemia, is being closely monitored at this time. The patient is also suspected to have a UTI also. Neurology and Infectious Disease are also following the patient closely. Cultures are pending. OBJECTIVE: VITAL SIGNS: Pulse 76, blood pressure 120s over 70s, respirations 16. CHEST: Clear to auscultation. CARDIOVASCULAR: S1 and S2. ABDOMEN: Soft. NERVOUS SYSTEM: Diffusely weak. LABORATORY DATA: Labs are reviewed. ASSESSMENT: 1. Change in mental status, possibly secondary to hypoglycemia. 2. Atrial fibrillation. 3. Acute renal failure, possibly prerenal acute renal failure. 4. Chronic obstructive pulmonary disease. 5. Parkinson's with brain stimulator. 6. Dementia. 7. Congestive heart failure. 8. History of multiple medical issues. RECOMMENDATIONS: Recommend to continue current management. Continue symptomatic treatment. Follow the cultures. Otherwise, I would recommend to stop the D5 drip and continue to monitor. Further recommendations to follow. MMODL / IJN: [id number] /
[2023-01-14 07:08] LABS: Glucose,Whole Blood 235 mg/dL (70-110)
[2023-01-14] MEDS: MIDODRINE 5 MG TAB PO SCH ×3 (07:49→17:15)
[2023-01-14] MEDS: polyethylene glycoL 3350 17 GM POWD.PACK PO SCH (08:00)
[2023-01-14] MEDS: CHOLECALCIFEROL 25 MCG (1000 IU) TABLET PO SCH (08:00)
[2023-01-14] MEDS: LOSARTAN 25 MG TAB PO SCH (08:01)
[2023-01-14] MEDS: DIVALPROEX SPRINKLE 125 MG CAP.SPRINK PO SCH ×2 (08:01→21:17)
[2023-01-14] MEDS: APIXABAN 2.5 MG TABLET PO SCH ×2 (08:01→21:17)
[2023-01-14] MEDS: FERROUS SULFATE 325 MG TAB PO SCH (08:01)
[2023-01-14] MEDS: allopurinoL 300 MG TAB PO SCH (08:01)
[2023-01-14] MEDS: DOCUSATE 100 MG CAP PO SCH ×2 (08:01→21:17)
[2023-01-14] MEDS: ZINC SULFATE 220 MG CAP PO SCH (08:01)
[2023-01-14] MEDS: METOPROLOL SUCCINATE (ER) 50 MG TAB.ER.24H PO SCH (08:01)
[2023-01-14] MEDS: TAMSULOSIN 0.4 MG CAP.ER.24H PO SCH (08:01)
[2023-01-14] MEDS: ASPIRIN 81 MG PO SCH (08:01)
[2023-01-14] MEDS: CYANOCOBALAMIN 500 MCG TAB PO SCH (08:02)
[2023-01-14] MEDS: ASCORBIC ACID 500 MG TAB PO SCH (08:02)
[2023-01-14] MEDS: NON FORMULARY DRUG (Pimavanserin Tartrate [Nuplazid] 34 MG Capsule) PO SCH (08:03)
[2023-01-14] MEDS: SYMBICORT 160-4.5 MCG INHALER INHALATION SCH ×2 (08:37→20:52)
[2023-01-14 08:45] LABS: Basophils # (A) 0.05 X 10*3/uL (0.00-0.10); Basophils % (A) 0.3 %; Eosinophils # (A) 0.13 X 10*3/uL (0.04-0.35); Eosinophils % (A) 0.8 %; HCT 41.4 % (39.6-50.0); HGB 13.3 g/dL (13.0-17.0); Immature Grans, Automated 0.5 %; Lymphocytes # (A) 2.76 X 10*3/uL (0.90-5.00); MCHC 32.1 g/dL (32.0-37.0); MCV 102.7 fL (80.0-97.0); Mean Platelet Volume 11.5 fL (9.5-12.2); Monocytes # (A) 0.77 X 10*3/uL (0.20-1.00); Monocytes % (A) 4.8 %; NRBC Per 100 WBC 0 /100 WBCS (0.0-0.0); Neutrophils # (A) 12.42 X 10*3/uL (1.80-7.70); Neutrophils % (A) 76.6 %; Platelet Count 219 X 10*3/uL (140-440); RBC 4.03 X 10*6/uL (4.40-5.60); RDW 14.4 % (11.5-14.5); WBC 16.21 X 10*3/uL (4.50-10.00)
[2023-01-14 08:51] LABS: African American GFR (CKD) 60.6 (60.0-200.0); Anion Gap 9.2 mmol/L (10.00-18.00); BUN/Creat Ratio 20.08 Ratio (12.00-20.00); Blood Urea Nitrogen 26.1 mg/dL (9.0-27.0); Calcium 9.1 mg/dL (8.7-10.3); Carbon Dioxide 28.8 mmol/L (20.0-27.5); Non-African American GFR(CKD) 52.3 (60.0-200.0); Potassium 4.2 mmol/L (3.5-5.5)
[2023-01-14] MEDS: metFORMIN 500 MG TAB PO SCH (10:12)
[2023-01-14 11:04] LABS: Glucose,Whole Blood 180 mg/dL (70-110)
--- NOTE | 2023-01-14 12:05 | P.PN ---
Subjective Patient is seen for follow-up for acute kidney injury. Renal function has been improving. Admitted with hypoglycemia and altered mentation. Maintained on IV antibiotics for possible UTI. Status post IV fluids Serum creatinine down to 1.3 from 3.2 on initial admission. Objective - Vital Signs Vital signs: Vital Signs Temp 97.9 F 01/14/23 07:15 Pulse 85 01/14/23 07:15 Resp 18 01/14/23 07:15 BP 141/92 01/14/23 07:15 Pulse Ox 96 01/14/23 08:39 FiO2 1 01/14/23 08:39 Intake & Output 01/13/23 01/14/23 01/14/23 18:59 06:59 18:59 Intake Total 325 350 Output Total 400 Balance -75 350 Intake: Intake, IV Titration 350 Amount Dextrose 5%-0.9% NaCl 1, 300 000 ml @ 75 mls/hr IV . [id number] [facility] Rx#:[id number] cefTRIAXone 1 gm In 50 Sodium Chloride 0.9% 50 ml @ 100 mls/hr IVPB Q12HR [facility] Rx#:[id number] Oral 325 Output: Urine 400 Other: Voiding Method Diaper Diaper Diaper # Voids 2 1 - Exam Awake, comfortable, no acute distress Examination of the heart S1 and S2 Examination of the lungs bilateral breath sounds are heard Abdomen is soft nontender Examination lower extremity shows no significant edema INSURANCE VERIFICATION SPECIALIST exam grossly intact - Labs CBC & Chem 7: 01/14/23 05:41 01/14/23 05:41 Labs: Abnormal Lab Results - Last 24 Hours (Table) 01/13/23 01/13/23 01/14/23 Range/Units 17:09 19:58 02:11 WBC (4.50-10.00) X 10*3/uL RBC (4.40-5.60) X 10*6/uL MCV (80.0-97.0) fL MCH (27.0-32.0) pg Immature Gran # (0.00-0.04) X 10*3/uL Neutrophils # (1.80-7.70) X 10*3/uL Carbon Dioxide (20.0-27.5) mmol/L Anion Gap (10.00-18.00) mmol/L Est GFR (CKD-EPI)NonAf (60.0-200.0) BUN/Creatinine Ratio (12.00-20.00) Ratio Glucose (70-110) mg/dL POC Glucose (mg/dL) 190 H 191 H 296 H (70-110) mg/dL 01/14/23 01/14/23 01/14/23 Range/Units 05:13 05:41 05:41 WBC 16.21 H (4.50-10.00) X 10*3/uL RBC 4.03 L (4.40-5.60) X 10*6/uL MCV 102.7 H (80.0-97.0) fL MCH 33.0 H (27.0-32.0) pg Immature Gran # 0.08 H (0.00-0.04) X 10*3/uL Neutrophils # 12.42 H (1.80-7.70) X 10*3/uL Carbon Dioxide 28.8 H (20.0-27.5) mmol/L Anion Gap 9.20 L (10.00-18.00) mmol/L Est GFR (CKD-EPI)NonAf 52.3 L (60.0-200.0) BUN/Creatinine Ratio 20.08 H (12.00-20.00) Ratio Glucose 255 H (70-110) mg/dL POC Glucose (mg/dL) 257 H (70-110) mg/dL 01/14/23 01/14/23 Range/Units 07:06 11:03 WBC (4.50-10.00) X 10*3/uL RBC (4.40-5.60) X 10*6/uL MCV (80.0-97.0) fL MCH (27.0-32.0) pg Immature Gran # (0.00-0.04) X 10*3/uL Neutrophils # (1.80-7.70) X 10*3/uL Carbon Dioxide (20.0-27.5) mmol/L Anion Gap (10.00-18.00) mmol/L Est GFR (CKD-EPI)NonAf (60.0-200.0) BUN/Creatinine Ratio (12.00-20.00) Ratio Glucose (70-110) mg/dL POC Glucose (mg/dL) 235 H 180 H (70-110) mg/dL Assessment and Plan Assessment: 1. Acute kidney injury secondary to ATN secondary to severe sepsis and further worsened with the use of diuretics and NSAIDs. Creatinine 3.26 on admission and down to 1.3 today. Creatinine 0.89 dated 08/25/2022. 2. UTI on antibiotics. ID consulted. 3. Diabetes with hypoglycemia. 4. Benign hypertension. Currently controlled. Plan: Continue off of IV fluids Encourage increased oral intake Monitor labs as outpatient Can likely resume angiotensin receptor blockers as outpatient in the next 24-48 hours
--- NOTE | 2023-01-14 12:25 | P.PN ---
Subjective Progress Note Date: 01/14/23 Principal diagnosis: Urinary tract infection Patient is a 77-year-old male with a past medical history significant for atrial fibrillation coronary disease heart failure COPD diabetes mellitus hypertension hyperlipidemia patient was brought into the ER for evaluation of mental status changes , patient did have a positive UA concerning for a urinary tract infection. On today's evaluation that is 01/14/2023, the patient remains to be afebrile, the patient is breathing comfortably on room air , the patient denies chest pain no shortness of breath or cough no nausea no vomiting no abdominal pain or diarrhea Objective - Vital Signs Vital signs: Vital Signs Temp 97.8 F 01/14/23 11:25 Pulse 70 01/14/23 11:25 Resp 18 01/14/23 11:25 BP 124/78 01/14/23 11:25 Pulse Ox 95 01/14/23 11:25 FiO2 1 01/14/23 08:39 Intake & Output 01/13/23 01/14/23 01/14/23 18:59 06:59 18:59 Intake Total 325 350 Output Total 400 Balance -75 350 Intake: Intake, IV Titration 350 Amount Dextrose 5%-0.9% NaCl 1, 300 000 ml @ 75 mls/hr IV . [id number] [facility] Rx#:[id number] cefTRIAXone 1 gm In 50 Sodium Chloride 0.9% 50 ml @ 100 mls/hr IVPB Q12HR [facility] Rx#:[id number] Oral 325 Output: Urine 400 Other: Voiding Method Diaper Diaper Diaper # Voids 2 1 - Exam GENERAL DESCRIPTION: An elderly male lying in bed in no distress RESPIRATORY SYSTEM: Unlabored breathing , decreased breath sounds at bases HEART: S1 S2 regular rate and rhythm , ABDOMEN: Soft , no tenderness EXTREMITIES: No edema feet - Labs CBC & Chem 7: 01/14/23 05:41 01/14/23 05:41 Labs: Abnormal Lab Results - Last 24 Hours (Table) 01/13/23 01/13/23 01/14/23 Range/Units 17:09 19:58 02:11 WBC (4.50-10.00) X 10*3/uL RBC (4.40-5.60) X 10*6/uL MCV (80.0-97.0) fL MCH (27.0-32.0) pg Immature Gran # (0.00-0.04) X 10*3/uL Neutrophils # (1.80-7.70) X 10*3/uL Carbon Dioxide (20.0-27.5) mmol/L Anion Gap (10.00-18.00) mmol/L Est GFR (CKD-EPI)NonAf (60.0-200.0) BUN/Creatinine Ratio (12.00-20.00) Ratio Glucose (70-110) mg/dL POC Glucose (mg/dL) 190 H 191 H 296 H (70-110) mg/dL 01/14/23 01/14/23 01/14/23 Range/Units 05:13 05:41 05:41 WBC 16.21 H (4.50-10.00) X 10*3/uL RBC 4.03 L (4.40-5.60) X 10*6/uL MCV 102.7 H (80.0-97.0) fL MCH 33.0 H (27.0-32.0) pg Immature Gran # 0.08 H (0.00-0.04) X 10*3/uL Neutrophils # 12.42 H (1.80-7.70) X 10*3/uL Carbon Dioxide 28.8 H (20.0-27.5) mmol/L Anion Gap 9.20 L (10.00-18.00) mmol/L Est GFR (CKD-EPI)NonAf 52.3 L (60.0-200.0) BUN/Creatinine Ratio 20.08 H (12.00-20.00) Ratio Glucose 255 H (70-110) mg/dL POC Glucose (mg/dL) 257 H (70-110) mg/dL 01/14/23 01/14/23 Range/Units 07:06 11:03 WBC (4.50-10.00) X 10*3/uL RBC (4.40-5.60) X 10*6/uL MCV (80.0-97.0) fL MCH (27.0-32.0) pg Immature Gran # (0.00-0.04) X 10*3/uL Neutrophils # (1.80-7.70) X 10*3/uL Carbon Dioxide (20.0-27.5) mmol/L Anion Gap (10.00-18.00) mmol/L Est GFR (CKD-EPI)NonAf (60.0-200.0) BUN/Creatinine Ratio (12.00-20.00) Ratio Glucose (70-110) mg/dL POC Glucose (mg/dL) 235 H 180 H (70-110) mg/dL Assessment and Plan (1) Urinary tract infection Current Visit: Yes Status: Acute Code(s): N39.0 - URINARY TRACT INFECTION, SITE NOT SPECIFIED SNOMED Code(s): 57874908 (2) Leukocytosis Current Visit: Yes Status: Acute Code(s): D72.829 - ELEVATED WHITE BLOOD CELL COUNT, UNSPECIFIED SNOMED Code(s): 720526162 Plan: 1patient presented hospital with mental status changes multifactorial possibly component of dehydration prerenal did have a positive UA with evidence of prostatomegaly concerning for urinary outflow obstruction and UTI likely from enteric gram-negative pathogen 2-renal insufficiency high risk of nephrotoxicity 3-patient has shown clinical improvement, however the patient did have worsening of his white count is up to 16,008 unfortunately no urine culture were done on the initial sample we will obtain blood culture repeat UA and culture check a CRP and pro calcitonin and continue with Rocephin Time with Patient: Less than 30
[2023-01-14] MEDS: SPIRONOLACTONE 25 MG TAB PO SCH (12:47)
--- NOTE | 2023-01-14 14:14 | P.PN ---
Subjective Progress Note Date: 01/14/23 Patient seen at bedside and the core the patient nurse she remains a at baseline from a neurologic perspective. Patient was seen and had no complaints. Objective - Vital Signs Vital signs: Vital Signs Temp 97.8 F 01/14/23 11:25 Pulse 70 01/14/23 11:25 Resp 18 01/14/23 11:25 BP 124/78 01/14/23 11:25 Pulse Ox 95 01/14/23 11:25 FiO2 1 01/14/23 08:39 Intake & Output 01/13/23 01/14/23 01/14/23 18:59 06:59 18:59 Intake Total 325 350 Output Total 400 Balance -75 350 Intake: Intake, IV Titration 350 Amount Dextrose 5%-0.9% NaCl 1, 300 000 ml @ 75 mls/hr IV . [id number] JORGE Rx#:[id number] cefTRIAXone 1 gm In 50 Sodium Chloride 0.9% 50 ml @ 100 mls/hr IVPB Q12HR JORGE Rx#:[id number] Oral 325 Output: Urine 400 Other: Voiding Method Diaper Diaper Diaper # Voids 2 1 - Exam GENERAL: The patient is lying in bed and is not in acute distress. NEUROLOGICAL: Higher mental function: The patient is awake, alert, oriented to self, place. He stated current year is 2001 and could not tell me month. He is able to name objects (pen and watch). Patient is following simple commands. No aphasia and no neglect. Cranial nerves: The pupils are round, equal and reactive to light. Visual [place] are full to confrontation throughout. Extraocular movement is intact no nystagmus is noted. Facial sensation is normal to touch throughout. The facial strength is normal throughout. Hearing is moderately decreased bilaterally to hand rub. Tongue is midline and moved [id number] without any difficulty. Mild dysarthria is noted. Shoulder shrug is normal bilaterally. Motor: The strength is lifting all extremities above gravity without focality. Normal tone and bulk. No resting tremor. Cerebellum: Normal finger to nose bilaterally. Sensation: Sensation is normal to touch throughout. - Labs CBC & Chem 7: 01/14/23 05:41 01/14/23 05:41 Labs: Abnormal Lab Results - Last 24 Hours (Table) 01/13/23 01/13/23 01/14/23 Range/Units 17:09 19:58 02:11 WBC (4.50-10.00) X 10*3/uL RBC (4.40-5.60) X 10*6/uL MCV (80.0-97.0) fL MCH (27.0-32.0) pg Immature Gran # (0.00-0.04) X 10*3/uL Neutrophils # (1.80-7.70) X 10*3/uL Carbon Dioxide (20.0-27.5) mmol/L Anion Gap (10.00-18.00) mmol/L Est GFR (CKD-EPI)NonAf (60.0-200.0) BUN/Creatinine Ratio (12.00-20.00) Ratio Glucose (70-110) mg/dL POC Glucose (mg/dL) 190 H 191 H 296 H (70-110) mg/dL 01/14/23 01/14/23 01/14/23 Range/Units 05:13 05:41 05:41 WBC 16.21 H (4.50-10.00) X 10*3/uL RBC 4.03 L (4.40-5.60) X 10*6/uL MCV 102.7 H (80.0-97.0) fL MCH 33.0 H (27.0-32.0) pg Immature Gran # 0.08 H (0.00-0.04) X 10*3/uL Neutrophils # 12.42 H (1.80-7.70) X 10*3/uL Carbon Dioxide 28.8 H (20.0-27.5) mmol/L Anion Gap 9.20 L (10.00-18.00) mmol/L Est GFR (CKD-EPI)NonAf 52.3 L (60.0-200.0) BUN/Creatinine Ratio 20.08 H (12.00-20.00) Ratio Glucose 255 H (70-110) mg/dL POC Glucose (mg/dL) 257 H (70-110) mg/dL 01/14/23 01/14/23 Range/Units 07:06 11:03 WBC (4.50-10.00) X 10*3/uL RBC (4.40-5.60) X 10*6/uL MCV (80.0-97.0) fL MCH (27.0-32.0) pg Immature Gran # (0.00-0.04) X 10*3/uL Neutrophils # (1.80-7.70) X 10*3/uL Carbon Dioxide (20.0-27.5) mmol/L Anion Gap (10.00-18.00) mmol/L Est GFR (CKD-EPI)NonAf (60.0-200.0) BUN/Creatinine Ratio (12.00-20.00) Ratio Glucose (70-110) mg/dL POC Glucose (mg/dL) 235 H 180 H (70-110) mg/dL Assessment and Plan Assessment: Altered mental status due to metabolic encephalopathy (hypoglycemic as low in 30's to 40's). As well as the confusion is related due to underlying urinary tract infection Currently back to baseline and is oriented X2. Parkinson's disease s/p deep brain stimulator Hypoglycemia as low as 30's--resolved. History of coronary disease status post stent History of underlying dementia Diabetes mellitus Hyperlipidemia Hypertension History of a true fibrillation and has pacemaker History of CABG History of gout Plan: The patient's family has notified the patient nurse that the patient is back to baseline. From a neurologic perspective no further neurological workup. If the patient continues to have any further confusion will consider getting a CT of the head as well as an EEG here but will hold off for now since it appears that his confusion was related to do his significant hypoglycemia. Defer the rest of the medical management to the primary team Upon discharge recommend the patient follow up with his neurologist within 3-4 weeks as an outpatient. There is no additional neurological workup. Please notify neurology if any further concerns. The plan is discussed with patient's nurse. Time with Patient: Less than 30
--- NOTE | 2023-01-14 15:40 | CDI ---
Documentation Clarification Form Date: 01/14/2023 3:18:34 PM From: Kenzie Reilly Phone: Admit Date: 01/11/2023 1:24:00 PM Patient Name: Jayden Fermin Visit Number: [id number] Discharge Date: ATTENTION: The Clinical Documentation Specialists (CDI) and [facility] Coding Staff appreciate your assistance in clarifying documentation. Please respond to the clarification below the line at the bottom and electronically sign. The CDI & [facility] Coding staff will review the response and follow-up if needed. Please note: Queries are made part of the Legal Health Record. If you have any questions, please contact the author of this message via ITS. Dr. Janice Braun Sepsis is documented in the Nephrology consult and subsequent progress which may lack sufficient clinical evidence/support in the medical record. Additional clarification is requested. History/Risk Factors: A-fib, CAD, CH, CVA, DM,HTN, SD, Dementia, Hyperlipidemia Clinical Indicators:77-year-old male present to ED with altered mental status found to have a low blood sugar of 41. He was also found to have a UTI. 01/11 VS: 122/77 72 20 97 94 % RA 01/11 Labs: WBC 9.3 12.48 HGB 12.3 BUN 62, Cr 3.26 UA: Ur Leukocyte Esterase Large, Urine WBC 84 01/12Labs: WBC 12.48 UDS: Benzodiazepines Detected Treatment: Blood glucose monitoring per protocol Dextrose 50% Syringe 50 ml IVP Once 01/11 Rocephin 1 GM IVPB Q 12 HRS 01/11-01/14 .9 NS 500 ml Bolus 01/11 Please clarify if Sepsis is a valid diagnosis? [ ] Yes, Sepsis is present as evidence by (additional clinical support): [ ] No, Sepsis is ruled out [ ] Other (please specify diagnosis) [ ] Unable to determine (Template Last Revised: October 2020) No, Sepsis is ruled out MTDD
--- NOTE | 2023-01-14 15:50 | CDI ---
Documentation Clarification Form Date: 01/14/2023 3:41:06 PM From: Kenzie Reilly RN, CCDS Admit Date: 01/11/2023 1:24:00 PM Patient Name: Jayden Fermin Visit Number: [id number] Discharge Date: ATTENTION: The Clinical Documentation Specialists (CDI) and [facility] Coding Staff appreciate your assistance in clarifying documentation. Please respond to the clarification below the line at the bottom and electronically sign. The CDI & [facility] Coding staff will review the response and follow-up if needed. Please note: Queries are made part of the Legal Health Record. If you have any questions, please contact the author of this message via ITS. Dr. Janice Braun Atrial Fibrillation is documented in the past medical history and subsequent progress notes. Additional clarification regarding the type of atrial fibrillation is requested. History/Risk Factors: A-fib, CAD, CH, CVA, DM, HTN, PA, Dementia, Hyperlipidemia Clinical Indicators: 77-year-old male present to ED with altered mental status found to have a low blood sugar of 41. He was also found to have a UTI. He has a history of atrial fibrillation with ongoing treatment. 01/11 EKG/telemetry: shows sinus rhythm at 76 bpm VT interval is unable to be read secondary to the fact the patient has a stimulator in place. Patient's s QRS is 120 QT intervals 410 QTC 440. EKG shows no ST segment elevation per ED assessment. Treatment: Eliquis 2.5 MG PO @ 9000, 2100 BID 01/11-01/12 Please clarify the type of atrial fibrillation, if known: [ ] Chronic [ ] Permanent [ ] Paroxysmal [ ] Persistent [ ] Other, please specify [ ] Unable to determine (Template Last Revised: December 2020) Paroxysmal MTDD
[2023-01-14 17:03] LABS: Glucose,Whole Blood 213 mg/dL (70-110)
[2023-01-14] MEDS: GLIMEPIRIDE 1 MG TAB PO SCH (17:08)
--- NOTE | 2023-01-14 18:44 | PN ---
PROGRESS NOTE DATE OF SERVICE: 01/13/2023 SUBJECTIVE: This is a 77-year-old gentleman, who was admitted with change in mental status and possibly hypoglycemia and has been closely monitored. At this time, the patient receives D5 water. Sugars are slightly elevated. OBJECTIVE: VITAL SIGNS: Pulse is 70, blood pressure 124/70, respirations 18. CHEST: Clear to auscultation. CARDIOVASCULAR: S1 and S2. ABDOMEN: Soft. NERVOUS SYSTEM: Nonfocal. LABORATORY DATA: Reviewed. ASSESSMENT: 1. Change in mental status, possibly secondary to hypoglycemia. 2. Atrial fibrillation. 3. Acute renal failure, possibly prerenal acute renal failure. 4. Chronic obstructive pulmonary disease. 5. Multiple medical issues. RECOMMENDATIONS: Recommend to continue current medications. Continue symptomatic treatment. Otherwise, I would restart anti-hypoglycemic agent gradually. Closely follow with multiple consultants and repeat labs in the morning. Further recommendations to follow. Once the sugars are stabilized, return to ECF. MMFRAN / CLIFTONN: [id number] /
[2023-01-14 18:52] LABS: Appearance,Urine Cloudy (Clear); Bacteria,Urine Many /hpf; Bilirubin,Urine Negative (Negative); Blood,Urine Trace (Negative); Color,Urine Yellow; Glucose,Urine (UA) Negative (Negative); Ketones,Urine 1+ (Negative); Leukocyte Esterase,Urine Large (Negative); Nitrite,Urine Negative (Negative); PH, Urine 5.5 (5.0-8.0); Protein,Urine 1+ (Negative); RBC,Urine 7 /hpf (0-5); Specific Gravity,Urine 1.022 (1.001-1.035); Urobilinogen,Urine <2.0 mg/dL (<2.0); WBC,Urine >182 /hpf (0-5)
[2023-01-14 20:23] LABS: Glucose,Whole Blood 231 mg/dL (70-110)
[2023-01-14] MEDS: PRAVASTATIN SODIUM 40 MG TAB PO SCH (21:17)
[2023-01-15 02:28] LABS: Glucose,Whole Blood 218 mg/dL (70-110)
[2023-01-15] MEDS: rOPINIRole HCL 4 MG TABLET PO SCH ×5 (05:32→23:35)
[2023-01-15] MEDS: busPIRone HCl 5 MG TAB PO SCH ×3 (05:32→21:01)
[2023-01-15] MEDS: CARBIDOPA-LEVODOPA 25-250 MG 1 EACH TAB PO SCH ×4 (05:32→21:02)
[2023-01-15 07:40] LABS: Glucose,Whole Blood 122 mg/dL (70-110)
[2023-01-15] MEDS: MIDODRINE 5 MG TAB PO SCH ×3 (08:34→17:25)
[2023-01-15] MEDS: METOPROLOL SUCCINATE (ER) 50 MG TAB.ER.24H PO SCH (08:35)
[2023-01-15] MEDS: APIXABAN 2.5 MG TABLET PO SCH ×2 (08:35→21:01)
[2023-01-15] MEDS: ASCORBIC ACID 500 MG TAB PO SCH (08:35)
[2023-01-15] MEDS: LOSARTAN 25 MG TAB PO SCH (08:35)
[2023-01-15] MEDS: CHOLECALCIFEROL 25 MCG (1000 IU) TABLET PO SCH (08:36)
[2023-01-15] MEDS: ASPIRIN 81 MG PO SCH (08:37)
[2023-01-15] MEDS: FERROUS SULFATE 325 MG TAB PO SCH (08:37)
[2023-01-15] MEDS: metFORMIN 500 MG TAB PO SCH (08:37)
[2023-01-15] MEDS: ZINC SULFATE 220 MG CAP PO SCH (08:37)
[2023-01-15] MEDS: TAMSULOSIN 0.4 MG CAP.ER.24H PO SCH (08:37)
[2023-01-15] MEDS: allopurinoL 300 MG TAB PO SCH (08:38)
[2023-01-15] MEDS: NON FORMULARY DRUG (Pimavanserin Tartrate [Nuplazid] 34 MG Capsule) PO SCH (08:38)
[2023-01-15] MEDS: GLIMEPIRIDE 1 MG TAB PO SCH ×2 (08:38→17:26)
[2023-01-15] MEDS: DIVALPROEX SPRINKLE 125 MG CAP.SPRINK PO SCH ×2 (08:38→21:02)
[2023-01-15] MEDS: CYANOCOBALAMIN 500 MCG TAB PO SCH (08:38)
[2023-01-15] MEDS: polyethylene glycoL 3350 17 GM POWD.PACK PO SCH (08:39)
[2023-01-15] MEDS: DOCUSATE 100 MG CAP PO SCH ×2 (08:39→21:02)
[2023-01-15] MEDS: SYMBICORT 160-4.5 MCG INHALER INHALATION SCH ×2 (09:14→20:06)
[2023-01-15 10:49] LABS: Basophils # (A) 0.05 X 10*3/uL (0.00-0.10); Basophils % (A) 0.2 %; Eosinophils # (A) 0.27 X 10*3/uL (0.04-0.35); Eosinophils % (A) 1.2 %; HCT 35.9 % (39.6-50.0); HGB 11.5 g/dL (13.0-17.0); Immature Grans, Automated 0.5 %; Lymphocytes % (A) 12.6 %; MCV 103.2 fL (80.0-97.0); Mean Platelet Volume 11.5 fL (9.5-12.2); Monocytes # (A) 0.79 X 10*3/uL (0.20-1.00); Monocytes % (A) 3.4 %; NRBC Per 100 WBC 0 /100 WBCS (0.0-0.0); Neutrophils # (A) 18.87 X 10*3/uL (1.80-7.70); Neutrophils % (A) 82.1 %; Platelet Count 218 X 10*3/uL (140-440); RBC 3.48 X 10*6/uL (4.40-5.60); RDW 14.6 % (11.5-14.5); WBC 22.99 X 10*3/uL (4.50-10.00)
[2023-01-15 11:06] LABS: African American GFR (CKD) 55.4 (60.0-200.0); BUN/Creat Ratio 25.64 Ratio (12.00-20.00); Blood Urea Nitrogen 35.9 mg/dL (9.0-27.0); Calcium 8.8 mg/dL (8.7-10.3); Non-African American GFR(CKD) 47.8 (60.0-200.0); Potassium 4.2 mmol/L (3.5-5.5)
--- NOTE | 2023-01-15 11:19 | P.PN ---
Subjective Patient is seen for follow-up for acute kidney injury. Renal function has been improving. Admitted with hypoglycemia and altered mentation. Maintained on IV antibiotics for possible UTI. Status post IV fluids Serum creatinine down to 1.4 from 3.2 on initial admission. Objective - Vital Signs Vital signs: Vital Signs Temp 98.2 F 01/15/23 07:27 Pulse 73 01/15/23 07:27 Resp 16 01/15/23 07:27 BP 115/67 01/15/23 07:27 Pulse Ox 97 01/15/23 09:14 FiO2 1 01/14/23 08:39 Intake & Output 01/14/23 01/15/23 01/15/23 18:59 06:59 18:59 Intake Total 350 Balance 350 Intake: Intake, IV Titration 350 Amount Dextrose 5%-0.9% NaCl 1, 300 000 ml @ 75 mls/hr IV . [id number] JORGE Rx#:[id number] cefTRIAXone 1 gm In 50 Sodium Chloride 0.9% 50 ml @ 100 mls/hr IVPB Q12HR JORGE Rx#:[id number] Other: Voiding Method Diaper Diaper Diaper # Voids 1 3 # Bowel Movements 1 1 - Exam Awake, comfortable, no acute distress Examination of the heart S1 and S2 Examination of the lungs bilateral breath sounds are heard Abdomen is soft nontender Examination lower extremity shows no significant edema MEDICAL PRACTICE ASSISTANT exam grossly intact - Labs CBC & Chem 7: 01/15/23 06:18 01/15/23 06:18 Labs: Abnormal Lab Results - Last 24 Hours (Table) 01/14/23 01/14/23 01/14/23 Range/Units 12:35 12:35 17:01 WBC (4.50-10.00) X 10*3/uL RBC (4.40-5.60) X 10*6/uL Hgb (13.0-17.0) g/dL Hct (39.6-50.0) % MCV (80.0-97.0) fL MCH (27.0-32.0) pg RDW (11.5-14.5) % Immature Gran # (0.00-0.04) X 10*3/uL Neutrophils # (1.80-7.70) X 10*3/uL BUN (9.0-27.0) mg/dL Est GFR (CKD-EPI)AfAm (60.0-200.0) Est GFR (CKD-EPI)NonAf (60.0-200.0) BUN/Creatinine Ratio (12.00-20.00) Ratio Glucose (70-110) mg/dL POC Glucose (mg/dL) 213 H (70-110) mg/dL C-Reactive Protein 4.00 H (0.00-0.80) mg/dL Procalcitonin 0.10 H (0.02-0.09) ng/mL Urine Protein (Negative) Urine Ketones (Negative) Urine Blood (Negative) Ur Leukocyte Esterase (Negative) Urine RBC (0-5) /hpf Urine WBC (0-5) /hpf Urine WBC Clumps (None) /hpf Urine Bacteria (None) /hpf 01/14/23 01/14/23 01/15/23 Range/Units 18:21 20:22 02:26 WBC (4.50-10.00) X 10*3/uL RBC (4.40-5.60) X 10*6/uL Hgb (13.0-17.0) g/dL Hct (39.6-50.0) % MCV (80.0-97.0) fL MCH (27.0-32.0) pg RDW (11.5-14.5) % Immature Gran # (0.00-0.04) X 10*3/uL Neutrophils # (1.80-7.70) X 10*3/uL BUN (9.0-27.0) mg/dL Est GFR (CKD-EPI)AfAm (60.0-200.0) Est GFR (CKD-EPI)NonAf (60.0-200.0) BUN/Creatinine Ratio (12.00-20.00) Ratio Glucose (70-110) mg/dL POC Glucose (mg/dL) 231 H 218 H (70-110) mg/dL C-Reactive Protein (0.00-0.80) mg/dL Procalcitonin (0.02-0.09) ng/mL Urine Protein 1+ H (Negative) Urine Ketones 1+ H (Negative) Urine Blood Trace H (Negative) Ur Leukocyte Esterase Large H (Negative) Urine RBC 7 H (0-5) /hpf Urine WBC >182 H (0-5) /hpf Urine WBC Clumps Few H (None) /hpf Urine Bacteria Many H (None) /hpf 01/15/23 01/15/23 01/15/23 Range/Units 06:18 06:18 07:38 WBC 22.99 H (4.50-10.00) X 10*3/uL RBC 3.48 L (4.40-5.60) X 10*6/uL Hgb 11.5 L (13.0-17.0) g/dL Hct 35.9 L (39.6-50.0) % MCV 103.2 H (80.0-97.0) fL MCH 33.0 H (27.0-32.0) pg RDW 14.6 H (11.5-14.5) % Immature Gran # 0.11 H (0.00-0.04) X 10*3/uL Neutrophils # 18.87 H (1.80-7.70) X 10*3/uL BUN 35.9 H (9.0-27.0) mg/dL Est GFR (CKD-EPI)AfAm 55.4 L (60.0-200.0) Est GFR (CKD-EPI)NonAf 47.8 L (60.0-200.0) BUN/Creatinine Ratio 25.64 H (12.00-20.00) Ratio Glucose 161 H (70-110) mg/dL POC Glucose (mg/dL) 122 H (70-110) mg/dL C-Reactive Protein (0.00-0.80) mg/dL Procalcitonin (0.02-0.09) ng/mL Urine Protein (Negative) Urine Ketones (Negative) Urine Blood (Negative) Ur Leukocyte Esterase (Negative) Urine RBC (0-5) /hpf Urine WBC (0-5) /hpf Urine WBC Clumps (None) /hpf Urine Bacteria (None) /hpf Microbiology - Last 24 Hours (Table) 01/14/23 18:21 Urine Culture - Preliminary Urine,Voided Assessment and Plan Assessment: 1. Acute kidney injury secondary to ATN secondary to severe sepsis and further worsened with the use of diuretics and NSAIDs. Creatinine 3.26 on admission and down to 1.4 today. Creatinine 0.89 dated 08/25/2022. 2. UTI on antibiotics. ID consulted. 3. Diabetes with hypoglycemia. 4. Benign hypertension. Currently controlled. Plan: Continue off of IV fluids Encourage increased oral intake Monitor labs as outpatient Okay to continue Cozaar. Monitor for low blood pressure
[2023-01-15] MEDS: IOPAMIDOL CONTRAST (ORAL USE) VIAL PO PRN ×2 (11:27→12:37)
[2023-01-15 11:36] LABS: Glucose,Whole Blood 147 mg/dL (70-110)
--- NOTE | 2023-01-15 12:32 | PN ---
PROGRESS NOTE DATE OF SERVICE: 01/14/2023 SUBJECTIVE: This is a 77-year-old gentleman who was admitted with mental status changes secondary to hypoglycemia and also had abnormal urine. Cultures are pending at this time. I would also recommend a CT scan of the abdomen and pelvis to complete the workup. OBJECTIVE: VITAL SIGNS: Pulse is 73, blood pressure 115/61, respirations 16. CHEST: Clear to auscultation. CARDIAC: S1 and S2. ABDOMEN: Soft. NERVOUS SYSTEM: Unchanged. LABORATORY DATA: Labs are reviewed. ASSESSMENT: 1. Change in mental status possibly secondary hypoglycemia. 2. Atrial fibrillation. 3. Acute renal failure possibly prerenal acute renal failure. 4. Chronic obstructive pulmonary disease. 5. Multiple medical issues. 6. Rule out urinary tract infection. RECOMMENDATIONS AND DISCUSSION: I recommend to continue current medications. Continue symptomatic treatment. I recommend CT scan of abdomen and pelvis and monitor closely. Further recommendations to follow. MMODL / IJN: [id number] /
[2023-01-15] MEDS: SPIRONOLACTONE 25 MG TAB PO SCH (13:19)
--- NOTE | 2023-01-15 13:55 | CT ---
EXAMINATION TYPE: CT abdomen pelvis wo con DATE OF EXAM: 01/15/2023 HISTORY: possible UTI. Fever and pain. CT DLP: 1292.3 mGycm. Automated Exposure Control for Dose Reduction was Utilized. TECHNIQUE: CT scan of the abdomen and pelvis is performed with oral but without IV contrast. COMPARISON: CT April 15, 2022 FINDINGS: Within the limitations of a non-contrast study, the following observations are made. LUNG BASES: Small to tiny left pleural effusion on current study with associated left basilar catrachita sive atelectasis. Dependent atelectasis right lung base. Tiny pericardial effusion redemonstrated. LIVER/GB: Gallbladder not seen and presumed surgically absent similar to prior. PANCREAS: Mild to moderate generalized atrophy. SPLEEN: Calcifications throughout the spleen consistent with product of old granulomatous disease ar e noted.. ADRENALS: No significant abnormality is seen. KIDNEYS: No renal stones or hydronephrosis seen bilaterally. There is 1.9 cm exophytic thin-walled cy st posteriorly lower pole right kidney axial image 47 redemonstrated. There is dependent air axial im age 89 left aspect and nondependent air axial image 88. Correlate for recent Aldana catheterization. BOWEL: Contrast distended stomach with air-fluid level. Surrounding free air is noted. Lap band devic e is stable and satisfactory in position. There is air-contrast level is slightly dilated distal esop hagus similar to prior. Contrast prominent duodenal sweep. Prominent fluid-filled proximal small annalee l loops in the midabdomen with air-fluid levels. Several more abnormally dilated up to 3.6 cm. There are nondistended contrast-filled small bowel loops in the left abdomen. Oral contrast does not reach ileal level. There are nondistended small bowel loops in the right abdomen. There is nondistended col on. Normal-appearing appendix is seen. GENITAL ORGANS: Enlarged prostate consistent with BPH. LYMPH NODES: No greater than 1cm abdominal or pelvic lymph nodes are appreciated. OSSEOUS STRUCTURES: Multilevel spurring in the thoracolumbar spine. Multilevel disc space narrowing a nd vacuum disc phenomenon. Multilevel facet arthropathy. Moderate axial joint space loss and spurring in both hips. OTHER: There are free foci of air anteriorly in the upper to mid abdomen. Air within the wall of the stomach posterior aspect. IMPRESSION: There is suggestion of proximal to mid small bowel obstruction. Free air is present in th e upper to mid abdomen. There is distended stomach with gas in the wall or pneumatosis noted. Surgica l exploration is likely warranted. A [place] critical message alert has been initiated for Janice Braun MD via the [employer] on 01/15/2023 1:52 PM. This message alert has been sent to Janice Braun MD via the preferences provided by the clinician for the receipt of Radiology Critical Findings. Message ID [id number].
[2023-01-15] MEDS: PIPERACILLIN-TAZOBACTAM 3.375 GM in SODIUM CHLORIDE 0.9% 100 ML IVPB SCH ×2 (15:43→23:30)
--- NOTE | 2023-01-15 15:43 | XR ---
EXAMINATION TYPE: XR KUB DATE OF EXAM: 01/15/2023 3:35 PM CLINICAL HISTORY: Pneumatosis. Abdominal distention. TECHNIQUE: 3 supine KUB images of the abdomen are obtained. COMPARISON: CT abdomen and pelvis from earlier today. FINDINGS: Lap band remains stable and satisfactory in position. Gas distended stomach is redemonstrat ed. Scattered gas in nondistended small and large bowel loops throughout the remainder of the abdomen and pelvis. Left-sided pelvic phleboliths. Multilevel spurring in the spine redemonstrated. IMPRESSION: As above. Distended stomach redemonstrated. Free air and pneumatosis in the gastric wall is seen better on recent CT versus plain films.
[2023-01-15 16:58] LABS: Glucose,Whole Blood 145 mg/dL (70-110)
[2023-01-15 20:21] LABS: Glucose,Whole Blood 120 mg/dL (70-110)
[2023-01-15] MEDS: PANTOPRAZOLE 40 MG/10 ML VIAL IVP SCH (21:02)
[2023-01-15] MEDS: PRAVASTATIN SODIUM 40 MG TAB PO SCH (21:02)
[2023-01-15] MEDS: QUEtiapine 100 MG TAB PO PRN (21:16)
[2023-01-16] MEDS: busPIRone HCl 5 MG TAB PO SCH ×3 (05:12→20:12)
[2023-01-16] MEDS: CARBIDOPA-LEVODOPA 25-250 MG 1 EACH TAB PO SCH ×4 (05:13→20:11)
[2023-01-16] MEDS: rOPINIRole HCL 4 MG TABLET PO SCH ×4 (05:13→22:18)
[2023-01-16] MEDS: PANTOPRAZOLE 40 MG/10 ML VIAL IVP SCH ×2 (08:01→20:22)
[2023-01-16] MEDS: PIPERACILLIN-TAZOBACTAM 3.375 GM in SODIUM CHLORIDE 0.9% 100 ML IVPB SCH ×2 (08:01→16:20)
[2023-01-16] MEDS ORDERED: SODIUM CHLORIDE 0.9% 1,000 ML IV ONE (08:07)
[2023-01-16 08:15] LABS: Glucose,Whole Blood 115 mg/dL (70-110)
--- NOTE | 2023-01-16 08:26 | P.GSCN ---
History of Present Illness Consult date: 01/16/23 History of present illness: CHIEF COMPLAINT: Altered mental status HISTORY OF PRESENT ILLNESS: This is a 77-year-old male who presented to the hospital with evidence of altered mental status possibly due to hypoglycemia and UTI. He was also found have evidence of acute kidney injury. Patient is on IV antibiotics. Abdominal CAT scan completed due to elevated white count. The CT scan had shown free air. Surgical service consulted in regards to free air on CAT scan and x-ray. Patient denies any abdominal pain. His abdomen is distended. Denies any nausea or vomiting. Bowel movements are reported. He has a past surgical history of a LAP-BAND and cholecystectomy. Cardiac history does include coronary disease with cardiac stent, SC, CABG, A. fib and anti coagulated with Eliquis. Last dose of Eliquis last night. Patient lying in bed comfortably. Denies any chest pain or shortness breath. PAST MEDICAL HISTORY: Atrial Fibrillation, Coronary Artery Disease (CAD), Heart Failure, COPD, CVA/TIA, Dementia, Diabetes Mellitus, Hyperlipidemia, Hypertension, Myocardial Infarction (SC), Neurologic Disorder, Prostate Disorder, Parkinson's PAST SURGICAL HISTORY: LAP-BAND, cholecystectomy, CABG, heart catheterization with stent, pacemaker MEDICATIONS: See below ALLERGIES: See below SOCIAL HISTORY: No illicit drug use. REVIEW OF SYSTEMS: CONSTITUTIONAL: Denies fever or chills. HEENT: Denies blurred vision, vision changes, or eye pain. Denies hemoptysis CARDIOVASCULAR: Denies chest pain or pressure. RESPIRATORY: No shortness of breath. GASTROINTESTINAL: See HPI for pertinent findings HEMATOLOGIC: Denies bleeding disorders. GENITOURINARY: Denies any blood in urine or increased urinary frequency. SKIN: Denies pruitis. Denies rash. PHYSICAL EXAM: VITAL SIGNS: Reviewed GENERAL: Well-developed in no acute distress. HEENT: No sclera icterus. Extraocular movements grossly intact. Moist buccal mucosa. Head is atraumatic, normocephalic. No nasal drainage. ABDOMEN: Soft. Distended. Tympanic. Nontender. Left and port palpable left upper quadrant NEUROLOGIC: Alert and orientated [address] LABORATORY DATA: WBC 16.21 up to 22.99 Hgb 11.5 platelets 218 Sodium 142 potassium 4.2 creatinine 1.4 Glucose 120 Urine culture gram-negative bacilli IMAGING: Computed tomography scan abdomen and pelvis there is suggestion of proximal to mid small bowel obstruction. Free air is present on the upper mid abdomen. There is distended stomach with gas in the wall or pneumatosis noted. Surgical exploration is likely warranted. KUB x-ray distended stomach redemonstrated. Free air and pneumatosis in the gastric wall seen better on recent CT persistent ASSESSMENT: 1. Free air upper mid abdomen noted on CT and Kub x-ray 2. Proximal to mid small bowel obstruction noted on computed tomography scan 3. Distended stomach with gas in the wall or pneumatosis PLAN: -Patient scheduled for exploratory laparotomy today with Dr. Carlos -Keep patient nothing by mouth -Give 1 L fluid bolus -Repeat a computed tomography scan abdomen and pelvis with oral and IV contrast -Check stat labs CBC, CMP and lactic acid Thank you for this consult Physician It Director note has been reviewed by physician. Signing provider agrees with the documented findings, assessment, and plan of care. Past Medical History Past Medical History: Atrial Fibrillation, Coronary Artery Disease (CAD), Heart Failure, COPD, CVA/TIA, Dementia, Diabetes Mellitus, Hyperlipidemia, Hyper tension, Myocardial Infarction (SC), Neurologic Disorder, Prostate Disorder Additional Past Medical History / Comment(s): parkinsons, charcot's joint - foot and ankle, insomnia, restless legs syndrome, spinal stenosis, pacemaker, chronic gout, BPH, arthritis, Last Myocardial Infarction Date:: 1997 History of Any Multi-Drug Resistant Organisms: None Reported Past Surgical History: Bariatric Surgery, Cholecystectomy, Coronary Bypass/CABG, EPS, Heart Catheterization, Joint Replacement Additional Past Surgical History / Comment(s): has two implanted batteries for parkinsons, lap band surgery 2009, bilat knee replacements Past Anesthesia/Blood Transfusion Reactions: No Reported Reaction Date of Last Stent Placement:: 08/25/1989 Past Psychological History: No Psychological Hx Reported Smoking Status: Never smoker Past Alcohol Use History: None Reported Past Drug Use History: None Reported - Past Family History Father Family Medical History: Myocardial Infarction (SC) Mother Additional Family Medical History / Comment(s): heart disease Medications and Allergies Home Medications Medication Instructions Recorded Confirmed Type Aspirin 81 mg PO DAILY@0900 07/28/17 01/11/23 History Pravastatin Sodium [Pravachol] 40 mg PO HS@2100 07/28/17 01/11/23 History Tamsulosin [Flomax] 0.4 mg PO DAILY@0900 07/28/17 01/11/23 History allopurinoL [Zyloprim] 300 mg PO DAILY@0900 07/28/17 01/11/23 History Carbidopa/Levodopa [Carbidopa-Levo 1 tab PO QID@06,,17,21 09/25/21 01/11/23 History 25-250 mg Odt] Cyanocobalamin (Vitamin B-12) 1,000 mcg PO DAILY@0900 09/25/21 01/11/23 History [Vitamin B-12] metFORMIN HCL [Glucophage] 1,000 mg PO DAILY@0900 09/25/21 01/11/23 History Albuterol Inhaler [Ventolin Hfa 2 puff INHALATION RT-Q4H PRN 04/13/22 01/11/23 History Inhaler] Apixaban [Eliquis] 2.5 mg PO BID@0900,209904/13/22 01/11/23 History Budesonide-Formot 160-4.5 Mcg 2 puff INHALATION RT-BID@0900,209904/13/22 01/11/23 History [Symbicort 160-4.5 Mcg Inhaler] Glimepiride [Amaryl] 1 mg PO BID@0900,1700 04/13/22 01/11/23 History Glimepiride [Amaryl] 2 mg PO BID@0900,1700 04/13/22 01/11/23 History Losartan [Cozaar] 25 mg PO DAILY@0900 04/13/22 01/11/23 History Midodrine HCl [ProAmatine] 10 mg PO TID@0900,1300,209904/13/22 01/11/23 History Spironolactone [Aldactone] 25 mg PO DAILY@1300 04/13/22 01/11/23 History Melatonin 10 mg PO HS PRN tab 04/22/22 01/11/23 Rx Furosemide [Lasix] 40 mg PO BID@0900,1500 08/23/22 01/11/23 History Pimavanserin Tartrate [Nuplazid] 34 mg PO DAILY@0900 08/23/22 01/11/23 History busPIRone HCL [Buspar] 7.5 mg PO TID@0600,1400,2200 08/23/22 01/11/23 History ALPRAZolam [Xanax] 1 mg PO DAILY@1400 01/11/23 01/11/23 History Ascorbic Acid [Vitamin C] 500 mg PO DAILY@0900 01/11/23 01/11/23 History Cholecalciferol [Vitamin D3 (25 50 mcg PO DAILY@0900 01/11/23 01/11/23 History Mcg = 1000 Iu)] Divalproex Sodium [Depakote] 125 mg PO BID@0900,209901/11/23 01/11/23 History Docusate [Colace] 100 mg PO BID@0900,209901/11/23 01/11/23 History Famotidine [Pepcid] 20 mg PO DAILY@0901/11/23 01/11/23 History Ferrous Sulfate [Iron] 325 mg PO DAILY@0900 01/11/23 01/11/23 History Ibuprofen [Motrin Ib] 600 mg PO BID@0900,209901/11/23 01/11/23 History Metoprolol Succinate (ER) [Toprol 50 mg PO DAILY@0901/11/23 01/11/23 History XL] QUEtiapine [SEROquel] 100 mg PO DAILY@1800 01/11/23 01/11/23 History Zinc Gluconate [Zinc] 50 mg PO DAILY@0900 01/11/23 01/11/23 History polyethylene glycoL 3350 [Miralax] 17 gm PO DAILY@0900 01/11/23 01/11/23 History rOPINIRole HCL [Requip] 4 mg PO QID@00,06,12,18 01/11/23 01/11/23 History Allergies Allergy/AdvReac Type Severity Reaction Status Date / Time gabapentin Allergy unknown, Verified 01/11/23 13:30 per [facility] Surgical - Exam Vital Signs Temp Pulse Resp BP Pulse Ox 97 F L 72 20 122/77 94 L 01/11/23 11:25 01/11/23 11:25 01/11/23 11:25 01/11/23 11:25 01/11/23 11:25 Results - Labs 01/15/23 06:18 01/15/23 06:18 Abnormal Lab Results - Last 24 Hours (Table) 01/15/23 01/15/23 01/15/23 Range/Units 06:18 06:18 11:34 WBC 22.99 H (4.50-10.00) X 10*3/uL RBC 3.48 L (4.40-5.60) X 10*6/uL Hgb 11.5 L (13.0-17.0) g/dL Hct 35.9 L (39.6-50.0) % MCV 103.2 H (80.0-97.0) fL MCH 33.0 H (27.0-32.0) pg RDW 14.6 H (11.5-14.5) % Immature Gran # 0.11 H (0.00-0.04) X 10*3/uL Neutrophils # 18.87 H (1.80-7.70) X 10*3/uL BUN 35.9 H (9.0-27.0) mg/dL Est GFR (CKD-EPI)AfAm 55.4 L (60.0-200.0) Est GFR (CKD-EPI)NonAf 47.8 L (60.0-200.0) BUN/Creatinine Ratio 25.64 H (12.00-20.00) Ratio Glucose 161 H (70-110) mg/dL POC Glucose (mg/dL) 147 H (70-110) mg/dL 01/15/23 01/15/23 Range/Units 16:57 20:18 WBC (4.50-10.00) X 10*3/uL RBC (4.40-5.60) X 10*6/uL Hgb (13.0-17.0) g/dL Hct (39.6-50.0) % MCV (80.0-97.0) fL MCH (27.0-32.0) pg RDW (11.5-14.5) % Immature Gran # (0.00-0.04) X 10*3/uL Neutrophils # (1.80-7.70) X 10*3/uL BUN (9.0-27.0) mg/dL Est GFR (CKD-EPI)AfAm (60.0-200.0) Est GFR (CKD-EPI)NonAf (60.0-200.0) BUN/Creatinine Ratio (12.00-20.00) Ratio Glucose (70-110) mg/dL POC Glucose (mg/dL) 145 H 120 H (70-110) mg/dL Microbiology - Last 24 Hours (Table) 01/14/23 18:21 Urine Culture - Preliminary Urine,Voided Gram Neg Bacilli Diabetes panel 01/15/23 Range/Units 06:18 Sodium 142 (135-145) mmol/L Potassium 4.2 (3.5-5.5) mmol/L Chloride 109 (96-109) mmol/L Carbon Dioxide 22.0 (20.0-27.5) mmol/L BUN 35.9 H (9.0-27.0) mg/dL Creatinine 1.4 (0.6-1.5) mg/dL Glucose 161 H (70-110) mg/dL Calcium 8.8 (8.7-10.3) mg/dL Calcium panel 01/15/23 Range/Units 06:18 Calcium 8.8 (8.7-10.3) mg/dL Pituitary panel 01/15/23 Range/Units 06:18 Sodium 142 (135-145) mmol/L Potassium 4.2 (3.5-5.5) mmol/L Chloride 109 (96-109) mmol/L Carbon Dioxide 22.0 (20.0-27.5) mmol/L BUN 35.9 H (9.0-27.0) mg/dL Creatinine 1.4 (0.6-1.5) mg/dL Glucose 161 H (70-110) mg/dL Calcium 8.8 (8.7-10.3) mg/dL Adrenal panel 01/15/23 Range/Units 06:18 Sodium 142 (135-145) mmol/L Potassium 4.2 (3.5-5.5) mmol/L Chloride 109 (96-109) mmol/L Carbon Dioxide 22.0 (20.0-27.5) mmol/L BUN 35.9 H (9.0-27.0) mg/dL Creatinine 1.4 (0.6-1.5) mg/dL Glucose 161 H (70-110) mg/dL Calcium 8.8 (8.7-10.3) mg/dL
[2023-01-16 08:33] LABS: Basophils # (A) 0.1 k/uL (0-0.2); Basophils % (A) 0 %; Eosinophils # (A) 0.5 k/uL (0-0.7); Eosinophils % (A) 4 %; HCT 32.3 % (39.0-53.0); HGB 10.5 gm/dL (13.0-17.5); Lymphocytes # (A) 2.7 k/uL (1.0-4.8); Lymphocytes % (A) 22 %; MCH 33.5 pg (25.0-35.0); MCHC 32.5 g/dL (31.0-37.0); Macrocytosis Slight; Mean Platelet Volume 8.4; Monocytes # (A) 0.5 k/uL (0-1.0); Monocytes % (A) 4 %; Neutrophils # (A) 8.7 k/uL (1.3-7.7); Neutrophils % (A) 69 %; Platelet Count 187 k/uL (150-450); RBC 3.13 m/uL (4.30-5.90); RDW 14.4 % (11.5-15.5); WBC 12.5 k/uL (3.8-10.6)
[2023-01-16] MEDS: SYMBICORT 160-4.5 MCG INHALER INHALATION SCH ×2 (08:33→20:11)
[2023-01-16 08:53] LABS: ALT 10 U/L (4-49); AST 16 U/L (17-59); African American GFR (CKD) 59 (>60 ml/min/1.73 sqM); Albumin 2.7 g/dL (3.5-5.0); Albumin/Globulin Ratio 1.1; Alkaline Phosphatase 78 U/L (38-126); Anion Gap 10 mmol/L; Blood Urea Nitrogen 47 mg/dL (9-20); Calcium 8.2 mg/dL (8.4-10.2); Carbon Dioxide 23 mmol/L (22-30); Chloride 107 mmol/L (98-107); Globulin 2.4 g/dL; Glucose 106 mg/dL (74-99); Non-African American GFR(CKD) 51 (>60 ml/min/1.73 sqM); Potassium 3.9 mmol/L (3.5-5.1); Sodium 140 mmol/L (137-145); Total Bilirubin 0.6 mg/dL (0.2-1.3); Total Protein 5.1 g/dL (6.3-8.2)
--- NOTE | 2023-01-16 10:41 | XR ---
EXAMINATION TYPE: XR abdomen 1V DATE OF EXAM: 01/16/2023 10:21 AM INDICATION: Patient age:Male; 77 years old; Reason for study: NGT placement; COMPARISON: CT 01/16/2023 TECHNIQUE: One radiographic view of the abdomen was obtained. FINDINGS: High-density contrast is seen within the colon. The appendix is visualized. The scattered p elvic phlebolith are present. Gastric lap band is present appears in appropriate position. Nasogastri c tube appears to be coiled back on itself in the distal portion is headed superiorly. Electronic dev ices are seen projecting over the upper chest. The bowel gas pattern is nonspecific without dilated l oops of small or large bowel. There is no evidence for organomegaly or pneumoperitoneum. The osseous structures are intact. Multilevel disc degeneration changes are seen throughout the spine. Fecal ma terial and gas are demonstrated throughout the colon and rectum. IMPRESSION: 1. Malposition of the nasogastric tube with the distal portion turning 180 degrees and traveling cep halad. 2. Gastric lap band appears in appropriate position
[2023-01-16 11:16] LABS: Glucose,Whole Blood 133 mg/dL (70-110)
[2023-01-16] MEDS: GLIMEPIRIDE 1 MG TAB PO SCH ×2 (11:27→17:39)
[2023-01-16] MEDS: DOCUSATE 100 MG CAP PO SCH ×2 (11:27→20:12)
[2023-01-16] MEDS: MIDODRINE 5 MG TAB PO SCH ×3 (11:27→17:39)
[2023-01-16] MEDS: CYANOCOBALAMIN 500 MCG TAB PO SCH (11:27)
[2023-01-16] MEDS: allopurinoL 300 MG TAB PO SCH (11:27)
[2023-01-16] MEDS: DIVALPROEX SPRINKLE 125 MG CAP.SPRINK PO SCH ×2 (11:27→20:12)
[2023-01-16] MEDS: ASCORBIC ACID 500 MG TAB PO SCH (11:27)
[2023-01-16] MEDS: FERROUS SULFATE 325 MG TAB PO SCH (11:27)
[2023-01-16] MEDS: ASPIRIN 81 MG PO SCH (11:27)
[2023-01-16] MEDS: APIXABAN 2.5 MG TABLET PO SCH (11:27)
[2023-01-16] MEDS: CHOLECALCIFEROL 25 MCG (1000 IU) TABLET PO SCH (11:27)
[2023-01-16] MEDS: ZINC SULFATE 220 MG CAP PO SCH (11:28)
[2023-01-16] MEDS: LOSARTAN 25 MG TAB PO SCH (11:28)
[2023-01-16] MEDS: NON FORMULARY DRUG (Pimavanserin Tartrate [Nuplazid] 34 MG Capsule) PO SCH (11:28)
[2023-01-16] MEDS: METOPROLOL SUCCINATE (ER) 50 MG TAB.ER.24H PO SCH (11:28)
[2023-01-16] MEDS: polyethylene glycoL 3350 17 GM POWD.PACK PO SCH (11:28)
[2023-01-16] MEDS: TAMSULOSIN 0.4 MG CAP.ER.24H PO SCH (11:28)
[2023-01-16] MEDS: SPIRONOLACTONE 25 MG TAB PO SCH (11:28)
--- NOTE | 2023-01-16 11:52 | XR ---
EXAMINATION TYPE: XR abdomen 1V DATE OF EXAM: 01/16/2023 Comparison: 01/16/2023 Clinical History: 77-year-old male readjusted/NGT placement Findings: Generator device along both sides of the chest wall. Possible small left effusion. No evidence for free intraperitoneal air. Air within the stomach. Lap band device is present. There i s passage of the NG tube across the left and into the fundus/proximal body of the stomach. The sideho le of the NG tube remains above the lap band. Oral contrast material seen scattered within bowel loop s in the upper abdomen. Impression: Repositioning of the NG tube. It now courses satisfactorily across the lap band with tip in the fundu s/proximal body. However, note that the sidehole still remains above the lap band. If passage beyond the lap band is desired, advance by 5 cm further.
--- NOTE | 2023-01-16 12:04 | P.PN ---
Subjective Patient is seen for follow-up for acute kidney injury. Renal function has been improving. Admitted with hypoglycemia and altered mentation. Mentation has improved. Maintained on IV antibiotics for possible UTI. Status post IV fluids Serum creatinine down to 1.3 from 3.2 on initial admission. This morning patient has an NG tube in place. Surgery was consult it due to free air noted on CT of the abdomen. Objective - Vital Signs Vital signs: Vital Signs Temp 97.6 F 01/16/23 08:00 Pulse 87 01/16/23 08:00 Resp 16 01/16/23 08:00 BP 92/56 01/16/23 08:00 Pulse Ox 97 01/16/23 08:00 FiO2 1 01/14/23 08:39 Intake & Output 01/15/23 01/16/23 01/16/23 18:59 06:59 18:59 Intake Total 100 Output Total 200 900 Balance -100 -900 Weight 95.254 kg Intake: Intake, IV Titration 100 Amount Piperacillin-Tazobactam 3 100 .375 gm In Sodium Chloride 0.9% 100 ml @ 25 mls/hr IVPB Q8HR [facility] Rx# :[id number] Output: Gastric Drainage 900 Urine 200 Other: Voiding Method Diaper Diaper External Catheter # Voids 1 # Bowel Movements 1 - Exam Awake, comfortable, no acute distress NG tube in place Examination of the heart S1 and S2 Examination of the lungs bilateral breath sounds are heard Abdomen is soft nontender Examination lower extremity shows no significant edema [employer] exam grossly intact - Labs CBC & Chem 7: 01/16/23 08:17 01/16/23 08:17 Labs: Abnormal Lab Results - Last 24 Hours (Table) 01/15/23 01/15/23 01/16/23 Range/Units 16:57 20:18 08:13 WBC (3.8-10.6) k/uL RBC (4.30-5.90) m/uL Hgb (13.0-17.5) gm/dL Hct (39.0-53.0) % MCV (80.0-100.0) fL Neutrophils # (1.3-7.7) k/uL BUN (9-20) mg/dL Creatinine (0.66-1.25) mg/dL Glucose (74-99) mg/dL POC Glucose (mg/dL) 145 H 120 H 115 H (70-110) mg/dL Calcium (8.4-10.2) mg/dL AST (17-59) U/L Total Protein (6.3-8.2) g/dL Albumin (3.5-5.0) g/dL 01/16/23 01/16/23 01/16/23 Range/Units 08:17 08:17 11:14 WBC 12.5 H (3.8-10.6) k/uL RBC 3.13 L (4.30-5.90) m/uL Hgb 10.5 L (13.0-17.5) gm/dL Hct 32.3 L (39.0-53.0) % MCV 103.0 H (80.0-100.0) fL Neutrophils # 8.7 H (1.3-7.7) k/uL BUN 47 H (9-20) mg/dL Creatinine 1.34 H (0.66-1.25) mg/dL Glucose 106 H (74-99) mg/dL POC Glucose (mg/dL) 133 H (70-110) mg/dL Calcium 8.2 L (8.4-10.2) mg/dL AST 16 L (17-59) U/L Total Protein 5.1 L (6.3-8.2) g/dL Albumin 2.7 L (3.5-5.0) g/dL Microbiology - Last 24 Hours (Table) 01/14/23 12:35 Blood Culture - Preliminary Blood 01/14/23 18:21 Urine Culture - Preliminary Urine,Voided Gram Neg Bacilli Assessment and Plan Assessment: 1. Acute kidney injury secondary to ATN secondary to severe sepsis and further worsened with the use of diuretics and NSAIDs. Creatinine 3.26 on admission and down to 1.3 today. Creatinine 0.89 dated 08/25/2022. 2. UTI on antibiotics. ID consulted. Urine culture growing gram-negative bacilli. 3. Diabetes with hypoglycemia. 4. Benign hypertension. Currently controlled. 5. Free air noted on CT of the abdomen. Patient has history of previous lab and procedure. Surgery on consult and currently with an NG tube in place. Plan: Continue off of IV fluids DC antihypertensive medications as blood pressure is low.
--- NOTE | 2023-01-16 13:24 | XR ---
EXAMINATION TYPE: XR abdomen 1V DATE OF EXAM: 01/16/2023 Comparison: Earlier today Clinical History: 77-year-old male adjusted / NGT placement Findings: Assessment limited by the degree of penetration. The NG tube continues to traverse the left ventricle . Sidehole not well seen currently. There has been interval decompression of the previously air-fille d stomach. Some patchy retrocardiac density is suggested. Impression: Interval removal of air from the stomach. Limited assessment due to the degree of penetration of the radiograph. NG tube continues to traverse the lap band and is probably satisfactory. Attention on fol low-up.
--- NOTE | 2023-01-16 13:32 | P.PN ---
Subjective Progress Note Date: 01/15/23 Principal diagnosis: Urinary tract infection Patient is a 77-year-old male with a past medical history significant for atrial fibrillation coronary disease heart failure COPD diabetes mellitus hypertension hyperlipidemia patient was brought into the ER for evaluation of mental status changes , patient did have a positive UA concerning for a urinary tract infection. On today's evaluation that is 01/15/2023, the patient continues to be afebrile, the patient is breathing comfortably on room air , the patient denies chest pain , shortness of breath or cough , the patient denies nausea no vomiting no abdominal pain or diarrhea Objective - Vital Signs Vital signs: Vital Signs Temp 98.2 F 01/15/23 07:27 Pulse 73 01/15/23 07:27 Resp 16 01/15/23 07:27 BP 115/67 01/15/23 07:27 Pulse Ox 97 01/15/23 09:14 FiO2 1 01/14/23 08:39 Intake & Output 01/14/23 01/15/23 01/15/23 18:59 06:59 18:59 Intake Total 350 Balance 350 Intake: Intake, IV Titration 350 Amount Dextrose 5%-0.9% NaCl 1, 300 000 ml @ 75 mls/hr IV . [id number] [facility] Rx#:[id number] cefTRIAXone 1 gm In 50 Sodium Chloride 0.9% 50 ml @ 100 mls/hr IVPB Q12HR [facility] Rx#:[id number] Other: Voiding Method Diaper Diaper Diaper # Voids 1 3 # Bowel Movements 1 1 - Exam GENERAL DESCRIPTION: An elderly male lying in bed in no distress RESPIRATORY SYSTEM: Unlabored breathing , decreased breath sounds at bases HEART: S1 S2 regular rate and rhythm , ABDOMEN: Soft , no tenderness EXTREMITIES: No edema feet - Labs CBC & Chem 7: 01/16/23 08:17 01/16/23 08:17 Labs: Abnormal Lab Results - Last 24 Hours (Table) 01/14/23 01/14/23 01/14/23 Range/Units 12:35 12:35 17:01 WBC (4.50-10.00) X 10*3/uL RBC (4.40-5.60) X 10*6/uL Hgb (13.0-17.0) g/dL Hct (39.6-50.0) % MCV (80.0-97.0) fL MCH (27.0-32.0) pg RDW (11.5-14.5) % Immature Gran # (0.00-0.04) X 10*3/uL Neutrophils # (1.80-7.70) X 10*3/uL BUN (9.0-27.0) mg/dL Est GFR (CKD-EPI)AfAm (60.0-200.0) Est GFR (CKD-EPI)NonAf (60.0-200.0) BUN/Creatinine Ratio (12.00-20.00) Ratio Glucose (70-110) mg/dL POC Glucose (mg/dL) 213 H (70-110) mg/dL C-Reactive Protein 4.00 H (0.00-0.80) mg/dL Procalcitonin 0.10 H (0.02-0.09) ng/mL Urine Protein (Negative) Urine Ketones (Negative) Urine Blood (Negative) Ur Leukocyte Esterase (Negative) Urine RBC (0-5) /hpf Urine WBC (0-5) /hpf Urine WBC Clumps (None) /hpf Urine Bacteria (None) /hpf 01/14/23 01/14/23 01/15/23 Range/Units 18:21 20:22 02:26 WBC (4.50-10.00) X 10*3/uL RBC (4.40-5.60) X 10*6/uL Hgb (13.0-17.0) g/dL Hct (39.6-50.0) % MCV (80.0-97.0) fL MCH (27.0-32.0) pg RDW (11.5-14.5) % Immature Gran # (0.00-0.04) X 10*3/uL Neutrophils # (1.80-7.70) X 10*3/uL BUN (9.0-27.0) mg/dL Est GFR (CKD-EPI)AfAm (60.0-200.0) Est GFR (CKD-EPI)NonAf (60.0-200.0) BUN/Creatinine Ratio (12.00-20.00) Ratio Glucose (70-110) mg/dL POC Glucose (mg/dL) 231 H 218 H (70-110) mg/dL C-Reactive Protein (0.00-0.80) mg/dL Procalcitonin (0.02-0.09) ng/mL Urine Protein 1+ H (Negative) Urine Ketones 1+ H (Negative) Urine Blood Trace H (Negative) Ur Leukocyte Esterase Large H (Negative) Urine RBC 7 H (0-5) /hpf Urine WBC >182 H (0-5) /hpf Urine WBC Clumps Few H (None) /hpf Urine Bacteria Many H (None) /hpf 01/15/23 01/15/23 01/15/23 Range/Units 06:18 06:18 07:38 WBC 22.99 H (4.50-10.00) X 10*3/uL RBC 3.48 L (4.40-5.60) X 10*6/uL Hgb 11.5 L (13.0-17.0) g/dL Hct 35.9 L (39.6-50.0) % MCV 103.2 H (80.0-97.0) fL MCH 33.0 H (27.0-32.0) pg RDW 14.6 H (11.5-14.5) % Immature Gran # 0.11 H (0.00-0.04) X 10*3/uL Neutrophils # 18.87 H (1.80-7.70) X 10*3/uL BUN 35.9 H (9.0-27.0) mg/dL Est GFR (CKD-EPI)AfAm 55.4 L (60.0-200.0) Est GFR (CKD-EPI)NonAf 47.8 L (60.0-200.0) BUN/Creatinine Ratio 25.64 H (12.00-20.00) Ratio Glucose 161 H (70-110) mg/dL POC Glucose (mg/dL) 122 H (70-110) mg/dL C-Reactive Protein (0.00-0.80) mg/dL Procalcitonin (0.02-0.09) ng/mL Urine Protein (Negative) Urine Ketones (Negative) Urine Blood (Negative) Ur Leukocyte Esterase (Negative) Urine RBC (0-5) /hpf Urine WBC (0-5) /hpf Urine WBC Clumps (None) /hpf Urine Bacteria (None) /hpf 01/15/23 Range/Units 11:34 WBC (4.50-10.00) X 10*3/uL RBC (4.40-5.60) X 10*6/uL Hgb (13.0-17.0) g/dL Hct (39.6-50.0) % MCV (80.0-97.0) fL MCH (27.0-32.0) pg RDW (11.5-14.5) % Immature Gran # (0.00-0.04) X 10*3/uL Neutrophils # (1.80-7.70) X 10*3/uL BUN (9.0-27.0) mg/dL Est GFR (CKD-EPI)AfAm (60.0-200.0) Est GFR (CKD-EPI)NonAf (60.0-200.0) BUN/Creatinine Ratio (12.00-20.00) Ratio Glucose (70-110) mg/dL POC Glucose (mg/dL) 147 H (70-110) mg/dL C-Reactive Protein (0.00-0.80) mg/dL Procalcitonin (0.02-0.09) ng/mL Urine Protein (Negative) Urine Ketones (Negative) Urine Blood (Negative) Ur Leukocyte Esterase (Negative) Urine RBC (0-5) /hpf Urine WBC (0-5) /hpf Urine WBC Clumps (None) /hpf Urine Bacteria (None) /hpf Microbiology - Last 24 Hours (Table) 01/14/23 18:21 Urine Culture - Preliminary Urine,Voided Assessment and Plan (1) Urinary tract infection Current Visit: Yes Status: Acute Code(s): N39.0 - URINARY TRACT INFECTION, SITE NOT SPECIFIED SNOMED Code(s): 80607166 (2) Leukocytosis Current Visit: Yes Status: Acute Code(s): D72.829 - ELEVATED WHITE BLOOD CELL COUNT, UNSPECIFIED SNOMED Code(s): 345664361 Plan: 1patient presented hospital with mental status changes multifactorial possibly component of dehydration prerenal did have a positive UA with evidence of prostatomegaly concerning for urinary outflow obstruction and UTI likely from enteric gram-negative pathogen 2-renal insufficiency high risk of nephrotoxicity 3-patient did have worsening of his white count up to 22,000 CT abdominal pelvis has been ordered results will be followed antibiotics switched over to Zosyn and will monitor clinical course closely Time with Patient: Less than 30
--- NOTE | 2023-01-16 13:34 | P.PN ---
Subjective Progress Note Date: 01/16/23 Principal diagnosis: Urinary tract infection Patient is a 77-year-old male with a past medical history significant for atrial fibrillation coronary disease heart failure COPD diabetes mellitus hypertension hyperlipidemia patient was brought into the ER for evaluation of mental status changes , patient did have a positive UA concerning for a urinary tract infection. On today's evaluation that is 01/16/2023, the patient remains to be afebrile, the patient is breathing comfortably on room air , the patient is slightly lethargic today and did have NG to the right nostril no vomiting diarrhea or any other changes reported by the nursing staff Objective - Vital Signs Vital signs: Vital Signs Temp 97.6 F 01/16/23 08:00 Pulse 87 01/16/23 08:00 Resp 16 01/16/23 08:00 BP 92/56 01/16/23 08:00 Pulse Ox 97 01/16/23 08:00 FiO2 1 01/14/23 08:39 Intake & Output 01/15/23 01/16/23 01/16/23 18:59 06:59 18:59 Intake Total 100 Output Total 200 900 Balance -100 -900 Weight 95.254 kg Intake: Intake, IV Titration 100 Amount Piperacillin-Tazobactam 3 100 .375 gm In Sodium Chloride 0.9% 100 ml @ 25 mls/hr IVPB Q8HR [facility] Rx# :[id number] Output: Gastric Drainage 900 Urine 200 Other: Voiding Method Diaper Diaper External Catheter # Voids 1 # Bowel Movements 1 - Exam GENERAL DESCRIPTION: An elderly male lying in bed in no distress RESPIRATORY SYSTEM: Unlabored breathing , decreased breath sounds at bases HEART: S1 S2 regular rate and rhythm , ABDOMEN: Soft , no tenderness EXTREMITIES: No edema feet - Labs CBC & Chem 7: 01/16/23 08:17 01/16/23 08:17 Labs: Abnormal Lab Results - Last 24 Hours (Table) 01/15/23 01/15/23 01/16/23 Range/Units 16:57 20:18 08:13 WBC (3.8-10.6) k/uL RBC (4.30-5.90) m/uL Hgb (13.0-17.5) gm/dL Hct (39.0-53.0) % MCV (80.0-100.0) fL Neutrophils # (1.3-7.7) k/uL BUN (9-20) mg/dL Creatinine (0.66-1.25) mg/dL Glucose (74-99) mg/dL POC Glucose (mg/dL) 145 H 120 H 115 H (70-110) mg/dL Calcium (8.4-10.2) mg/dL AST (17-59) U/L Total Protein (6.3-8.2) g/dL Albumin (3.5-5.0) g/dL 01/16/23 01/16/23 01/16/23 Range/Units 08:17 08:17 11:14 WBC 12.5 H (3.8-10.6) k/uL RBC 3.13 L (4.30-5.90) m/uL Hgb 10.5 L (13.0-17.5) gm/dL Hct 32.3 L (39.0-53.0) % MCV 103.0 H (80.0-100.0) fL Neutrophils # 8.7 H (1.3-7.7) k/uL BUN 47 H (9-20) mg/dL Creatinine 1.34 H (0.66-1.25) mg/dL Glucose 106 H (74-99) mg/dL POC Glucose (mg/dL) 133 H (70-110) mg/dL Calcium 8.2 L (8.4-10.2) mg/dL AST 16 L (17-59) U/L Total Protein 5.1 L (6.3-8.2) g/dL Albumin 2.7 L (3.5-5.0) g/dL Microbiology - Last 24 Hours (Table) 01/14/23 12:35 Blood Culture - Preliminary Blood 01/14/23 18:21 Urine Culture - Preliminary Urine,Voided Gram Neg Bacilli Assessment and Plan (1) Urinary tract infection Current Visit: Yes Status: Acute Code(s): N39.0 - URINARY TRACT INFECTION, SITE NOT SPECIFIED SNOMED Code(s): 70455583 (2) Leukocytosis Current Visit: Yes Status: Acute Code(s): D72.829 - ELEVATED WHITE BLOOD CELL COUNT, UNSPECIFIED SNOMED Code(s): 246809893 Plan: 1patient presented hospital with mental status changes multifactorial possibly component of dehydration prerenal did have a positive UA with evidence of prostatomegaly concerning for urinary outflow obstruction and UTI likely from enteric gram-negative pathogen 2-renal insufficiency high risk of nephrotoxicity 3-patient did have CT of abdominal pelvis completed on 01/15/2023 with evidence of small bowel obstruction and free air and concern for possible pneumatosis Gen. surgery has been consulted, the patient white count is down to 12,000 he will be continued on Zosyn and monitor his clinical course closely son at the bedside his questions and concerns were answered Time with Patient: Less than 30
[2023-01-16] MEDS: IOPAMIDOL CONTRAST (ORAL USE) VIAL PO PRN ×2 (13:36→14:42)
--- NOTE | 2023-01-16 16:02 | CT ---
EXAMINATION TYPE: CT abdomen pelvis w con CT DLP: 1935.6 mGycm, Automated exposure control for dose reduction was used. DATE OF EXAM: 01/16/2023 3:40 PM COMPARISON: 01/15/2023 CLINICAL INDICATION:Male, 77 years old with history of free air, abdominal distention; Abdominal dist ention and free air. TECHNIQUE: Axial CT of the abdomen and pelvis. Sagittal and coronal reformats were created on a [employer] workstation. Contrast used:100ml mL of Isovue 300 with IV Contrast, Oral contrast used: with Oral Contrast FINDINGS: LUNG BASES: Small left pleural effusion is similar to prior. Associated left basilar compressive atel ectasis. Dependent atelectasis right lung base. Tiny pericardial effusion redemonstrated and unchange d. LIVER/GB: The gallbladder is not definitively visualized may be surgically absent. PANCREAS: Mild to moderate generalized atrophy. SPLEEN: Calcifications throughout the spleen consistent with product of old granulomatous disease ar e noted.. ADRENALS: No significant abnormality is seen. KIDNEYS: No renal stones or hydronephrosis seen bilaterally. There is 1.9 cm exophytic thin-walled cy st posteriorly lower pole right kidney. Redemonstration of nondependent air within the bladder lumen. BOWEL: There is oral contrast within the stomach lumen in today's exam with reconstruction of pneumat osis along the lesser and greater curvature. Nasogastric tube terminates probably in the gastric lume n. Visualized portions of the duodenum appear within normal limits. There is no contrast within the d uodenum. Oral contrast is seen within the colon from prior study. No evidence of bowel obstruction.. The appendix is within normal limits. No evidence of extravasation of oral contrast out of the gastri c lumen within the peritoneum. Gastric lap band is in place. Similar to prior study. The band appears within normal limits. Small hiatal hernia is present. GENITAL ORGANS: Enlarged prostate consistent with BPH measuring up to 5.0 cm in transverse dimension. LYMPH NODES: No greater than 1cm abdominal or pelvic lymph nodes are appreciated. OSSEOUS STRUCTURES: Multilevel spurring in the thoracolumbar spine. Multilevel disc space narrowing a nd vacuum disc phenomenon. Multilevel facet arthropathy. Moderate axial joint space loss and spurring in both hips. OTHER: There are scattered foci of pneumoperitoneum/free air in the upper anterior abdomen. IMPRESSION: 1. Persistent scattered foci of pneumoperitoneum within the upper abdomen with pneumatosis of the st omach wall. No evidence of extravasation of contrast. 2. No evidence of bowel obstruction.
[2023-01-16 17:01] LABS: Glucose,Whole Blood 107 mg/dL (70-110)
--- NOTE | 2023-01-16 19:09 | PN ---
PROGRESS NOTE DATE OF SERVICE: 01/15/2023 SUBJECTIVE: This is a 77-year-old gentleman who was admitted with change in mental status, thought to be secondary to hypoglycemia. He is being closely monitored. The patient also had elevated white count. The patient underwent a CT of the abdomen yesterday which showed multiple findings with proximal-mid small bowel obstruction, free air in the upper-mid, and distended stomach with pneumatosis to rule out the possibility of perforation. Surgery is planning exploratory laparotomy today. PAST MEDICAL HISTORY: Reviewed. REVIEW OF SYSTEMS: Could not be taken as the patient is confused at baseline. CURRENT MEDICATIONS: IV Zosyn. Rest of the medications are noted. PHYSICAL EXAMINATION: VITAL SIGNS: Pulse is 87, blood pressure , respirations 16. HEENT: Conjunctivae normal. NECK: No jugular venous distention. CARDIOVASCULAR: S1 and S2 muffled. RESPIRATORY: Breath sounds diminished at the bases. A few scattered rhonchi. ABDOMEN: Soft, distended. No guarding. No mass palpable. LEGS: No edema. NERVOUS SYSTEM: Nonfocal. LABORATORY DATA: WBC 12.5. Rest of the labs are noted. ASSESSMENT: 1. Change in mental status, possibly secondary to hypoglycemia. 2. perforated viscus with possible distended stomach and pneumatosis intestinalis and small bowel obstruction. 3. Atrial fibrillation. 4. Acute renal failure possibly prerenal acute renal failure. 5. Chronic obstructive pulmonary disease. 6. Multiple medical issues. 7. Gram-negative bacilli with urinary tract infection. RECOMMENDATIONS: Recommend to continue current medications. Continue symptomatic treatment. Otherwise at this time exploratory laparotomy per Surgery. Urine culture showed gram-negative bacilli. Otherwise, we will continue to monitor. Overall prognosis extremely guarded. Further recommendations to follow. MMODL / IJN: [id number] /
[2023-01-16] MEDS: PRAVASTATIN SODIUM 40 MG TAB PO SCH (20:12)
[2023-01-16] MEDS: HEPARIN SODIUM,PORCINE/PF 5,000 UNIT/0.5 ML SYRINGE SQ SCH (20:22)
[2023-01-16 20:27] LABS: Glucose,Whole Blood 136 mg/dL (70-110)
[2023-01-17] MEDS: PIPERACILLIN-TAZOBACTAM 3.375 GM in SODIUM CHLORIDE 0.9% 100 ML IVPB SCH ×3 (00:08→17:11)
[2023-01-17] MEDS: CARBIDOPA-LEVODOPA 25-250 MG 1 EACH TAB PO SCH ×4 (05:55→20:24)
[2023-01-17] MEDS: rOPINIRole HCL 4 MG TABLET PO SCH ×3 (05:55→17:11)
[2023-01-17] MEDS: busPIRone HCl 5 MG TAB PO SCH ×3 (05:55→20:24)
[2023-01-17] MEDS: MIDODRINE 5 MG TAB PO SCH ×3 (05:56→17:11)
[2023-01-17 07:49] LABS: Glucose,Whole Blood 141 mg/dL (70-110)
[2023-01-17] MEDS: allopurinoL 300 MG TAB PO SCH (08:12)
[2023-01-17] MEDS: FERROUS SULFATE 325 MG TAB PO SCH (08:12)
[2023-01-17] MEDS: DOCUSATE 100 MG CAP PO SCH ×2 (08:12→20:24)
[2023-01-17] MEDS: polyethylene glycoL 3350 17 GM POWD.PACK PO SCH (08:12)
[2023-01-17] MEDS: ASPIRIN 81 MG PO SCH (08:12)
[2023-01-17] MEDS: CYANOCOBALAMIN 500 MCG TAB PO SCH (08:12)
[2023-01-17] MEDS: DIVALPROEX SPRINKLE 125 MG CAP.SPRINK PO SCH ×2 (08:12→20:24)
[2023-01-17] MEDS: NON FORMULARY DRUG (Pimavanserin Tartrate [Nuplazid] 34 MG Capsule) PO SCH (08:12)
[2023-01-17] MEDS: CHOLECALCIFEROL 25 MCG (1000 IU) TABLET PO SCH (08:12)
[2023-01-17] MEDS: TAMSULOSIN 0.4 MG CAP.ER.24H PO SCH (08:12)
[2023-01-17] MEDS: METOPROLOL SUCCINATE (ER) 50 MG TAB.ER.24H PO SCH (08:12)
[2023-01-17] MEDS: GLIMEPIRIDE 1 MG TAB PO SCH ×2 (08:12→17:11)
[2023-01-17] MEDS: ZINC SULFATE 220 MG CAP PO SCH (08:13)
[2023-01-17] MEDS: SYMBICORT 160-4.5 MCG INHALER INHALATION SCH ×2 (08:21→20:38)
[2023-01-17] MEDS: HEPARIN SODIUM,PORCINE/PF 5,000 UNIT/0.5 ML SYRINGE SQ SCH ×2 (08:56→20:30)
[2023-01-17] MEDS: PANTOPRAZOLE 40 MG/10 ML VIAL IVP SCH ×2 (08:56→20:30)
--- NOTE | 2023-01-17 10:49 | P.PN ---
Progress Note - Text Progress Note Date: 01/17/23 The patient feels better today. He denies any abdominal pain. He's had no nausea or vomiting. He's had no flatus. On exam vital signs appear stable. Abdomen is soft. There is no tenderness. There is no peritoneal signs. Even on deep palpation his abdomen is soft. Acute gastric distention appears to have resolved. The patient will be observed. He will have some ice chips around his NG tube today. We will states starting clear liquids tomorrow.
[2023-01-17 10:50] LABS: Basophils # (A) 0.07 X 10*3/uL (0.00-0.10); Basophils % (A) 0.6 %; Eosinophils # (A) 0.56 X 10*3/uL (0.04-0.35); Eosinophils % (A) 5.1 %; HCT 31.3 % (39.6-50.0); HGB 9.9 g/dL (13.0-17.0); Immature Grans, Automated 0.3 %; Lymphocytes # (A) 2.71 X 10*3/uL (0.90-5.00); Lymphocytes % (A) 24.8 %; MCH 32.1 pg (27.0-32.0); MCHC 31.6 g/dL (32.0-37.0); MCV 101.6 fL (80.0-97.0); Mean Platelet Volume 11.2 fL (9.5-12.2); Monocytes # (A) 0.77 X 10*3/uL (0.20-1.00); NRBC Per 100 WBC 0 /100 WBCS (0.0-0.0); Neutrophils # (A) 6.79 X 10*3/uL (1.80-7.70); Neutrophils % (A) 62.2 %; Platelet Count 216 X 10*3/uL (140-440); RBC 3.08 X 10*6/uL (4.40-5.60); RDW 14.6 % (11.5-14.5); WBC 10.93 X 10*3/uL (4.50-10.00)
[2023-01-17 11:50] LABS: African American GFR (CKD) 57.4 (60.0-200.0); Albumin/Globulin Ratio 1.4 (1.60-3.17); Anion Gap 11.6 mmol/L (10.00-18.00); BUN/Creat Ratio 26.18 Ratio (12.00-20.00); Blood Urea Nitrogen 35.6 mg/dL (9.0-27.0); Calcium 8.7 mg/dL (8.7-10.3); Carbon Dioxide 23.4 mmol/L (20.0-27.5); Globulin 2.2 g/dL (1.6-3.3); Non-African American GFR(CKD) 49.5 (60.0-200.0); Total Bilirubin 0.3 mg/dL (0.30-1.20); Total Protein 5.2 g/dL (6.2-8.2)
[2023-01-17 12:15] LABS: Glucose,Whole Blood 134 mg/dL (70-110)
[2023-01-17] MEDS: SPIRONOLACTONE 25 MG TAB PO SCH (12:25)
--- NOTE | 2023-01-17 13:17 | P.PN ---
Subjective Progress Note Date: 01/17/23 Principal diagnosis: Urinary tract infection Patient is a 77-year-old male with a past medical history significant for atrial fibrillation coronary disease heart failure COPD diabetes mellitus hypertension hyperlipidemia patient was brought into the ER for evaluation of mental status changes , patient did have a positive UA concerning for a urinary tract infection. On today's evaluation that is 01/17/2023, the patient continues to be afebrile, the patient is breathing comfortably on room air , the patient is more awake and alert today patient denies having any chest pain shortness of breath or cough no nausea no vomiting no abdominal pain and no diarrhea reported Objective - Vital Signs Vital signs: Vital Signs Temp 98.2 F 01/17/23 07:19 Pulse 71 01/17/23 07:19 Resp 16 01/17/23 07:19 BP 136/68 01/17/23 07:19 Pulse Ox 96 01/17/23 07:19 FiO2 1 01/14/23 08:39 Intake & Output 01/16/23 01/17/23 01/17/23 18:59 06:59 18:59 Intake Total 100 Output Total 1600 600 Balance -1500 -600 Intake: Intake, IV Titration 100 Amount Piperacillin-Tazobactam 3 100 .375 gm In Sodium Chloride 0.9% 100 ml @ 25 mls/hr IVPB Q8HR [facility] Rx# :[id number] Output: Gastric Drainage 1600 600 Other: Voiding Method External Catheter External Catheter Diaper Incontinent # Voids 3 - Exam GENERAL DESCRIPTION: An elderly male lying in bed in no distress RESPIRATORY SYSTEM: Unlabored breathing , decreased breath sounds at bases HEART: S1 S2 regular rate and rhythm , ABDOMEN: Soft , no tenderness EXTREMITIES: No edema feet - Labs CBC & Chem 7: 01/17/23 07:28 01/17/23 07:28 Labs: Abnormal Lab Results - Last 24 Hours (Table) 01/16/23 01/17/23 01/17/23 Range/Units 20:25 07:28 07:47 WBC 10.93 H (4.50-10.00) X 10*3/uL RBC 3.08 L (4.40-5.60) X 10*6/uL Hgb 9.9 L (13.0-17.0) g/dL Hct 31.3 L (39.6-50.0) % MCV 101.6 H (80.0-97.0) fL MCH 32.1 H (27.0-32.0) pg MCHC 31.6 L (32.0-37.0) g/dL RDW 14.6 H (11.5-14.5) % Eosinophils # 0.56 H (0.04-0.35) X 10*3/uL POC Glucose (mg/dL) 136 H 141 H (70-110) mg/dL Microbiology - Last 24 Hours (Table) 01/14/23 12:35 Blood Culture - Preliminary Blood 01/14/23 18:21 Urine Culture - Final Urine,Voided Enterobacter cloacae Assessment and Plan (1) Urinary tract infection Current Visit: Yes Status: Acute Code(s): N39.0 - URINARY TRACT INFECTION, SITE NOT SPECIFIED SNOMED Code(s): 82143585 (2) Leukocytosis Current Visit: Yes Status: Acute Code(s): D72.829 - ELEVATED WHITE BLOOD CELL COUNT, UNSPECIFIED SNOMED Code(s): 629943947 Plan: 1patient presented hospital with mental status changes multifactorial possibly component of dehydration prerenal did have a positive UA with evidence of prostatomegaly concerning for urinary outflow obstruction and UTI likely from enteric gram-negative pathogen 2-patient did have CT of abdominal pelvis completed on 01/15/2023 with evidence of small bowel obstruction and free air and concern for possible pneumatosis of the stomach wall Gen. surgery has been consulted, recommending medical treatment patient seemed to have shown clinical improvement the patient white count has normalized urine culture also grew a drug-resistant Enterobacter and the patient is covered with Zosyn daughter at the bedside questions concerned were answered Time with Patient: Less than 30
[2023-01-17 17:25] LABS: Glucose,Whole Blood 127 mg/dL (70-110)
[2023-01-17] MEDS: PRAVASTATIN SODIUM 40 MG TAB PO SCH (20:24)
[2023-01-18] MEDS: PIPERACILLIN-TAZOBACTAM 3.375 GM in SODIUM CHLORIDE 0.9% 100 ML IVPB SCH ×3 (00:11→15:57)
[2023-01-18] MEDS: rOPINIRole HCL 4 MG TABLET PO SCH ×4 (00:35→17:21)
--- NOTE | 2023-01-18 01:22 | P.PN ---
Subjective Patient is seen for follow-up for acute kidney injury. Renal function has been improving. Admitted with hypoglycemia and altered mentation. Mentation has improved. Maintained on IV antibiotics for possible UTI. Status post IV fluids Serum creatinine down to 1.3 from 3.2 on initial admission. Remains with NG tbe in place. Surgery was consulted due to free air noted on CT of the abdomen. Objective - Vital Signs Vital signs: Vital Signs Temp 98.2 F 01/17/23 19:20 Pulse 83 01/17/23 19:20 Resp 16 01/17/23 19:20 BP 167/87 01/17/23 19:20 Pulse Ox 97 01/17/23 19:20 FiO2 1 01/14/23 08:39 Intake & Output 01/17/23 01/17/23 01/18/23 06:59 18:59 06:59 Intake Total 200 Output Total 600 400 Balance -600 -200 Weight 95.254 kg Intake: Intake, IV Titration 200 Amount Piperacillin-Tazobactam 3 200 .375 gm In Sodium Chloride 0.9% 100 ml @ 25 mls/hr IVPB Q8HR [facility] Rx# :[id number] Output: Gastric Drainage 600 400 Other: Voiding Method External Catheter Diaper Diaper Incontinent Incontinent # Voids 4 - Exam Awake, comfortable, no acute distress NG tube in place Examination of the heart S1 and S2 Examination of the lungs bilateral breath sounds are heard Abdomen is soft nontender Examination lower extremity shows no significant edema [employer] exam grossly intact - Labs CBC & Chem 7: 01/17/23 07:28 01/17/23 07:28 Labs: Abnormal Lab Results - Last 24 Hours (Table) 01/17/23 01/17/23 01/17/23 Range/Units 07:28 07:28 07:47 WBC 10.93 H (4.50-10.00) X 10*3/uL RBC 3.08 L (4.40-5.60) X 10*6/uL Hgb 9.9 L (13.0-17.0) g/dL Hct 31.3 L (39.6-50.0) % MCV 101.6 H (80.0-97.0) fL MCH 32.1 H (27.0-32.0) pg MCHC 31.6 L (32.0-37.0) g/dL RDW 14.6 H (11.5-14.5) % Eosinophils # 0.56 H (0.04-0.35) X 10*3/uL Sodium 146 H (135-145) mmol/L Chloride 111 H (96-109) mmol/L BUN 35.6 H (9.0-27.0) mg/dL Est GFR (CKD-EPI)AfAm 57.4 L (60.0-200.0) Est GFR (CKD-EPI)NonAf 49.5 L (60.0-200.0) BUN/Creatinine Ratio 26.18 H (12.00-20.00) Ratio Glucose 145 H (70-110) mg/dL POC Glucose (mg/dL) 141 H (70-110) mg/dL AST 11 L (14-35) U/L ALT 8 L (10-49) U/L Total Protein 5.2 L (6.2-8.2) g/dL Albumin 3.0 L (3.8-4.9) g/dL Albumin/Globulin Ratio 1.40 L (1.60-3.17) g/dL 01/17/23 01/17/23 Range/Units 12:13 17:23 WBC (4.50-10.00) X 10*3/uL RBC (4.40-5.60) X 10*6/uL Hgb (13.0-17.0) g/dL Hct (39.6-50.0) % MCV (80.0-97.0) fL MCH (27.0-32.0) pg MCHC (32.0-37.0) g/dL RDW (11.5-14.5) % Eosinophils # (0.04-0.35) X 10*3/uL Sodium (135-145) mmol/L Chloride (96-109) mmol/L BUN (9.0-27.0) mg/dL Est GFR (CKD-EPI)AfAm (60.0-200.0) Est GFR (CKD-EPI)NonAf (60.0-200.0) BUN/Creatinine Ratio (12.00-20.00) Ratio Glucose (70-110) mg/dL POC Glucose (mg/dL) 134 H 127 H (70-110) mg/dL AST (14-35) U/L ALT (10-49) U/L Total Protein (6.2-8.2) g/dL Albumin (3.8-4.9) g/dL Albumin/Globulin Ratio (1.60-3.17) g/dL Microbiology - Last 24 Hours (Table) 01/14/23 12:35 Blood Culture - Preliminary Blood Assessment and Plan Assessment: 1. Acute kidney injury secondary to ATN secondary to severe sepsis and further worsened with the use of diuretics and NSAIDs. Creatinine 3.26 on admission and down to 1.3-1.4 . Creatinine 0.89 dated 08/25/2022. 2. UTI on antibiotics. ID consulted. Urine culture growing gram-negative bacilli. 3. Diabetes with hypoglycemia. 4. Benign hypertension. Currently controlled. 5. Free air noted on CT of the abdomen. Patient has history of previous lab and procedure. Surgery on consult and currently with an NG tube in place for acute gastric distention. Plan: May need to resume IVF over the weekend if remains NPO
[2023-01-18] MEDS: CARBIDOPA-LEVODOPA 25-250 MG 1 EACH TAB PO SCH ×4 (06:10→21:30)
[2023-01-18] MEDS: busPIRone HCl 5 MG TAB PO SCH ×3 (06:10→21:31)
[2023-01-18] MEDS: allopurinoL 300 MG TAB PO SCH (07:19)
[2023-01-18] MEDS: GLIMEPIRIDE 1 MG TAB PO SCH ×2 (07:19→16:27)
[2023-01-18] MEDS: CHOLECALCIFEROL 25 MCG (1000 IU) TABLET PO SCH (07:19)
[2023-01-18] MEDS: NON FORMULARY DRUG (Pimavanserin Tartrate [Nuplazid] 34 MG Capsule) PO SCH (07:19)
[2023-01-18] MEDS: polyethylene glycoL 3350 17 GM POWD.PACK PO SCH (07:19)
[2023-01-18] MEDS: MIDODRINE 5 MG TAB PO SCH (07:19)
[2023-01-18] MEDS: DOCUSATE 100 MG CAP PO SCH ×2 (07:19→21:31)
[2023-01-18] MEDS: ZINC SULFATE 220 MG CAP PO SCH (07:19)
[2023-01-18] MEDS: TAMSULOSIN 0.4 MG CAP.ER.24H PO SCH (07:19)
[2023-01-18] MEDS: CYANOCOBALAMIN 500 MCG TAB PO SCH (07:19)
[2023-01-18] MEDS: ASPIRIN 81 MG PO SCH (07:19)
[2023-01-18] MEDS: FERROUS SULFATE 325 MG TAB PO SCH (07:20)
[2023-01-18] MEDS: HEPARIN SODIUM,PORCINE/PF 5,000 UNIT/0.5 ML SYRINGE SQ SCH ×2 (07:36→21:30)
[2023-01-18] MEDS: PANTOPRAZOLE 40 MG/10 ML VIAL IVP SCH ×2 (07:36→21:31)
[2023-01-18] MEDS: DIVALPROEX SPRINKLE 125 MG CAP.SPRINK PO SCH ×2 (07:37→21:30)
[2023-01-18] MEDS: METOPROLOL SUCCINATE (ER) 50 MG TAB.ER.24H PO SCH (07:37)
[2023-01-18 08:16] LABS: Glucose,Whole Blood 146 mg/dL (70-110)
[2023-01-18] MEDS: SYMBICORT 160-4.5 MCG INHALER INHALATION SCH ×2 (08:33→19:55)
--- NOTE | 2023-01-18 10:05 | P.PN ---
Progress Note - Text Progress Note Date: 01/18/23 Patient feels better today. He denies any abdominal pain. He is passing gas. On exam vital signs are stable. Abdomen soft. There is no tenderness. There is no rebound or guarding. Patient will start full liquid diet.
--- NOTE | 2023-01-18 11:02 | P.PN ---
Subjective Progress Note Date: 01/18/23 Principal diagnosis: This is a 77-year-old male seen in consultation because of acute kidney injury from UTI sheet he had Enterobacter cloacae in urine but blood cultures negative History of feeling much better no nausea vomiting chest pain fever chills. Good appetite. No diarrhea. Vital signs are stable. Creatinine down to 1.4 from a peak of 3.26. Objective - Vital Signs Vital signs: Vital Signs Temp 98.4 F 01/18/23 07:43 Pulse 67 01/18/23 07:43 Resp 12 01/18/23 07:43 BP 180/92 01/18/23 07:43 Pulse Ox 99 01/18/23 08:33 FiO2 1 01/14/23 08:39 Intake & Output 01/17/23 01/18/23 01/18/23 18:59 06:59 18:59 Intake Total 200 Output Total 400 300 Balance -200 -300 Weight 95.254 kg 86 kg Intake: Intake, IV Titration 200 Amount Piperacillin-Tazobactam 3 200 .375 gm In Sodium Chloride 0.9% 100 ml @ 25 mls/hr IVPB Q8HR [facility] Rx# :[id number] Output: Gastric Drainage 400 300 Other: Voiding Method Diaper Diaper Diaper Incontinent Incontinent Incontinent # Voids 4 3 Examination awake alert oriented comfortable. A chin exam no JVP neck is supple no facial asymmetry Lungs clear to auscultation good air entry Heart sounds unremarkable Abdomen soft nontender. Extremity exam was no edema Neurologically awake alert oriented but weak - Labs CBC & Chem 7: 01/17/23 07:28 01/17/23 07:28 Labs: Abnormal Lab Results - Last 24 Hours (Table) 01/17/23 01/17/23 01/17/23 Range/Units 07:28 12:13 17:23 Sodium 146 H (135-145) mmol/L Chloride 111 H (96-109) mmol/L BUN 35.6 H (9.0-27.0) mg/dL Est GFR (CKD-EPI)AfAm 57.4 L (60.0-200.0) Est GFR (CKD-EPI)NonAf 49.5 L (60.0-200.0) BUN/Creatinine Ratio 26.18 H (12.00-20.00) Ratio Glucose 145 H (70-110) mg/dL POC Glucose (mg/dL) 134 H 127 H (70-110) mg/dL AST 11 L (14-35) U/L ALT 8 L (10-49) U/L Total Protein 5.2 L (6.2-8.2) g/dL Albumin 3.0 L (3.8-4.9) g/dL Albumin/Globulin Ratio 1.40 L (1.60-3.17) g/dL 01/18/23 Range/Units 08:14 Sodium (135-145) mmol/L Chloride (96-109) mmol/L BUN (9.0-27.0) mg/dL Est GFR (CKD-EPI)AfAm (60.0-200.0) Est GFR (CKD-EPI)NonAf (60.0-200.0) BUN/Creatinine Ratio (12.00-20.00) Ratio Glucose (70-110) mg/dL POC Glucose (mg/dL) 146 H (70-110) mg/dL AST (14-35) U/L ALT (10-49) U/L Total Protein (6.2-8.2) g/dL Albumin (3.8-4.9) g/dL Albumin/Globulin Ratio (1.60-3.17) g/dL Microbiology - Last 24 Hours (Table) 01/14/23 12:35 Blood Culture - Preliminary Blood Assessment and Plan Assessment: Impression 1. Acute kidney injury from UTI improving creatinine down from peak of 2.26- 1.4. Baseline creatinine is approximately 1.1-0.89. 2. Urine tract infection with Enterobacter cloacae. Improving 3. Diabetes mellitus 4. Hypertension, blood pressure slightly about target. Recommendation 1. Discontinue Midrin because of hypertension. 2. His blood pressure does not improve we will add more medications tomorrow
[2023-01-18 11:33] LABS: Glucose,Whole Blood 180 mg/dL (70-110)
[2023-01-18] MEDS: SPIRONOLACTONE 25 MG TAB PO SCH (12:03)
[2023-01-18 16:38] LABS: Glucose,Whole Blood 145 mg/dL (70-110)
--- NOTE | 2023-01-18 19:14 | P.PN ---
Subjective Progress Note Date: 01/17/23 77-year-old male with a past medical history significant for atrial fibrillation coronary disease heart failure COPD diabetes mellitus hypertension hyperlipidemia patient was brought into the ER for evaluation of mental status changes , patient did have a positive UA concerning for a urinary tract infection. Objective - Vital Signs Vital signs: Vital Signs Temp 98.2 F 01/17/23 07:19 Pulse 71 01/17/23 07:19 Resp 16 01/17/23 07:19 BP 136/68 01/17/23 07:19 Pulse Ox 96 01/17/23 07:19 FiO2 1 01/14/23 08:39 Intake & Output 01/16/23 01/17/23 01/17/23 18:59 06:59 18:59 Intake Total 100 Output Total 1600 600 Balance -1500 -600 Intake: Intake, IV Titration 100 Amount Piperacillin-Tazobactam 3 100 .375 gm In Sodium Chloride 0.9% 100 ml @ 25 mls/hr IVPB Q8HR [facility] Rx# :[id number] Output: Gastric Drainage 1600 600 Other: Voiding Method External Catheter External Catheter Diaper Incontinent # Voids 3 - Exam PHYSICAL EXAMINATION: GENERAL: The patient is alert and oriented x3, not in any acute distress. Well developed, well nourished. HEENT: Pupils are round and equally reacting to light. EOMI. No scleral icterus. No conjunctival pallor. Normocephalic, atraumatic. No pharyngeal erythema. No thyromegaly. CARDIOVASCULAR: S1 and S2 present. No murmurs, rubs, or gallops. PULMONARY: Chest is clear to auscultation, no wheezing or crackles. ABDOMEN: Soft, nontender, nondistended, normoactive bowel sounds. No palpable organomegaly. MUSCULOSKELETAL: No joint swelling or deformity. EXTREMITIES: No cyanosis, clubbing, or pedal edema. NEUROLOGICAL: Gross neurological examination did not reveal any focal deficits. SKIN: No rashes. - Labs CBC & Chem 7: 01/17/23 07:28 01/17/23 07:28 Labs: Abnormal Lab Results - Last 24 Hours (Table) 01/16/23 01/17/23 01/17/23 Range/Units 20:25 07:28 07:28 WBC 10.93 H (4.50-10.00) X 10*3/uL RBC 3.08 L (4.40-5.60) X 10*6/uL Hgb 9.9 L (13.0-17.0) g/dL Hct 31.3 L (39.6-50.0) % MCV 101.6 H (80.0-97.0) fL MCH 32.1 H (27.0-32.0) pg MCHC 31.6 L (32.0-37.0) g/dL RDW 14.6 H (11.5-14.5) % Eosinophils # 0.56 H (0.04-0.35) X 10*3/uL Sodium 146 H (135-145) mmol/L Chloride 111 H (96-109) mmol/L BUN 35.6 H (9.0-27.0) mg/dL Est GFR (CKD-EPI)AfAm 57.4 L (60.0-200.0) Est GFR (CKD-EPI)NonAf 49.5 L (60.0-200.0) BUN/Creatinine Ratio 26.18 H (12.00-20.00) Ratio Glucose 145 H (70-110) mg/dL POC Glucose (mg/dL) 136 H (70-110) mg/dL AST 11 L (14-35) U/L ALT 8 L (10-49) U/L Total Protein 5.2 L (6.2-8.2) g/dL Albumin 3.0 L (3.8-4.9) g/dL Albumin/Globulin Ratio 1.40 L (1.60-3.17) g/dL 01/17/23 Range/Units 07:47 WBC (4.50-10.00) X 10*3/uL RBC (4.40-5.60) X 10*6/uL Hgb (13.0-17.0) g/dL Hct (39.6-50.0) % MCV (80.0-97.0) fL MCH (27.0-32.0) pg MCHC (32.0-37.0) g/dL RDW (11.5-14.5) % Eosinophils # (0.04-0.35) X 10*3/uL Sodium (135-145) mmol/L Chloride (96-109) mmol/L BUN (9.0-27.0) mg/dL Est GFR (CKD-EPI)AfAm (60.0-200.0) Est GFR (CKD-EPI)NonAf (60.0-200.0) BUN/Creatinine Ratio (12.00-20.00) Ratio Glucose (70-110) mg/dL POC Glucose (mg/dL) 141 H (70-110) mg/dL AST (14-35) U/L ALT (10-49) U/L Total Protein (6.2-8.2) g/dL Albumin (3.8-4.9) g/dL Albumin/Globulin Ratio (1.60-3.17) g/dL Microbiology - Last 24 Hours (Table) 01/14/23 12:35 Blood Culture - Preliminary Blood 01/14/23 18:21 Urine Culture - Final Urine,Voided Enterobacter cloacae Assessment and Plan Assessment: 1. Altered mental status likely related to hypoglycemia 2. Perforated viscus with possible distended stomach and pneumatosis intestinalis and small bowel obstruction 3. Atrial fibrillation 4. Acute renal failure; likely prerenal 5. COPD; not in exacerbation 7. Complicated UTI; urine culture growing gram-negative bacilli -- Patient will continue with current treatment; patient had CT of the abdomen completed on 01/15/2023 which revealed small bowel obstruction and see if and concern for possible pneumatosis of the stomach wall; Gen. surgery is on board - ID on board for antibiotic recommendations on UTI growing drug-resistant Enterobacter; patient remains on IV Zosyn -- underwent exploratory laparotomy has been placed on diet with recommendations to advance as tolerated -
--- NOTE | 2023-01-18 19:15 | P.PN ---
Subjective Progress Note Date: 01/18/23 77-year-old male with a past medical history significant for atrial fibrillation coronary disease heart failure COPD diabetes mellitus hypertension hyperlipidemia patient was brought into the ER for evaluation of mental status changes , patient did have a positive UA concerning for a urinary tract infection. 01/18/2023 1patient presented hospital with mental status changes multifactorial possibly component of dehydration prerenal did have a positive UA with evidence of prostatomegaly concerning for urinary outflow obstruction and UTI likely from enteric gram-negative pathogen 2-patient did have CT of abdominal pelvis completed on 01/15/2023 with evidence of small bowel obstruction and free air and concern for possible pneumatosis of the stomach wall Gen. surgery has been consulted, recommending medical treatment patient seemed to have shown clinical improvement the patient white count has normalized urine culture also grew a drug-resistant Enterobacter and the patient is covered with Zosyn Objective - Vital Signs Vital signs: Vital Signs Temp 98.4 F 01/18/23 07:43 Pulse 67 01/18/23 07:43 Resp 12 01/18/23 07:43 BP 180/92 01/18/23 07:43 Pulse Ox 99 01/18/23 08:33 FiO2 1 01/14/23 08:39 Intake & Output 01/17/23 01/18/23 01/18/23 18:59 06:59 18:59 Intake Total 200 1080 Output Total 400 300 100 Balance -200 -300 980 Weight 95.254 kg 86 kg Intake: Intake, IV Titration 200 Amount Piperacillin-Tazobactam 3 200 .375 gm In Sodium Chloride 0.9% 100 ml @ 25 mls/hr IVPB Q8HR [facility] Rx# :[id number] Oral 1080 Output: Gastric Drainage 400 300 Urine 100 Other: Voiding Method Diaper Diaper Diaper Incontinent Incontinent Incontinent # Voids 4 3 - Exam PHYSICAL EXAMINATION: GENERAL: The patient is alert and oriented x3, not in any acute distress. Well developed, well nourished. HEENT: Pupils are round and equally reacting to light. EOMI. No scleral icterus. No conjunctival pallor. Normocephalic, atraumatic. No pharyngeal erythema. No thyromegaly. CARDIOVASCULAR: S1 and S2 present. No murmurs, rubs, or gallops. PULMONARY: Chest is clear to auscultation, no wheezing or crackles. ABDOMEN: Soft, nontender, nondistended, normoactive bowel sounds. No palpable organomegaly. MUSCULOSKELETAL: No joint swelling or deformity. EXTREMITIES: No cyanosis, clubbing, or pedal edema. NEUROLOGICAL: Gross neurological examination did not reveal any focal deficits. SKIN: No rashes. - Labs CBC & Chem 7: 01/17/23 07:28 01/17/23 07:28 Labs: Abnormal Lab Results - Last 24 Hours (Table) 01/17/23 01/18/23 01/18/23 Range/Units 17:23 08:14 11:32 POC Glucose (mg/dL) 127 H 146 H 180 H (70-110) mg/dL Microbiology - Last 24 Hours (Table) 01/14/23 12:35 Blood Culture - Preliminary Blood Assessment and Plan Assessment: 1. Altered mental status likely related to hypoglycemia 2. Perforated viscus with possible distended stomach and pneumatosis intestinalis and small bowel obstruction 3. Atrial fibrillation 4. Acute renal failure; likely prerenal 5. COPD; not in exacerbation 7. Complicated UTI; urine culture growing gram-negative bacilli -- Patient will continue with current treatment; patient had CT of the abdomen completed on 01/15/2023 which revealed small bowel obstruction and see if and concern for possible pneumatosis of the stomach wall; Gen. surgery is on board - ID on board for antibiotic recommendations on UTI growing drug-resistant Enterobacter; patient remains on IV Zosyn -- underwent exploratory laparotomy has been placed on diet with recommendations to advance as tolerated -
[2023-01-18 20:33] LABS: Glucose,Whole Blood 158 mg/dL (70-110)
[2023-01-18] MEDS: PRAVASTATIN SODIUM 40 MG TAB PO SCH (21:30)
[2023-01-19] MEDS: rOPINIRole HCL 4 MG TABLET PO SCH ×4 (00:25→17:44)
[2023-01-19] MEDS: PIPERACILLIN-TAZOBACTAM 3.375 GM in SODIUM CHLORIDE 0.9% 100 ML IVPB SCH ×3 (00:26→15:11)
[2023-01-19] MEDS: busPIRone HCl 5 MG TAB PO SCH ×3 (06:21→21:38)
[2023-01-19] MEDS: CARBIDOPA-LEVODOPA 25-250 MG 1 EACH TAB PO SCH ×4 (06:21→21:39)
[2023-01-19] MEDS: SYMBICORT 160-4.5 MCG INHALER INHALATION SCH ×2 (07:58→19:23)
[2023-01-19] MEDS: CYANOCOBALAMIN 500 MCG TAB PO SCH (08:21)
[2023-01-19] MEDS: PANTOPRAZOLE 40 MG/10 ML VIAL IVP SCH ×2 (08:21→21:39)
[2023-01-19] MEDS: METOPROLOL SUCCINATE (ER) 50 MG TAB.ER.24H PO SCH (08:21)
[2023-01-19] MEDS: DIVALPROEX SPRINKLE 125 MG CAP.SPRINK PO SCH ×2 (08:22→21:39)
[2023-01-19] MEDS: FERROUS SULFATE 325 MG TAB PO SCH (08:22)
[2023-01-19] MEDS: TAMSULOSIN 0.4 MG CAP.ER.24H PO SCH (08:22)
[2023-01-19] MEDS: ZINC SULFATE 220 MG CAP PO SCH (08:22)
[2023-01-19] MEDS: CHOLECALCIFEROL 25 MCG (1000 IU) TABLET PO SCH (08:22)
[2023-01-19] MEDS: DOCUSATE 100 MG CAP PO SCH ×2 (08:23→21:44)
[2023-01-19] MEDS: polyethylene glycoL 3350 17 GM POWD.PACK PO SCH (08:23)
[2023-01-19] MEDS: HEPARIN SODIUM,PORCINE/PF 5,000 UNIT/0.5 ML SYRINGE SQ SCH ×2 (08:23→21:39)
[2023-01-19] MEDS: ASPIRIN 81 MG PO SCH (08:24)
[2023-01-19] MEDS: NON FORMULARY DRUG (Pimavanserin Tartrate [Nuplazid] 34 MG Capsule) PO SCH (08:24)
[2023-01-19] MEDS: allopurinoL 300 MG TAB PO SCH (08:24)
[2023-01-19] MEDS: GLIMEPIRIDE 1 MG TAB PO SCH ×2 (08:24→17:44)
[2023-01-19 08:49] LABS: Glucose,Whole Blood 119 mg/dL (70-110)
--- NOTE | 2023-01-19 10:38 | P.PN ---
Subjective Progress Note Date: 01/19/23 Principal diagnosis: This is a 77-year-old male seen in consultation because of acute kidney injury from UTI with Enterobacter cloacae in urine but blood cultures negative He is feeling much better no nausea vomiting chest pain fever chills. Good appetite. No diarrhea. Vital signs are stable. Creatinine down to 1.4 from a peak of 3.26. He is a poor historian and probably has mild dementia He is known with atrial fibrillation coronary artery disease, pacemaker COPD CVA dementia diabetes mellitus. Also some history of neurogenic bladder in the past and BPH Objective - Vital Signs Vital signs: Vital Signs Temp 97.6 F 01/19/23 08:00 Pulse 56 L 01/19/23 08:00 Resp 18 01/19/23 08:00 BP 126/68 01/19/23 08:00 Pulse Ox 97 01/19/23 08:00 FiO2 1 01/14/23 08:39 Intake & Output 01/18/23 01/19/23 01/19/23 18:59 06:59 18:59 Intake Total 1940 60 Output Total 200 300 Balance 1740 -240 Weight 88.5 kg Intake: Intake, IV Titration 200 Amount Piperacillin-Tazobactam 3 200 .375 gm In Sodium Chloride 0.9% 100 ml @ 25 mls/hr IVPB Q8HR [facility] Rx# :[id number] Oral 1740 60 Output: Urine 200 300 Other: Voiding Method Diaper Diaper Diaper Incontinent Incontinent Incontinent External Catheter # Voids 2 3 Awake alert but not oriented Follows commands HEENT exam no JVD is supple no facial asymmetry Lungs are significant with some harsh breath sounds and throat secretions which she has difficulty clearing. Heart sounds unremarkable Abdomen soft nontender Extremity exam was no edema Neurologically awake alert but disoriented - Labs CBC & Chem 7: 01/17/23 07:28 01/17/23 07:28 Labs: Abnormal Lab Results - Last 24 Hours (Table) 01/18/23 01/18/23 01/18/23 Range/Units 11:32 16:37 20:29 POC Glucose (mg/dL) 180 H 145 H 158 H (70-110) mg/dL 01/19/23 Range/Units 08:46 POC Glucose (mg/dL) 119 H (70-110) mg/dL Microbiology - Last 24 Hours (Table) 01/14/23 12:35 Blood Culture - Preliminary Blood Assessment and Plan Assessment: Impression 1. Acute kidney injury from UTI improving creatinine down from peak of 2.26- 1.4. Baseline creatinine is approximately 1.1-0.89. 2. Urine tract infection with Enterobacter cloacae. Improving 3. Diabetes mellitus 4. Hypertension, blood pressure at about target. Recommendation 1. Monitor labs. 2. Encourage oral intake
--- NOTE | 2023-01-19 10:46 | P.PN ---
Progress Note - Text Progress Note Date: 01/19/23 Patient still. He has no abdominal pain. He wants to or. On exam vital signs are stable. Abdomen soft. There is no tenderness. There is no peritoneal signs. He has no epigastric pain at all. Resolved acute gastric distention. Patient will have his diet advanced.
[2023-01-19 12:03] LABS: Glucose,Whole Blood 203 mg/dL (70-110)
[2023-01-19] MEDS: SPIRONOLACTONE 25 MG TAB PO SCH (12:30)
[2023-01-19 17:44] LABS: Glucose,Whole Blood 115 mg/dL (70-110)
--- NOTE | 2023-01-19 18:05 | P.PN ---
Subjective Progress Note Date: 01/19/23 77-year-old male with a past medical history significant for atrial fibrillation coronary disease heart failure COPD diabetes mellitus hypertension hyperlipidemia patient was brought into the ER for evaluation of mental status changes , patient did have a positive UA concerning for a urinary tract infection. 01/19/2023 Patient is seen and evaluated in room at bedside; denies any abdominal pain Vital signs are reviewed and remained stable 1patient presented hospital with mental status changes multifactorial possibly component of dehydration prerenal did have a positive UA with evidence of prostatomegaly concerning for urinary outflow obstruction and UTI likely from enteric gram-negative pathogen 2-patient did have CT of abdominal pelvis completed on 01/15/2023 with evidence of small bowel obstruction and free air and concern for possible pneumatosis of the stomach wall Gen. surgery has been consulted, recommending medical treatment patient seemed to have shown clinical improvement the patient white count has normalized urine culture also grew a drug-resistant Enterobacter and the patient is covered with Zosyn -- Gen. surgery is following; repeat x-ray reveals resolution of pneumatosis gastric wall; NG tube has been removed and patient is started on a diet and is tolerating --Remains on IV antibiotics for UTI Objective - Vital Signs Vital signs: Vital Signs Temp 97.6 F 01/19/23 08:00 Pulse 56 L 01/19/23 08:00 Resp 18 01/19/23 08:00 BP 126/68 01/19/23 08:00 Pulse Ox 97 01/19/23 08:00 FiO2 1 01/14/23 08:39 Intake & Output 01/18/23 01/19/23 01/19/23 18:59 06:59 18:59 Intake Total 1940 60 Output Total 200 300 Balance 1740 -240 Weight 88.5 kg Intake: Intake, IV Titration 200 Amount Piperacillin-Tazobactam 3 200 .375 gm In Sodium Chloride 0.9% 100 ml @ 25 mls/hr IVPB Q8HR [facility] Rx# :[id number] Oral 1740 60 Output: Urine 200 300 Other: Voiding Method Diaper Diaper Diaper Incontinent Incontinent Incontinent External Catheter # Voids 2 3 - Exam PHYSICAL EXAMINATION: GENERAL: The patient is alert and oriented x3, not in any acute distress. Well developed, well nourished. HEENT: Pupils are round and equally reacting to light. EOMI. No scleral icterus. No conjunctival pallor. Normocephalic, atraumatic. No pharyngeal erythema. No thyromegaly. CARDIOVASCULAR: S1 and S2 present. No murmurs, rubs, or gallops. PULMONARY: Chest is clear to auscultation, no wheezing or crackles. ABDOMEN: Soft, nontender, nondistended, normoactive bowel sounds. No palpable organomegaly. MUSCULOSKELETAL: No joint swelling or deformity. EXTREMITIES: No cyanosis, clubbing, or pedal edema. NEUROLOGICAL: Gross neurological examination did not reveal any focal deficits. SKIN: No rashes. - Labs CBC & Chem 7: 01/17/23 07:28 01/17/23 07:28 Labs: Abnormal Lab Results - Last 24 Hours (Table) 01/18/23 01/18/23 01/18/23 Range/Units 11:32 16:37 20:29 POC Glucose (mg/dL) 180 H 145 H 158 H (70-110) mg/dL 01/19/23 Range/Units 08:46 POC Glucose (mg/dL) 119 H (70-110) mg/dL Microbiology - Last 24 Hours (Table) 01/14/23 12:35 Blood Culture - Preliminary Blood Assessment and Plan Assessment: 1. Altered mental status likely related to hypoglycemia 2. Perforated viscus with possible distended stomach and pneumatosis intestinalis and small bowel obstruction 3. Atrial fibrillation 4. Acute renal failure; likely prerenal 5. COPD; not in exacerbation 7. Complicated UTI; urine culture growing gram-negative bacilli -- Patient will continue with current treatment; patient had CT of the abdomen completed on 01/15/2023 which revealed small bowel obstruction and see if and concern for possible pneumatosis of the stomach wall; Gen. surgery is on board - ID on board for antibiotic recommendations on UTI growing drug-resistant Enterobacter; patient remains on IV Zosyn -- underwent exploratory laparotomy has been placed on diet with recommendations to advance as tolerated -
[2023-01-19 20:07] LABS: Glucose,Whole Blood 138 mg/dL (70-110)
[2023-01-19] MEDS: PRAVASTATIN SODIUM 40 MG TAB PO SCH (21:39)
[2023-01-20] MEDS: rOPINIRole HCL 4 MG TABLET PO SCH ×4 (00:06→17:24)
[2023-01-20] MEDS: PIPERACILLIN-TAZOBACTAM 3.375 GM in SODIUM CHLORIDE 0.9% 100 ML IVPB SCH ×3 (00:06→15:34)
[2023-01-20] MEDS: busPIRone HCl 5 MG TAB PO SCH ×3 (05:59→22:13)
[2023-01-20] MEDS: CARBIDOPA-LEVODOPA 25-250 MG 1 EACH TAB PO SCH ×4 (05:59→22:14)
[2023-01-20 07:33] LABS: Glucose,Whole Blood 86 mg/dL (70-110)
[2023-01-20] MEDS: PANTOPRAZOLE 40 MG/10 ML VIAL IVP SCH ×2 (07:46→22:13)
[2023-01-20] MEDS: SYMBICORT 160-4.5 MCG INHALER INHALATION SCH ×2 (07:59→19:59)
[2023-01-20] MEDS: CHOLECALCIFEROL 25 MCG (1000 IU) TABLET PO SCH (08:18)
[2023-01-20] MEDS: FERROUS SULFATE 325 MG TAB PO SCH (08:18)
[2023-01-20] MEDS: HEPARIN SODIUM,PORCINE/PF 5,000 UNIT/0.5 ML SYRINGE SQ SCH ×2 (08:18→22:14)
[2023-01-20] MEDS: polyethylene glycoL 3350 17 GM POWD.PACK PO SCH (08:19)
[2023-01-20] MEDS: TAMSULOSIN 0.4 MG CAP.ER.24H PO SCH (08:19)
[2023-01-20] MEDS: allopurinoL 300 MG TAB PO SCH (08:19)
[2023-01-20] MEDS: DOCUSATE 100 MG CAP PO SCH ×2 (08:19→22:14)
[2023-01-20] MEDS: METOPROLOL SUCCINATE (ER) 50 MG TAB.ER.24H PO SCH (08:19)
[2023-01-20] MEDS: CYANOCOBALAMIN 500 MCG TAB PO SCH (08:19)
[2023-01-20] MEDS: ASPIRIN 81 MG PO SCH (08:19)
[2023-01-20] MEDS: ZINC SULFATE 220 MG CAP PO SCH (08:19)
[2023-01-20] MEDS: GLIMEPIRIDE 1 MG TAB PO SCH ×2 (08:20→17:24)
[2023-01-20] MEDS: DIVALPROEX SPRINKLE 125 MG CAP.SPRINK PO SCH ×2 (08:20→22:14)
[2023-01-20] MEDS: NON FORMULARY DRUG (Pimavanserin Tartrate [Nuplazid] 34 MG Capsule) PO SCH (08:27)
--- NOTE | 2023-01-20 09:49 | P.PN ---
Progress Note - Text Progress Note Date: 01/20/23 Patient remains unchanged. He denies any abdominal pain. On exam vital signs appear stable. Abdomen is soft. There is no significant tenderness. Patient is on a regular diet. He'll be discharged back to [facility] tomorrow.
--- NOTE | 2023-01-20 10:28 | P.PN ---
Subjective Progress Note Date: 01/20/23 Principal diagnosis: This is a 77-year-old male seen in consultation because of acute kidney injury from UTI with Enterobacter cloacae in urine but blood cultures negative He is feeling much better no nausea vomiting chest pain fever chills. Good appetite. No diarrhea. Vital signs are stable. Creatinine down to 1.4 from a peak of 3.26. He is a poor historian and probably has mild dementia He is known with atrial fibrillation coronary artery disease, pacemaker COPD CVA dementia diabetes mellitus. Also some history of neurogenic bladder in the past and BPH Objective - Vital Signs Vital signs: Vital Signs Temp 98.4 F 01/20/23 07:58 Pulse 64 01/20/23 07:58 Resp 14 01/20/23 07:58 BP 144/72 01/20/23 07:58 Pulse Ox 96 01/20/23 08:00 FiO2 1 01/14/23 08:39 Intake & Output 01/19/23 01/20/23 01/20/23 18:59 06:59 18:59 Intake Total 440 Balance 440 Weight 80 kg Intake: Intake, IV Titration 200 Amount Piperacillin-Tazobactam 3 200 .375 gm In Sodium Chloride 0.9% 100 ml @ 25 mls/hr IVPB Q8HR [facility] Rx# :[id number] Oral 240 Other: Voiding Method Diaper Diaper Diaper Incontinent Incontinent Incontinent # Voids 4 3 # Bowel Movements 2 Awake alert but not oriented Follows commands HEENT exam no JVD is supple no facial asymmetry Lungs are significant with some harsh breath sounds and throat secretions which she has difficulty clearing. Heart sounds unremarkable Abdomen soft nontender Extremity exam was no edema Neurologically awake alert but disoriented - Labs CBC & Chem 7: 01/17/23 07:28 01/17/23 07:28 Labs: Abnormal Lab Results - Last 24 Hours (Table) 01/19/23 01/19/23 01/19/23 Range/Units 12:01 17:42 20:05 POC Glucose (mg/dL) 203 H 115 H 138 H (70-110) mg/dL Microbiology - Last 24 Hours (Table) 01/14/23 12:35 Blood Culture - Final Blood Assessment and Plan Assessment: Impression 1. Acute kidney injury from UTI improving creatinine down from peak of 2.26- 1.4, dated 01/17/2023. Baseline creatinine is approximately 1.1-0.89. 2. Urine tract infection with Enterobacter cloacae. Improving 3. Diabetes mellitus 4. Hypertension, blood pressure at about target. Recommendation 1. Monitor labs. 2. Encourage oral intake
[2023-01-20 11:09] LABS: Glucose,Whole Blood 119 mg/dL (70-110)
[2023-01-20 11:43] LABS: Basophils # (A) 0.04 X 10*3/uL (0.00-0.10); Basophils % (A) 0.4 %; Eosinophils # (A) 0.65 X 10*3/uL (0.04-0.35); Eosinophils % (A) 6.6 %; HCT 29.3 % (39.6-50.0); HGB 9.6 g/dL (13.0-17.0); Immature Grans, Automated 0.5 %; Lymphocytes # (A) 2.89 X 10*3/uL (0.90-5.00); Lymphocytes % (A) 29.3 %; MCH 32.9 pg (27.0-32.0); MCHC 32.8 g/dL (32.0-37.0); MCV 100.3 fL (80.0-97.0); Mean Platelet Volume 10.6 fL (9.5-12.2); Monocytes # (A) 0.61 X 10*3/uL (0.20-1.00); Monocytes % (A) 6.2 %; NRBC Per 100 WBC 0 /100 WBCS (0.0-0.0); Neutrophils # (A) 5.64 X 10*3/uL (1.80-7.70); Platelet Count 221 X 10*3/uL (140-440); RBC 2.92 X 10*6/uL (4.40-5.60); RDW 14.3 % (11.5-14.5); WBC 9.88 X 10*3/uL (4.50-10.00)
[2023-01-20] MEDS: SPIRONOLACTONE 25 MG TAB PO SCH (12:36)
[2023-01-20 12:51] LABS: African American GFR (CKD) 80.3 (60.0-200.0); Anion Gap 11.2 mmol/L (10.00-18.00); BUN/Creat Ratio 13.79 Ratio (12.00-20.00); Blood Urea Nitrogen 14.2 mg/dL (9.0-27.0); Calcium 8.4 mg/dL (8.7-10.3); Carbon Dioxide 23.8 mmol/L (20.0-27.5); Non-African American GFR(CKD) 69.3 (60.0-200.0); Potassium 3.6 mmol/L (3.5-5.5)
--- NOTE | 2023-01-20 14:18 | P.PN ---
Subjective Progress Note Date: 01/18/23 Principal diagnosis: Urinary tract infection Patient is a 77-year-old male with a past medical history significant for atrial fibrillation coronary disease heart failure COPD diabetes mellitus hypertension hyperlipidemia patient was brought into the ER for evaluation of mental status changes , patient did have a positive UA concerning for a urinary tract infection. On today's evaluation that is 01/18/2023, the patient remains to be afebrile, the patient is breathing comfortably on room air , the patient denies having any chest pain shortness of breath or cough no nausea no vomiting no abdominal pain and no diarrhea reported Objective - Vital Signs Vital signs: Vital Signs Temp 98.4 F 01/18/23 07:43 Pulse 67 01/18/23 07:43 Resp 12 01/18/23 07:43 BP 180/92 01/18/23 07:43 Pulse Ox 99 01/18/23 08:33 FiO2 1 01/14/23 08:39 Intake & Output 01/17/23 01/18/23 01/18/23 18:59 06:59 18:59 Intake Total 200 Output Total 400 300 Balance -200 -300 Weight 95.254 kg 86 kg Intake: Intake, IV Titration 200 Amount Piperacillin-Tazobactam 3 200 .375 gm In Sodium Chloride 0.9% 100 ml @ 25 mls/hr IVPB Q8HR [facility] Rx# :[id number] Output: Gastric Drainage 400 300 Other: Voiding Method Diaper Diaper Diaper Incontinent Incontinent Incontinent # Voids 4 3 - Exam Elderly male lying in bed in no distress Lungs clear to auscultation anteriorly Abdomen soft no tenderness Exam completed with the help of [employer] - Labs CBC & Chem 7: 01/20/23 08:14 01/20/23 08:14 Labs: Abnormal Lab Results - Last 24 Hours (Table) 01/17/23 01/17/23 01/17/23 Range/Units 07:28 07:28 12:13 WBC 10.93 H (4.50-10.00) X 10*3/uL RBC 3.08 L (4.40-5.60) X 10*6/uL Hgb 9.9 L (13.0-17.0) g/dL Hct 31.3 L (39.6-50.0) % MCV 101.6 H (80.0-97.0) fL MCH 32.1 H (27.0-32.0) pg MCHC 31.6 L (32.0-37.0) g/dL RDW 14.6 H (11.5-14.5) % Eosinophils # 0.56 H (0.04-0.35) X 10*3/uL Sodium 146 H (135-145) mmol/L Chloride 111 H (96-109) mmol/L BUN 35.6 H (9.0-27.0) mg/dL Est GFR (CKD-EPI)AfAm 57.4 L (60.0-200.0) Est GFR (CKD-EPI)NonAf 49.5 L (60.0-200.0) BUN/Creatinine Ratio 26.18 H (12.00-20.00) Ratio Glucose 145 H (70-110) mg/dL POC Glucose (mg/dL) 134 H (70-110) mg/dL AST 11 L (14-35) U/L ALT 8 L (10-49) U/L Total Protein 5.2 L (6.2-8.2) g/dL Albumin 3.0 L (3.8-4.9) g/dL Albumin/Globulin Ratio 1.40 L (1.60-3.17) g/dL 01/17/23 01/18/23 Range/Units 17:23 08:14 WBC (4.50-10.00) X 10*3/uL RBC (4.40-5.60) X 10*6/uL Hgb (13.0-17.0) g/dL Hct (39.6-50.0) % MCV (80.0-97.0) fL MCH (27.0-32.0) pg MCHC (32.0-37.0) g/dL RDW (11.5-14.5) % Eosinophils # (0.04-0.35) X 10*3/uL Sodium (135-145) mmol/L Chloride (96-109) mmol/L BUN (9.0-27.0) mg/dL Est GFR (CKD-EPI)AfAm (60.0-200.0) Est GFR (CKD-EPI)NonAf (60.0-200.0) BUN/Creatinine Ratio (12.00-20.00) Ratio Glucose (70-110) mg/dL POC Glucose (mg/dL) 127 H 146 H (70-110) mg/dL AST (14-35) U/L ALT (10-49) U/L Total Protein (6.2-8.2) g/dL Albumin (3.8-4.9) g/dL Albumin/Globulin Ratio (1.60-3.17) g/dL Microbiology - Last 24 Hours (Table) 01/14/23 12:35 Blood Culture - Preliminary Blood Assessment and Plan (1) Urinary tract infection Current Visit: Yes Status: Acute Code(s): N39.0 - URINARY TRACT INFECTION, SITE NOT SPECIFIED SNOMED Code(s): 33000825 (2) Leukocytosis Current Visit: Yes Status: Acute Code(s): D72.829 - ELEVATED WHITE BLOOD CELL COUNT, UNSPECIFIED SNOMED Code(s): 212341067 Plan: This was a tele health visit 1patient presented hospital with mental status changes multifactorial possibly component of dehydration prerenal did have a positive UA with evidence of prostatomegaly concerning for urinary outflow obstruction and UTI likely from enteric gram-negative pathogen 2-patient did have CT of abdominal pelvis completed on 01/15/2023 with evidence of small bowel obstruction and free air and concern for possible pneumatosis of the stomach wall Gen. surgery has been consulted, recommending medical treatment patient seemed to have shown clinical improvement the patient white count has normalized urine culture also grew a drug-resistant Enterobacter and 3- the patient is to continue with Zosyn and monitor clinical course closely Time with Patient: Less than 30
--- NOTE | 2023-01-20 14:19 | P.PN ---
Subjective Progress Note Date: 01/19/23 Principal diagnosis: Urinary tract infection Patient is a 77-year-old male with a past medical history significant for atrial fibrillation coronary disease heart failure COPD diabetes mellitus hypertension hyperlipidemia patient was brought into the ER for evaluation of mental status changes , patient did have a positive UA concerning for a urinary tract infection. On today's evaluation that is 01/19/2023, the patient continues to be afebrile, the patient is breathing comfortably on room air , the patient denies having any chest pain shortness of breath or cough , no vomiting after discontinuation of his NG has been reported, no abdominal pain and no diarrhea reported Objective - Vital Signs Vital signs: Vital Signs Temp 97.6 F 01/19/23 08:00 Pulse 56 L 01/19/23 08:00 Resp 18 01/19/23 08:00 BP 126/68 01/19/23 08:00 Pulse Ox 97 01/19/23 08:00 FiO2 1 01/14/23 08:39 Intake & Output 01/18/23 01/19/23 01/19/23 18:59 06:59 18:59 Intake Total 1940 60 Output Total 200 300 Balance 1740 -240 Weight 88.5 kg Intake: Intake, IV Titration 200 Amount Piperacillin-Tazobactam 3 200 .375 gm In Sodium Chloride 0.9% 100 ml @ 25 mls/hr IVPB Q8HR [facility] Rx# :[id number] Oral 1740 60 Output: Urine 200 300 Other: Voiding Method Diaper Diaper Diaper Incontinent Incontinent Incontinent External Catheter # Voids 2 3 - Exam Elderly male lying in bed in no distress Lungs clear to auscultation anteriorly Abdomen soft no tenderness Exam completed with the help of MANAGER CT - Labs CBC & Chem 7: 01/20/23 08:14 01/20/23 08:14 Labs: Abnormal Lab Results - Last 24 Hours (Table) 01/18/23 01/18/23 01/18/23 Range/Units 11:32 16:37 20:29 POC Glucose (mg/dL) 180 H 145 H 158 H (70-110) mg/dL 01/19/23 Range/Units 08:46 POC Glucose (mg/dL) 119 H (70-110) mg/dL Microbiology - Last 24 Hours (Table) 01/14/23 12:35 Blood Culture - Preliminary Blood Assessment and Plan (1) Urinary tract infection Current Visit: Yes Status: Acute Code(s): N39.0 - URINARY TRACT INFECTION, SITE NOT SPECIFIED SNOMED Code(s): 26859078 (2) Leukocytosis Current Visit: Yes Status: Acute Code(s): D72.829 - ELEVATED WHITE BLOOD CELL COUNT, UNSPECIFIED SNOMED Code(s): 163656892 Plan: This was a tele health visit 1patient presented hospital with mental status changes multifactorial possibly component of dehydration prerenal did have a positive UA with evidence of prostatomegaly concerning for urinary outflow obstruction and UTI likely from enteric gram-negative pathogen 2-patient did have CT of abdominal pelvis completed on 01/15/2023 with evidence of small bowel obstruction and free air and concern for possible pneumatosis of the stomach wall Gen. surgery has been consulted, recommending medical treatment patient seemed to have shown clinical improvement the patient white count has normalized urine culture also grew a drug-resistant Enterobacter 3- the patient is currently being treated with Zosyn and monitor clinical course closely Time with Patient: Less than 30
--- NOTE | 2023-01-20 14:20 | P.PN ---
Subjective Progress Note Date: 01/20/23 Principal diagnosis: Urinary tract infection Patient is a 77-year-old male with a past medical history significant for atrial fibrillation coronary disease heart failure COPD diabetes mellitus hypertension hyperlipidemia patient was brought into the ER for evaluation of mental status changes , patient did have a positive UA concerning for a urinary tract infection. On today's evaluation that is 01/20/2023, the patient denies any fever or any chills, the patient is breathing comfortably on room air , the patient denies having any chest pain shortness of breath or cough , the patient denies having any nausea no vomiting no abdominal pain and no diarrhea has been reported Objective - Vital Signs Vital signs: Vital Signs Temp 98.4 F 01/20/23 11:41 Pulse 63 01/20/23 11:41 Resp 14 01/20/23 11:41 BP 159/80 01/20/23 11:41 Pulse Ox 98 01/20/23 11:41 FiO2 1 01/14/23 08:39 Intake & Output 01/19/23 01/20/23 01/20/23 18:59 06:59 18:59 Intake Total 440 Balance 440 Weight 80 kg Intake: Intake, IV Titration 200 Amount Piperacillin-Tazobactam 3 200 .375 gm In Sodium Chloride 0.9% 100 ml @ 25 mls/hr IVPB Q8HR [facility] Rx# :[id number] Oral 240 Other: Voiding Method Diaper Diaper Diaper Incontinent Incontinent Incontinent # Voids 4 3 # Bowel Movements 2 - Exam GENERAL DESCRIPTION: An elderly male lying in bed in no distress RESPIRATORY SYSTEM: Unlabored breathing , decreased breath sounds at bases HEART: S1 S2 regular rate and rhythm , ABDOMEN: Soft , no tenderness EXTREMITIES: No edema feet - Labs CBC & Chem 7: 01/20/23 08:14 01/20/23 08:14 Labs: Abnormal Lab Results - Last 24 Hours (Table) 01/19/23 01/19/23 01/20/23 Range/Units 17:42 20:05 08:14 RBC 2.92 L (4.40-5.60) X 10*6/uL Hgb 9.6 L (13.0-17.0) g/dL Hct 29.3 L (39.6-50.0) % MCV 100.3 H (80.0-97.0) fL MCH 32.9 H (27.0-32.0) pg Immature Gran # 0.05 H (0.00-0.04) X 10*3/uL Eosinophils # 0.65 H (0.04-0.35) X 10*3/uL POC Glucose (mg/dL) 115 H 138 H (70-110) mg/dL Calcium (8.7-10.3) mg/dL 01/20/23 01/20/23 Range/Units 08:14 11:08 RBC (4.40-5.60) X 10*6/uL Hgb (13.0-17.0) g/dL Hct (39.6-50.0) % MCV (80.0-97.0) fL MCH (27.0-32.0) pg Immature Gran # (0.00-0.04) X 10*3/uL Eosinophils # (0.04-0.35) X 10*3/uL POC Glucose (mg/dL) 119 H (70-110) mg/dL Calcium 8.4 L (8.7-10.3) mg/dL Microbiology - Last 24 Hours (Table) 01/14/23 12:35 Blood Culture - Final Blood Assessment and Plan (1) Urinary tract infection Current Visit: Yes Status: Acute Code(s): N39.0 - URINARY TRACT INFECTION, SITE NOT SPECIFIED SNOMED Code(s): 56314007 (2) Leukocytosis Current Visit: Yes Status: Acute Code(s): D72.829 - ELEVATED WHITE BLOOD CELL COUNT, UNSPECIFIED SNOMED Code(s): 382215476 Plan: 1patient presented hospital with mental status changes multifactorial possibly component of dehydration prerenal did have a positive UA with evidence of prostatomegaly concerning for urinary outflow obstruction and UTI likely from enteric gram-negative pathogen,urine culture also grew a drug-resistant Enterobacter 2-patient did have CT of abdominal pelvis completed on 01/15/2023 with evidence of small bowel obstruction and free air and concern for possible pneumatosis of the stomach wall Gen. surgery has been consulted, recommending medical treatment patient seemed to have shown clinical improvement the patient white count has normalized 3- the patient to continue with Zosyn and monitor clinical course closely Time with Patient: Less than 30
--- NOTE | 2023-01-20 16:35 | P.PN ---
Subjective Progress Note Date: 01/20/23 Principal diagnosis: Altered mental status likely related to hypoglycemia Perforated viscus with possible distended stomach and pneumatosis intestinalis and small bowel obstruction 77-year-old male with a past medical history significant for atrial fibrillation coronary disease heart failure COPD diabetes mellitus hypertension hyperlipidemia patient was brought into the ER for evaluation of mental status changes , patient did have a positive UA concerning for a urinary tract infection. 01/19/2023 Patient is seen and evaluated in room at bedside; denies any abdominal pain Vital signs are reviewed and remained stable 1patient presented hospital with mental status changes multifactorial possibly component of dehydration prerenal did have a positive UA with evidence of prostatomegaly concerning for urinary outflow obstruction and UTI likely from enteric gram-negative pathogen 2-patient did have CT of abdominal pelvis completed on 01/15/2023 with evidence of small bowel obstruction and free air and concern for possible pneumatosis of the stomach wall Gen. surgery has been consulted, recommending medical treatment patient seemed to have shown clinical improvement the patient white count has normalized urine culture also grew a drug-resistant Enterobacter and the patient is covered with Zosyn -- Gen. surgery is following; repeat x-ray reveals resolution of pneumatosis gastric wall; NG tube has been removed and patient is started on a diet and is tolerating --Remains on IV antibiotics for UTI 01/20/2023 patient presented hospital with mental status changes multifactorial possibly component of dehydration prerenal did have a positive UA with evidence of prostatomegaly concerning for urinary outflow obstruction and UTI likely from enteric gram-negative pathogen,urine culture also grew a drug-resistant Enterobacter -patient did have CT of abdominal pelvis completed on 01/15/2023 with evidence of small bowel obstruction and free air and concern for possible pneumatosis of the stomach wall Gen. surgery has been consulted, recommending medical treatment patient seemed to have shown clinical improvement the patient white count has normalized - the patient to continue with Zosyn and monitor clinical course closely Objective - Vital Signs Vital signs: Vital Signs Temp 98.4 F 01/20/23 07:58 Pulse 64 01/20/23 07:58 Resp 14 01/20/23 07:58 BP 144/72 01/20/23 07:58 Pulse Ox 96 01/20/23 08:00 FiO2 1 01/14/23 08:39 Intake & Output 01/19/23 01/20/23 01/20/23 18:59 06:59 18:59 Intake Total 440 Balance 440 Weight 80 kg Intake: Intake, IV Titration 200 Amount Piperacillin-Tazobactam 3 200 .375 gm In Sodium Chloride 0.9% 100 ml @ 25 mls/hr IVPB Q8HR [facility] Rx# :[id number] Oral 240 Other: Voiding Method Diaper Diaper Diaper Incontinent Incontinent Incontinent # Voids 4 3 # Bowel Movements 2 - Exam PHYSICAL EXAMINATION: GENERAL: The patient is alert and oriented x3, not in any acute distress. Well developed, well nourished. HEENT: Pupils are round and equally reacting to light. EOMI. No scleral icterus. No conjunctival pallor. Normocephalic, atraumatic. No pharyngeal erythema. No thyromegaly. CARDIOVASCULAR: S1 and S2 present. No murmurs, rubs, or gallops. PULMONARY: Chest is clear to auscultation, no wheezing or crackles. ABDOMEN: Soft, nontender, nondistended, normoactive bowel sounds. No palpable organomegaly. MUSCULOSKELETAL: No joint swelling or deformity. EXTREMITIES: No cyanosis, clubbing, or pedal edema. NEUROLOGICAL: Gross neurological examination did not reveal any focal deficits. SKIN: No rashes. - Labs CBC & Chem 7: 01/20/23 08:14 01/20/23 08:14 Labs: Abnormal Lab Results - Last 24 Hours (Table) 01/19/23 01/19/23 01/19/23 Range/Units 12:01 17:42 20:05 POC Glucose (mg/dL) 203 H 115 H 138 H (70-110) mg/dL 01/20/23 Range/Units 11:08 POC Glucose (mg/dL) 119 H (70-110) mg/dL Microbiology - Last 24 Hours (Table) 01/14/23 12:35 Blood Culture - Final Blood Assessment and Plan Assessment: 1. Altered mental status likely related to hypoglycemia 2. Perforated viscus with possible distended stomach and pneumatosis intestinalis and small bowel obstruction 3. Atrial fibrillation 4. Acute renal failure; likely prerenal 5. COPD; not in exacerbation 7. Complicated UTI; urine culture growing gram-negative bacilli -- Patient will continue with current treatment; patient had CT of the abdomen completed on 01/15/2023 which revealed small bowel obstruction and see if and concern for possible pneumatosis of the stomach wall; Gen. surgery is on board - ID on board for antibiotic recommendations on UTI growing drug-resistant Enterobacter; patient remains on IV Zosyn -- underwent exploratory laparotomy has been placed on diet with recommendations to advance as tolerated -
[2023-01-20 17:08] LABS: Glucose,Whole Blood 87 mg/dL (70-110)
[2023-01-20 19:44] LABS: Glucose,Whole Blood 173 mg/dL (70-110)
[2023-01-20] MEDS: PRAVASTATIN SODIUM 40 MG TAB PO SCH (22:14)
[2023-01-21] MEDS: PIPERACILLIN-TAZOBACTAM 3.375 GM in SODIUM CHLORIDE 0.9% 100 ML IVPB SCH ×3 (01:00→15:06)
[2023-01-21] MEDS: rOPINIRole HCL 4 MG TABLET PO SCH ×4 (01:00→17:46)
[2023-01-21] MEDS: busPIRone HCl 5 MG TAB PO SCH ×2 (06:33→12:52)
[2023-01-21] MEDS: CARBIDOPA-LEVODOPA 25-250 MG 1 EACH TAB PO SCH ×3 (06:33→17:46)
[2023-01-21 07:03] LABS: Glucose,Whole Blood 86 mg/dL (70-110)
[2023-01-21] MEDS: SYMBICORT 160-4.5 MCG INHALER INHALATION SCH ×2 (08:14→19:55)
--- NOTE | 2023-01-21 08:25 | P.PN ---
Subjective Patient is seen in follow-up for acute kidney injury. Creatinine 1.0 yesterday. Oral intake is fair. No vomiting or diarrhea. Vital signs are stable. General: No acute distress. HEENT: Head exam is unremarkable. LUNGS: No audible rhonchi or wheezes. HEART: Rate and Rhythm are regular. ABDOMEN: Nontender. EXTREMITITES: No edema. Objective - Vital Signs Vital signs: Vital Signs Temp 98.5 F 01/21/23 07:03 Pulse 52 L 01/21/23 07:03 Resp 16 01/21/23 07:03 BP 169/83 01/21/23 07:03 Pulse Ox 98 01/21/23 07:03 FiO2 1 01/14/23 08:39 Intake & Output 01/20/23 01/21/23 01/21/23 18:59 06:59 18:59 Intake Total 400 Balance 400 Weight 77.5 kg Intake: Oral 400 Other: Voiding Method Diaper Diaper Incontinent Incontinent # Voids 1 1 - Labs CBC & Chem 7: 01/20/23 08:14 01/20/23 08:14 Labs: Abnormal Lab Results - Last 24 Hours (Table) 01/20/23 01/20/23 01/20/23 Range/Units 08:14 08:14 11:08 RBC 2.92 L (4.40-5.60) X 10*6/uL Hgb 9.6 L (13.0-17.0) g/dL Hct 29.3 L (39.6-50.0) % MCV 100.3 H (80.0-97.0) fL MCH 32.9 H (27.0-32.0) pg Immature Gran # 0.05 H (0.00-0.04) X 10*3/uL Eosinophils # 0.65 H (0.04-0.35) X 10*3/uL POC Glucose (mg/dL) 119 H (70-110) mg/dL Calcium 8.4 L (8.7-10.3) mg/dL 01/20/23 Range/Units 19:43 RBC (4.40-5.60) X 10*6/uL Hgb (13.0-17.0) g/dL Hct (39.6-50.0) % MCV (80.0-97.0) fL MCH (27.0-32.0) pg Immature Gran # (0.00-0.04) X 10*3/uL Eosinophils # (0.04-0.35) X 10*3/uL POC Glucose (mg/dL) 173 H (70-110) mg/dL Calcium (8.7-10.3) mg/dL Microbiology - Last 24 Hours (Table) 01/14/23 12:35 Blood Culture - Final Blood Assessment and Plan Plan: Assessment: 1. Acute kidney injury secondary to ATN secondary to severe sepsis and further worsened with the use of diuretics and NSAIDs. Creatinine 3.26 on admission - 1.0 yesterday. No hydronephrosis noted. Creatinine 0.89 dated 08/25/2022. 2. UTI on antibiotics. Urine culture positive for Enterobacter. 3. Diabetes with hypoglycemia. 4. Benign hypertension. Plan: Encourage oral intake. Resume Cozaar.
[2023-01-21] MEDS: METOPROLOL SUCCINATE (ER) 50 MG TAB.ER.24H PO SCH (08:28)
[2023-01-21] MEDS: DOCUSATE 100 MG CAP PO SCH (08:28)
[2023-01-21] MEDS: allopurinoL 300 MG TAB PO SCH (08:28)
[2023-01-21] MEDS: CHOLECALCIFEROL 25 MCG (1000 IU) TABLET PO SCH (08:28)
[2023-01-21] MEDS: ASPIRIN 81 MG PO SCH (08:28)
[2023-01-21] MEDS: FERROUS SULFATE 325 MG TAB PO SCH (08:29)
[2023-01-21] MEDS: CYANOCOBALAMIN 500 MCG TAB PO SCH (08:29)
[2023-01-21] MEDS: ZINC SULFATE 220 MG CAP PO SCH (08:29)
[2023-01-21] MEDS: PANTOPRAZOLE 40 MG/10 ML VIAL IVP SCH (08:29)
[2023-01-21] MEDS: TAMSULOSIN 0.4 MG CAP.ER.24H PO SCH (08:29)
[2023-01-21] MEDS: GLIMEPIRIDE 1 MG TAB PO SCH ×2 (08:30→17:46)
[2023-01-21] MEDS: polyethylene glycoL 3350 17 GM POWD.PACK PO SCH (08:30)
[2023-01-21] MEDS: HEPARIN SODIUM,PORCINE/PF 5,000 UNIT/0.5 ML SYRINGE SQ SCH (08:30)
[2023-01-21] MEDS: DIVALPROEX SPRINKLE 125 MG CAP.SPRINK PO SCH (08:30)
[2023-01-21] MEDS: NON FORMULARY DRUG (Pimavanserin Tartrate [Nuplazid] 34 MG Capsule) PO SCH (08:31)
[2023-01-21] MEDS ORDERED: LOSARTAN 25 MG TAB PO SCH (09:00)
[2023-01-21 11:13] LABS: Glucose,Whole Blood 99 mg/dL (70-110)
--- NOTE | 2023-01-21 12:30 | P.PN ---
Subjective Progress Note Date: 01/21/23 Principal diagnosis: Urinary tract infection Patient is a 77-year-old male with a past medical history significant for atrial fibrillation coronary disease heart failure COPD diabetes mellitus hypertension hyperlipidemia patient was brought into the ER for evaluation of mental status changes , patient did have a positive UA concerning for a urinary tract infection. On today's evaluation that is 01/21/2023, the patient remains to be febrile, the patient is breathing comfortably on room air , the patient denies chest pain shortness of breath or cough , the patient denies having any nausea no vomiting no abdominal pain and no diarrhea has been reported by the nursing staff Objective - Vital Signs Vital signs: Vital Signs Temp 98.5 F 01/21/23 07:03 Pulse 52 L 01/21/23 07:03 Resp 16 01/21/23 07:03 BP 169/83 01/21/23 07:03 Pulse Ox 98 01/21/23 07:03 FiO2 1 01/14/23 08:39 Intake & Output 01/20/23 01/21/23 01/21/23 18:59 06:59 18:59 Intake Total 400 Balance 400 Weight 77.5 kg Intake: Oral 400 Other: Voiding Method Diaper Diaper Diaper Incontinent Incontinent Incontinent # Voids 1 1 - Exam GENERAL DESCRIPTION: An elderly male lying in bed in no distress RESPIRATORY SYSTEM: Unlabored breathing , decreased breath sounds at bases HEART: S1 S2 regular rate and rhythm , ABDOMEN: Soft , no tenderness EXTREMITIES: No edema feet - Labs CBC & Chem 7: 01/20/23 08:14 01/20/23 08:14 Labs: Abnormal Lab Results - Last 24 Hours (Table) 01/20/23 01/20/23 01/20/23 Range/Units 08:14 08:14 11:08 RBC 2.92 L (4.40-5.60) X 10*6/uL Hgb 9.6 L (13.0-17.0) g/dL Hct 29.3 L (39.6-50.0) % MCV 100.3 H (80.0-97.0) fL MCH 32.9 H (27.0-32.0) pg Immature Gran # 0.05 H (0.00-0.04) X 10*3/uL Eosinophils # 0.65 H (0.04-0.35) X 10*3/uL POC Glucose (mg/dL) 119 H (70-110) mg/dL Calcium 8.4 L (8.7-10.3) mg/dL 01/20/23 Range/Units 19:43 RBC (4.40-5.60) X 10*6/uL Hgb (13.0-17.0) g/dL Hct (39.6-50.0) % MCV (80.0-97.0) fL MCH (27.0-32.0) pg Immature Gran # (0.00-0.04) X 10*3/uL Eosinophils # (0.04-0.35) X 10*3/uL POC Glucose (mg/dL) 173 H (70-110) mg/dL Calcium (8.7-10.3) mg/dL Microbiology - Last 24 Hours (Table) 01/14/23 12:35 Blood Culture - Final Blood Assessment and Plan (1) Urinary tract infection Current Visit: Yes Status: Acute Code(s): N39.0 - URINARY TRACT INFECTION, SITE NOT SPECIFIED SNOMED Code(s): 82364305 (2) Leukocytosis Current Visit: Yes Status: Acute Code(s): D72.829 - ELEVATED WHITE BLOOD CELL COUNT, UNSPECIFIED SNOMED Code(s): 697139748 Plan: 1patient presented hospital with mental status changes multifactorial possibly component of dehydration prerenal did have a positive UA with evidence of prostatomegaly concerning for urinary outflow obstruction and UTI likely from enteric gram-negative pathogen,urine culture also grew a drug-resistant Enteroba cter 2-patient did have CT of abdominal pelvis completed on 01/15/2023 with evidence of small bowel obstruction and free air and concern for possible pneumatosis of the stomach wall Gen. surgery has been consulted, recommending medical treatment patient seemed to have shown clinical improvement the patient white count has normalized 3- the patient to continue with Zosyn and may consider a short course of 7 days on discharge versus oral Augmentin discussed with the medical team Time with Patient: Less than 30
[2023-01-21] MEDS: SPIRONOLACTONE 25 MG TAB PO SCH (12:52)
[2023-01-21 13:13] VITALS: BP 163/74; PULSE 48; RESP 18; TEMP 97.7
--- NOTE | 2023-01-21 13:19 | P.DS ---
Providers Date of admission: 01/11/23 13:24 Attending physician: Sim Mohr MD Consults: 01/12/23 09:05 Consult Physician Routine Consulting Provider: Juno Flores Consult Reason/Comments: Hx of Parkinson's and increase confusion, family request Do you want consulting provider notified?: Yes 01/12/23 09:10 Consult Physician Routine Consulting Provider: Panda Bhardwaj Consult Reason/Comments: Acute Renal Failure, UTI, increase bun and Cr and low BS, family request Do you want consulting provider notified?: Yes 01/12/23 09:52 Consult Physician Routine Consulting Provider: Farhad Kaur Consult Reason/Comments: uti Do you want consulting provider notified?: Yes 01/15/23 14:27 Consult Physician Urgent Consulting Provider: Shady Carlos Consult Reason/Comments: CT results: distended stomach with gas in wall or pnematosis Do you want consulting provider notified?: Yes Primary care physician: Swetha De La Cruz Hospital Course: Final Diagnosis Altered mental status likely related to hypoglycemia and metabolic encephalopathy from infection improved Scattered foci of pneumoperitoneum within upper abdomen with pneumatosis of stomach wall. No bowel obstruction, or extravastation of contrast managed medically. Acute UTI with sepsis present on admission with culture showing enterococcus Acute renal failure secondary to ATN/Sepsis Atrial fibrillation anticoagulated with eliquis COPD; not in exacerbation Diabetes Mellitus type 2 controlled History of dementia Coronary artery disease with prior CABG History Parkinsons History heart failure Do Not Resuscitate/Do Not Intubate Discharge Disposition Patient is stable for discharge back to [facility] today. Recommend repeat labs in 2 to 3 days. Patient has been discharged on 7 days of oral augmentin and to follow up with infectious disease on discharge. Nephrology recommending to decrease lasix to 20 mg daily and monitor for increased swelling. Can increase to 40 mg daily if needed. Follow up with nephrology in the office in 1 week. Hospital Course This is a 77-year-old male with a past medical history significant for atrial fibrillation coronary disease heart failure COPD diabetes mellitus hypertension hyperlipidemia patient was brought into the ER for evaluation of mental status changes , patient did have a positive UA concerning for a urinary tract infection. Patient was sent in from [facility]. Labs on admission showing elevated white count, and renal failure with a creatinine level of 3.26. CT of abdominal pelvis completed on 01/15/2023 with evidence of small bowel obstruction and free air and concern for possible pneumatosis of the stomach wall Gen. surgery has been consulted, recommending medical treatment patient seemed to have shown clinical improvement with follow up CT scan showing no evidence of bowel obstructiong. Patient has denied abdominal pain and is having bowel movements. Patient was treated with IV antibiotics and urine culture grew enterococcus. Patient was seen in consultation by nephrology and infectious disease. [place] the renal failure was from combination of medications and ATN, patient was taking lasix BID, ibuprofen, metformin additionally patient was admitted with sepsis. Patients mentation did improve. White count has normalized and creatinine today is 1.0. Patient is denying abdominal pain, denying nasuea, vomiting or diarrhea. Patient denies shortness of breath, denies chest pain. Tolerating diet having normal bowel movements. Alert and oriented no focal neurological deficits. Patient has been cleared by all consultations for discharge back to [facility]. Lungs are clear, S1 S2 auscultated abdomen is soft and nontender. Patient has normoactive bowel sounds. Denies dysuria. Please see medication reconciliation for a list of current medications. Thank you for allowing us to participate in the care of this patient. The impression and plan of care has been dictated by Nurse Monserrat Pra ctitioner as directed. Dr. Alena MD I have performed a history and physical examination and medical decision making of this patient, discussed the same with the dictator, and agree with the dictat ors assessment and plan as written, documented as a scribe. Based on total visit time, I have performed more than 50% of this visit. Patient Condition at Discharge: Stable Plan - Discharge Summary Discharge Rx Participant: No New Discharge Prescriptions: New Amoxic-Pot Clav 875-125Mg [Augmentin 875-125] 1 tab PO BID 7 Days #14 tab Continue allopurinoL [Zyloprim] 300 mg PO DAILY@0900 Aspirin 81 mg PO DAILY@0900 Tamsulosin [Flomax] 0.4 mg PO DAILY@0900 Pravastatin Sodium [Pravachol] 40 mg PO HS@2100 metFORMIN HCL [Glucophage] 1,000 mg PO DAILY@0900 Spironolactone [Aldactone] 25 mg PO DAILY@1300 Losartan [Cozaar] 25 mg PO DAILY@0900 Melatonin 10 mg PO HS PRN tab PRN Reason: Insomnia Furosemide [Lasix] 40 mg PO BID@0900,1500 rOPINIRole HCL [Requip] 4 mg PO QID@00,06,12,18 Zinc Gluconate [Zinc] 50 mg PO DAILY@0900 QUEtiapine [SEROquel] 100 mg PO DAILY@1800 Metoprolol Succinate (ER) [Toprol XL] 50 mg PO DAILY@0900 Carbidopa/Levodopa [Carbidopa-Levo 25-250 mg Odt] 1 tab PO QID@06,,17,21 Cyanocobalamin (Vitamin B-12) [Vitamin B-12] 1,000 mcg PO DAILY@0900 Apixaban [Eliquis] 2.5 mg PO BID@0900,2100 Budesonide-Formot 160-4.5 Mcg [Symbicort 160-4.5 Mcg Inhaler] 2 puff INHALATION RT-BID@0900,2100 Glimepiride [Amaryl] 1 mg PO BID@0900,1700 Albuterol Inhaler [Ventolin Hfa Inhaler] 2 puff INHALATION RT-Q4H PRN PRN Reason: Shortness Of Breath busPIRone HCL [Buspar] 7.5 mg PO TID@0600,1400,2200 Pimavanserin Tartrate [Nuplazid] 34 mg PO DAILY@0900 Docusate [Colace] 100 mg PO BID@0900,2100 Divalproex Sodium [Depakote] 125 mg PO BID@0900,2100 Ascorbic Acid [Vitamin C] 500 mg PO DAILY@0900 polyethylene glycoL 3350 [Miralax] 17 gm PO DAILY@0900 Ferrous Sulfate [Iron] 325 mg PO DAILY@0900 Famotidine [Pepcid] 20 mg PO DAILY@0900 Cholecalciferol [Vitamin D3 (25 Mcg = 1000 Iu)] 50 mcg PO DAILY@0900 Discontinued Glimepiride [Amaryl] 2 mg PO BID@0900,1700 Midodrine HCl [ProAmatine] 10 mg PO TID@0900,1300,2100 Ibuprofen [Motrin Ib] 600 mg PO BID@0900,2100 ALPRAZolam [Xanax] 1 mg PO DAILY@1400 Discharge Medication List Aspirin 81 mg PO DAILY@0900 07/28/17 [History] Pravastatin Sodium [Pravachol] 40 mg PO HS@2100 07/28/17 [History] Tamsulosin [Flomax] 0.4 mg PO DAILY@89907/28/17 [History] allopurinoL [Zyloprim] 300 mg PO DAILY@89907/28/17 [History] Carbidopa/Levodopa [Carbidopa-Levo 25-250 mg Odt] 1 tab PO QID@06,13,17,21 09/25/21 [History] Cyanocobalamin (Vitamin B-12) [Vitamin B-12] 1,000 mcg PO DAILY@89909/25/21 [History] metFORMIN HCL [Glucophage] 1,000 mg PO DAILY@89909/25/21 [History] Albuterol Inhaler [Ventolin Hfa Inhaler] 2 puff INHALATION RT-Q4H PRN 04/13/22 [History] Apixaban [Eliquis] 2.5 mg PO BID@0900,209904/13/22 [History] Budesonide-Formot 160-4.5 Mcg [Symbicort 160-4.5 Mcg Inhaler] 2 puff INHALATION RT-BID@09,209904/13/22 [History] Glimepiride [Amaryl] 1 mg PO BID@0900,1700 04/13/22 [History] Losartan [Cozaar] 25 mg PO DAILY@0904/13/22 [History] Spironolactone [Aldactone] 25 mg PO DAILY@1300 04/13/22 [History] Melatonin 10 mg PO HS PRN tab 04/22/22 [Rx] Furosemide [Lasix] 40 mg PO BID@0900,1500 08/23/22 [History] Pimavanserin Tartrate [Nuplazid] 34 mg PO DAILY@89908/23/22 [History] busPIRone HCL [Buspar] 7.5 mg PO TID@0600,1400,2200 08/23/22 [History] Ascorbic Acid [Vitamin C] 500 mg PO DAILY@89901/11/23 [History] Cholecalciferol [Vitamin D3 (25 Mcg = 1000 Iu)] 50 mcg PO DAILY@89901/11/23 [History] Divalproex Sodium [Depakote] 125 mg PO BID@0900,209901/11/23 [History] Docusate [Colace] 100 mg PO BID@0900,2100 01/11/23 [History] Famotidine [Pepcid] 20 mg PO DAILY@0900 01/11/23 [History] Ferrous Sulfate [Iron] 325 mg PO DAILY@0900 01/11/23 [History] Metoprolol Succinate (ER) [Toprol XL] 50 mg PO DAILY@0900 01/11/23 [History] QUEtiapine [SEROquel] 100 mg PO DAILY@1800 01/11/23 [History] Zinc Gluconate [Zinc] 50 mg PO DAILY@0901/11/23 [History] polyethylene glycoL 3350 [Miralax] 17 gm PO DAILY@0901/11/23 [History] rOPINIRole HCL [Requip] 4 mg PO QID@00,06,12,18 01/11/23 [History] Amoxic-Pot Clav 875-125Mg [Augmentin 875-125] 1 tab PO BID 7 Days #14 tab 01/21/23 [Rx] Follow up Appointment(s)/Referral(s): Swetha De La Cruz MD [Primary Care Provider] - 1-2 days Panda Bhardwaj DO [STAFF PHYSICIAN] - 1 Week Farhad Kaur MD [STAFF PHYSICIAN] - 1 Week Ambulatory/Diagnostic Orders: Basic Metabolic Panel [LAB.AMB] Time Frame: 3 Days, Location: None Selected Complete Blood Count w/diff [LAB.AMB] Time Frame: 3 Days, Location: None Selected Activity/Diet/Wound Care/Special Instructions: Continue oral augmentin for 7 days Discharge Disposition: TRANSFER TO SNF/ECF
--- NOTE | 2023-01-21 13:21 | P.PN ---
Subjective Progress Note Date: 01/21/23 CHIEF COMPLAINT: Gastric distention and possible pneumoperitoneum HISTORY OF PRESENT ILLNESS: Patient denies any abdominal pain. Denies any nausea or vomiting. Tolerating regular diet. He is scheduled for possible discharge today to [facility]. Afebrile. Patient seen and examined with Dr. Carlos PHYSICAL EXAM: VITAL SIGNS: Reviewed. GENERAL: Well-developed in no acute distress. ABDOMEN: Soft. mildly distended. Nontender. NEUROLOGIC: awake and alert ASSESSMENT: 1. Gastric distention improved PLAN: -Patient can be discharged from surgical standpoint -No surgical intervention planned -Continue regular diet Physician Spotlight Operator note has been reviewed by physician. Signing provider agrees with the documented findings, assessment, and plan of care. Objective - Vital Signs Vital signs: Vital Signs Temp 97.7 F 01/21/23 12:47 Pulse 48 L 01/21/23 12:47 Resp 18 01/21/23 12:47 BP 163/74 01/21/23 12:47 Pulse Ox 98 01/21/23 12:47 FiO2 1 01/14/23 08:39 Intake & Output 01/20/23 01/21/23 01/21/23 18:59 06:59 18:59 Intake Total 400 Balance 400 Weight 77.5 kg Intake: Oral 400 Other: Voiding Method Diaper Diaper Diaper Incontinent Incontinent Incontinent # Voids 1 1 1 - Labs CBC & Chem 7: 01/20/23 08:14 01/20/23 08:14 Labs: Abnormal Lab Results - Last 24 Hours (Table) 01/20/23 Range/Units 19:43 POC Glucose (mg/dL) 173 H (70-110) mg/dL Microbiology - Last 24 Hours (Table) 01/14/23 12:35 Blood Culture - Final Blood
[2023-01-21 13:22] VITALS: BMI 23.8
[2023-01-21 17:26] LABS: Glucose,Whole Blood 88 mg/dL (70-110)
--- NOTE | 2023-01-22 12:45 | CDI ---
Documentation Clarification Form Date: 01/22/2023 11:47:58 AM From: Maia Trejo Admit Date: 01/11/2023 01:24:00 PM Patient Name: Jayden Fermin Visit Number: [id number] Discharge Date: 01/21/2023 09:59:00 PM ATTENTION: The Clinical Documentation Specialists (CDI) and [facility] Coding Staff appreciate your assistance in clarifying documentation. Please respond to the clarification below the line at the bottom and electronically sign. The CDI & [facility] Coding staff will review the response and follow-up if needed. Please note: Queries are made part of the Legal Health Record. If you have any questions, please contact the author of this message via ITS. Dr. Patrick Carvajal Conflicting documentation has been found in the medical record. As attending physician, please provide clarification. Per DCS Final Diagnosis: "Acute UTI with sepsis present on admission with culture showing enterococcus." ATN/sepsis. Per CDI query on 01/14/2023 Dr. Braun: " No sepsis is ruled out." History/Risk Factors: Patient with UTI, ATN, metabolic encephalopathy, Elevated WBC's Clinical Indicators: WBC's on 01/15 22.99, Treatment: Rocephin and Zosyn Please clarify which diagnosis is most appropriate: [ x] Sepsis POA [ ] Sepsis not POA [ ] Sepsis ruled out [ ] Other (please specify) [ ] Unable to determine MTDD
== END 2023-01-21 21:59 | DRG 871 ==
LOC: SUPCPDRO 11:23 → EC 11:23 → 4SSUR 13:24 → 5NMEDONC 14:03
PROVIDERS: ADMIT Internal Medicine; ATTEND Internal Medicine
DX: A41.81 Sepsis due to Enterococcus (principal); G93.41 Metabolic encephalopathy; N17.0 Acute kidney failure with tubular necrosis; N39.0 Urinary tract infection, site not specified; A52.16 Charcot's arthropathy (tabetic); K56.609 Unspecified intestinal obstruction, unspecified as to partial versus complete obstruction; R65.20 Severe sepsis without septic shock; E11.610 Type 2 diabetes mellitus with diabetic neuropathic arthropathy; E11.649 Type 2 diabetes mellitus with hypoglycemia without coma; E78.5 Hyperlipidemia, unspecified; G20 Parkinson's disease; F02.80 Dementia in other diseases classified elsewhere, unspecified severity, without behavioral disturbance, psychotic disturbance, mood disturbance, and anxiety; K31.89 Other diseases of stomach and duodenum; M1A.9XX0 Chronic gout, unspecified, without tophus (tophi); Z66 Do not resuscitate; M48.00 Spinal stenosis, site unspecified; M19.90 Unspecified osteoarthritis, unspecified site; Z28.21 Immunization not carried out because of patient refusal; I11.0 Hypertensive heart disease with heart failure; I48.0 Paroxysmal atrial fibrillation; I50.9 Heart failure, unspecified; I25.10 Atherosclerotic heart disease of native coronary artery without angina pectoris; Z79.01 Long term (current) use of anticoagulants; G25.81 Restless legs syndrome; I25.2 Old myocardial infarction; Z98.84 Bariatric surgery status; Z96.82 Presence of neurostimulator; Z95.1 Presence of aortocoronary bypass graft; Z95.0 Presence of cardiac pacemaker; Z82.49 Family history of ischemic heart disease and other diseases of the circulatory system; Z79.1 Long term (current) use of non-steroidal anti-inflammatories (NSAID); Z79.51 Long term (current) use of inhaled steroids; Z79.84 Long term (current) use of oral hypoglycemic drugs; Z88.8 Allergy status to other drugs, medicaments and biological substances; Z86.73 Personal history of transient ischemic attack (TIA), and cerebral infarction without residual deficits; N40.0 Benign prostatic hyperplasia without lower urinary tract symptoms; Z79.82 Long term (current) use of aspirin; Z95.5 Presence of coronary angioplasty implant and graft; Z79.899 Other long term (current) drug therapy; Z96.653 Presence of artificial knee joint, bilateral
CPT/HCPCS: 36415; 71045; 74018; 74176; 74177; 76770; 80048; 80053; 80306; 81001; 82947; 83605; 83735; 84145; 84484; 85025; 85610; 85730; 86140; 86850; 86900; 86901; 87040; 87077; 87086; 87186; 93005; 94640; 94760; 96361; 96374; 96375; 99285

== ENCOUNTER 2023-04-01 19:33 | Emergency (ER) | payer MEDICARE ==
[2023-04-01 19:42] VITALS: RESP 18; TEMP 98.3
--- NOTE | 2023-04-01 19:48 | ED ---
Altered Mental Status HPI - General Chief Complaint: Altered Mental Status Stated Complaint: seizure Time Seen by Provider: 04/01/23 19:38 Source: patient, EMS, RN notes reviewed Mode of arrival: EMS - History of Present Illness Initial Comments: This is a 77-year-old male who presents to the emergency department for concerns of a possible seizure. Per EMS, patient was eating dinner at [facility] [place], which is where he lives. During dinner, he started shaking and the food fell out of his mouth. EMS is unsure how long the patient was shaking or if there was a postictal period. It is also unclear as to if the patient actually lost consciousness. Patient has a history of Parkinson's, but no known history of seizures. EMS was told that the patient initially had a blood pressure of 60/30. They initially checked a manual when they arrived and state that it was 90/50. However, after moving him into the ambulance and on the way here, his blood pressure had increased to the 140s systolically. Patient is A&O 4 and states that he currently has no complaints. Denies any fevers, chills, sore throat, cough, dyspnea, chest pain, palpitations, abdominal pain, nausea, vomiting, diarrhea, back pain, or headaches. MD Complaint: altered mental status - Related Data Home Medications Medication Instructions Recorded Confirmed Aspirin 81 mg PO DAILY@89907/28/17 04/01/23 Pravastatin Sodium [Pravachol] 40 mg PO HS@2100 07/28/17 04/01/23 Tamsulosin [Flomax] 0.4 mg PO DAILY@89907/28/17 04/01/23 allopurinoL [Zyloprim] 300 mg PO DAILY@89907/28/17 04/01/23 Carbidopa/Levodopa [Carbidopa-Levo 1 tab PO QID@06,13,17,21 09/25/21 04/01/23 25-250 mg Odt] Cyanocobalamin (Vitamin B-12) 1,000 mcg PO DAILY@89909/25/21 04/01/23 [Vitamin B-12] metFORMIN HCL [Glucophage] 1,000 mg PO DAILY@89909/25/21 04/01/23 Albuterol Inhaler [Ventolin Hfa 2 puff INHALATION RT-Q4H PRN 04/13/22 04/01/23 Inhaler] Apixaban [Eliquis] 2.5 mg PO BID@0900,2100 04/13/22 04/01/23 Budesonide-Formot 160-4.5 Mcg 2 puff INHALATION RT-BID@0900,209904/13/22 04/01/23 [Symbicort 160-4.5 Mcg Inhaler] Glimepiride [Amaryl] 1 mg PO BID@0900,1700 04/13/22 04/01/23 Losartan [Cozaar] 25 mg PO DAILY@89904/13/22 04/01/23 Spironolactone [Aldactone] 25 mg PO DAILY@1300 04/13/22 04/01/23 Pimavanserin Tartrate [Nuplazid] 34 mg PO DAILY@89908/23/22 04/01/23 busPIRone HCL [Buspar] 7.5 mg PO TID@0600,1400,2200 08/23/22 04/01/23 Cholecalciferol [Vitamin D3 (25 50 mcg PO DAILY@89901/11/23 04/01/23 Mcg = 1000 Iu)] Docusate [Colace] 100 mg PO BID@0900,209901/11/23 04/01/23 Famotidine [Pepcid] 20 mg PO DAILY@89901/11/23 04/01/23 Ferrous Sulfate [Iron] 325 mg PO DAILY@89901/11/23 04/01/23 Metoprolol Succinate (ER) [Toprol 50 mg PO DAILY@89901/11/23 04/01/23 XL] QUEtiapine [SEROquel] 100 mg PO DAILY@1800 01/11/23 04/01/23 Zinc Gluconate [Zinc] 50 mg PO DAILY@89901/11/23 04/01/23 polyethylene glycoL 3350 [Miralax] 17 gm PO DAILY@89901/11/23 04/01/23 rOPINIRole HCL [Requip] 4 mg PO TID@0600,1400,2200 01/11/23 04/01/23 ALPRAZolam [Xanax] 1 mg PO DAILY PRN 04/01/23 04/01/23 Divalproex [Depakote] 250 mg PO TID@0900,1300,2100 04/01/23 04/01/23 Furosemide [Lasix] 20 mg PO DAILY 04/01/23 04/01/23 Glucerna Shake 1 can PO DAILY 04/01/23 04/01/23 Melatonin 10 mg PO HS PRN 04/01/23 04/01/23 Previous Rx's Medication Instructions Recorded Cephalexin [Keflex] 500 mg PO Q6HR 7 Days #28 cap 04/01/23 Allergies Allergy/AdvReac Type Severity Reaction Status Date / Time gabapentin Allergy unknown, Verified 04/01/23 20:28 per [facility] Review of Systems ROS Statement: Those systems with pertinent positive or pertinent negative responses have been documented in the HPI. ROS Other: All systems not noted in ROS Statement are negative. Past Medical History Past Medical History: Atrial Fibrillation, Coronary Artery Disease (CAD), Heart Failure, COPD, CVA/TIA, Dementia, Diabetes Mellitus, Hyperlipidemia, Hypertension, Myocardial Infarction (UT), Neurologic Disorder, Prostate Disorder Additional Past Medical History / Comment(s): parkinsons, charcot's joint - foot and ankle, insomnia, restless legs syndrome, spinal stenosis, pacemaker, chronic gout, BPH, arthritis, Last Myocardial Infarction Date:: 1997 History of Any Multi-Drug Resistant Organisms: None Reported Past Surgical History: Bariatric Surgery, Cholecystectomy, Coronary Bypass/CABG, EPS, Heart Catheterization, Joint Replacement Additional Past Surgical History / Comment(s): has two implanted batteries for parkinsons, lap band surgery 2009, bilat knee replacements Past Anesthesia/Blood Transfusion Reactions: No Reported Reaction Date of Last Stent Placement:: 08/25/1989 Past Psychological History: No Psychological Hx Reported Smoking Status: Never smoker Past Alcohol Use History: None Reported Past Drug Use History: None Reported - Past Family History Father Family Medical History: Myocardial Infarction (UT) Mother Additional Family Medical History / Comment(s): heart disease General Exam Limitations: no limitations General appearance: alert, in no apparent distress Head exam: Present: atraumatic, normocephalic, normal inspection Eye exam: Present: normal appearance, PERRL, EOMI. Absent: scleral icterus, conjunctival injection, periorbital swelling Respiratory exam: Present: normal lung sounds bilaterally. Absent: respiratory distress, wheezes, rales, rhonchi, stridor Cardiovascular Exam: Present: regular rate, normal rhythm, normal heart sounds. Absent: systolic murmur, diastolic murmur, rubs, gallop, clicks Neurological exam: Present: alert, oriented X3, CN II-XII intact Psychiatric exam: Present: normal affect, normal mood Skin exam: Present: warm, dry, intact, normal color. Absent: rash Course Vital Signs 04/01/23 04/01/23 04/01/23 19:35 19:45 20:00 Temperature 98.3 F Pulse Rate 81 73 71 Respiratory 18 18 18 Rate Blood Pressure 108/64 117/66 114/73 O2 Sat by Pulse 100 96 96 Oximetry 04/01/23 04/01/23 04/01/23 20:30 21:00 22:00 Temperature Pulse Rate 73 74 70 Respiratory 18 18 18 Rate Blood Pressure 109/66 134/80 123/82 O2 Sat by Pulse 96 96 96 Oximetry 04/01/23 04/02/23 23:00 01:05 Temperature Pulse Rate 72 84 Respiratory 18 18 Rate Blood Pressure 136/80 138/71 O2 Sat by Pulse 96 98 Oximetry Medical Decision Making - Medical Decision Making This is a 77-year-old male who presents to the emergency department for possible altered mental status. Was pt. sent in by a medical professional or institution? @ -No Did you speak to anyone other than the patient for history? @ -EMS provided the majority of the information, with the patient saying that he has no history of seizures and currently feels fine. Did you review nursing and triage notes? @ -Yes, and I agree, it is accurate with regards to the patient's symptoms. Were old charts reviewed? @ -I reviewed the information sent with the patient from [facility]. They do not have any history of seizures listed on his medical record. He does take Depakote, however this is said to be for mood instability. Differential Diagnosis? @ -Differential Altered Mental Status: Hypoglycemia, DKA, hypercapnia, ETOH, overdose, CO poisoning, trauma, myxedema coma, HTN encephalopathy, infection, encephalitis, psychosis, intercranial hemorrhage, hepatic encephalopathy, meningitis, CVA, this is not meant to be an all-inclusive list EKG interpreted by me (3pts min.)? @ -EKG interpreted by me demonstrating the following: Sinus rhythm. Ventricular rate 70 beats per minute, HI interval 198 ms, QRS duration 105 ms, QTC 431 ms. X-rays interpreted by me (1pt min.)? @ -Chest x-ray obtained, my interpretation identifies no localized consolidations or infiltrates. CT interpreted by me (1pt min.)? @ -Not obtained U/S interpreted by me (1pt. min.)? @ -Not obtained What testing was considered but not performed? (CT, X-rays, U/S, labs)? Why? @ -None What meds were considered but not given? Why? @ -None Did you discuss the management of the patient with other professionals? @ -No Did you reconcile home meds? @ -No Was smoking cessation discussed for >3mins.? @ -No Was critical care preformed (if so, how long)? @ -No Were there social determinants of health that impacted care today? How? (Homelessness, low income, unemployed, alcoholism, drug addiction, transportation, low edu. Level, literacy, decrease access to med. care, penitentiary, rehab)? @ -No Was there de-escalation of care discussed even if they declined? (Discuss DNR or withdrawal of care, Hospice)? @ -No What co-morbidities impacted this encounter? (DM, HTN, Smoking, COPD, CAD, Cancer, CVA, Hep., AIDS, mental health diagnosis, sleep apnea, morbid obesity)? @ -Parkinson's, dementia, CAD, HTN, DM Was patient admitted / discharged? @ -Discharged. Lab work obtained revealing minor leukocytosis. Renal function is slightly decreased when compared with most recent value in December of this year, however it has been much worse in the past. Urinalysis is suggestive of an infection. Chest x-ray reveals no acute process. He was given a liter bolus of IV fluids due to the mild MOISÉS. The cause of the episode earlier today is not entirely clear, especially given the very limited information provided. Given that the patient continues to remain alert and oriented x4 in the emergency department without any complaints, he can be safely discharged home. He was given a dose of ceftriaxone in the emergency department for the UTI. Prescription for Keflex provided with dosing instructions reviewed as well for further management of the UTI. Patient discharged back to [facility] [place] via EMS. Undiagnosed new problem with uncertain prognosis? @ -None Drug Therapy requiring intensive monitoring for toxicity (Heparin, Nitro, Insulin, Cardizem)? @ -None Were any procedures done? @ -None Diagnosis/symptom? @ -UTI, altered mental status, MOISÉS Acute, or Chronic, or Acute on Chronic? @ -Acute Uncomplicated (without systemic symptoms) or Complicated (systemic symptoms)? @ -Uncomplicated Side effects of treatment? @ -None Exacerbation, Progression, or Severe Exacerbation] @ -Not applicable Poses a threat to life or bodily function? @ -No Return precautions reviewed in depth, the patient is instructed to return to the emergency department with any new, worsening, or concerning symptoms. Patient verbalized understanding. This case was discussed in detail with the attending ED physician, Dr. Lauren. Presentation, findings, and treatment plan discussed in detail as well. - Lab Data Result diagrams: 04/01/23 19:51 04/01/23 19:51 Lab Results 04/01/23 04/01/23 04/01/23 Range/Units 19:48 19:51 19:51 WBC 12.7 H (3.8-10.6) k/uL RBC 3.35 L (4.30-5.90) m/uL Hgb 11.1 L (13.0-17.5) gm/dL Hct 33.8 L (39.0-53.0) % MCV 100.9 H (80.0-100.0) fL MCH 33.1 (25.0-35.0) pg MCHC 32.8 (31.0-37.0) g/dL RDW 14.8 (11.5-15.5) % Plt Count 206 (150-450) k/uL MPV 8.1 Neutrophils % 62 % Lymphocytes % 26 % Monocytes % 6 % Eosinophils % 4 % Basophils % 0 % Neutrophils # 7.9 H (1.3-7.7) k/uL Lymphocytes # 3.3 (1.0-4.8) k/uL Monocytes # 0.8 (0-1.0) k/uL Eosinophils # 0.5 (0-0.7) k/uL Basophils # 0.1 (0-0.2) k/uL Macrocytosis Slight PT 10.9 (9.0-12.0) sec INR 1.0 (<1.2) APTT 24.1 (22.0-30.0) sec Sodium (137-145) mmol/L Potassium (3.5-5.1) mmol/L Chloride (98-107) mmol/L Carbon Dioxide (22-30) mmol/L Anion Gap mmol/L BUN (9-20) mg/dL Creatinine (0.66-1.25) mg/dL Est GFR (CKD-EPI)AfAm (>60 ml/min/1.73 sqM) Est GFR (CKD-EPI)NonAf (>60 ml/min/1.73 sqM) Glucose (74-99) mg/dL POC Glucose (mg/dL) 143 H (70-110) mg/dL POC Glu Chiropractic Practice Manager ID [place] Plasma Lactic Acid [place] (0.7-2.0) mmol/L Calcium (8.4-10.2) mg/dL Magnesium (1.6-2.3) mg/dL Total Bilirubin (0.2-1.3) mg/dL AST (17-59) U/L ALT (4-49) U/L Alkaline Phosphatase (38-126) U/L Creatine Kinase (55-170) U/L Troponin I (0.000-0.034) ng/mL Total Protein (6.3-8.2) g/dL Albumin (3.5-5.0) g/dL Urine Color Urine Appearance (Clear) Urine pH (5.0-8.0) Ur Specific [place] (1.001-1.035) Urine Protein (Negative) Urine Glucose (UA) (Negative) Urine Ketones (Negative) Urine Blood (Negative) Urine Nitrite (Negative) Urine Bilirubin (Negative) Urine Urobilinogen (<2.0) mg/dL Ur Leukocyte Esterase (Negative) Urine RBC (0-5) /hpf Urine WBC (0-5) /hpf Urine Bacteria (None) /hpf Urine Mucus (None) /hpf 04/01/23 04/01/23 04/01/23 Range/Units 19:51 19:51 19:51 WBC (3.8-10.6) k/uL RBC (4.30-5.90) m/uL Hgb (13.0-17.5) gm/dL Hct (39.0-53.0) % MCV (80.0-100.0) fL MCH (25.0-35.0) pg MCHC (31.0-37.0) g/dL RDW (11.5-15.5) % Plt Count (150-450) k/uL MPV Neutrophils % % Lymphocytes % % Monocytes % % Eosinophils % % Basophils % % Neutrophils # (1.3-7.7) k/uL Lymphocytes # (1.0-4.8) k/uL Monocytes # (0-1.0) k/uL Eosinophils # (0-0.7) k/uL Basophils # (0-0.2) k/uL Macrocytosis PT (9.0-12.0) sec INR (<1.2) APTT (22.0-30.0) sec Sodium 141 (137-145) mmol/L Potassium 4.5 (3.5-5.1) mmol/L Chloride 104 (98-107) mmol/L Carbon Dioxide 28 (22-30) mmol/L Anion Gap 9 mmol/L BUN 29 H (9-20) mg/dL Creatinine 1.39 H (0.66-1.25) mg/dL Est GFR (CKD-EPI)AfAm 56 (>60 ml/min/1.73 sqM) Est GFR (CKD-EPI)NonAf 48 (>60 ml/min/1.73 sqM) Glucose 138 H (74-99) mg/dL POC Glucose (mg/dL) (70-110) mg/dL POC Glu Chiropractic Practice Manager ID Plasma Lactic Acid [place]arrison 2.0 (0.7-2.0) mmol/L Calcium 8.7 (8.4-10.2) mg/dL Magnesium 1.9 (1.6-2.3) mg/dL Total Bilirubin 0.4 (0.2-1.3) mg/dL AST 20 (17-59) U/L ALT 10 (4-49) U/L Alkaline Phosphatase 139 H (38-126) U/L Creatine Kinase 60 (55-170) U/L Troponin I <0.012 (0.000-0.034) ng/mL Total Protein 6.4 (6.3-8.2) g/dL Albumin 3.6 (3.5-5.0) g/dL Urine Color Urine Appearance (Clear) Urine pH (5.0-8.0) Ur Specific [place] (1.001-1.035) Urine Protein (Negative) Urine Glucose (UA) (Negative) Urine Ketones (Negative) Urine Blood (Negative) Urine Nitrite (Negative) Urine Bilirubin (Negative) Urine Urobilinogen (<2.0) mg/dL Ur Leukocyte Esterase (Negative) Urine RBC (0-5) /hpf Urine WBC (0-5) /hpf Urine Bacteria (None) /hpf Urine Mucus (None) /hpf 04/01/23 Range/Units 21:24 WBC (3.8-10.6) k/uL RBC (4.30-5.90) m/uL Hgb (13.0-17.5) gm/dL Hct (39.0-53.0) % MCV (80.0-100.0) fL MCH (25.0-35.0) pg MCHC (31.0-37.0) g/dL RDW (11.5-15.5) % Plt Count (150-450) k/uL MPV Neutrophils % % Lymphocytes % % Monocytes % % Eosinophils % % Basophils % % Neutrophils # (1.3-7.7) k/uL Lymphocytes # (1.0-4.8) k/uL Monocytes # (0-1.0) k/uL Eosinophils # (0-0.7) k/uL Basophils # (0-0.2) k/uL Macrocytosis PT (9.0-12.0) sec INR (<1.2) APTT (22.0-30.0) sec Sodium (137-145) mmol/L Potassium (3.5-5.1) mmol/L Chloride (98-107) mmol/L Carbon Dioxide (22-30) mmol/L Anion Gap mmol/L BUN (9-20) mg/dL Creatinine (0.66-1.25) mg/dL Est GFR (CKD-EPI)AfAm (>60 ml/min/1.73 sqM) Est GFR (CKD-EPI)NonAf (>60 ml/min/1.73 sqM) Glucose (74-99) mg/dL POC Glucose (mg/dL) (70-110) mg/dL POC Glu Chiropractic Practice Manager ID Plasma Lactic Acid [place] (0.7-2.0) mmol/L Calcium (8.4-10.2) mg/dL Magnesium (1.6-2.3) mg/dL Total Bilirubin (0.2-1.3) mg/dL AST (17-59) U/L ALT (4-49) U/L Alkaline Phosphatase (38-126) U/L Creatine Kinase (55-170) U/L Troponin I (0.000-0.034) ng/mL Total Protein (6.3-8.2) g/dL Albumin (3.5-5.0) g/dL Urine Color Yellow Urine Appearance Cloudy (Clear) Urine pH 6.5 (5.0-8.0) Ur Specific [place] 1.017 (1.001-1.035) Urine Protein Trace H (Negative) Urine Glucose (UA) Negative (Negative) Urine Ketones Negative (Negative) Urine Blood Negative (Negative) Urine Nitrite Negative (Negative) Urine Bilirubin Negative (Negative) Urine Urobilinogen 3.0 (<2.0) mg/dL Ur Leukocyte Esterase Large H (Negative) Urine RBC 1 (0-5) /hpf Urine WBC 61 H (0-5) /hpf Urine Bacteria Occasional H (None) /hpf Urine Mucus Rare H (None) /hpf - Radiology Data Radiology results: report reviewed, image reviewed Disposition Clinical Impression: UTI (urinary tract infection), Altered mental status, MOISÉS (acute kidney injury) Disposition: HOME SELF-CARE Instructions (If sedation given, give patient instructions): Urinary Tract Infection in Men (ED) Additional Instructions: Return to the emergency department with any new, worsening, or concerning sympt oms. Take the antibiotic as prescribed for 7 days. Follow up with your primary care provider in 1-2 days. Prescriptions: Cephalexin [Keflex] 500 mg PO Q6HR 7 Days #28 cap Is patient prescribed a controlled substance at d/c from ED?: No Referrals: Swetha De La Cruz MD [Primary Care Provider] - 1-2 days
[2023-04-01 19:50] LABS: Glucose,Whole Blood 143 mg/dL (70-110)
[2023-04-01 20:04] LABS: Basophils # (A) 0.1 k/uL (0-0.2); Basophils % (A) 0 %; Eosinophils # (A) 0.5 k/uL (0-0.7); Eosinophils % (A) 4 %; HCT 33.8 % (39.0-53.0); HGB 11.1 gm/dL (13.0-17.5); Lymphocytes # (A) 3.3 k/uL (1.0-4.8); Lymphocytes % (A) 26 %; MCH 33.1 pg (25.0-35.0); MCHC 32.8 g/dL (31.0-37.0); MCV 100.9 fL (80.0-100.0); Macrocytosis Slight; Mean Platelet Volume 8.1; Monocytes # (A) 0.8 k/uL (0-1.0); Monocytes % (A) 6 %; Neutrophils # (A) 7.9 k/uL (1.3-7.7); Neutrophils % (A) 62 %; Platelet Count 206 k/uL (150-450); RBC 3.35 m/uL (4.30-5.90); RDW 14.8 % (11.5-15.5); WBC 12.7 k/uL (3.8-10.6)
[2023-04-01 20:13] LABS: Partial Thromboplastin Time 24.1 sec (22.0-30.0); Prothrombin Time 10.9 sec (9.0-12.0)
[2023-04-01 20:16] LABS: ALT 10 U/L (4-49); AST 20 U/L (17-59); African American GFR (CKD) 56 (>60 ml/min/1.73 sqM); Albumin 3.6 g/dL (3.5-5.0); Alkaline Phosphatase 139 U/L (38-126); Anion Gap 9 mmol/L; Blood Urea Nitrogen 29 mg/dL (9-20); Calcium 8.7 mg/dL (8.4-10.2); Carbon Dioxide 28 mmol/L (22-30); Chloride 104 mmol/L (98-107); Creatine Kinase 60 U/L (55-170); Glucose 138 mg/dL (74-99); Magnesium 1.9 mg/dL (1.6-2.3); Non-African American GFR(CKD) 48 (>60 ml/min/1.73 sqM); Potassium 4.5 mmol/L (3.5-5.1); Sodium 141 mmol/L (137-145); Total Bilirubin 0.4 mg/dL (0.2-1.3); Total Protein 6.4 g/dL (6.3-8.2)
--- NOTE | 2023-04-01 20:29 | XR ---
EXAMINATION TYPE: XR chest 2V DATE OF EXAM: 04/01/2023 8:26 PM COMPARISON: Chest radiographs from 01/11/2023 TECHNIQUE: XR chest 2V Frontal and lateral views of the chest. CLINICAL INDICATION:Male, 77 years old with history of altered mental status; FINDINGS: Lungs/Pleura: There is no evidence of pleural effusion, focal consolidation, or pneumothorax. Pulmonary vascularity: Unremarkable. Heart/mediastinum: Cardiomediastinal silhouette is unremarkable. Musculoskeletal: No acute osseous pathology. Other findings: Nerve conduction device with leads terminating in the superior aspect of the film, si milar prior. IMPRESSION: No acute cardiopulmonary disease/process.
[2023-04-01] MEDS ORDERED: SODIUM CHLORIDE 0.9% 1,000 ML IV STA (20:31)
[2023-04-01 22:46] LABS: Appearance,Urine Cloudy (Clear); Bacteria,Urine Occasional /hpf; Bilirubin,Urine Negative (Negative); Blood,Urine Negative (Negative); Color,Urine Yellow; Glucose,Urine (UA) Negative (Negative); Ketones,Urine Negative (Negative); Leukocyte Esterase,Urine Large (Negative); Mucus,Urine Rare /hpf; Nitrite,Urine Negative (Negative); PH, Urine 6.5 (5.0-8.0); Protein,Urine Trace (Negative); RBC,Urine 1 /hpf (0-5); Specific Gravity,Urine 1.017 (1.001-1.035); WBC,Urine 61 /hpf (0-5)
[2023-04-01] MEDS ORDERED: cefTRIAXone IN SWFI 1,000 MG/10 ML SYRINGE IVP STA (23:19)
[2023-04-02 01:08] VITALS: BP 138/71; PULSE 84
== END 2023-04-02 01:08 | disposition home or self-care (01) ==
LOC: EC 19:33
DX: R41.82 Altered mental status, unspecified (principal); N39.0 Urinary tract infection, site not specified; N17.9 Acute kidney failure, unspecified; E11.9 Type 2 diabetes mellitus without complications; E78.5 Hyperlipidemia, unspecified; I11.0 Hypertensive heart disease with heart failure; I50.9 Heart failure, unspecified; I25.2 Old myocardial infarction; I48.91 Unspecified atrial fibrillation; I25.10 Atherosclerotic heart disease of native coronary artery without angina pectoris; J44.9 Chronic obstructive pulmonary disease, unspecified; Z86.73 Personal history of transient ischemic attack (TIA), and cerebral infarction without residual deficits; Z88.8 Allergy status to other drugs, medicaments and biological substances; Z79.82 Long term (current) use of aspirin; Z79.84 Long term (current) use of oral hypoglycemic drugs; Z79.51 Long term (current) use of inhaled steroids; Z79.01 Long term (current) use of anticoagulants; Z79.899 Other long term (current) drug therapy
CPT/HCPCS: 36415; 93005; 80053; 82550; 83605; 83735; 84484; 85025; 85610; 85730; 81001; 71046; 99285; 96374; 96361; J0696